=== PATIENT | female | born 1975 | race Caucasian/White ===

== ENCOUNTER 2019-06-06 11:28 | Inpatient (IN) | payer SELFPAY ==
[~2019-06-06] VITALS: Ht 165.1 cm; Wt 53.6 kg
[2019-06-06] MEDS ORDERED: SODIUM CHLORIDE 0.9% 1,000 ML IVB ONE (13:31)
[2019-06-06] MEDS ORDERED: HYDROmorphone HCL 2 MG/ML VL IV ONE (13:45)
[2019-06-06] MEDS ORDERED: PROMETHAZINE HCL 25 MG/ML 1ML IV PRN (13:45)
[2019-06-06 13:49] LABS: Hematocrit 46.1 % (36.0-46.0); Mean Corpuscular Hemoglobin 30.8 pg (28.0-32.0); Mean Corpuscular Hgb Conc. 32.6 g/dL (32.0-36.0); Mean Corpuscular Volume 94.7 fL (80.0-100.0); Platelet Count (auto) 444 10^3/uL (140-450); Red Blood Cells 4.86 10^6/uL (4.0-5.20); Red Cell Distribution Width 13.9 % (11.8-14.3); White Blood Cell 25.5 10^3/uL (4.4-10.8)
[2019-06-06 13:54] LABS: Basophils % (manual) 0 (0.0-2.0); Blast Cells 0; Eosinophils % (manual) 0 (0-7); Promyelocytes % 0; Reactive Lymphocytes 0
[2019-06-06 14:01] LABS: Albumin 3.3 g/dL (3.4-5.0); Calcium 8.7 mg/dL (8.5-10.1); Potassium 3.3 mmol/L (3.5-5.1)
[2019-06-06 14:02] LABS: Urine Bacteria NONE SEEN /hpf (None Seen); Urine Blood 1+ /uL (Negative); Urine Mucus FEW (None Seen); Urine Specific Gravity 1.021 (1.001-1.035); Urine WBC 92 /hpf (0 - 5)
[2019-06-06 14:04] LABS: Bilirubin, Total 0.3 mg/dL (0.2-1.0); Total Protein 7.3 g/dL (6.4-8.2)
[2019-06-06 14:19] LABS: Beta HCG, Quantitative < 1 mlU/mL (1-3); Thyroid Stimulating Hormone 2.89 uIU/mL (0.358-3.74)
[2019-06-06 14:34] LABS: Band Neutrophils % (manual) 9; Lymphocytes % (manual) 7 (10.0-50.0); Metamyelocytes % 3; Monocytes % (manual) 10 (0-12); Myelocytes % 1
[2019-06-06] MEDS ORDERED: SODIUM BICARBONATE 8.4 % INJ 50ML VIAL IV ONE (15:00)
[2019-06-06 15:09] LABS: BUN/Creatinine Ratio 16.8
[2019-06-06] MEDS ORDERED: SOD CHL 0.9%/ KCL 40MEQ 1,000 ML IV ONE (15:30)
[2019-06-06] MEDS ORDERED: cefTRIAXone 1GM/50ML D5W 50 ML IV ONE ×2 (15:30→16:00)
[2019-06-06] MEDS ORDERED: POTASSIUM EFFERVESENT TAB 25 MEQ PO ONE (15:30)
[2019-06-06] MEDS ORDERED: InsuLIN R (HUMAN) 100 UNITS in SODIUM CHL 0.9% 99 ML IV SCH (15:59)
[2019-06-06] MEDS ORDERED: POTASSIUM CHLORIDE 60 MEQ, LIDOCAINE 1% (LOCAL ANESTH.) 6 ML in SODIUM CHL 0.9% 500 ML IV ONE (16:00)
[2019-06-06] MEDS ORDERED: SODIUM CHLORIDE 0.9% 1,000 ML IV SCH (16:00)
[2019-06-06] MEDS ORDERED: DEXTROSE (50%) 50ML SYRG IV PRN (16:00)
[2019-06-06] MEDS ORDERED: ONDANSETRON HCL 4 MG/2 ML VIAL IV PRN (16:00)
[2019-06-06] MEDS ORDERED: MORPHINE SULF INJ 2 MG/ML SYRINGE 1ML IV PRN ×2 (16:00→16:15)
[2019-06-06] MEDS ORDERED: InsuLIN REG 1unit/0.01ml Soln (100units/ml) IV ONE (16:00)
[2019-06-06] MEDS ORDERED: NITROGLYCERIN 0.4 MG SL TAB SL PRN (16:15)
[2019-06-06] MEDS: ACCU-CHEK COMFORT CURVE STRIP VI SCH ×5 (16:30→22:32)
[2019-06-06] MEDS ORDERED: SODIUM BICARBONATE 50ML VIAL 50 ML in SOD CHL 0.45% 1,000 ML IV SCH (17:15)
[2019-06-06 18:26] LABS: Urine WBC None Seen /hpf (0 - 5)
[2019-06-06 18:38] LABS: Urine Bacteria FEW /hpf (None Seen); Urine Blood 1+ /uL (Negative); Urine Hyaline Cast FEW /lpf (0 - 2); Urine Mucus FEW (None Seen); Urine Specific Gravity 1.014 (1.001-1.035)
[2019-06-06 18:52] LABS: Alcohol, Urine < 3.0 mg/dL (0-5); Amphetamine Screen, Urine POSITIVE (NEGATIVE); Barbiturate Scree,Urine NEGATIVE (NEGATIVE); Benzodiazephine Screen, Urine NEGATIVE (NEGATIVE); Cannabinoid Screen, Urine NEGATIVE (NEGATIVE); Cocaine Screen, Urine NEGATIVE (NEGATIVE); Opiate Scree,Urine NEGATIVE (NEGATIVE); Phencyclidine Screen, Urine NEGATIVE (NEGATIVE)
[2019-06-06 20:54] VITALS: BP 114/73
[2019-06-06] MEDS ORDERED: LABETALOL HCL 5 MG/ML 4ML SYRINGE IV PRN (21:00)
[2019-06-06 21:17] LABS: BUN/Creatinine Ratio 17.4; Potassium 3.3 mmol/L (3.5-5.1)
[2019-06-07] MEDS: ACCU-CHEK COMFORT CURVE STRIP VI SCH ×9 (00:03→18:00)
[2019-06-07] MEDS ORDERED: ALBUMIN 25% 100 ML IV ONE (01:00)
[2019-06-07] MEDS ORDERED: SODIUM BICARBONATE 8.4 % INJ 50ML VIAL IV ONE (01:00)
[2019-06-07] MEDS ORDERED: SODIUM BICARBONATE 50ML VIAL 100 ML in SOD CHL 0.45% 1,000 ML IV SCH (01:15)
[2019-06-07 06:24] LABS: Basophils # (auto) 0.1 uL; Basophils % (auto) 0.6 % (0.0-2.0); Eosinophils # (auto) 0 uL; Eosinophils % (auto) 0.1 % (0.0-7.0); Hematocrit 39.2 % (36.0-46.0); Hemoglobin 13.4 g/dL (12.2-16.2); Lymphocytes # (auto) 1.6 uL; Lymphocytes % (auto) 11.1 % (10.0-50.0); Mean Corpuscular Hemoglobin 30.7 pg (28.0-32.0); Mean Corpuscular Hgb Conc. 34.1 g/dL (32.0-36.0); Mean Corpuscular Volume 89.8 fL (80.0-100.0); Monocytes # (auto) 1.4 uL; Monocytes % (auto) 9.8 % (0.0-12.0); Neutrophils # (auto) 11.1 uL; Neutrophils % (auto) 78.4 % (37.0-80.0); Platelet Count (auto) 285 10^3/uL (140-450); Red Blood Cells 4.37 10^6/uL (4.0-5.20); White Blood Cell 14.2 10^3/uL (4.4-10.8)
[2019-06-07 06:50] LABS: Magnesium 1.9 mg/dL (1.6-2.6)
[2019-06-07 06:53] LABS: BUN/Creatinine Ratio 16.4
[2019-06-07 07:28] LABS: Phosphorus 0.8 mg/dL (2.5-4.90); Potassium 2.4 mmol/L (3.5-5.1)
[2019-06-07] MEDS ORDERED: POTASSIUM CHL 20MEQ/100ML 100 ML IV SCH (08:00)
[2019-06-07] MEDS ORDERED: D5W/SOD CHLO 0.9% 1,000 ML IV SCH (08:00)
[2019-06-07] MEDS: cefTRIAXone 1GM/50ML D5W 50 ML IV SCH (08:33)
[2019-06-07] MEDS: PANTOPRAZOLE 40 MG/10 ML VIAL INJ IV SCH (10:18)
[2019-06-07] MEDS ORDERED: POTASSIUM PHOSPHATE 44 MEQ in D5W 5% 250 ML IV ONE ×2 (11:00→11:15)
[2019-06-07] MEDS ORDERED: MAGNESIUM SULFATE 1GM/100ML 100 ML IV ONE (11:15)
[2019-06-07] MEDS ORDERED: SODIUM CHLORIDE 0.9% 1,750 ML IV ONE (11:15)
[2019-06-07] MEDS ORDERED: ENOXAPARIN SOD 40 MG/0.4 ML SYRINGE SC ONE (11:30)
[2019-06-07 12:23] LABS: Albumin 2.6 g/dL (3.4-5.0); BUN/Creatinine Ratio 14.3; Calcium 7.7 mg/dL (8.5-10.1)
[2019-06-07 12:26] LABS: Bilirubin, Total 0.2 mg/dL (0.2-1.0); Total Protein 5.7 g/dL (6.4-8.2)
[2019-06-07 12:29] LABS: Potassium 2.4 mmol/L (3.5-5.1)
[2019-06-07] MEDS: D5W/SOD CHL 0.9%/KCL 40MEQ 1,000 ML IV SCH ×2 (12:45→19:35)
[2019-06-07] MEDS: NEUTRA-PHOS TABLET PO SCH ×2 (13:26→18:12)
[2019-06-07] MEDS: INSULIN LISPRO (HUMAN) 100 UNITS/ML ML SC SCH ×2 (14:04→18:12)
[2019-06-07 20:54] VITALS: BP 114/73
--- NOTE | 2019-06-07 20:55 | NUR ---
Telemetry admit from ER BERNARDO MAHONEY admitted to Telemetry unit after SBAR received. Patient oriented to Chris lopez RN, unit, room, bed, and unit policies regarding patient care and visiting hours. Patient now on continuous telemetry monitoring, tele box # [id number] and telemetry reading on arrival to unit is nsr. Patient placed on bedside oxygen, weighed by bed scale and encouraged to call if they need something. All questions and concerns addressed, patient verbalized understanding.
[2019-06-07] MEDS ORDERED: ACCU-CHEK COMFORT CURVE STRIP VI SCH (22:00)
[2019-06-07] MEDS ORDERED: INSULIN LANTUS (GLARGINE) 1 /0.01ml (100units/ml) SC SCH (22:00)
--- NOTE | 2019-06-07 22:10 | NUR ---
PAGED HOSPITALIST WITH THE BLOOD SUGAR OF [phone]
--- NOTE | 2019-06-07 22:20 | NUR ---
RECEIVED AND IMPLEMENTED HOSPITALIST ORDERS.
[2019-06-07] MEDS ORDERED: DEXTROSE (50%) 50ML SYRG IV PRN (22:30)
[2019-06-07] MEDS ORDERED: InsuLIN REG 1unit/0.01ml Soln (100units/ml) SC ONE (22:30)
[2019-06-08] MEDS: D5W/SOD CHL 0.9%/KCL 40MEQ 1,000 ML IV SCH ×2 (04:17→14:09)
[2019-06-08 05:00] VITALS: BP 105/63
[2019-06-08 06:32] LABS: Basophils # (auto) 0 uL; Basophils % (auto) 0.4 % (0.0-2.0); Eosinophils # (auto) 0.1 uL; Eosinophils % (auto) 1.1 % (0.0-7.0); Hematocrit 36.6 % (36.0-46.0); Hemoglobin 12.9 g/dL (12.2-16.2); Lymphocytes # (auto) 2.8 uL; Mean Corpuscular Hemoglobin 30.9 pg (28.0-32.0); Mean Corpuscular Hgb Conc. 35.1 g/dL (32.0-36.0); Monocytes % (auto) 9.2 % (0.0-12.0); Neutrophils # (auto) 6.8 uL; Neutrophils % (auto) 63.3 % (37.0-80.0); Platelet Count (auto) 256 10^3/uL (140-450); Red Blood Cells 4.16 10^6/uL (4.0-5.20); White Blood Cell 10.7 10^3/uL (4.4-10.8)
[2019-06-08] MEDS: ACCU-CHEK COMFORT CURVE STRIP VI SCH ×4 (06:37→21:55)
[2019-06-08] MEDS: InsuLIN REG 1unit/0.01ml Soln (100units/ml) SC SCH ×4 (06:37→21:56)
[2019-06-08 06:46] LABS: INR 1.03 (0.9-1.15); Partial Thromboplastin Time 26.8 sec (23.64-32.05)
[2019-06-08 06:56] LABS: Albumin 2.2 g/dL (3.4-5.0); Calcium 7.9 mg/dL (8.5-10.1); Magnesium 1.8 mg/dL (1.6-2.6)
[2019-06-08] MEDS ORDERED: InsuLIN REG 1unit/0.01ml Soln (100units/ml) SC SCH ×2 (07:00→22:00)
[2019-06-08 07:01] LABS: BUN/Creatinine Ratio 15.2; Bilirubin, Total 0.2 mg/dL (0.2-1.0); Phosphorus 1.5 mg/dL (2.5-4.90); Total Protein 5.1 g/dL (6.4-8.2)
[2019-06-08 07:07] LABS: Potassium 2.3 mmol/L (3.5-5.1)
--- NOTE | 2019-06-08 07:11 | NUR ---
Critical Potassium Received a critical potassium of 2.3 from RYAN Terry, at the station. Paged hospitalist at this time to notify of critical value.
--- NOTE | 2019-06-08 07:26 | NUR ---
Call back from . Call back from Dr. Reid at this time. New orders received regarding patient's critical potassium.
[2019-06-08] MEDS: NEUTRA-PHOS TABLET PO SCH ×2 (08:24→12:16)
[2019-06-08] MEDS: INSULIN LISPRO (HUMAN) 100 UNITS/ML ML SC SCH ×2 (08:25→12:18)
[2019-06-08] MEDS: POTASSIUM CHL 20MEQ/100ML 100 ML IV SCH ×2 (08:30→10:45)
[2019-06-08 09:00] VITALS: BP 119/68
[2019-06-08] MEDS: PANTOPRAZOLE 40 MG/10 ML VIAL INJ IV SCH (10:46)
[2019-06-08] MEDS: ENOXAPARIN SOD 40 MG/0.4 ML SYRINGE SC SCH (10:46)
[2019-06-08 13:00] VITALS: BP 102/73
[2019-06-08] MEDS: cefTRIAXone 1GM/50ML D5W 50 ML IV SCH (14:08)
[2019-06-08] MEDS ORDERED: MAGNESIUM SULFATE 1GM/100ML 100 ML IV ONE (15:30)
[2019-06-08] MEDS ORDERED: DEXTROSE (50%) 50ML SYRG IV PRN (15:30)
[2019-06-08] MEDS ORDERED: POTASSIUM PHOSPHATE 44 MEQ in D5W 5% 250 ML IV ONE (15:30)
--- NOTE | 2019-06-08 15:58 | NUR ---
Social Service consult regarding Substance Abuse Rehabilitation. Provided pt with information on Resources. Explained the various organizations and facilities that are available for treatment. Explained that most of them are free. They are located all over the [facility]. Pt verbalized understanding regarding the information. Left packet with pt.
[2019-06-08 17:00] VITALS: BP 106/65
[2019-06-08] MEDS: metFORMIN HYDROCHLORIDE 500 MG TAB PO SCH (17:43)
--- NOTE | 2019-06-08 19:15 | NUR ---
Closing Shift Note Patient resting in bed. No distress noted. Will endorse care to the third shift lieutenant RN. Report given.
--- NOTE | 2019-06-08 19:25 | NUR ---
Opening Shift Note Received report from Tiff DAVIS. Assumed care of patient, awake and alert. No S/S of distress/SOB or pain. Instructed on POC and to call for assist PRN, will continue to monitor for changes Q1hr and PRN.
[2019-06-08] MEDS: INSULIN LANTUS (GLARGINE) 1 /0.01ml (100units/ml) SC SCH (21:56)
[2019-06-08 22:00] VITALS: BP 119/64
[2019-06-09 05:54] VITALS: BP 107/68
[2019-06-09] MEDS: ACCU-CHEK COMFORT CURVE STRIP VI SCH ×4 (06:47→21:36)
[2019-06-09] MEDS: InsuLIN REG 1unit/0.01ml Soln (100units/ml) SC SCH ×4 (06:47→21:37)
--- NOTE | 2019-06-09 07:30 | NUR ---
Opening Shift Note Assuming care of patient at this time. Patient is awake and alert. Patient states, "I feel better." Patient shows no signs or symptoms of distress or shortness of breath. Patient denies pain. Bed is locked and lowered with side rails up x2. Instructed patient on the plan of care for today and to call for assistance as needed. Call light within reach. Will continue to round hourly and as needed.
[2019-06-09 07:47] LABS: Basophils # (auto) 0 uL; Basophils % (auto) 0.4 % (0.0-2.0); Eosinophils # (auto) 0.1 uL; Eosinophils % (auto) 1.1 % (0.0-7.0); Hematocrit 37.8 % (36.0-46.0); Lymphocytes # (auto) 2.2 uL; Lymphocytes % (auto) 29.3 % (10.0-50.0); Mean Corpuscular Hgb Conc. 34.4 g/dL (32.0-36.0); Mean Corpuscular Volume 90.1 fL (80.0-100.0); Monocytes # (auto) 0.6 uL; Neutrophils # (auto) 4.6 uL; Neutrophils % (auto) 61.2 % (37.0-80.0); Platelet Count (auto) 246 10^3/uL (140-450); Red Cell Distribution Width 13.2 % (11.8-14.3); White Blood Cell 7.6 10^3/uL (4.4-10.8)
[2019-06-09 08:05] LABS: BUN/Creatinine Ratio 22.4; Calcium 8.5 mg/dL (8.5-10.1); Magnesium 2.2 mg/dL (1.6-2.6); Phosphorus 2.9 mg/dL (2.5-4.90); Potassium 3.2 mmol/L (3.5-5.1)
[2019-06-09] MEDS: metFORMIN HYDROCHLORIDE 500 MG TAB PO SCH ×2 (08:46→17:25)
[2019-06-09 09:11] VITALS: BP 98/64
[2019-06-09] MEDS: PANTOPRAZOLE 40 MG TAB PO SCH (09:57)
[2019-06-09] MEDS: ENOXAPARIN SOD 40 MG/0.4 ML SYRINGE SC SCH (09:57)
[2019-06-09] MEDS ORDERED: POTASSIUM CHL 20 Meq TABLET PO ONE (10:00)
--- NOTE | 2019-06-09 13:00 | NUR ---
TUBE WRAPPER consult Dr. Brooks at bedside discussing plan of care with patient and this RN. All questions and concerned addressed. Patient verbalized understanding of the plan of care.
--- NOTE | 2019-06-09 13:01 | NUR ---
OB consult Jo Ann, community health counselor, called in OB consult to Dr. Brooks.
[2019-06-09] MEDS: metroNIDAZOLE 500 MG TAB PO SCH ×2 (13:44→21:36)
--- NOTE | 2019-06-09 13:48 | NUR ---
Vaginal Culture Vaginal culture sent to lab at this time.
[2019-06-09] MEDS ORDERED: METF-370 PO (13:53)
[2019-06-09 16:59] VITALS: BP 82/56
[2019-06-09] MEDS: SODIUM CHLORIDE 0.9% 1,000 ML IV SCH (17:16)
--- NOTE | 2019-06-09 19:13 | NUR ---
Closing Shift Note Patient resting in bed. No distress noted. Report given. Will endorse care to the marine fire fighter RN.
[2019-06-09] MEDS: INSULIN LANTUS (GLARGINE) 1 /0.01ml (100units/ml) SC SCH (21:36)
[2019-06-09 21:56] VITALS: BP 99/62
[2019-06-10 05:57] VITALS: BP 100/62
[2019-06-10] MEDS: metroNIDAZOLE 500 MG TAB PO SCH ×2 (06:35→14:00)
[2019-06-10] MEDS: InsuLIN REG 1unit/0.01ml Soln (100units/ml) SC SCH ×3 (06:36→17:00)
[2019-06-10] MEDS: ACCU-CHEK COMFORT CURVE STRIP VI SCH ×3 (06:36→17:00)
--- NOTE | 2019-06-10 08:00 | NUR ---
Received pt resting in bed, call light within reach, commode at bed side, pt denies any pain or discomfort, will continue to monitor pt.
[2019-06-10] MEDS: SODIUM CHLORIDE 0.9% 1,000 ML IV SCH (08:19)
[2019-06-10] MEDS: metFORMIN HYDROCHLORIDE 500 MG TAB PO SCH (08:20)
[2019-06-10 08:45] VITALS: BP 103/70
[2019-06-10] MEDS: PANTOPRAZOLE 40 MG TAB PO SCH (09:26)
[2019-06-10] MEDS: ENOXAPARIN SOD 40 MG/0.4 ML SYRINGE SC SCH (09:26)
[2019-06-10 13:00] VITALS: BP 87/50
--- NOTE | 2019-06-10 13:35 | NUR ---
Dr. Proctor at bed side to see pt, doctor discussed the plan of care and the discharge for today, pt informed doctor that Elin Hoyos/ continuum pet care technician had already seen her and giving her information to find a pcp, [facility] / medical department had already seen her and helped her to apply for medical, and that bilingual social worker had seen her already and giving her information regarding rehab centers.
[2019-06-10 14:00] VITALS: BP 102/66
[2019-06-10] MEDS ORDERED: METF-372 PO (14:09)
[2019-06-10] MEDS ORDERED: METR500T PO (14:09)
[2019-06-10] MEDS ORDERED: GLIP5TAB12 PO (14:09)
[2019-06-10 15:09] VITALS: BP 87/50
--- NOTE | 2019-06-10 16:18 | NUR ---
Discharge instructions given as ordered. Encourage to follow up with PMD as instructed. Patient given [facility] urgent care information, [facility] information, and [facility] information. All questions and concerns addressed. Patient verbalized understanding. Medication reconciliation form completed and copy given to patient. No home medications held in Pharmacy, and no needed vaccines given. IV removed with catheter intact, pressure dressing applied. Telemetry unit returned to ICU. Patient awaiting for her family to pick her up.
--- NOTE | 2019-06-10 16:21 | NUR ---
assessment Patient is a 43 year old female who is alert and oriented. Patients cognitive abilities are intact. Prior to admission patient lived home with family and functioned independently. Patient informed me she is able to care for her own ADLs. Per patient she will return home to her prior living arrangements post discharge and family will transport her home. Patient has been admitted for DKA. Patient informed me she has been diabetic for about a year or so. Patient informed me she ran out of medication and never went to a doctor for a refill. I informed patient of the importance of taking her medications. Patient is also positive for amphetamines. Patient did not want to discuss her drug use. Blanca ADAMS will try to offer resources. I informed patient she has a right to speak to a social worker aide regarding all care. I informed patient she has a right to participate in any and all discharge planning. Patient does not have a POA and advanced directive. I have offered patient information on POA and advanced directives. I informed the patient the advantages and benefits of having an Advanced Directive. Patient verbalized understanding and agreed to discharge plan. Addendum: 06/10/19 at 1625 by Elin NIETO Amended: Links added.
--- NOTE | 2019-06-10 17:00 | NUR ---
Patient taken to vehicle via wheelchair with all personal belongings, accompanied by staff and family member. No distress noted at time of departure.
== END 2019-06-10 17:00 | disposition home or self-care (01) | DRG 637 ==
LOC: EDBD 11:28 → EDUNIT# 11:28 → ER 11:35 → OVERFLOW 11:36 → TELE-WESTW 06-07 21:08
PROVIDERS: ADMIT Nurse Practitioner Acute Care; ATTEND Internal Medicine
DX: E11.10 Type 2 diabetes mellitus with ketoacidosis without coma (principal); G93.41 Metabolic encephalopathy; E83.42 Hypomagnesemia; E87.6 Hypokalemia; E86.0 Dehydration; E87.5 Hyperkalemia; F15.90 Other stimulant use, unspecified, uncomplicated; E83.39 Other disorders of phosphorus metabolism; N76.0 Acute vaginitis; I10 Essential (primary) hypertension; Z71.6 Tobacco abuse counseling; Z71.51 Drug abuse counseling and surveillance of drug abuser; Z91.19 Patient's noncompliance with other medical treatment and regimen; Z72.0 Tobacco use
CPT/HCPCS: 36415; 36600; 71045; 76856; 80048; 80053; 80061; 80307; 81001; 81025; 82010; 82550; 82805; 82962; 83036; 83605; 83690; 83735; 83930; 84100; 84132; 84443; 84702; 85007; 85025; 85027; 85610; 85730; 87040; 87070; 87086; 93005; 99291; C9113; G0378; J0696; J1815; J2001; J3480; J7060; P9047

== ENCOUNTER 2023-04-27 15:36 | Inpatient (IN) | payer MEDICAID ==
[~2023-04-27] VITALS: Ht 165.1 cm; Wt 50.0 kg
[2023-04-27 08:40] VITALS: PULSE 99; RESP 18; O2SAT 99
[~2023-04-27 15:36] MED LIST: GLIP5TAB12 PO; METF-370 PO; METF-372 PO; METR500T PO
[2023-04-27] MEDS ORDERED: SODIUM CHLORIDE 0.9% 2,000 ML IVB ONE (16:15)
[2023-04-27] MEDS ORDERED: PROCHLORPERAZINE EDISYLATE 5 MG/ML 2ML VIAL IV ONE (16:15)
[2023-04-27 17:14] LABS: Basophils # (auto) 0.1 10 ^3/uL (0-0.2); Basophils % (auto) 0.6 % (0.0-2.0); Eosinophils # (auto) 0 10 ^3/uL (0-0.8); Eosinophils % (auto) 0.1 % (0.0-7.0); Hematocrit 45.7 % (36.0-46.0); Lymphocytes # (auto) 1.6 10 ^3/uL (0.4-5.4); Lymphocytes % (auto) 12.5 % (10.0-50.0); Mean Corpuscular Hemoglobin 29.7 pg (28.0-32.0); Mean Corpuscular Hgb Conc. 32.8 g/dL (32.0-36.0); Mean Corpuscular Volume 90.4 fL (80.0-100.0); Monocytes # (auto) 0.4 10 ^3/uL (0-1.3); Monocytes % (auto) 3.2 % (0.0-12.0); Neutrophils # (auto) 10.9 10 ^3/uL (1.6-8.6); Neutrophils % (auto) 83.6 % (37.0-80.0); Red Blood Cells 5.06 10^6/uL (4.0-5.20); Red Cell Distribution Width 13.5 % (11.8-14.3)
[2023-04-27 17:30] LABS: Alanine Aminotransferase 25 U/L (7-40); Albumin 4.7 g/dL (3.2-4.8); Alkaline Phosphatase 148 U/L (46-116); Anion Gap 23 (5-15); Aspartate Aminotransferase 26 U/L (13-40); BUN/Creatinine Ratio 11.6 (10.0-20.0); Blood Urea Nitrogen 13 mg/dL (9-23); Calcium 9.5 mg/dL (8.7-10.4); Carbon Dioxide 14 mmol/L (20-30); Chloride 102 mmol/L (98-107); Glucose 207 mg/dL (74-106); Magnesium 2.3 mg/dL (1.6-2.6); Potassium 4.1 mmol/L (3.5-5.1); Sodium 139 mmol/L (136-145)
[2023-04-27 17:31] LABS: Bilirubin, Total 0.3 mg/dL (0.2-1.0); Total Protein 7.2 g/dL (5.7-8.2)
[2023-04-27] MEDS ORDERED: DEXTROSE (50%) 50ML SYRG IV PRN (18:00)
[2023-04-27] MEDS ORDERED: INSULIN DRIP 100 UNIT/100ML 100 ML IV SCH (18:00)
[2023-04-27 20:40] VITALS: PULSE 133; RESP 30; O2SAT 97
[2023-04-27] MEDS: ACCU-CHEK COMFORT CURVE STRIP VI SCH ×3 (20:46→22:38)
[2023-04-27] MEDS ORDERED: LACTATED RINGER'S 2,000 ML IV ONE (21:30)
[2023-04-27] MEDS ORDERED: SODIUM CHLORIDE 0.9% 250 ML IV ONE (22:00)
[2023-04-27] MEDS ORDERED: SODIUM CHLORIDE 0.9% 2,000 ML IV ONE (22:15)
[2023-04-27] MEDS ORDERED: MORPHINE SULFATE INJ 2 MG/ml SYRG IV PRN (22:30)
[2023-04-27] MEDS ORDERED: HYDROcodone-ACET 5/325MG TAB PO PRN (22:30)
[2023-04-27] MEDS ORDERED: ONDANSETRON HCL 4 MG/2 ML VIAL IV PRN (22:30)
[2023-04-27] MEDS ORDERED: ACETAMINOPHEN 325 MG TAB PO PRN (22:30)
[2023-04-27] MEDS ORDERED: DOCUSATE SOD 100 MG CAP PO PRN (22:30)
[2023-04-27 22:50] LABS: Chloride 103 mmol/L (98-107); Potassium 4.2 mmol/L (3.5-5.1)
[2023-04-27 22:51] LABS: Anion Gap 21.00001 (5-15)
[2023-04-27 22:52] LABS: Calcium 8.8 mg/dL (8.7-10.4)
[2023-04-27 22:57] LABS: BUN/Creatinine Ratio 7.3 (10.0-20.0); Blood Urea Nitrogen 9 mg/dL (9-23)
[2023-04-27 23:08] LABS: Sodium 134 mmol/L (136-145)
[2023-04-27 23:10] LABS: Carbon Dioxide < 10 mmol/L (20-30); Glucose 511 mg/dL (74-106)
[2023-04-27] MEDS: SODIUM CHLORIDE 0.9% 1,000 ML IV SCH (23:31)
[2023-04-27] MEDS: D5W/SOD CHL 0.45%/KCL 20MEQ 1,000 ML IV SCH ×2 (23:31→23:43)
[2023-04-28] MEDS: ACCU-CHEK COMFORT CURVE STRIP VI SCH ×8 (00:08→22:59)
[2023-04-28] MEDS: D5W/SOD CHL 0.45%/KCL 20MEQ 1,000 ML IV SCH (00:14)
[2023-04-28 04:20] LABS: Basophils # (auto) 0 10 ^3/uL (0-0.2); Basophils % (auto) 0.3 % (0.0-2.0); Eosinophils # (auto) 0 10 ^3/uL (0-0.8); Eosinophils % (auto) 0.2 % (0.0-7.0); Hemoglobin 12.6 g/dL (12.2-16.2); Lymphocytes # (auto) 2.6 10 ^3/uL (0.4-5.4); Lymphocytes % (auto) 24.4 % (10.0-50.0); Mean Corpuscular Hemoglobin 30.2 pg (28.0-32.0); Mean Corpuscular Hgb Conc. 34.1 g/dL (32.0-36.0); Mean Corpuscular Volume 88.5 fL (80.0-100.0); Monocytes # (auto) 0.8 10 ^3/uL (0-1.3); Neutrophils # (auto) 7.4 10 ^3/uL (1.6-8.6); Neutrophils % (auto) 68.1 % (37.0-80.0); Red Blood Cells 4.19 10^6/uL (4.0-5.20); Red Cell Distribution Width 13.6 % (11.8-14.3); White Blood Cell 10.8 10^3/uL (4.4-10.8)
[2023-04-28 04:41] LABS: Alanine Aminotransferase 16 U/L (7-40); Albumin 3.5 g/dL (3.2-4.8); Alkaline Phosphatase 108 U/L (46-116); Anion Gap 13 (5-15); Aspartate Aminotransferase 13 U/L (13-40); BUN/Creatinine Ratio 8.8 (10.0-20.0); Bilirubin, Total 0.2 mg/dL (0.2-1.0); Blood Urea Nitrogen 8 mg/dL (9-23); Calcium 7.9 mg/dL (8.7-10.4); Carbon Dioxide 15 mmol/L (20-30); Glucose 155 mg/dL (74-106); Potassium 3.4 mmol/L (3.5-5.1); Sodium 141 mmol/L (136-145); Total Protein 5.6 g/dL (5.7-8.2)
[2023-04-28 04:43] LABS: Chloride 113 mmol/L (98-107)
[2023-04-28] MEDS ORDERED: DEXTROSE (50%) 50ML SYRG IV PRN (05:15)
[2023-04-28] MEDS: InsuLIN REG 1unit/0.01ml Soln (100units/ml) SC SCH ×4 (06:24→22:57)
[2023-04-28] MEDS: SODIUM CHLORIDE 0.9% 1,000 ML IV SCH ×3 (07:04→22:59)
[2023-04-28] MEDS: INSULIN LANTUS (GLARGINE) 1 /0.01ml (100units/ml) SC SCH ×2 (07:04→22:55)
[2023-04-28 08:40] VITALS: PULSE 99; RESP 18; O2SAT 99
[2023-04-28] MEDS ORDERED: POTASSIUM CHL 20 Meq TABLET PO ONE (08:45)
[2023-04-28 09:00] VITALS: BP 153/84; PULSE 99; RESP 18; TEMP 98.6; O2SAT 99
[2023-04-28] MEDS: ENOXAPARIN SOD 40 MG/0.4 ML SYRINGE SC SCH (09:19)
[2023-04-28 13:00] VITALS: BP 147/78; PULSE 125; RESP 19; TEMP 99; O2SAT 92
[2023-04-28 17:00] VITALS: BP 107/55; PULSE 64; RESP 18; TEMP 98; O2SAT 100
[2023-04-28 20:00] VITALS: RESP 18
[2023-04-28 23:00] VITALS: BP 134/84; PULSE 105; RESP 19; TEMP 97.9; O2SAT 96
[2023-04-29 05:10] VITALS: BP 115/76; PULSE 99; RESP 18; TEMP 98.5; O2SAT 98
[2023-04-29] MEDS: ACCU-CHEK COMFORT CURVE STRIP VI SCH ×3 (05:46→18:22)
[2023-04-29] MEDS: InsuLIN REG 1unit/0.01ml Soln (100units/ml) SC SCH ×3 (05:46→18:23)
[2023-04-29] MEDS: INSULIN LANTUS (GLARGINE) 1 /0.01ml (100units/ml) SC SCH ×2 (06:01→14:04)
[2023-04-29 08:00] VITALS: BP 105/71; PULSE 101; RESP 16; TEMP 98.4; O2SAT 99
[2023-04-29 09:00] VITALS: BP 105/71; PULSE 101; RESP 18; TEMP 98.4; O2SAT 99
[2023-04-29] MEDS: SODIUM CHLORIDE 0.9% 1,000 ML IV SCH ×2 (09:17→16:10)
[2023-04-29] MEDS: ENOXAPARIN SOD 40 MG/0.4 ML SYRINGE SC SCH (09:22)
[2023-04-29 13:00] VITALS: BP 89/55; PULSE 56; RESP 16; TEMP 97.3; O2SAT 99
[2023-04-29] MEDS ORDERED: INSULIN LANTUS (GLARGINE) 1 /0.01ml (100units/ml) SC SCH (13:30)
[2023-04-29 16:55] VITALS: BP 110/72; PULSE 102; RESP 16; TEMP 97.6; O2SAT 100
[2023-04-29 22:40] VITALS: BP 100/61; PULSE 101; RESP 18; TEMP 99.3; O2SAT 97
[2023-04-30] MEDS: ACCU-CHEK COMFORT CURVE STRIP VI SCH ×3 (00:17→12:00)
[2023-04-30] MEDS: InsuLIN REG 1unit/0.01ml Soln (100units/ml) SC SCH ×3 (00:20→12:00)
[2023-04-30] MEDS: INSULIN LANTUS (GLARGINE) 1 /0.01ml (100units/ml) SC SCH ×2 (00:22→06:31)
[2023-04-30] MEDS: SODIUM CHLORIDE 0.9% 1,000 ML IV SCH ×2 (00:30→08:50)
[2023-04-30 05:22] VITALS: BP 104/66; PULSE 97; RESP 18; TEMP 99; O2SAT 98
[2023-04-30 06:51] LABS: Basophils # (auto) 0 10 ^3/uL (0-0.2); Basophils % (auto) 0.7 % (0.0-2.0); Eosinophils # (auto) 0.1 10 ^3/uL (0-0.8); Eosinophils % (auto) 1.6 % (0.0-7.0); Hematocrit 36.7 % (36.0-46.0); Hemoglobin 12.2 g/dL (12.2-16.2); Lymphocytes # (auto) 0.7 10 ^3/uL (0.4-5.4); Mean Corpuscular Hemoglobin 29.8 pg (28.0-32.0); Mean Corpuscular Hgb Conc. 33.2 g/dL (32.0-36.0); Mean Corpuscular Volume 89.8 fL (80.0-100.0); Monocytes # (auto) 0.3 10 ^3/uL (0-1.3); Monocytes % (auto) 9.1 % (0.0-12.0); Neutrophils # (auto) 2.3 10 ^3/uL (1.6-8.6); Neutrophils % (auto) 68.6 % (37.0-80.0); Red Blood Cells 4.09 10^6/uL (4.0-5.20); Red Cell Distribution Width 13.3 % (11.8-14.3); White Blood Cell 3.4 10^3/uL (4.4-10.8)
[2023-04-30 06:54] LABS: Chloride 99 mmol/L (98-107); Potassium 3.4 mmol/L (3.5-5.1)
[2023-04-30 06:55] LABS: Anion Gap 5 (5-15); Carbon Dioxide 29 mmol/L (20-30)
[2023-04-30 06:56] LABS: Calcium 8.5 mg/dL (8.5-10.1)
[2023-04-30 07:01] LABS: BUN/Creatinine Ratio 10.9 (10.0-20.0); Blood Urea Nitrogen 6 mg/dL (9-23); Glucose 178 mg/dL (74-106)
[2023-04-30 07:02] LABS: Sodium 133 mmol/L (136-145)
[2023-04-30 08:40] VITALS: BP 117/76; PULSE 103; RESP 20; TEMP 98; O2SAT 99
[2023-04-30] MEDS: ENOXAPARIN SOD 40 MG/0.4 ML SYRINGE SC SCH (09:18)
[2023-04-30 12:54] VITALS: BP 113/85; PULSE 103; RESP 21; TEMP 99.1; O2SAT 99
[2023-04-30] MEDS ORDERED: INSLANTI SC (14:08)
[2023-04-30 14:58] VITALS: BP 113/85; PULSE 103; RESP 21; TEMP 37.3; O2SAT 99
[2023-04-30 16:24] LABS: Magnesium 1.9 mg/dL (1.6-2.6)
[2023-04-30 16:26] LABS: Phosphorus 2.5 mg/dL (2.4-5.1)
== END 2023-04-30 15:40 | disposition home or self-care (01) | DRG 420 ==
LOC: EDBD 15:36 → ER 15:36 → TELE 22:36 → TELE-WESTW 04-28 08:34 → WEST WING 04-28 08:43
PROVIDERS: ADMIT Internal Medicine; ATTEND Internal Medicine
DX: E11.10 Type 2 diabetes mellitus with ketoacidosis without coma (principal); N17.0 Acute kidney failure with tubular necrosis; E87.6 Hypokalemia; D72.829 Elevated white blood cell count, unspecified; E11.65 Type 2 diabetes mellitus with hyperglycemia; Z80.1 Family history of malignant neoplasm of trachea, bronchus and lung
CPT/HCPCS: 36415; 80048; 80053; 82010; 82962; 83690; 83735; 83930; 84100; 84702; 85025; G0378; J1815; J2405

== ENCOUNTER 2024-01-23 13:54 | Inpatient (IN) | payer MEDICAID ==
[2024-01-23] VITALS (7 sets, daily range): BP systolic 97–106; BP diastolic 51–69; PULSE 96–109; RESP 18–34; O2SAT 99–100
[~2024-01-23] VITALS: Ht 165.1 cm; Wt 52.0 kg
[~2024-01-23 13:54] MED LIST changes: -GLIP5TAB12 PO; +GLIP5TAB21 PO; +INSLANTI SC
[2024-01-23] MEDS ORDERED: SODIUM CHLORIDE 0.9% 1,000 ML IV SCH ×3 (14:15→20:15)
[2024-01-23] MEDS ORDERED: SODIUM CHLORIDE 0.9% 1,000 ML IV ONE (14:15)
[2024-01-23] MEDS: SODIUM CHLORIDE 0.9% 1,000 ML IV ONE ×4 (14:21→22:15)
[2024-01-23 15:00] LABS: Hematocrit 50.7 % (36.0-46.0); Hemoglobin 14.8 g/dL (12.2-16.2); Mean Corpuscular Hemoglobin 30.5 pg (28.0-32.0); Mean Corpuscular Hgb Conc. 29.2 g/dL (32.0-36.0); Mean Corpuscular Volume 104.5 fL (80.0-100.0); Platelet Count (auto) 456 10^3/uL (140-450); Red Blood Cells 4.86 10^6/uL (4.0-5.20); Red Cell Distribution Width 15.3 % (11.8-14.3); White Blood Cell 26.9 10^3/uL (4.4-10.8)
[2024-01-23 15:01] LABS: Basophils % (manual) 0 (0.0-2.0); Blast Cells 0; Eosinophils % (manual) 0 (0-7); Metamyelocytes % 0; Myelocytes % 0; Promyelocytes % 0; Reactive Lymphocytes 0
[2024-01-23] MEDS: ACCU-CHEK COMFORT CURVE STRIP VI SCH (15:26)
[2024-01-23 15:29] LABS: Chloride 85 mmol/L (98-107); Potassium 5.5 mmol/L (3.5-5.1); Sodium 126 mmol/L (136-145)
[2024-01-23 15:30] LABS: Anion Gap 31.00001 (5-15)
[2024-01-23 15:35] LABS: BUN/Creatinine Ratio 17.6 (10.0-20.0); Blood Urea Nitrogen 44 mg/dL (9-23)
[2024-01-23] MEDS: INSULIN LANTUS (GLARGINE) 1 /0.01ml (100units/ml) SC ONE (15:36)
[2024-01-23 15:43] LABS: Anisocytosis Slight; Band Neutrophils % (manual) 2; Lymphocytes % (manual) 10 (10.0-50.0); Macrocytosis Slight; Magnesium 3.1 mg/dL (1.6-2.6); Monocytes % (manual) 4 (0-12); Platelet Estimate Increased
[2024-01-23 15:45] LABS: Phosphorus 12.1 mg/dL (2.4-5.1)
[2024-01-23 15:55] LABS: Carbon Dioxide < 10 mmol/L (20-30); Glucose 914 mg/dL (74-106)
[2024-01-23] MEDS: PIPERACILLIN-TAZOB 3.375GM 100 ML IV ONE (15:59)
[2024-01-23] MEDS: metroNIDAZOLE 500MG/100ML 100 ML IV ONE (16:00)
[2024-01-23] MEDS: INSULIN DRIP 100 UNIT/100ML 100 ML IV SCH ×2 (17:03→20:00)
[2024-01-23] MEDS: SODIUM BICARB 8.4% 50Meq/50ml SYR Vial IV ONE ×2 (18:04→20:38)
[2024-01-23] MEDS: LORazepam 2MG/ML-1ML VIAL IV ONE (18:09)
[2024-01-23 18:37] LABS: Lactic Acid w/Reflex 2.8 mmol/L (0.4-2.0)
[2024-01-23] MEDS: ETOMIDATE (2MG/ML) 20ML VIAL IV ONE ×2 (18:49→19:01)
[2024-01-23] MEDS: ROCURONIUM 10MG/ML 10ML VIAL IV ONE ×2 (18:49→19:01)
[2024-01-23] MEDS: PROPOFOL 100 ML IV SCH (18:55)
[2024-01-23] MEDS: PROPOFOL 100 ML IV ONE (19:01)
[2024-01-23 20:11] LABS: Urine Bacteria None Seen /hpf (None Seen)
[2024-01-23 20:22] LABS: Urine Blood 1+ /uL (Negative); Urine Clarity Clear (Clear); Urine Color Light-Yellow (Yellow); Urine Protein, UAD TRACE (Negative); Urine Specific Gravity 1.019 (1.001-1.035); Urine Urobilinogen Normal (Negative); Urine WBC 1 /hpf (0 - 5)
[2024-01-23 20:28] LABS: Base Excess -21.7 mmol/L (-2.0-3.0)
[2024-01-23] MEDS: MIDAZOLAM DRIP 50 mg/50mL 50 ML IV SCH (20:41)
[2024-01-23] MEDS ORDERED: INSULIN DRIP 100 UNIT/100ML 100 ML IV SCH (20:45)
[2024-01-23 21:39] LABS: Base Excess -16.1 mmol/L (-2.0-3.0)
[2024-01-23] MEDS: metroNIDAZOLE 500MG/100ML 100 ML IV SCH (22:42)
[2024-01-23] MEDS ORDERED: NITROGLYCERIN 0.4 MG SL TAB SL PRN (22:45)
[2024-01-23] MEDS ORDERED: MORPHINE SULFATE INJ 2 MG/ml SYRG IV PRN (22:45)
[2024-01-23] MEDS: FAMOTIDINE (10MG/ML) 2ML VL IV SCH (22:47)
[2024-01-23] MEDS: D5W/SOD CHL 0.45% 1,000 ML IV SCH (23:46)
[2024-01-24] VITALS (75 sets, daily range): BP systolic 74–152; BP diastolic 38–85; PULSE 92–110; RESP 17–22; TEMP 97.8–99.7; O2SAT 98–100
[2024-01-24 00:08] LABS: Basophils # (auto) 0 10 ^3/uL (0-0.2); Basophils % (auto) 0.2 % (0.0-2.0); Eosinophils # (auto) 0 10 ^3/uL (0-0.8); Eosinophils % (auto) 0.1 % (0.0-7.0); Hematocrit 33.2 % (36.0-46.0); Hemoglobin 11.1 g/dL (12.2-16.2); Lymphocytes # (auto) 2.2 10 ^3/uL (0.4-5.4); Lymphocytes % (auto) 11.1 % (10.0-50.0); Mean Corpuscular Hemoglobin 30.6 pg (28.0-32.0); Mean Corpuscular Hgb Conc. 33.4 g/dL (32.0-36.0); Mean Corpuscular Volume 91.7 fL (80.0-100.0); Neutrophils # (auto) 16.5 10 ^3/uL (1.6-8.6); Neutrophils % (auto) 83.6 % (37.0-80.0); Platelet Count (auto) 279 10^3/uL (140-450); Red Blood Cells 3.62 10^6/uL (4.0-5.20); White Blood Cell 19.7 10^3/uL (4.4-10.8)
[2024-01-24 00:10] LABS: Chloride 105 mmol/L (98-107); Sodium 138 mmol/L (136-145)
[2024-01-24 00:11] LABS: Anion Gap 20 (5-15); Carbon Dioxide 13 mmol/L (20-30)
[2024-01-24 00:12] LABS: Calcium 6.9 mg/dL (8.7-10.4)
[2024-01-24 00:16] LABS: BUN/Creatinine Ratio 32.5 (10.0-20.0); Blood Urea Nitrogen 51 mg/dL (9-23)
[2024-01-24 00:25] LABS: Glucose 472 mg/dL (74-106)
[2024-01-24] MEDS: PHENYLEPHRINE IV 250 ML IV SCH (00:39)
[2024-01-24] MEDS: fentaNYL Drip 2500mCg/250mlNS 250 ML IV SCH (01:00)
[2024-01-24 02:36] LABS: Chloride 108 mmol/L (98-107); Potassium 2.9 mmol/L (3.5-5.1); Sodium 137 mmol/L (136-145)
[2024-01-24 02:37] LABS: Anion Gap 13 (5-15); Calcium 6.8 mg/dL (8.7-10.4); Carbon Dioxide 16 mmol/L (20-30)
[2024-01-24 02:42] LABS: BUN/Creatinine Ratio 29.3 (10.0-20.0); Blood Urea Nitrogen 43 mg/dL (9-23)
[2024-01-24 02:52] LABS: Glucose 441 mg/dL (74-106)
[2024-01-24] MEDS: D5W/SOD CHL 0.45%/KCL 20MEQ 1,000 ML IV SCH (03:15)
[2024-01-24 04:32] LABS: Basophils # (auto) 0.1 10 ^3/uL (0-0.2); Basophils % (auto) 0.4 % (0.0-2.0); Eosinophils # (auto) 0 10 ^3/uL (0-0.8); Eosinophils % (auto) 0.1 % (0.0-7.0); Hematocrit 33.4 % (36.0-46.0); Hemoglobin 11.4 g/dL (12.2-16.2); Lymphocytes # (auto) 2.6 10 ^3/uL (0.4-5.4); Lymphocytes % (auto) 12.3 % (10.0-50.0); Mean Corpuscular Hemoglobin 30.5 pg (28.0-32.0); Mean Corpuscular Hgb Conc. 34.2 g/dL (32.0-36.0); Mean Corpuscular Volume 89.3 fL (80.0-100.0); Monocytes # (auto) 1.4 10 ^3/uL (0-1.3); Monocytes % (auto) 6.4 % (0.0-12.0); Neutrophils # (auto) 17.4 10 ^3/uL (1.6-8.6); Neutrophils % (auto) 80.8 % (37.0-80.0); Platelet Count (auto) 352 10^3/uL (140-450); Red Blood Cells 3.74 10^6/uL (4.0-5.20); Red Cell Distribution Width 13.1 % (11.8-14.3); White Blood Cell 21.5 10^3/uL (4.4-10.8)
[2024-01-24 04:52] LABS: Alanine Aminotransferase 21 U/L (7-40); Albumin 3.3 g/dL (3.2-4.8); Alkaline Phosphatase 117 U/L (46-116); Anion Gap 12 (5-15); Aspartate Aminotransferase 23 U/L (13-40); BUN/Creatinine Ratio 31.1 (10.0-20.0); Blood Urea Nitrogen 47 mg/dL (9-23); Calcium 7.1 mg/dL (8.7-10.4); Carbon Dioxide 19 mmol/L (20-30); Chloride 107 mmol/L (98-107); Sodium 138 mmol/L (136-145)
[2024-01-24 04:53] LABS: Bilirubin, Total 0.3 mg/dL (0.2-1.0); Total Protein 5.3 g/dL (5.7-8.2)
[2024-01-24 05:05] LABS: Glucose 401 mg/dL (74-106)
[2024-01-24 06:09] LABS: Base Excess -2.9 mmol/L (-2.0-3.0)
[2024-01-24] MEDS: ACCU-CHEK COMFORT CURVE STRIP VI SCH ×3 (08:04→17:08)
[2024-01-24] MEDS: cefTRIAXone 1GM/50ML D5W 50 ML IV SCH (08:39)
[2024-01-24] MEDS: InsuLIN REG 1unit/0.01ml Soln (100units/ml) SC SCH ×3 (08:47→17:00)
[2024-01-24] MEDS: INSULIN LANTUS (GLARGINE) 1 /0.01ml (100units/ml) SC SCH (08:48)
[2024-01-24 10:00] LABS: Anion Gap 8 (5-15); Carbon Dioxide 21 mmol/L (20-30); Chloride 108 mmol/L (98-107); Potassium 3.8 mmol/L (3.5-5.1); Sodium 137 mmol/L (136-145)
[2024-01-24 10:01] LABS: Calcium 7.3 mg/dL (8.7-10.4)
[2024-01-24 10:06] LABS: BUN/Creatinine Ratio 25.5 (10.0-20.0); Glucose 381 mg/dL (74-106)
[2024-01-24 10:11] LABS: Urine Bacteria None Seen /hpf (None Seen)
[2024-01-24 10:11] LABS: Blood Urea Nitrogen 37 mg/dL (9-23)
[2024-01-24] MEDS: SOD CHL 0.45% 1,000 ML IV SCH (10:34)
[2024-01-24 10:42] LABS: Creatinine, Urine 54.64 mg/dL (30.0-125.0)
[2024-01-24 11:03] LABS: Amphetamine Screen, Urine Pos (NEGATIVE); Barbiturate Scree,Urine Neg (NEGATIVE); Benzodiazephine Screen, Urine Pos (NEGATIVE); Cannabinoid Screen, Urine Neg (NEGATIVE); Cocaine Screen, Urine Neg (NEGATIVE); Opiate Scree,Urine Neg (NEGATIVE); Phencyclidine Screen, Urine Neg (NEGATIVE)
[2024-01-24 11:08] LABS: Urine Blood 3+ /uL (Negative); Urine Clarity Clear (Clear); Urine Color Light-Yellow (Yellow); Urine Protein, UAD TRACE (Negative); Urine Specific Gravity 1.019 (1.001-1.035); Urine Urobilinogen Normal (Negative); Urine WBC 1 /hpf (0 - 5); Urine pH 5.5 (5.0-9.0)
[2024-01-24] MEDS ORDERED: DEXTROSE (50%) 50ML SYRG IV PRN ×2 (11:45→17:00)
[2024-01-24 14:49] LABS: COVID19 ANTIGEN SOFIA FIA NEGATIVE (NEGATIVE)
[2024-01-24] MEDS: VASOPRESSIN 20 UNITS in SODIUM CHL 0.9% 99 ML IV SCH (15:00)
[2024-01-24 15:32] LABS: Alanine Aminotransferase 21 U/L (7-40); Albumin 3.4 g/dL (3.2-4.8); Alkaline Phosphatase 123 U/L (46-116); Anion Gap 7 (5-15); Aspartate Aminotransferase 28 U/L (13-40); BUN/Creatinine Ratio 33.3 (10.0-20.0); Blood Urea Nitrogen 37 mg/dL (9-23); Calcium 7.1 mg/dL (8.7-10.4); Carbon Dioxide 23 mmol/L (20-30); Chloride 113 mmol/L (98-107); Glucose 100 mg/dL (74-106); Potassium 3.2 mmol/L (3.5-5.1); Sodium 143 mmol/L (136-145)
[2024-01-24 15:33] LABS: Bilirubin, Total 0.2 mg/dL (0.2-1.0); Total Protein 5.3 g/dL (5.7-8.2)
[2024-01-24] MEDS: PHENYLEPHRINE INJ 80 MG in SODIUM CHL 0.9% 242 ML IV SCH (16:00)
[2024-01-24] MEDS: POTASSIUM CHL 20MEQ/100ML 100 ML IV SCH (16:21)
[2024-01-24] MEDS: DEXTROSE (50%) 50ML SYRG IV PRN (16:38)
[2024-01-24] MEDS: D5W/SOD CHL 0.45% 1,000 ML IV SCH (17:07)
[2024-01-25] VITALS (114 sets, daily range): BP systolic 76–151; BP diastolic 43–99; PULSE 73–116; RESP 14–20; TEMP 99.1–100.2; O2SAT 98–100
[2024-01-25 05:40] LABS: Basophils # (auto) 0.1 10 ^3/uL (0-0.2); Basophils % (auto) 0.5 % (0.0-2.0); Eosinophils # (auto) 0.1 10 ^3/uL (0-0.8); Eosinophils % (auto) 0.7 % (0.0-7.0); Hematocrit 35.2 % (36.0-46.0); Lymphocytes # (auto) 1.8 10 ^3/uL (0.4-5.4); Lymphocytes % (auto) 15.3 % (10.0-50.0); Mean Corpuscular Hgb Conc. 34.1 g/dL (32.0-36.0); Monocytes # (auto) 0.6 10 ^3/uL (0-1.3); Monocytes % (auto) 5.3 % (0.0-12.0); Neutrophils % (auto) 78.2 % (37.0-80.0); Nucleated Red Blood Cells % 0.1 %; Platelet Count (auto) 207 10^3/uL (140-450); Red Blood Cells 3.87 10^6/uL (4.0-5.20); Red Cell Distribution Width 13.7 % (11.8-14.3); White Blood Cell 11.6 10^3/uL (4.4-10.8)
[2024-01-25 05:56] LABS: Alanine Aminotransferase 22 U/L (7-40); Alkaline Phosphatase 116 U/L (46-116); Anion Gap 5 (5-15); Aspartate Aminotransferase 39 U/L (13-40); BUN/Creatinine Ratio 21.1 (10.0-20.0); Blood Urea Nitrogen 16 mg/dL (9-23); Calcium 7.3 mg/dL (8.7-10.4); Carbon Dioxide 22 mmol/L (20-30); Chloride 111 mmol/L (98-107); Glucose 254 mg/dL (74-106); Magnesium 1.9 mg/dL (1.6-2.6); Potassium 3.8 mmol/L (3.5-5.1); Sodium 138 mmol/L (136-145)
[2024-01-25 05:57] LABS: Bilirubin, Total 0.3 mg/dL (0.2-1.0); Total Protein 4.8 g/dL (5.7-8.2)
[2024-01-25] MEDS: MAGNESIUM SULFATE 1GM/100ML 100 ML IV SCH (06:52)
[2024-01-25 08:42] LABS: Base Excess -3.9 mmol/L (-2.0-3.0)
[2024-01-25] MEDS ORDERED: LACTULOSE 20Gm/30ML SOLN PO PRN (10:45)
[2024-01-26] VITALS (68 sets, daily range): BP systolic 71–152; BP diastolic 49–100; PULSE 66–117; RESP 8–19; TEMP 98.1–99.5; O2SAT 97–100
[2024-01-26 05:34] LABS: Basophils # (auto) 0 10 ^3/uL (0-0.2); Basophils % (auto) 0.5 % (0.0-2.0); Eosinophils # (auto) 0.1 10 ^3/uL (0-0.8); Eosinophils % (auto) 1.1 % (0.0-7.0); Hematocrit 37.4 % (36.0-46.0); Hemoglobin 12.9 g/dL (12.2-16.2); Lymphocytes # (auto) 2.3 10 ^3/uL (0.4-5.4); Lymphocytes % (auto) 24.4 % (10.0-50.0); Mean Corpuscular Hgb Conc. 34.4 g/dL (32.0-36.0); Mean Corpuscular Volume 89.9 fL (80.0-100.0); Monocytes # (auto) 0.5 10 ^3/uL (0-1.3); Monocytes % (auto) 5.6 % (0.0-12.0); Neutrophils # (auto) 6.6 10 ^3/uL (1.6-8.6); Neutrophils % (auto) 68.4 % (37.0-80.0); Nucleated Red Blood Cells % 0.1 %; Platelet Count (auto) 221 10^3/uL (140-450); Red Blood Cells 4.16 10^6/uL (4.0-5.20); Red Cell Distribution Width 13.8 % (11.8-14.3); White Blood Cell 9.6 10^3/uL (4.4-10.8)
[2024-01-26 05:51] LABS: Alanine Aminotransferase 25 U/L (7-40); Albumin 3.1 g/dL (3.2-4.8); Alkaline Phosphatase 129 U/L (46-116); Anion Gap 6 (5-15); Aspartate Aminotransferase 33 U/L (13-40); BUN/Creatinine Ratio 10.5 (10.0-20.0); Bilirubin, Total 0.6 mg/dL (0.2-1.0); Calcium 8.4 mg/dL (8.7-10.4); Carbon Dioxide 27 mmol/L (20-30); Chloride 108 mmol/L (98-107); Glucose 231 mg/dL (74-106); Potassium 3.4 mmol/L (3.5-5.1); Sodium 141 mmol/L (136-145)
[2024-01-26 05:52] LABS: Total Protein 5.2 g/dL (5.7-8.2)
[2024-01-26 06:04] LABS: Blood Urea Nitrogen 6 mg/dL (9-23)
[2024-01-26] MEDS: POTASSIUM CHL 20MEQ/100ML 100 ML IV SCH (07:58)
[2024-01-26] MEDS: PANTOPRAZOLE 40 MG/10 ML VIAL INJ IV SCH (09:49)
[2024-01-26] MEDS: ONDANSETRON HCL 4 MG/2 ML VIAL IV PRN (17:36)
[2024-01-26] MEDS: ACETAMINOPHEN 325 MG TAB PO PRN (22:53)
[2024-01-27] VITALS (7 sets, daily range): BP systolic 107–139; BP diastolic 56–82; PULSE 110–120; RESP 17–18; TEMP 98.7–99.3; O2SAT 96–100
[2024-01-27] MEDS ORDERED: DEXTROSE (50%) 50ML SYRG IV PRN (12:15)
[2024-01-27] MEDS: InsuLIN REG 1unit/0.01ml Soln (100units/ml) IV ONE (12:46)
[2024-01-27] MEDS: InsuLIN REG 1unit/0.01ml Soln (100units/ml) SC SCH (16:00)
[2024-01-27] MEDS: ACCU-CHEK COMFORT CURVE STRIP VI SCH (16:17)
== END 2024-01-27 17:20 | disposition left against medical advice (07) | DRG 720 ==
LOC: EDBD 13:54 → EDSEX 13:54 → ER 13:54 → TELE 22:36 → ICU CENTRL 22:36 → TELE-CENTR 01-26 18:30 → CENTRAL 01-26 21:40
PROVIDERS: ADMIT Nurse Practitioner Family; ATTEND Family Medicine
PROC: 5A1945Z Respiratory Ventilation, 24-96 Consecutive Hours (ICD-10-PCS; principal; 2024-01-23)
PROC: 0BH17EZ Insertion of Endotracheal Airway into Trachea, Via Natural or Artificial Opening (ICD-10-PCS; 2024-01-23)
PROC: 06HY33Z Insertion of Infusion Device into Lower Vein, Percutaneous Approach (ICD-10-PCS; 2024-01-23)
PROC: 05H933Z Insertion of Infusion Device into Right Brachial Vein, Percutaneous Approach (ICD-10-PCS; 2024-01-23)
PROC: B54MZZA Ultrasonography of Right Upper Extremity Veins, Guidance (ICD-10-PCS; 2024-01-23)
DX: A40.1 Sepsis due to streptococcus, group B (principal); J96.01 Acute respiratory failure with hypoxia; R65.21 Severe sepsis with septic shock; E11.10 Type 2 diabetes mellitus with ketoacidosis without coma; E44.0 Moderate protein-calorie malnutrition; N17.9 Acute kidney failure, unspecified; F15.10 Other stimulant abuse, uncomplicated; E87.6 Hypokalemia; E87.1 Hypo-osmolality and hyponatremia; Z20.822 Contact with and (suspected) exposure to COVID-19; E87.5 Hyperkalemia; I12.9 Hypertensive chronic kidney disease with stage 1 through stage 4 chronic kidney disease, or unspecified chronic kidney disease; E11.22 Type 2 diabetes mellitus with diabetic chronic kidney disease; B95.1 Streptococcus, group B, as the cause of diseases classified elsewhere; N18.30 Chronic kidney disease, stage 3 unspecified; Z79.4 Long term (current) use of insulin; Z79.899 Other long term (current) drug therapy; Z80.1 Family history of malignant neoplasm of trachea, bronchus and lung; Z91.199 Patient's noncompliance with other medical treatment and regimen due to unspecified reason; Z68.1 Body mass index [BMI] 19.9 or less, adult
CPT/HCPCS: 31500; 36415; 36556; 36600; 71045; 74176; 76775; 80048; 80053; 80307; 81001; 82010; 82306; 82570; 82805; 82962; 83036; 83605; 83735; 83930; 83935; 83970; 84100; 84156; 84300; 84702; 85007; 85025; 85027; 87040; 87070; 87077; 87205; 87426; 94002; 94003; 96361; 96365; 96368; 96372; 96375; 99291; G0378; J1815; J2405; J2470; J2543; J2704; J3480; J3490; J7060

== ENCOUNTER 2024-10-29 18:19 | Inpatient (IN) | payer MEDICAID, OTHER ==
[~2024-10-29] VITALS: Ht 170.2 cm; Wt 47.6 kg
[2024-10-29] MEDS ORDERED: VANCOMYCIN PER PHARMACY 0 MG IV SCH (18:45)
[2024-10-29] MEDS: SODIUM CHLORIDE 0.9% 3,000 ML IV ONE (18:53)
--- NOTE | 2024-10-29 19:00 | ED.PDOC ---
Altered Mental Status HPI Comments 48-year-old female who came to EMS fo hyperglycemia/altered level of consciousness. Per EMS, patient picked up at home, noted by family members that patient has been acting altered and confused for the past few days, progressively worsening. Noted blood sugar remained high. Patient has history of diabetic ketoacidosis. Per family patient has poor compliance with her medications. Per EMS, blood sugar read "hi" on scene. Tachypneic and ta chycardic on scene. Saturating at 96% on room air. Chief Complaint: Hyperglycemia Time Seen by MD: 18:59 Primary Care Provider: unknown Reviewed Notes: Security Investigator Notes Allergies: Coded Allergies: NO KNOWN ALLERGIES (Unverified , 06/06/19) Home Meds Active Scripts Insulin Glargine (Lantus) 100 Unit/Ml Inj, 15 UNITS SC BID@0700,2200 for 30 Days, #100 INJ 3 Refills Prov:KARISHMA HURTADO DO 04/30/23 Glipizide (Glipizide) 5 Mg Tab, 1 TAB PO DAILY, #30 TAB Prov:MADELINE CORRIGAN MD 06/10/19 Metronidazole (Flagyl) 500 Mg Tab, 500 MG PO TID, #21 TAB Prov:MADELINE CORRIGAN MD 06/10/19 Metformin Hydrochloride (Metformin Hcl) 1,000 Mg Tab, 1 TAB PO BID, #60 TAB Prov:MADELINE CORRIGAN MD 06/10/19 Reported Medications Metformin Hydrochloride (Metformin Hcl) 500 Mg Tab, 500 MG PO DAILY for 30 Days, MG 06/09/19 Information Source: Emergency Med Personnel Mode of Arrival: EMS Severity: Unable to Care for Self, Unresponsive Timing: Hours Duration: Since onset Prehospital treatment: IVF Quality: Decreased Alertness, Change in Behavior, Confusion Recent: Vomiting History of: Diabetes Past Medical History PAST MEDICAL HISTORY: DM, HTN Surgical History: Pt Confused [employer] History: Pt Confused Family History Family History: Pt Confused Social History Smoker: Pt Confused Alcohol: Pt Confused Drugs: Pt Confused Lives In: Home Unable to Obtain due to: Altered Mental Status Physical Exam General Appearance: Mild Distress HEENT: PERRL/EOMI, Other (Dry mucous membranes) Neck: Full Range of Motion, Non-Tender, Normal Inspection, Supple Respiratory: No Accessory Muscle Use, Other (Tachypneic with productive sounding cough) Cardiovascular: No Edema, No JVD, Tachycardia Breast Exam: Deferred Gastrointestinal: Non Tender, Soft Genitalia: Deferred Pelvic: Deferred Rectal: Deferred Extremities: Normal inspection, Normal range of motion, Non-tender, No pedal edema Neurologic: Alert (Oriented times 1), Other (Moves all extremities. Occasionally can answer yes or no questions. Occasionally follows commands.) Cerebellar Function: NOT DONE Reflexes: NOT DONE Skin: Dry, Normal Color, Warm Lymphatic: NOT DONE Was a procedure done? Was a procedure done?: No Differential Diagnosis (ALOC) Differential Diagnosis: Dehydration, DKA, Encephalopathy, Sepsis, Other (Hyperglycemia, hyperosmolar state, electrolyte imbalance, infection such as pneumonia or UTI, sepsis, OH, among others) X-Ray, Labs, Meds, VS Vital Signs Date Time Temp Pulse Resp B/P (MAP) Pulse Ox O2 Delivery O2 Flow Rate FiO2 10/29/24 18:45 124 22 151/69 (96) 100 10/29/24 18:36 97.6 130 26 132/74 (93) 98 97.6 Lab Test 10/29/24 19:37 10/29/24 19:30 10/29/24 19:00 10/29/24 18:52 Range/Units POC Glucose > 600 *H 70-106 mg/dl Serum Osmolality Pending Phosphorus Level Pending Magnesium Level Pending Troponin I High Sensitivity Pending 5 </=34 ng/L Blood Gas Specimen Type Arterial Blood Gas Sample Site Right brachial Blood Gas Patient Temperature 37.0 Arterial Blood Date Drawn [id number] Arterial Blood pH 7.052 *L 7.350-7.450 Arterial Blood Partial Pressure CO2 16.1 *L 32.0-45.0 mmHg Arterial Blood Partial Pressure O2 56.5 L 83.0-108.0 mmHg Arterial Blood HCO3 4.4 L 21.0-28.0 mmol/L Arterial Blood Oxygen Saturation 84.6 *L 94.0-98.0 % Arterial Blood Base Excess -24.2 L -2.0-3.0 mmol/L Arterial Blood Oxyhemoglobin 83.1 L 94.0-98.0 % Arterial Blood Carboxyhemoglobin 1.3 0.5-1.5 % Arterial Blood Methemoglobin 0.5 0.0-1.5 % Aiden Test N/a Blood Gas Total Hemoglobin 14.40 12.0-16.0 g/dL Blood Gas Modality Room air FiO2 % 21.0 Blood Gas Critical Value Read Back Yes Blood Gas Notified Whom Blood Gas Notified Time [id number] Blood Gas Notified By White Blood Count 23.4 H 4.4-10.8 10^3/uL Red Blood Count 4.78 4.0-5.20 10^6/uL Hemoglobin 14.1 12.2-16.2 g/dL Hematocrit 45.7 36.0-46.0 % Mean Corpuscular Volume 95.6 80.0-100.0 fL Mean Corpuscular Hemoglobin 29.4 28.0-32.0 pg Mean Corpuscular Hemoglobin Concent 30.8 L 32.0-36.0 g/dL Red Cell Distribution Width 15.3 H 11.8-14.3 % Platelet Count 423 140-450 10^3/uL Mean Platelet Volume 9.0 6.9-10.8 fL Neutrophils (%) (Auto) 90.6 H 37.0-80.0 % Lymphocytes (%) (Auto) 6.4 L 10.0-50.0 % Monocytes (%) (Auto) 2.5 0.0-12.0 % Eosinophils (%) (Auto) 0.0 0.0-7.0 % Basophils (%) (Auto) 0.5 0.0-2.0 % Neutrophils # (Auto) 21.2 H 1.6-8.6 10 ^3/uL Lymphocytes # (Auto) 1.5 0.4-5.4 10 ^3/uL Monocytes # (Auto) 0.6 0-1.3 10 ^3/uL Eosinophils # (Auto) 0 0-0.8 10 ^3/uL Basophils # (Auto) 0.1 0-0.2 10 ^3/uL Nucleated Red Blood Cells 0.0 % Sodium Level Pending Potassium Level Pending Chloride Level Pending Carbon Dioxide Level Pending Anion Gap Pending Blood Urea Nitrogen Pending Creatinine Pending Glomerular Filtration Rate Calc Pending BUN/Creatinine Ratio Pending Serum Glucose Pending Lactic Acid Level Pending Calcium Level Pending Total Bilirubin Pending Aspartate Amino Transferase (AST) Pending Alanine Aminotransferase (ALT) Pending Alkaline Phosphatase Pending Total Protein Pending Albumin Pending Beta-Hydroxybutyric Acid Pending Current Medications Medications (Trade) Dose Ordered Sig/Dave Route Start Time Stop Time Status Last Admin Sodium Chloride 3,000 ml @ 1,000 mls/hr Q3H ONCE IV 10/29/24 18:45 10/29/24 21:44 10/29/24 18:53 Insulin Human Regular (InsuLIN R) 10 units ONCE ONCE IV 10/29/24 18:45 10/29/24 18:46 DC 10/29/24 19:16 Piperacillin Sod/ Tazobactam Sod 100 ml @ 100 mls/hr ONCE ONCE IV 10/29/24 18:45 10/29/24 19:44 DC 10/29/24 19:28 X-Ray, Labs, Meds, VS Comment 48-year-old female with a history of hypertension and diabetes brought in by EMS from home with altered mental status and hyperglycemia Vitals remarkable for heart rate 130, respiratory rate 26 Exam remarkable for dry mucous membranes, tachycardia and altered mental status Rhythm strip independently interpreted by me: Sinus tach, rate 130, no ectopy. Chest x-ray one view CBC remarkable for WBC 23 0.4, metabolic panel remarkable for glucose greater than 600, ABG shows a pH of 7.052, pCO2 16, bicarb 4.4 Patient treated with the following in the ED: 3 L 0.9 normal saline IV bolus, regular insulin 10 units IV followed by an insulin infusion per DKA protocol. Plan is to admit the patient for blood glucose correction and IV antibiotics for possible sepsis Time of 1ST Reevaluation: 18:56 Reevaluation 1ST: Unchanged Patient Education/Counseling: Other (Altered level of consciousness) Family Education/Counseling: No Family Present SEPSIS Sepsis Screen Date sepsis recognized/suspect: Oct 29, 2024 Time Sepsis recognized/suspect: 1814 Recent Procedure: No On Antibiotic Therapy: No Respiratory Rate >20: No Heart Rate >90: Yes Temp<36 C (96.8 F) or >38.3 C: No SBP <90 or MAP <65 mmHG: No New Acute Mental Status Change: No Is the patient on CPAP, BIPAP,: No Physician Orders Comprehensive Metabolic Panel (10/29/24 18:36) Urinalysis (10/29/24 18:36) Beta-Hydroxybutyrate (10/29/24 18:36) Abg W/ Co-Ox (10/29/24 18:36) Lactic Acid W/ Reflex Order (10/29/24 18:36) Blood Culture (10/29/24 18:36) Urine Bacterial Culture (10/29/24 18:36) Chest Portable (10/29/24 18:36) Sodium Chloride 0.9% (10/29/24 18:45) Vancomycin Per Pharmacy (10/29/24 18:45) Troponin-I Hs (10/29/24 19:36) Electrocardigram (10/29/24 18:36) Test, Urine (10/29/24 18:36) Insulin Drip Protocol (10/29/24 ) Sodium Chloride 0.9% (10/29/24 19:45) Sodium Chloride 0.9% (10/29/24 23:45) Sodium Chloride 0.9% (10/30/24 01:45) Insulin Drip 100 Unit/100ml (Myxredlin 1 (10/29/24 19:45) Dextrose 50% Syringe (10/29/24 19:45) Glucose Blood (Accu-Chek Comfort Curve T (10/29/24 21:00) Phosphorus (10/29/24 19:31) Magnesium (10/29/24 19:31) Osmolality, Serum (10/29/24 19:31) Neurological Assessment (10/29/24 19:31) Vs/Hemodynamics .PER UNIT PROTOCOL (10/29/24 19:31) Insulin Lantus (Glargine) (Lantus) (10/29/24 19:45) Insulin Lantus (Glargine) (Lantus) (10/30/24 10:00) Vital Signs Date Time Temp Pulse Resp B/P (MAP) Pulse Ox O2 Delivery O2 Flow Rate FiO2 10/29/24 18:45 124 22 151/69 (96) 100 10/29/24 18:36 97.6 130 26 132/74 (93) 98 97.6 Laboratory Tests Test 10/29/24 18:52 Lactic Acid Level Pending White Blood Count 23.4 10^3/uL (4.4-10.8) H Medications Medications Dose Ordered Sig/Dave Route Start Time Stop Time Status Last Admin Dose Admin Insulin Human Regular 10 units ONCE ONCE IV 10/29/24 18:45 10/29/24 18:46 DC 10/29/24 19:16 Piperacillin Sod/ Tazobactam Sod 100 ml @ 100 mls/hr ONCE ONCE IV 10/29/24 18:45 10/29/24 19:44 DC 10/29/24 19:28 Sodium Chloride 3,000 ml @ 1,000 mls/hr Q3H ONCE IV 10/29/24 18:45 10/29/24 21:44 10/29/24 18:53 Reassessment Post Fluid Date of Reassessment: Oct 29, 2024 Time of Reassessment: 20:20 Oxygen Saturation: 96 Pulse rate: 124 Pulse Location: Radial Pulse Strength: Normal Capillary Refill Exam: < 3 seconds Skin Temperature: Warm Skin Moisture: Dry Skin Tugor: WNL Skin Color: WNL Fingernail Color: WNL Departure 1 Departure Time of Disposition: 20:21 Impression: Primary Impression: DKA (diabetic ketoacidosis) Additional Impressions: Electrolyte imbalance Sepsis Disposition: ADMITTED INPATIENT Admit to: [facility] Condition: Serious Critical Care Note Critical Care Time?: Yes (45 min-critical care time only) Critical care comment: Altered level of consciousness, hyperglycemia. Critical care time including multiple bedside re-evaluations, review of lab and imaging studies, and di scussion of the case with the admitting provider. Patient is high risk for metabolic and/or neurologic decompensation. Stability Stability form required: No Heart Score Heart Score: Heart Score Response (Comments) Value History N/A 0 EKG N/A 0 Age N/A 0 Risk Factors N/A 0 Troponin N/A 0 Total 0 I personally scribed for CORRY MONZON MD ([email or web address]) on 10/29/24 at 19:00. Electronically submitted by Yvan Mondragon ([facility]). I personally scribed for CORRY MONZON MD ([email or web address]) on 10/29/24 at 19:01. Electronically submitted by Yvan Mondragon ([email or web address]). CORRY MONZON MD Oct 29, 2024 19:00
[2024-10-29] MEDS: InsuLIN REG 1unit/0.01ml Soln (100units/ml) ONE (19:04)
[2024-10-29] MEDS: InsuLIN REG 1unit/0.01ml Soln (100units/ml) IV ONE (19:16)
[2024-10-29 19:22] LABS: Base Excess -24.2 mmol/L (-2.0-3.0)
[2024-10-29 19:25] LABS: Basophils # (auto) 0.1 10 ^3/uL (0-0.2); Basophils % (auto) 0.5 % (0.0-2.0); Eosinophils # (auto) 0 10 ^3/uL (0-0.8); Hematocrit 45.7 % (36.0-46.0); Hemoglobin 14.1 g/dL (12.2-16.2); Lymphocytes # (auto) 1.5 10 ^3/uL (0.4-5.4); Lymphocytes % (auto) 6.4 % (10.0-50.0); Mean Corpuscular Hemoglobin 29.4 pg (28.0-32.0); Mean Corpuscular Hgb Conc. 30.8 g/dL (32.0-36.0); Mean Corpuscular Volume 95.6 fL (80.0-100.0); Monocytes # (auto) 0.6 10 ^3/uL (0-1.3); Monocytes % (auto) 2.5 % (0.0-12.0); Neutrophils # (auto) 21.2 10 ^3/uL (1.6-8.6); Neutrophils % (auto) 90.6 % (37.0-80.0); Platelet Count (auto) 423 10^3/uL (140-450); Red Blood Cells 4.78 10^6/uL (4.0-5.20); Red Cell Distribution Width 15.3 % (11.8-14.3); White Blood Cell 23.4 10^3/uL (4.4-10.8)
[2024-10-29] MEDS: cefTRIAXone 1GM/50ML D5W 0 ML IV ONE (19:27)
[2024-10-29] MEDS: PIPERACILLIN-TAZO 4.5GM 100 ML IV ONE ×2 (19:28→19:29)
[2024-10-29 19:30] VITALS: O2SAT 100
[2024-10-29 19:41] LABS: Alanine Aminotransferase 15 U/L (7-40); Albumin 4.3 g/dL (3.2-4.8); Aspartate Aminotransferase 18 U/L (<34); BUN/Creatinine Ratio 15.7 (10.0-20.0); Calcium 9.8 mg/dL (8.7-10.4); Sodium 137 mmol/L (136-145); Total Protein 6.8 g/dL (5.7-8.2)
[2024-10-29 19:42] LABS: Anion Gap 30.00001 (5-15)
[2024-10-29] MEDS ORDERED: DEXTROSE (50%) 50ML SYRG IV PRN (19:45)
[2024-10-29 19:55] LABS: Alkaline Phosphatase 148 U/L (46-116); Bilirubin, Total 0.3 mg/dL (0.2-1.0); Blood Urea Nitrogen 31 mg/dL (9-23); Chloride 97 mmol/L (98-107); Potassium 5.2 mmol/L (3.5-5.1)
[2024-10-29 20:04] LABS: Carbon Dioxide < 10 mmol/L (20-31); Glucose 679 mg/dL (74-106); Lactic Acid w/Reflex 3.3 mmol/L (0.4-2.0)
[2024-10-29 20:08] LABS: Magnesium 2.1 mg/dL (1.6-2.6)
[2024-10-29] MEDS: SODIUM CHLORIDE 0.9% 1,000 ML IV SCH (20:14)
[2024-10-29 20:18] LABS: Phosphorus 7.8 mg/dL (2.4-5.1)
[2024-10-29] MEDS: INSULIN LANTUS (GLARGINE) 1 /0.01ml (100units/ml) SC ONE ×2 (20:32→20:33)
[2024-10-29] MEDS: INSULIN DRIP 100 UNIT/100ML 100 ML IV ONE (20:33)
[2024-10-29] MEDS: INSULIN DRIP 100 UNIT/100ML 100 ML IV SCH (20:39)
[2024-10-29] MEDS: VANCOMYCIN 1.5GM/300ML 300 ML IV ONE ×2 (20:46)
[2024-10-29] MEDS ORDERED: MORPHINE SULFATE INJ 2 MG/ml SYRG IV PRN (21:15)
[2024-10-29] MEDS ORDERED: DOCUSATE SOD 100 MG CAP PO PRN (21:15)
[2024-10-29] MEDS ORDERED: NITROGLYCERIN 0.4 MG SL TAB SL PRN (21:15)
--- NOTE | 2024-10-29 21:36 | DVH ---
CHEST RADIOGRAPH Indication: cough Technique: Single frontal view of the chest was obtained Comparison: No prior chest x-rays for comparison. FINDINGS: Lines and Tubes: None Lungs: No focal consolidation. Pleura: No effusion. No pneumothorax. Cardiomediastinal contours: Unremarkable Bones: No acute osseous abnormality. IMPRESSION: 1. No acute cardiopulmonary disease.
[2024-10-29] MEDS ORDERED: SODIUM CHLORIDE 0.9% 1,000 ML IV SCH (21:45)
--- NOTE | 2024-10-29 21:54 | DVHHPRES ---
History of Present Illness Resident Creating Document: GARY PRETTY RESIDENT History of Present Illness Ms. Mccabe, a 48-year-old female with a history of diabetes, methamphetamine abuse recurrent DKA related hospitalization and poor medication compliance presented via EMS for hyperglycemia and altered mental status, noted by family to have several days of progressive confusion. On EMS arrival, she was tachypneic and tachycardic with blood glucose reading "HIGH" and oxygen saturation of 96% on room air. She was unresponsive and unable to care for herself, prompting EMS transport with IV fluids initiated. In the ED, she was A&Ox1, non-ambulatory, slurring speech, and exhibiting inappropriate responses. She was admitted to telemetry in serious condition with presumptive diagnosis of diabetic ketoacidosis (DKA), electrolyte imbalance, and possible sepsis. Past Medical History history of diabetes, methamphetamine abuse recurrent DKA related hospitalization and poor medication compliance Past Surgical History: None Family History: None, DM, Hypertension, Other (Non contributory to the present admission) Smoke: No ALCOHOL: occassional Drugs: None, Other (Also previously methamphetamine abuser, UDS pending. ) Lives: with Family Domestic Violence: Neg Review of Systems Constitutional: Yes: Chills, Malaise; No: Fever, Sweats, Weakness, Other Eyes: No: Pain, Vision change, Conjunctivae inflammation, Eyelid inflammation, Other, Redness ENT: No: Ear pain, Ear discharge, Nose pain, Nose discharge, Nose congestion, Mouth pain, Mouth swelling, Throat pain, Throat swelling, Other Respiratory: No: Cough, Dry, Shortness of breath, SOB with excertion, Wheezing, Hemoptysis, Pleuritic Pain, Sputum, Wheezing, Other Cardiovascular: No: Chest Pain, Palpitations, Orthopnea, Paroxysmal Noc. Dyspnea, Edema, Lt Headedness, Other Gastrointestinal: Nausea, Abdominal Pain; No: Vomiting, Diarrhea, Constipation, Melena, Hematochezia, Other Genitourinary: No Dysuria, No Frequency, No Incontinence, No Hematuria, No Retention, No Other Musculoskeletal: No: other, neck pain, shoulder pain, arm pain, back pain, hand pain, leg pain, foot pain Skin: No: Rash, Lesions, Jaundice, Bruising, Other Neurological: Confusion; No: Weakness, Numbness, Incoordination, Change in speech, Seizures, Other Allergies: Coded Allergies: NO KNOWN ALLERGIES (Unverified , 06/06/19) Medications Current Medications Medications Dose Ordered Sig/Dave Route Start Time Stop Time Status Last Admin Dose Admin Vancomycin HCl 0 ml @ 0 mls/hr UD IV 10/29/24 18:45 Sodium Chloride 1,000 ml @ 500 mls/hr Q2H IV 10/29/24 19:45 10/29/24 23:44 Sodium Chloride 1,000 ml @ 250 mls/hr Q4H IV 10/29/24 23:45 10/30/24 01:44 Sodium Chloride 1,000 ml @ 150 mls/hr Q6H40M IV 10/30/24 01:45 Insulin Human (Reg)/Sodium Chloride 100 ml @ 0.5 mls/hr Q24H IV 10/29/24 19:45 10/29/24 20:39 6 MLS/HR Dextrose 50 ml UD PRN IV 10/29/24 19:45 Diagnostic Test (Pha) 1 strip Q90MIN 10/29/24 21:00 Insulin Glargine 15 units DAILY SC 10/30/24 10:00 Ondansetron HCl 4 mg Q4HP PRN IV 10/29/24 21:15 Docusate Sodium 100 mg BIDPRN PRN PO 10/29/24 21:15 Morphine Sulfate 2 mg Q4HPRN PRN IV 10/29/24 21:15 Nitroglycerin 0.4 mg Q5MINP PRN SL 10/29/24 21:15 Morphine Sulfate 2 mg Q30M PRN IV 10/29/24 21:15 Cefepime HCl 50 ml @ 12.5 mls/hr DAILY IV 10/30/24 10:00 UNV Pantoprazole Sodium 40 mg DAILY IV 10/29/24 21:15 Exam Vital Signs Vital Signs Date Time Temp Pulse Resp B/P (MAP) Pulse Ox O2 Delivery O2 Flow Rate FiO2 10/29/24 18:45 124 22 151/69 (96) 100 10/29/24 18:36 97.6 97.6 General Appearance: Alert, Oriented X3, Cooperative, mild distress HEENT: Atraumatic, PERRLA, Other (dry) Respiratory: Clear to auscultation, Normal air movement, Other (RA) Cardiovascular: Regular rate, Normal S1, Normal S2, Other (sinus tachy ) Abdominal: Normal bowel sounds, Soft, No hepatospenomegaly, No masses, Other (generalized deep tendernes ? ketoacedosis ) Extremities: No clubbing, No cyanosis, No edema Skin: No rashes, No breakdown, No significant lesion Neuro: Normal gait, Normal speech, Strength at 5/5 X4 ext, Normal tone, Sensation intact, Cranial nerves 3-12 NL, Reflexes 2+ Psych/Mental Status: Mental status NL, Mood NL Labs/Xrays Labs Test 10/29/24 20:55 10/29/24 20:27 10/29/24 19:30 10/29/24 19:00 Range/Units POC Glucose > 600 *H 70-106 mg/dl Serum Osmolality 352 H 278-298 mOsm/kg Phosphorus Level 7.8 H 2.4-5.1 mg/dL Magnesium Level 2.1 1.6-2.6 mg/dL Troponin I High Sensitivity 5 </=34 ng/L Blood Gas Specimen Type Arterial Blood Gas Sample Site Right brachial Blood Gas Patient Temperature 37.0 Arterial Blood Date Drawn [id number] Arterial Blood pH 7.052 *L 7.350-7.450 Arterial Blood Partial Pressure CO2 16.1 *L 32.0-45.0 mmHg Arterial Blood Partial Pressure O2 56.5 L 83.0-108.0 mmHg Arterial Blood HCO3 4.4 L 21.0-28.0 mmol/L Arterial Blood Oxygen Saturation 84.6 *L 94.0-98.0 % Arterial Blood Base Excess -24.2 L -2.0-3.0 mmol/L Arterial Blood Oxyhemoglobin 83.1 L 94.0-98.0 % Arterial Blood Carboxyhemoglobin 1.3 0.5-1.5 % Arterial Blood Methemoglobin 0.5 0.0-1.5 % Aiden Test N/a Blood Gas Total Hemoglobin 14.40 12.0-16.0 g/dL Blood Gas Modality Room air FiO2 % 21.0 Blood Gas Critical Value Read Back Yes Blood Gas Notified Whom Blood Gas Notified Time [id number] Blood Gas Notified By Test 10/29/24 18:52 Range/Units White Blood Count 23.4 H 4.4-10.8 10^3/uL Red Blood Count 4.78 4.0-5.20 10^6/uL Hemoglobin 14.1 12.2-16.2 g/dL Hematocrit 45.7 36.0-46.0 % Mean Corpuscular Volume 95.6 80.0-100.0 fL Mean Corpuscular Hemoglobin 29.4 28.0-32.0 pg Mean Corpuscular Hemoglobin Concent 30.8 L 32.0-36.0 g/dL Red Cell Distribution Width 15.3 H 11.8-14.3 % Platelet Count 423 140-450 10^3/uL Mean Platelet Volume 9.0 6.9-10.8 fL Neutrophils (%) (Auto) 90.6 H 37.0-80.0 % Lymphocytes (%) (Auto) 6.4 L 10.0-50.0 % Monocytes (%) (Auto) 2.5 0.0-12.0 % Eosinophils (%) (Auto) 0.0 0.0-7.0 % Basophils (%) (Auto) 0.5 0.0-2.0 % Neutrophils # (Auto) 21.2 H 1.6-8.6 10 ^3/uL Lymphocytes # (Auto) 1.5 0.4-5.4 10 ^3/uL Monocytes # (Auto) 0.6 0-1.3 10 ^3/uL Eosinophils # (Auto) 0 0-0.8 10 ^3/uL Basophils # (Auto) 0.1 0-0.2 10 ^3/uL Nucleated Red Blood Cells 0.0 % Sodium Level 137 136-145 mmol/L Potassium Level 5.2 H 3.5-5.1 mmol/L Chloride Level 97 L 98-107 mmol/L Carbon Dioxide Level < 10 *L 20-31 mmol/L Anion Gap 30.55123 H 5-15 Blood Urea Nitrogen 31 H 9-23 mg/dL Creatinine 1.98 H 0.550-1.02 mg/dL Glomerular Filtration Rate Calc 31 >90 mL/min BUN/Creatinine Ratio 15.7 10.0-20.0 Serum Glucose 679 *H 74-106 mg/dL Calcium Level 9.8 8.7-10.4 mg/dL Total Bilirubin 0.3 0.2-1.0 mg/dL Aspartate Amino Transferase (AST) 18 <34 U/L Alanine Aminotransferase (ALT) 15 7-40 U/L Alkaline Phosphatase 148 H 46-116 U/L Total Protein 6.8 5.7-8.2 g/dL Albumin 4.3 3.2-4.8 g/dL Beta-Hydroxybutyric Acid > 4.500 H < 0.4 mmol/L Assessment/Plan Assessment/Plan #metabolic versus toxic encephalopathy: altered level of consciousness at presentation, Could be attributed to underlying infection /diabetic ketoacidosis, metabolic dysfunction. /Hyper viscosity syndrome, improved with treatment. rule out acute focal neurogenic deficit +/- Head CT if red flags. Trops -ve EKG ordered. sinus tachycardia previously. #diabetic ketoacidosis: With beta hydroxybutyric acid more than 4.5 high, max BG of >600, increased limb osmolality of 352, on insulin drip, appropriate hydration, electrolyte correction, ICU/ [facility] use status, close monitoring of electrolytes, continue IV insulin till the anion gap closes, wait for oral intake to consider subcutaneous - IV bridge and then switching to basal bolus dose. #Likely Sepsis, neutrophilic leukocytosis with WBC of 23.4, SIRS criteria with infection source under investigation: otherwise hemodynamically stable, breathing in the room air. Continue telemetry. Close monitoring of vitals. #Anion gap metabolic acidosis: Multifactorial with lactic acidosis and diabetic ketoacidosis anion gap of 30 . Also check for alcohol and UDS. #Diabetes mellitus on insulin, active nonadherence: home medications include Lantus 15 sc b.i.d., glipizide 5 mg daily, metformin 1000 b.i.d. See last HbA1c 14 01/27 Check for HbA1c, diabetic counseling, diabetic education, diet counseling, bedside counseling for life-threatening complication and an importance of adherence. Complete the workup with TSH level. #hyperkalemia: Moderate highest potassium 5.2, likely due to extracellular movement in the relative insulin deficiency state , careful monitoring replenishment if needed #possible underneath infection: Extensive physical exam head to evaluate for skin and soft tissue infection, CXR, viral URI panel, lipase, UA, extensive workup to find the source of infection, until then broad-spectrum antibiotics with IV vancomycin and cefepime. low probability but ruled out with beta HCG. #HUNTER likely due to VMN: presented with creatinine of 1.98, BUN 31, intravascularly dry. baseline 1.2 cr. follow up renal function, guzman's catheter. #Possible underlying CKD: Likely a complication of uncontrolled diabetes mellitus as per chart review, we will monitor the renal function to evaluate the baseline. #Chronic medication noncompliance / nonadherence: Recurrent episodes of DKA related hospitalization found in the chart in 2019, 2022, 2023, last hospitalization regarding DKA January 23, 2024. #Known amphetamine abuse history: Recheck the UDS, noted in previous U tox #Diet: NPO for now , advance diet as tolerated with carb controlled cardiac diet. Target BG in-hospital 140-180 as per NICE- sugar trial #GI prophylaxis: with IV PPI #DVT prophylaxis: H&H stable, close monitoring of platelets and CBC, subcutaneous Lovenox. Close monitoring of renal function. #Hyperphosphatemia: Presented with phosphorus of 7.8, recheck for falls elevated stage if remains elevated we will consider further workup and phosphate binder #possible diabetic gastroparesis: Abdominal pain, nausea, along with CT findings of fluid and gas distention indicated, continue NPO, slow pace toxic, if did not improve, we will consider NG tube. SBO ruled out, underlying primary DKA to be treated aggressively first. #mild bilateral hydronephrosis, distended urinary bladder: Could be due to neurogenic bladder due to uncontrolled diabetes mellitus, Guzman's catheter placed, urine output satisfactory, close monitoring to continue, obstruction ruled out #nonobstructing right renal calculus: Clinically silent PCP: Specialist Relevant To Admission: Outpatient close follow up with endocrinology perhaps we will be helpful. In-hospital needs critical care level close follow up. Case discussed with Dr. Rucker. Code Status: Full Code. Goals of care and care plan discussion needed total critical care time spent 47 minutes excluding procedures. The patient is agreeable to the hospital admission and care plan at the level of LLOY[facility]/ICU given IV insulin protocol. Downgrade to telemetry floor earliest status possible when appropriate. Plan discussed with: Patient My Orders Orders - GARY PRETTY RESIDENT Procedure Category Date Status Time Admit ADMIT 10/29/24 Transmitted 21:08 Allergies NICHOLAS 10/29/24 In Process 21:08 Code Status CODE 10/29/24 Transmitted 21:08 Ondansetron Hcl PHA 10/29/24 In Process (Zofran) 21:15 Docusate Sodium PHA 10/29/24 In Process Capsule (Colace 21:15 Fall Risk Precautions NICHOLAS 10/29/[address] 21:08 Npo (Nothing By DIET 10/30/24 Transmitted Mouth) Diet Breakfast Condition: Critical NICHOLAS 10/29/24 In Process 21:08 Bedside Commode NICHOLAS 10/29/24 In Process 21:08 Morphine Sulfate PHA 10/29/24 In Process Injection 21:15 Sequential NICHOLAS 10/29/24 In Process Compression Device Nitroglycerin [facility] 10/29/24 In Process Sublingual (Ntrostat 21:15 Morphine Sulfate PHA 10/29/24 In Process Injection 21:15 Oxygen By Nasal RT 10/29/24 Transmitted Cannula 21:08 Stat Ekg For Chest [facility] 10/29/24 In Process Pain 21:08 Notify Md Of Changes [facility] 10/29/24 In Process From Base 21:08 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 [facility] 10/29/24 In Process 24 Hours 21:08 Emergency Dysrhythmia [facility] 10/29/24 In Process Protocol 21:08 Rhythm Strips Once [facility] 10/29/24 In Process Every Shift 21:08 Cefepime 1gm/ 50ml PHA 10/30/24 Logged (Maxipime 1gm/50ml) 10:00 Pantoprazole PHA 10/29/24 In Process (Protonix) 21:15 Drug Screen LAB 10/29/24 Logged 21:12 Thyroid Stimulating LAB 10/29/24 Logged Hormone 21:12 Blood Alcohol LAB 10/29/24 Logged 21:12 Covid19 Antigen Jacqueline LAB 10/29/24 Logged Rapid Influenza A&B LAB 10/29/24 Logged 21:12 Lipase LAB 10/29/24 Logged 21:12 Chest Xray 1 View XY 10/29/24 Logged 21:12 NS PHA 10/29/24 Transmitted 21:45 Echo 2d Mode Cardiac US 10/29/24 Logged DOP 21:31 Ekg On Admit [facility] 10/29/24 Transmitted 21:34 Date of Service: Oct 29, 2024 Billing Provider: CLOTILDE RUCKER MD Common Visit Codes: 84673-[id number] CARE 30-74 MIN Secondary Visit Codes: 49070-[id number] CARE PLAN 30 MINUTES GARY PRETTY RESIDENT Oct 29, 2024 21:54
[2024-10-29 22:12] LABS: Blood Alcohol < 3.0 mg/dL (<10)
[2024-10-29] MEDS: ACCU-CHEK COMFORT CURVE STRIP VI SCH (22:30)
[2024-10-29 22:39] LABS: Lipase 77 U/L (12-53)
[2024-10-29] MEDS: ONDANSETRON HCL 4 MG/2 ML VIAL IV PRN (23:51)
[2024-10-29] MEDS: PANTOPRAZOLE 40 MG/10 ML VIAL INJ IV SCH (23:51)
[2024-10-29] MEDS: PANTOPRAZOLE 40 MG/10 ML VIAL INJ IV ONE (23:51)
[2024-10-29] MEDS: ONDANSETRON HCL 4 MG/2 ML VIAL ONE (23:51)
[2024-10-29] MEDS: MORPHINE SULFATE INJ 2 MG/ml SYRG IV PRN (23:58)
[2024-10-30] VITALS (21 sets, daily range): BP systolic 100–158; BP diastolic 57–91; PULSE 79–111; RESP 10–20; TEMP 98.9–99.9; O2SAT 97–100
[2024-10-30] MEDS: MORPHINE SULFATE INJ 2 MG/ml SYRG ONE
[2024-10-30 00:41] LABS: Urine Bacteria None Seen /hpf (None Seen)
--- NOTE | 2024-10-30 00:58 | DVH ---
CLINICAL HISTORY: rule out intrabdominal infection. abdominal pain. TECHNIQUE: CT of the abdomen and pelvis was performed without intravenous contrast. This exam was per formed according to our departmental dose optimization program. Up-to-date CT equipment and radiation dose reduction techniques are utilized as appropriate. CTDI: 5.08+ 0.14 DLP: 296.05 WID: COMPARISON: CT CT AB PEL WO CON-NO ORAL OR IV on DOS: 01/24/24 FINDINGS: Lower Thorax: Fluid distention of the visualized esophagus. Normal-sized heart. Lung bases are helio r. Liver and Biliary system: Upper limits of normal-sized liver. No definite hepatic lesion. Gallbladder is normal caliber. No biliary ductal dilatation. Spleen: Unremarkable. Adrenal Glands and Kidneys: Normal adrenal glands. Tiny nonobstructing right upper pole renal calculu s. Mild bilateral hydronephrosis. No definite obstructing calculus. Pancreas and Retroperitoneum: Grossly normal pancreas. No retroperitoneal the. Aorta and Major Vessels: Aortoiliac vessels are normal in caliber containing mild calcified atheroscl erotic plaque. Bowel, Mesentery and Peritoneal space: Normal caliber small and large bowel. Moderate retained stool in the colon. Moderate fluid and gas distention of the stomach. No free air or fluid collection. Pelvis: Moderate distention of the urinary bladder. Tiny nondependent gas in the urinary bladder. Ut erus is grossly unremarkable. No pelvic lymphadenopathy. Abdominal wall and Osseous Structures: Grade 1 anterolisthesis at L4-L5. Minor lower thoracic and lum bar spondylosis. No destructive osseous lesion. Tiny sclerotic foci in the proximal femurs and pelvis , likely bone islands. IMPRESSION: 1. Moderate fluid and gas distention of the stomach and fluid distention of the lower esophagus. A co nsideration would be gastric outlet obstruction although is not optimally evaluated on this noncontra st examination. 2. No small bowel obstruction. 3. Moderate retained stool in the colon. 4. Mild bilateral hydronephrosis which could be related to reflux in the setting of a moderately dist ended urinary bladder. No definite obstructing calculus. 5. Tiny nonobstructing right renal calculus.
[2024-10-30 01:02] LABS: Potassium 3.8 mmol/L (3.5-5.1); Sodium 139 mmol/L (136-145)
[2024-10-30 01:03] LABS: Anion Gap 21.00001 (5-15)
[2024-10-30 01:09] LABS: BUN/Creatinine Ratio 16.9 (10.0-20.0)
[2024-10-30 01:12] LABS: Base Excess -17.4 mmol/L (-2.0-3.0)
[2024-10-30] MEDS: SODIUM CHLORIDE 0.9% 1,000 ML IV SCH ×2 (01:16→03:28)
[2024-10-30 01:21] LABS: Blood Urea Nitrogen 24 mg/dL (9-23); Calcium 7.2 mg/dL (8.7-10.4); Chloride 108 mmol/L (98-107); Glucose 339 mg/dL (74-106); Phosphorus 1.9 mg/dL (2.4-5.1)
[2024-10-30 01:23] LABS: Carbon Dioxide < 10 mmol/L (20-31)
[2024-10-30 01:58] LABS: Urine Blood TRACE /uL (Negative); Urine Budding Yeast OCCASIONAL /hpf (None Seen); Urine Clarity Clear (Clear); Urine Color Colorless (Yellow); Urine Protein, UAD Negative (Negative); Urine Specific Gravity 1.014 (1.001-1.035); Urine Squamous Epithelial Cell FEW /hpf (<5); Urine Urobilinogen Normal (Negative); Urine WBC 1 /HPF (0-5)
[2024-10-30 02:00] LABS: Amphetamine Screen, Urine Pos (NEGATIVE); Barbiturate Scree,Urine Neg (NEGATIVE); Benzodiazephine Screen, Urine Neg (NEGATIVE); Cannabinoid Screen, Urine Neg (NEGATIVE); Cocaine Screen, Urine Neg (NEGATIVE); Opiate Scree,Urine Neg (NEGATIVE); Phencyclidine Screen, Urine Neg (NEGATIVE)
[2024-10-30 02:08] LABS: COVID19 ANTIGEN SOFIA FIA NEGATIVE (NEGATIVE); Rapid Influenza A Negative (Negative); Rapid Influenza B Negative (Negative)
[2024-10-30] MEDS: CALCIUM GLUC 1,000mg/50ml-NS 50 ML IV ONE (02:30)
[2024-10-30] MEDS: D5W/LACTATED RINGERS 1,000 ML IV SCH ×2 (03:41→13:15)
[2024-10-30] MEDS: SODIUM PHOSPHATES 20 MEQ in SODIUM CHL 0.9% 100 ML IV ONE (03:45)
[2024-10-30] MEDS ORDERED: POTASSIUM CHLORIDE 40 MEQ, LIDOCAINE 1% (LOCAL ANESTH.) 4 ML in SODIUM CHL 0.9% 250 ML IV ONE (03:45)
[2024-10-30] MEDS ORDERED: POTASSIUM CHL 20MEQ/50ML 50 ML IV SCH (04:30)
[2024-10-30 04:51] LABS: Basophils # (auto) 0.1 10 ^3/uL (0-0.2); Basophils % (auto) 0.8 % (0.0-2.0); Eosinophils # (auto) 0 10 ^3/uL (0-0.8); Hematocrit 33.7 % (36.0-46.0); Hemoglobin 11.3 g/dL (12.2-16.2); Lymphocytes # (auto) 1.8 10 ^3/uL (0.4-5.4); Lymphocytes % (auto) 11.5 % (10.0-50.0); Mean Corpuscular Hemoglobin 29.6 pg (28.0-32.0); Mean Corpuscular Hgb Conc. 33.4 g/dL (32.0-36.0); Mean Corpuscular Volume 88.8 fL (80.0-100.0); Monocytes % (auto) 6.4 % (0.0-12.0); Neutrophils % (auto) 81.3 % (37.0-80.0); Nucleated Red Blood Cells % 0.1 %; Platelet Count (auto) 316 10^3/uL (140-450); Red Cell Distribution Width 13.8 % (11.8-14.3)
[2024-10-30 05:14] LABS: Chloride 111 mmol/L (98-107); Potassium 3.2 mmol/L (3.5-5.1); Sodium 139 mmol/L (136-145)
[2024-10-30 05:15] LABS: Anion Gap 16 (5-15)
[2024-10-30 05:20] LABS: BUN/Creatinine Ratio 18.8 (10.0-20.0); Blood Urea Nitrogen 22 mg/dL (9-23)
[2024-10-30 05:28] LABS: Calcium 7.2 mg/dL (8.7-10.4); Carbon Dioxide 12 mmol/L (20-31); Glucose 183 mg/dL (74-106)
[2024-10-30] MEDS: POTASSIUM CHL 20MEQ/100ML 100 ML IV SCH (06:00)
[2024-10-30] MEDS: POTASSIUM CHLORIDE 40 MEQ, LIDOCAINE 1% (LOCAL ANESTH.) 4 ML in SODIUM CHL 0.9% 250 ML IV ONE ×2 (08:00→16:15)
[2024-10-30 09:05] LABS: Sodium 142 mmol/L (136-145)
[2024-10-30 09:06] LABS: Anion Gap 15 (5-15)
[2024-10-30 09:12] LABS: BUN/Creatinine Ratio 19.3 (10.0-20.0); Blood Urea Nitrogen 22 mg/dL (9-23)
[2024-10-30 09:17] LABS: Calcium 8.2 mg/dL (8.7-10.4); Carbon Dioxide 17 mmol/L (20-31); Chloride 110 mmol/L (98-107); Glucose 162 mg/dL (74-106); Potassium 3.4 mmol/L (3.5-5.1)
[2024-10-30] MEDS: INSULIN LANTUS (GLARGINE) 1 /0.01ml (100units/ml) SC SCH (10:00)
[2024-10-30] MEDS: D5W/SOD CHL 0.45% 1,000 ML IV SCH (10:30)
[2024-10-30] MEDS: CEFEPIME 1GM/ 50ML 50 ML IV SCH (11:26)
[2024-10-30 12:48] LABS: Sodium 139 mmol/L (136-145)
[2024-10-30 12:49] LABS: Anion Gap 13 (5-15); Carbon Dioxide 18 mmol/L (20-31); Chloride 108 mmol/L (98-107)
[2024-10-30 12:50] LABS: Calcium 7.4 mg/dL (8.7-10.4)
[2024-10-30 12:54] LABS: BUN/Creatinine Ratio 14.7 (10.0-20.0); Blood Urea Nitrogen 14 mg/dL (9-23)
[2024-10-30 12:55] LABS: Glucose 137 mg/dL (74-106); Magnesium 1.4 mg/dL (1.6-2.6)
[2024-10-30 12:58] LABS: Phosphorus 1.6 mg/dL (2.4-5.1)
--- NOTE | 2024-10-30 13:25 | DVHINCON2 ---
GI Consult Consult Note GI consult note Date of Consultation: 10/30/2024 Chief Complaint: Concern for gastric outlet obstruction versus gastroparesis Referring Physician: Dr. Hoyos H&P: 48-year-old female with history of diabetes, methamphetamine abuse, recurrent DKA, poor medication compliance presented to ER with hypoglycemia and altered mental status. Patient opening eyes, but poor historian. History from chart and RN at bedside. Patient having nausea and vomiting. No hematemesis. No complains of abdominal pain. Unsure but last bowel movement. Past Medical History: diabetes, methamphetamine abuse recurrent DKA related hospitalization and poor medication compliance Past Surgical History: None per chart Social History: Smoke: No ALCOHOL: occassional Drugs: None, Other (Also previously methamphetamine abuser, UDS pending. ) Lives: with Family Domestic Violence: Neg Family History: Unknown Review of Systems: As above Physical exam: General: Patient is opening eyes. No apparent distress Chest: lung serrano clear to auscultation Heart: RRR, no murmur Abdomen: non-distended, soft, decreased BS Labs: Labs Test 10/30/24 12:38 10/30/24 12:26 10/30/24 05:10 10/30/24 04:37 Range/Units POC Glucose 119 H 70-106 mg/dl Sodium Level 139 136-145 mmol/L Potassium Level 3.0 L 3.5-5.1 mmol/L Chloride Level 108 H 98-107 mmol/L Carbon Dioxide Level 18 L 20-31 mmol/L Anion Gap 13 5-15 Blood Urea Nitrogen 14 9-23 mg/dL Creatinine 0.95 0.550-1.02 mg/dL Glomerular Filtration Rate Calc 74 >90 mL/min BUN/Creatinine Ratio 14.7 10.0-20.0 Serum Glucose 137 H 74-106 mg/dL Calcium Level 7.4 L 8.7-10.4 mg/dL Phosphorus Level 1.6 L 2.4-5.1 mg/dL Magnesium Level 1.4 L 1.6-2.6 mg/dL Random Vancomycin Level 18.6 H 5-10 ug/mL White Blood Count 16.0 #H 4.4-10.8 10^3/uL Red Blood Count 3.80 L 4.0-5.20 10^6/uL Hemoglobin 11.3 #L 12.2-16.2 g/dL Hematocrit 33.7 #L 36.0-46.0 % Mean Corpuscular Volume 88.8 # 80.0-100.0 fL Mean Corpuscular Hemoglobin 29.6 28.0-32.0 pg Mean Corpuscular Hemoglobin Concent 33.4 32.0-36.0 g/dL Red Cell Distribution Width 13.8 11.8-14.3 % Platelet Count 316 140-450 10^3/uL Mean Platelet Volume 7.7 6.9-10.8 fL Neutrophils (%) (Auto) 81.3 H 37.0-80.0 % Lymphocytes (%) (Auto) 11.5 10.0-50.0 % Monocytes (%) (Auto) 6.4 0.0-12.0 % Eosinophils (%) (Auto) 0.0 0.0-7.0 % Basophils (%) (Auto) 0.8 0.0-2.0 % Neutrophils # (Auto) 13.0 H 1.6-8.6 10 ^3/uL Lymphocytes # (Auto) 1.8 0.4-5.4 10 ^3/uL Monocytes # (Auto) 1.0 0-1.3 10 ^3/uL Eosinophils # (Auto) 0 0-0.8 10 ^3/uL Basophils # (Auto) 0.1 0-0.2 10 ^3/uL Nucleated Red Blood Cells 0.1 % Test 10/30/24 01:22 10/30/24 00:51 10/30/24 00:05 10/30/24 00:00 Range/Units Lactic Acid Level 1.5 0.4-2.0 mmol/L Blood Gas Specimen Type Arterial Blood Gas Sample Site Right brachial Blood Gas Patient Temperature 37.0 Arterial Blood Date Drawn [id number] Arterial Blood pH 7.257 L 7.350-7.450 Arterial Blood Partial Pressure CO2 17.1 *L 32.0-45.0 mmHg Arterial Blood Partial Pressure O2 91.3 83.0-108.0 mmHg Arterial Blood HCO3 7.4 L 21.0-28.0 mmol/L Arterial Blood Oxygen Saturation 96.7 94.0-98.0 % Arterial Blood Base Excess -17.4 L -2.0-3.0 mmol/L Arterial Blood Oxyhemoglobin 95.6 94.0-98.0 % Arterial Blood Carboxyhemoglobin 0.8 0.5-1.5 % Arterial Blood Methemoglobin 0.3 0.0-1.5 % Aiden Test N/a Blood Gas Total Hemoglobin 12.10 12.0-16.0 g/dL Blood Gas Modality Room air Blood Gas Spontaneous Rate 30 FiO2 % 21.0 Blood Gas Critical Value Read Back Yes Blood Gas Notified Whom Dr. diogo bansal Blood Gas Notified Time [id number] Blood Gas Notified By Influenza Type A Antigen Negative Negative Influenza Type B Antigen Negative Negative SARS-CoV-2 Antigen (Rapid) Negative NEGATIVE Urine Color Colorless Yellow Urine Clarity Clear Clear Urine pH 5.0 5.0-9.0 Urine Specific [place] 1.014 1.001-1.035 Urine Protein Negative Negative Urine Ketones 4+ H Negative Urine Blood Trace H Negative /uL Urine Nitrite Negative Negative Urine Bilirubin Negative Negative Urine Urobilinogen Normal Negative mg/dL Urine Leukocyte Esterase Negative Negative /uL Urine RBC 1 0 - 4 /hpf Urine Microscopic WBC 1 0-5 /HPF Urine Squamous Epithelial Cells Few <5 /hpf Urine Bacteria None seen None Seen /hpf Urine Yeast (Budding) Occasional None Seen /hpf Urine Glucose 4+ H Normal mg/dL Urine Test Negative Negative Urine Opiates Screen Neg NEGATIVE Urine Fentanyl Screen Neg NEGATIVE Urine Barbiturates Screen Neg NEGATIVE Urine Phencyclidine Screen Neg NEGATIVE Urine Amphetamines Screen Pos NEGATIVE Urine Benzodiazepines Screen Neg NEGATIVE Urine Cocaine Screen Neg NEGATIVE Urine Cannabinoids Screen Neg NEGATIVE Test 10/29/24 19:30 10/29/24 18:52 Range/Units Serum Osmolality 352 H 278-298 mOsm/kg Troponin I High Sensitivity 5 </=34 ng/L Thyroid Stimulating Hormone (TSH) 0.90 0.55-4.78 uIU/mL Hemoglobin A1c > 14.0 H <5.7 % A1C Total Bilirubin 0.3 0.2-1.0 mg/dL Aspartate Amino Transferase (AST) 18 <34 U/L Alanine Aminotransferase (ALT) 15 7-40 U/L Alkaline Phosphatase 148 H 46-116 U/L Total Protein 6.8 5.7-8.2 g/dL Albumin 4.3 3.2-4.8 g/dL Lipase 77 H 12-53 U/L Beta-Hydroxybutyric Acid > 4.500 H < 0.4 mmol/L Beta HCG, Quantitative 0.5 L 1.5-4.2 mIU/mL Plasma/Serum Blood Alcohol < 3.0 <10 mg/dL Imaging: CT abdomen pelvis IMPRESSION: 1. Moderate fluid and gas distention of the stomach and fluid distention of the lower esophagus. A consideration would be gastric outlet obstruction although is not optimally evaluated on this noncontrast examination. 2. No small bowel obstruction. 3. Moderate retained stool in the colon. 4. Mild bilateral hydronephrosis which could be related to reflux in the setting of a moderately distended urinary bladder. No definite obstructing calculus. 5. Tiny nonobstructing right renal calculus. Assessment: DKA Abnormal CT reading possible gastric outlet obstruction Metabolic encephalopathy Plan: Discussed with Dr. Carrillo NG-tube low to intermittent suction Protonix b.i.d. Monitor labs Possible EGD to be considered if needed when patient is stable We will continue to follow patient Thank you for this consult Date of Service: Oct 30, 2024 Billing Provider: HA TAYLOR Common Visit Codes: CONSULT ONLY Consultation Codes: [id number] CONSULT <60MIN HA TAYLOR Oct 30, 2024 13:25
[2024-10-30] MEDS ORDERED: CLINIMIX PER PHARMACY 0 ML IV SCH (14:30)
[2024-10-30] MEDS: INSULIN LANTUS (GLARGINE) 1 /0.01ml (100units/ml) SC ONE (14:30)
[2024-10-30] MEDS ORDERED: POTASSIUM CHL 20MEQ/100ML 100 ML IV SCH (14:30)
--- NOTE | 2024-10-30 15:56 | DVHPNRES ---
Progress Note Date Seen: Oct 30, 2024 Resident Creating Document: SOCORRO JOYNER RESIDENT Medical Necessity Reason Pt with a Central, PICC or Fol: Yes The following are medically ne: Martinez Catheter Subjective Review of Systems Ms. Mccabe is a 48-year-old female with diabetes mellitus, meth abuse, recurrent hospitalization secondary to DKA, noncompliance, who presented to the ER with a chief complaint of hyperglycemia and altered mental status. Patient was disoriented and confused for the past couple of days, on arrival of the EMS, patient was tachycardic, tachypneic, on room air. On my evaluation, patient is experiencing slurred speech, is A&O x2 only, very sedated and experiencing intractable nausea and vomiting. Patient has been admitted to the [facility] for possible sepsis, bowel obstruction. Past medical and surgical history: diabetes mellitus, meth abuse, recurrent hospitalization secondary to DKA, noncompliance, Social history: Lives with family denies smoking, drinks occasionally alcohol, previous meth user. Home medications: Glipizide, insulin glargine 15 units SC b.i.d., metformin 100 mg b.i.d. , metronidazole Patient seen and examined at the bedside. Experiencing nausea and vomiting, NPO. NG tube ordered. Martinez in place. GI consulted for possible Gastric outlet obstruction versus Objective vital signs Vital Sign Date Time Temp Pulse Resp B/P (MAP) Pulse Ox O2 Delivery O2 Flow Rate FiO2 10/30/24 12:00 104 10/30/24 08:00 16 99 Room Air* 0 21 10/30/24 06:00 155/81 (105) 10/30/24 03:30 99.8 99.8 Total Intake and Output 10/29/24 10/29/24 10/30/24 15:00 23:00 07:00 Intake Total 2300 ml 2304.25 ml Output Total 1560 ml Balance 2300 ml 744.25 ml medications Current Medications Medications Dose Ordered Sig/Dave Route Start Time Stop Time Status Last Admin Dose Admin Vancomycin HCl 0 ml @ 0 mls/hr UD IV 10/29/24 18:45 Insulin Human (Reg)/Sodium Chloride 100 ml @ 0.5 mls/hr Q24H IV 10/29/24 19:45 10/29/24 20:39 6 MLS/HR Dextrose 50 ml UD PRN IV 10/29/24 19:45 Insulin Glargine 15 units DAILY SC 10/30/24 10:00 Ondansetron HCl 4 mg Q4HP PRN IV 10/29/24 21:15 10/30/24 04:47 4 MG Docusate Sodium 100 mg BIDPRN PRN PO 10/29/24 21:15 Morphine Sulfate 2 mg Q4HPRN PRN IV 10/29/24 21:15 10/30/24 04:51 2 MG Nitroglycerin 0.4 mg Q5MINP PRN SL 10/29/24 21:15 Morphine Sulfate 2 mg Q30M PRN IV 10/29/24 21:15 Cefepime HCl 50 ml @ 12.5 mls/hr DAILY IV 10/30/24 10:00 10/30/24 11:26 12.5 MLS/HR Pantoprazole Sodium 40 mg BID IV 10/30/24 22:00 Dextrose/Lactated Ringer's 1,000 ml @ 150 mls/hr Q6H40M IV 10/30/24 13:15 Amino Acids 0 ml @ 0 mls/hr PER PHARMACY IV 10/30/24 14:30 UNV Diagnostic Test (Pha) 1 strip IQ4HR 10/30/24 16:00 Insulin Human Regular IQ4HR SC 10/30/24 16:00 Dextrose 50 ml UD PRN IV 10/30/24 14:30 Insulin Glargine 10 units BID@0700,2200 SC 10/30/24 22:00 Potassium Chloride 100 ml @ 50 mls/hr Q2H IV 10/30/24 14:30 10/30/24 18:29 Magnesium Sulfate/ Dextrose 100 ml @ 100 mls/hr Q1HR IV 10/30/24 15:00 10/30/24 16:59 Examination Female patient lying in the bed, reporting nausea and vomiting General: Well-built, palor, mucosae are moist Cardiovascular: Sinus tachycardia but Regular S1 and S2. No murmurs, gallops or rubs. No JVD elevation. No pedal edema Respiratory: Normal B/L air entry on room air. Clear lung sounds on auscultation Abdomen: Soft, nontender, nondistended, hypoactive bowel sounds, no rebound tenderness, no organomegaly, no masses Genitourinary: Deferred MSK/skin: Mobilizes 4 limbs. Skin is dry and warm Neurological: No motor, no sensitive deficits, normal speech. Pupils are isocoric and reactive. Psych/Mental Status: A/Ox2 laboratory and microbiology Laboratory Tests 10/30/24 12:26 10/30/24 04:37 Test 10/30/24 12:26 Range/Units Serum Glucose 137 H 74-106 mg/dL Labs and/or images reviewed: Labs reviewed by me, Image(s) reviewed by me Problem List/Assessment/Plan Problem List/Assessment/Plan Acute metabolic versus toxic encephalopathy secondary to likely DKA Diabetic ketoacidosis Uncontrolled diabetes mellitus-A1c more than 14 Anion gap metabolic acidosis Lactic acidosis Noncompliance Elevated ketones, elevated anion gap Anion gap closed, twice, insulin Lantus ordered. Clinimix per pharmacy given patient is NPO Moderate sliding scale Discontinued IV insulin Urine protein/creatinine ratio pending Continue D5 LR given half NS D5 not available Sepsis-likely gastroenteritis, infectious etiology ? Gastric outlet obstruction versus gastroparesis CT abdomen shows moderate fluid and gas distention of the stomach and fluid distention of the lower esophagus, likely gastric outlet obstruction. No SBO. Moderate retained stool in the colon. Pantoprazole b.i.d., NPO , GI consultation NG tube Electrolyte abnormalities: Hypokalemia/hypophosphatemia/hypomagnesemia/hypocalcemia Supplementing Acute kidney injury likely vasomotor Bilateral hydronephrosis Nonobstructing right renal calculus CT abdomen shows mild bilateral hydronephrosis, tiny nonobstructing right renal calculus. Tamsulosin once diet starts On IV fluids Martinez in place Former amphetamine use dependence Counseled regarding cessation for more than 20 minutes NPO Echo pending Martinez in place NG ordered Plan discussed with patient in which all questions been answered Case discussed with Dr. Casiano Plan discussed with: Patient My Orders My Orders Orders - SOCORRO JOYNER RESIDENT Procedure Category Date Status Time * [facility] [employer] CONS 10/30/24 Transmitted 11:57 Npo (Nothing By DIET 10/30/24 Transmitted Mouth) Diet Lunch Ngt/Ogt ED NURSING 10/30/24 Transmitted Pantoprazole PHA 10/30/24 In Process (Protonix) 22:00 D5w/Lactated Ringers PHA 10/30/24 In Process (D5wlr) 13:15 Clinimix Per Pharmacy PHA 10/30/24 Pending 14:30 Glucose Blood PHA 10/30/24 In Process (Accu-Chek Comfort 16:00 Insulin R (Human) PHA 10/30/24 In Process (Insulin R) 16:00 Dextrose 50% Syringe PHA 10/30/24 In Process 14:30 Insulin Lantus PHA 10/30/24 In Process (Glargine) (Lantus) 22:00 Potassium Chl PHA 10/30/24 In Process 20meq/100ml 14:30 Magnesium Sulfate PHA 10/30/24 In Process 1gm/100ml 15:00 Date of Service: Oct 30, 2024 Billing Provider: FOX BAIRD MD Common Visit Codes: [id number] INP/OBS CARE(HIGH) SOCORRO JOYNER RESIDENT Oct 30, 2024 15:56 FOX BAIRD MD Nov 02, 2024 22:21
[2024-10-30] MEDS: ACCU-CHEK COMFORT CURVE STRIP VI SCH (16:00)
[2024-10-30] MEDS: InsuLIN REG 1unit/0.01ml Soln (100units/ml) SC SCH (16:00)
[2024-10-30] MEDS: MAGNESIUM SULFATE 1GM/100ML 100 ML IV SCH (16:00)
[2024-10-30 18:42] LABS: Alanine Aminotransferase 16 U/L (7-40); Albumin 3.5 g/dL (3.2-4.8); Alkaline Phosphatase 108 U/L (46-116); Anion Gap 14 (5-15); Aspartate Aminotransferase 23 U/L (<34); BUN/Creatinine Ratio 13.5 (10.0-20.0); Blood Urea Nitrogen 12 mg/dL (9-23); Chloride 105 mmol/L (98-107); Glucose 106 mg/dL (74-106); Potassium 3.4 mmol/L (3.5-5.1); Sodium 139 mmol/L (136-145); Total Protein 5.7 g/dL (5.7-8.2)
[2024-10-30 18:43] LABS: Bilirubin, Total 0.4 mg/dL (0.2-1.0); Calcium 7.9 mg/dL (8.7-10.4); Carbon Dioxide 20 mmol/L (20-31); Magnesium 1.3 mg/dL (1.6-2.6)
--- NOTE | 2024-10-30 19:23 | DVHSR ---
APPROVED REPORT EXAM: Two-dimensional and M-mode echocardiogram with Doppler and color Doppler. Blood Pressure: 155/81 mmHg INDICATION known meth abuser, rule out structural heart disease DIMENSIONS LVDd3.8 (3.8-5.7cm)LA (2D)3.6 (1.9-4.0cm)Aortic Root (2.0-3.7cm) LVDs3.0 (2.5-4.0cm)LA (MM) (1.9-4.0cm)Aortic Cusp Exc (1.5-2.0cm) EF (%) 45.0 (55-70%)Rt. Atrium2.9 (1.9-4.0cm)Asc. Aorta cm Mitral Valve MitralMitral Stenosis E wave0.48m/sMV Mean GR.mmHg A wave0.94m/sMV Peak GR.112mmHg E/A ratio0.52D MVAcm2 DECEL [id number] 1/2 Timems Aortic Valve Aortic ValveAortic Stenosis V11.06m/Arnulfo Mean GR.4mmHg V21.30m/Arnulfo Peak GR.7mmHg Pulmonic Valve V21.47m/s Tricuspid Valve TR Velocity2.45m/s [id number] Other Information Technically limited study due to body habitus and patient position. Conclusion LV EF IS 55% NORMAL VALVES NORMAL RV FUNCTION NO EFFUSION
[2024-10-30] MEDS: AMINO ACID INFUSION IN D10W 1,000 ML IV SCH (21:58)
[2024-10-30] MEDS ORDERED: INSULIN LANTUS (GLARGINE) 1 /0.01ml (100units/ml) SC SCH (22:00)
[2024-10-30] MEDS: PANTOPRAZOLE 40 MG/10 ML VIAL INJ IV SCH (22:01)
[2024-10-31 05:30] LABS: Protein, Urine 9.5 mg/dL (1-14)
[2024-10-31 05:32] LABS: Creatinine, Urine 23.36 mg/dL (30.0-125.0); Urine Protein/Creatinine Ratio 0.41
[2024-10-31 05:45] LABS: Basophils # (auto) 0.1 10 ^3/uL (0-0.2); Eosinophils # (auto) 0 10 ^3/uL (0-0.8); Eosinophils % (auto) 0.4 % (0.0-7.0); Hematocrit 36.5 % (36.0-46.0); Hemoglobin 12.6 g/dL (12.2-16.2); Lymphocytes # (auto) 1.9 10 ^3/uL (0.4-5.4); Lymphocytes % (auto) 23.8 % (10.0-50.0); Mean Corpuscular Hemoglobin 29.9 pg (28.0-32.0); Mean Corpuscular Hgb Conc. 34.4 g/dL (32.0-36.0); Mean Corpuscular Volume 86.8 fL (80.0-100.0); Monocytes # (auto) 0.5 10 ^3/uL (0-1.3); Monocytes % (auto) 6.3 % (0.0-12.0); Neutrophils # (auto) 5.4 10 ^3/uL (1.6-8.6); Neutrophils % (auto) 68.5 % (37.0-80.0); Platelet Count (auto) 282 10^3/uL (140-450); Red Cell Distribution Width 13.9 % (11.8-14.3); White Blood Cell 7.8 10^3/uL (4.4-10.8)
[2024-10-31 06:09] LABS: Alanine Aminotransferase 10 U/L (7-40); Alkaline Phosphatase 99 U/L (46-116); Anion Gap 10 (5-15); BUN/Creatinine Ratio 7.3 (10.0-20.0); Carbon Dioxide 26 mmol/L (20-31); Chloride 101 mmol/L (98-107); Magnesium 1.9 mg/dL (1.6-2.6); Sodium 137 mmol/L (136-145)
[2024-10-31 06:10] LABS: Albumin 3.3 g/dL (3.2-4.8); Aspartate Aminotransferase 20 U/L (<34); Bilirubin, Total 0.6 mg/dL (0.2-1.0)
[2024-10-31 06:21] LABS: Blood Urea Nitrogen 6 mg/dL (9-23); Calcium 8.6 mg/dL (8.7-10.4); Glucose 243 mg/dL (74-106); Potassium 2.9 mmol/L (3.5-5.1); Total Protein 5.4 g/dL (5.7-8.2)
[2024-10-31 07:30] VITALS: PULSE 102; RESP 14; O2SAT 98
[2024-10-31] MEDS: POTASSIUM PHOSPHATE 44 MEQ in D5W 5% 250 ML IV ONE (10:57)
[2024-10-31] MEDS: ENOXAPARIN SOD 40 MG/0.4 ML SYRINGE SC SCH (10:57)
--- NOTE | 2024-10-31 12:19 | DVH ---
Date: 10/31/2024 10:23 AM Examination: XY KUB ABDOMEN SINGLE VIEW History: f/u goo Comparison: CT 10/29/2024 TECHNIQUE: Frontal views of the abdomen was obtained. FINDINGS: Bowel gas pattern is unremarkable. Moderate stool burden. The lung bases are unremarkable. No acute osseous abnormality identified. IMPRESSION: Nonobstructive bowel gas pattern.
[2024-10-31] MEDS: INSULIN LANTUS (GLARGINE) 1 /0.01ml (100units/ml) SC ONE (12:56)
[2024-10-31] MEDS: VANCOMYCIN 1GM/250ML KIT 250 ML IV SCH (14:00)
--- NOTE | 2024-10-31 14:34 | DVHPNRES ---
Progress Note Date Seen: Oct 31, 2024 Resident Creating Document: SOCORRO JOYNER RESIDENT Medical Necessity Reason Pt with a Central, PICC or Fol: Yes The following are medically ne: Martinez Catheter Subjective Review of Systems Ms. Mccabe is a 48-year-old female with diabetes mellitus, meth abuse, recurrent hospitalization secondary to DKA, noncompliance, who presented to the ER with a chief complaint of hyperglycemia and altered mental status. Patient was disoriented and confused for the past couple of days, on arrival of the EMS, patient was tachycardic, tachypneic, on room air. On my evaluation, patient is experiencing slurred speech, is A&O x2 only, very sedated and experiencing intractable nausea and vomiting. Patient has been admitted to the [facility] for possible sepsis, bowel obstruction. Past medical and surgical history: diabetes mellitus, meth abuse, recurrent hospitalization secondary to DKA, noncompliance, Social history: Lives with family denies smoking, drinks occasionally alcohol, previous meth user. Home medications: Glipizide, insulin glargine 15 units SC b.i.d., metformin 100 mg b.i.d. , metronidazole 10/30-Patient seen and examined at the bedside. Experiencing nausea and vomiting, NPO. NG tube ordered. Martinez in place. GI consulted for possible Gastric outlet obstruction versus 10/31-patient seen and examined. Refused NG tube. Objective vital signs Vital Sign Date Time Temp Pulse Resp B/P (MAP) Pulse Ox O2 Delivery O2 Flow Rate FiO2 10/31/24 11:00 93 17 120/75 (90) 96 10/31/24 07:30 Room Air* 0 21 10/31/24 07:30 98.7 98.7 Total Intake and Output 10/30/24 10/30/24 10/31/24 15:00 23:00 07:00 Intake Total 1032.5 ml 1344.0 ml 1262 ml Output Total 1670 ml 850 ml Balance 1032.5 ml -326.0 ml 412 ml medications Current Medications Medications Dose Ordered Sig/Dave Route Start Time Stop Time Status Last Admin Dose Admin Vancomycin HCl 0 ml @ 0 mls/hr UD IV 10/29/24 18:45 Ondansetron HCl 4 mg Q4HP PRN IV 10/29/24 21:15 10/30/24 04:47 4 MG Morphine Sulfate 2 mg Q4HPRN PRN IV 10/29/24 21:15 10/30/24 04:51 2 MG Nitroglycerin 0.4 mg Q5MINP PRN SL 10/29/24 21:15 Morphine Sulfate 2 mg Q30M PRN IV 10/29/24 21:15 Cefepime HCl 50 ml @ 12.5 mls/hr DAILY IV 10/30/24 10:00 10/31/24 10:57 12.5 MLS/HR Pantoprazole Sodium 40 mg BID IV 10/30/24 22:00 10/31/24 11:12 40 MG Dextrose/Lactated Ringer's 1,000 ml @ 150 mls/hr Q6H40M IV 10/30/24 13:15 10/31/24 13:20 150 MLS/HR Amino Acids 0 ml @ 0 mls/hr PER PHARMACY IV 10/30/24 14:30 Diagnostic Test (Pha) 1 strip IQ4HR 10/30/24 16:00 10/31/24 12:00 1 STRIP Insulin Human Regular IQ4HR SC 10/30/24 16:00 10/31/24 12:45 9 UNITS Dextrose 50 ml UD PRN IV 10/30/24 14:30 Enoxaparin Sodium 40 mg DAILY SC 10/31/24 10:00 10/31/24 10:57 40 MG Amino Acids/ Electrolytes/ Dextrose 1,000 ml @ 41 mls/hr DAILY@2200 IV 10/30/24 22:00 10/30/24 21:58 41 MLS/HR Vancomycin HCl 250 ml @ 250 mls/hr Q12H IV 10/31/24 12:00 10/31/24 14:00 250 MLS/HR Insulin Glargine 10 units BID@0700,2200 SC 10/31/24 22:00 Examination Female patient lying in the bed, reporting nausea and vomiting General: Well-built, palor, mucosae are moist Cardiovascular: Sinus tachycardia but Regular S1 and S2. No murmurs, gallops or rubs. No JVD elevation. No pedal edema Respiratory: Normal B/L air entry on room air. Clear lung sounds on auscultation Abdomen: Soft, nontender, nondistended, absent bowel sounds, no rebound tenderness, no organomegaly, no masses Genitourinary: Deferred MSK/skin: Mobilizes 4 limbs. Skin is dry and warm Neurological: No motor, no sensitive deficits, normal speech. Pupils are isocoric and reactive. Psych/Mental Status: A/Ox2 laboratory and microbiology Laboratory Tests 10/31/24 04:47 Test 10/31/24 04:47 Range/Units Serum Glucose 243 H 74-106 mg/dL Microbiology Date/Time Source Procedure Growth Status 10/30/24 00:00 Urine - Martinez [place] Urine Culture - Preliminary Resulted 10/29/24 18:52 Blood Blood Culture - Preliminary NO GROWTH AFTER 24 HOURS OF INCUBATION. Resulted Labs and/or images reviewed: Labs reviewed by me, Image(s) reviewed by me Problem List/Assessment/Plan Problem List/Assessment/Plan Acute metabolic versus toxic encephalopathy secondary to likely DKA Diabetic ketoacidosis Uncontrolled diabetes mellitus-A1c more than 14 Anion gap metabolic acidosis Lactic acidosis Noncompliance Elevated ketones, elevated anion gap Anion gap closed, twice, insulin Lantus ordered. Clinimix per pharmacy given patient is NPO Moderate sliding scale Discontinued IV insulin Urine protein/creatinine ratio pending Continue D5 LR given half NS D5 not available Sepsis-likely gastroenteritis, infectious etiology ? Gastric outlet obstruction versus gastroparesis CT abdomen shows moderate fluid and gas distention of the stomach and fluid distention of the lower esophagus, likely gastric outlet obstruction. No SBO. Moderate retained stool in the colon. Pantoprazole b.i.d., NPO, GI consultation NG tube ordered but the patient refused Electrolyte abnormalities: Hypokalemia/hypophosphatemia/hypomagnesemia/hypocalcemia Potassium phosphate 30mmol supplemented, repeat BMP and phosphate levels Acute kidney injury likely vasomotor-resolving Bilateral hydronephrosis Nonobstructing right renal calculus CT abdomen shows mild bilateral hydronephrosis, tiny nonobstructing right renal calculus. Tamsulosin once diet starts On IV fluids Martinez in place Meth use dependence; drug screen positive for methamphetamine Counseled regarding cessation for 16 minutes NPO Echo unremarkable Martinez in place NG ordered, patient refused Plan discussed with patient in which all questions been answered Goals of care discussed with the patient for 20 minutes; full code Case discussed with Dr. Jane Plan discussed with: Patient, Other (Nurse) My Orders My Orders Orders - SOCORRO JONYER Procedure Category Date Status Time Enoxaparin Sodium PHA 6/28/25 In Process (Lovenox) 10:00 Ng/Orogastric Tube To NICHOLAS 10/30/24 In Process LIS 15:30 Amino Acid Infusion PHA 10/30/24 In Process In D10w (Clinimix 4. 22:00 Potassium Phosphate PHA 10/31/24 In Process 09:00 Kub Abdomen Single XY 10/31/24 Resulted View 10:14 Insulin Lantus PHA 10/31/24 In Process (Glargine) (Lantus) 22:00 Phosphorus LAB 10/31/24 Logged 15:00 Magnesium LAB 10/31/24 Logged 15:00 Basic Metabolic Panel LAB 10/31/24 Logged 15:00 Dietary Evaluation Review Comments: Nutrition Recommendation: 1) Advance TPN to meet at least 75% estimated needs 2) Advance to CCHO 60gm diet as medically feasible 3) Refer to CDE on DC 4) Monitor NPO status, lab values, skin trend, wt trend Expected Outcomes/Goals: Lab values to improve To meet at least 75% estimated needs within 7 days FU 2-3 days Addendum Addendum Addendum I was physically present for the mendenhall portions of the service provided to patient by THE RESIDENT. I have reviewed the documentation, discussed the case with resident and agree with the resident's documentation except as noted. Also the patient's clinical case was discussed with the patient's nurse. This medical document was created using an electronic medical record system with computerized dictation system. Although this document has been carefully reviewed, there might still be some phonetic and typographical errors. These areas are purely typographical due to imperfections of the software programs, and do not reflect any compromise in the patient's medical care. Late signature. Date of Service: Oct 31, 2024 Billing Provider: LESA JANE MD Common Visit Codes: [id number] INP/OBS CARE(HIGH) Secondary Visit Codes: [id number] CHNG SMOKING >10MIN (Counseled on methamphetamine use cessation for 16 minutes), [id number] CARE PLAN 30 MINUTES (20 minutes) SOCORRO JOYNER RESIDENT Oct 31, 2024 14:34 LESA JANE MD Nov 02, 2024 15:33
[2024-10-31 15:18] LABS: Chloride 103 mmol/L (98-107); Sodium 140 mmol/L (136-145)
[2024-10-31 15:19] LABS: Anion Gap 9 (5-15); Calcium 7.4 mg/dL (8.7-10.4); Carbon Dioxide 28 mmol/L (20-31); Potassium 2.9 mmol/L (3.5-5.1)
[2024-10-31 15:27] LABS: BUN/Creatinine Ratio 7.8 (10.0-20.0); Blood Urea Nitrogen < 5 mg/dL (9-23); Glucose 218 mg/dL (74-106); Magnesium 1.6 mg/dL (1.6-2.6); Phosphorus 2.1 mg/dL (2.4-5.1)
[2024-10-31 17:00] VITALS: PULSE 91; RESP 16; O2SAT 98
[2024-10-31 17:15] VITALS: BP 112/69; PULSE 90; RESP 20; TEMP 98.3; O2SAT 98
[2024-10-31] MEDS: POTASSIUM CHL 20MEQ/100ML 100 ML IV SCH ×2 (17:45→23:45)
[2024-10-31 20:00] VITALS: PULSE 85; RESP 16; O2SAT 98
[2024-10-31] MEDS: MAGNESIUM SULFATE 1GM/100ML 100 ML IV ONE (20:02)
[2024-10-31 21:00] VITALS: BP_SYST 117; BP_SYST 129; BP_DIAS 57; BP_DIAS 70; PULSE 83; PULSE 98; RESP 14; RESP 16; TEMP 97.4; TEMP 97.9; O2SAT 96; O2SAT 97
[2024-10-31] MEDS: INSULIN LANTUS (GLARGINE) 1 /0.01ml (100units/ml) SC SCH (22:06)
[2024-11-01] MEDS ORDERED: VANCOMYCIN 1GM/250ML KIT 250 ML IV SCH
[2024-11-01 01:00] VITALS: BP 102/71; PULSE 103; RESP 14; TEMP 98.4; O2SAT 100
[2024-11-01] MEDS: VANCOMYCIN 1GM/200ML PM 200 ML IV SCH (01:00)
[2024-11-01 05:00] VITALS: BP 97/59; PULSE 87; RESP 14; TEMP 97.2; O2SAT 97
[2024-11-01 06:30] LABS: Hemoglobin 12.4 g/dL (12.2-16.2)
[2024-11-01 06:33] LABS: Hematocrit 36.1 % (36.0-46.0); Mean Corpuscular Hemoglobin 30.2 pg (28.0-32.0); Mean Corpuscular Hgb Conc. 34.3 g/dL (32.0-36.0); Platelet Count (auto) 38 10^3/uL (140-450); Red Cell Distribution Width 13.7 % (11.8-14.3); White Blood Cell 4.7 10^3/uL (4.4-10.8)
[2024-11-01 06:48] LABS: Alanine Aminotransferase 17 U/L (7-40); Alkaline Phosphatase 87 U/L (46-116); Anion Gap 9 (5-15); Carbon Dioxide 28 mmol/L (20-31); Chloride 105 mmol/L (98-107); Magnesium 1.9 mg/dL (1.6-2.6); Sodium 142 mmol/L (136-145)
[2024-11-01 06:49] LABS: Aspartate Aminotransferase 25 U/L (<34); Bilirubin, Total 0.5 mg/dL (0.2-1.0)
[2024-11-01 06:51] LABS: Albumin 2.9 g/dL (3.2-4.8); BUN/Creatinine Ratio 10.2 (10.0-20.0); Blood Urea Nitrogen < 5 mg/dL (9-23); Calcium 8.6 mg/dL (8.7-10.4); Glucose 47 mg/dL (74-106); Total Protein 4.9 g/dL (5.7-8.2)
[2024-11-01 06:53] LABS: Phosphorus 2.2 mg/dL (2.4-5.1)
[2024-11-01] MEDS: DEXTROSE (50%) 50ML SYRG IV PRN (06:55)
[2024-11-01 07:12] LABS: Basophils % (manual) 0 (0.0-2.0); Blast Cells 0; Metamyelocytes % 0; Myelocytes % 0; Promyelocytes % 0
[2024-11-01 07:48] LABS: Band Neutrophils % (manual) 1; Eosinophils % (manual) 3 (0-7); Lymphocytes % (manual) 53 (10.0-50.0); Monocytes % (manual) 6 (0-12); Platelet Estimate Decreased; RBC Morphology Normal; Reactive Lymphocytes 1
[2024-11-01 08:00] VITALS: PULSE 86
[2024-11-01 09:12] VITALS: BP 106/69; PULSE 85; RESP 20; TEMP 98.1; O2SAT 99
--- NOTE | 2024-11-01 14:38 | DVHDSRES ---
Discharge Summary Date of Admission Resident Creating Document: EVARISTO IQBAL RESIDENT Oct 29, 2024 at 21:08 Date of Discharge: Nov 01, 2024 Admitting Diagnosis Generalized weakness and altered mental status Labs/Diagnostic Data: Laboratory Results Test 11/01/24 08:16 11/01/24 05:40 10/31/24 04:47 10/31/24 04:40 POC Glucose 232 mg/dl (70-106) White Blood Count 4.7 10^3/uL (4.4-10.8) Red Blood Count 4.10 10^6/uL (4.0-5.20) Hemoglobin 12.4 g/dL (12.2-16.2) Hematocrit 36.1 % (36.0-46.0) Mean Corpuscular Volume 88.0 fL (80.0-100.0) Mean Corpuscular Hemoglobin 30.2 pg (28.0-32.0) Mean Corpuscular Hemoglobin Concent 34.3 g/dL (32.0-36.0) Red Cell Distribution Width 13.7 % (11.8-14.3) Platelet Count 38 10^3/uL (140-450) Mean Platelet Volume 7.8 fL (6.9-10.8) Neutrophils (%) (Auto) % (37.0-80.0) Lymphocytes (%) (Auto) % (10.0-50.0) Monocytes (%) (Auto) % (0.0-12.0) Basophils (%) (Auto) % (0.0-2.0) Neutrophils # (Auto) 10 ^3/uL (1.6-8.6) Lymphocytes # (Auto) 10 ^3/uL (0.4-5.4) Monocytes # (Auto) 10 ^3/uL (0-1.3) Differential Total Cells Counted 100.0 (100) Neutrophils % (Manual) 36 (37.0-80.0) Band Neutrophils % (Manual) 1 Lymphocytes % (Manual) 53 (10.0-50.0) Monocytes % (Manual) 6 (0-12) Eosinophils % (Manual) 3 (0-7) Basophils % (Manual) 0 (0.0-2.0) Metamyelocytes % (manual) 0 Myelocytes % (Manual) 0 Promyelocytes % (Manual) 0 Blast Cells % (Manual) 0 Reactive Lymphocytes 1 Platelet Estimate Decreased Clumped Platelets Modera Red Blood Cell Morphology Normal Sodium Level 142 mmol/L (136-145) Potassium Level 3.0 mmol/L (3.5-5.1) Chloride Level 105 mmol/L (98-107) Carbon Dioxide Level 28 mmol/L (20-31) Anion Gap 9 (5-15) Blood Urea Nitrogen < 5 mg/dL (9-23) Creatinine 0.49 mg/dL (0.550-1.02) Glomerular Filtration Rate Calc 116 mL/min (>90) BUN/Creatinine Ratio 10.2 (10.0-20.0) Serum Glucose 47 mg/dL (74-106) Calcium Level 8.6 mg/dL (8.7-10.4) Phosphorus Level 2.2 mg/dL (2.4-5.1) Magnesium Level 1.9 mg/dL (1.6-2.6) Total Bilirubin 0.5 mg/dL (0.2-1.0) Aspartate Amino Transferase (AST) 25 U/L (<34) Alanine Aminotransferase (ALT) 17 U/L (7-40) Alkaline Phosphatase 87 U/L (46-116) Total Protein 4.9 g/dL (5.7-8.2) Albumin 2.9 g/dL (3.2-4.8) Eosinophils (%) (Auto) 0.4 % (0.0-7.0) Eosinophils # (Auto) 0 10 ^3/uL (0-0.8) Basophils # (Auto) 0.1 10 ^3/uL (0-0.2) Nucleated Red Blood Cells 0.0 % Random Vancomycin Level 3.0 ug/mL (5-10) Urine Creatinine 23.36 mg/dL (30.0-125.0) Urine Protein/Creatinine Ratio 0.41 Urine Sodium 132 mmol/L (40-220) Urine Total Protein 9.5 mg/dL (1-14) Test 10/30/24 01:22 10/30/24 00:51 10/30/24 00:05 10/30/24 00:00 Lactic Acid Level 1.5 mmol/L (0.4-2.0) Blood Gas Specimen Type Arterial Blood Gas Sample Site Right brachial Blood Gas Patient Temperature 37.0 Arterial Blood Date Drawn [id number] Arterial Blood pH 7.257 (7.350-7.450) Arterial Blood Partial Pressure CO2 17.1 mmHg (32.0-45.0) Arterial Blood Partial Pressure O2 91.3 mmHg (83.0-108.0) Arterial Blood HCO3 7.4 mmol/L (21.0-28.0) Arterial Blood Oxygen Saturation 96.7 % (94.0-98.0) Arterial Blood Base Excess -17.4 mmol/L (-2.0-3.0) Arterial Blood Oxyhemoglobin 95.6 % (94.0-98.0) Arterial Blood Carboxyhemoglobin 0.8 % (0.5-1.5) Arterial Blood Methemoglobin 0.3 % (0.0-1.5) Aiden Test N/a Blood Gas Total Hemoglobin 12.10 g/dL (12.0-16.0) Blood Gas Modality Room air Blood Gas Spontaneous Rate 30 FiO2 % 21.0 Blood Gas Critical Value Read Back Yes Blood Gas Notified Whom Dr. diogo bansal Blood Gas Notified Time [id number] Blood Gas Notified By Influenza Type A Antigen Negative (Negative) Influenza Type B Antigen Negative (Negative) SARS-CoV-2 Antigen (Rapid) Negative (NEGATIVE) Urine Color Colorless (Yellow) Urine Clarity Clear (Clear) Urine pH 5.0 (5.0-9.0) Urine Specific [place] 1.014 (1.001-1.035) Urine Protein Negative (Negative) Urine Ketones 4+ (Negative) Urine Blood Trace /uL (Negative) Urine Nitrite Negative (Negative) Urine Bilirubin Negative (Negative) Urine Urobilinogen Normal mg/dL (Negative) Urine Leukocyte Esterase Negative /uL (Negative) Urine RBC 1 /hpf (0 - 4) Urine Microscopic WBC 1 /HPF (0-5) Urine Squamous Epithelial Cells Few /hpf (<5) Urine Bacteria None seen /hpf (None Seen) Urine Yeast (Budding) Occasional /hpf (None Urine Glucose 4+ mg/dL (Normal) Urine Test Negative (Negative) Urine Opiates Screen Neg (NEGATIVE) Urine Fentanyl Screen Neg (NEGATIVE) Urine Barbiturates Screen Neg (NEGATIVE) Urine Phencyclidine Screen Neg (NEGATIVE) Urine Amphetamines Screen Pos (NEGATIVE) Urine Benzodiazepines Screen Neg (NEGATIVE) Urine Cocaine Screen Neg (NEGATIVE) Urine Cannabinoids Screen Neg (NEGATIVE) Test 10/29/24 19:30 10/29/24 18:52 Serum Osmolality 352 mOsm/kg (278-298) Troponin I High Sensitivity 5 ng/L (</=34) Thyroid Stimulating Hormone (TSH) 0.90 uIU/mL (0.55-4.78) Hemoglobin A1c > 14.0 % A1C (<5.7) Lipase 77 U/L (12-53) Beta-Hydroxybutyric Acid > 4.500 mmol/L (< 0.4) Beta HCG, Quantitative 0.5 mIU/mL (1.5-4.2) Plasma/Serum Blood Alcohol < 3.0 mg/dL (<10) Other Laboratory Tests 11/01/24 05:40 Brief Hx & Hospital Course: A 48-year-old female with a history of diabetes type 2, and amphetamine smoking; came in for generalized weakness altered mental status and diabetic ketoacidosis. Blood sugars found to be very high treated with per DKA protocol with the insulin drip and later converted to aggressive sliding scale. Meanwhile patient decided to leave AMA and left against medical advice. She is aware of the consequences and complications including possible . Condition at Discharge: Undetermined (AMA) Final Diagnosis/Problems List Acute metabolic versus toxic encephalopathy secondary to likely DKA Diabetic ketoacidosis Uncontrolled diabetes mellitus-A1c more than 14 Anion gap metabolic acidosis Lactic acidosis Noncompliance Sepsis-likely gastroenteritis, infectious etiology ? Gastric outlet obstruction versus gastroparesis Electrolyte abnormalities: Hypokalemia/hypophosphatemia/hypomagnesemia/hypocalcemia Acute kidney injury likely vasomotor Bilateral hydronephrosis Nonobstructing right renal calculus Amphetamine use disorder Discharge Disposition: AMA SNF Discharge Will this Physician continue t: No Discharge Instruct/Medications Follow Up/Referral: Left AMA Medications: Left AMA Discharge Statement: "Patient was advised to return to the ER or call 911 if any headaches, dizziness, shortness of breath, chest pain, abdominal pain, bleeding, fevers, or worsening of medical condition. Patient was counseled about treatment plan, medications, possible side effects, patientverbalized understanding. All questions were answered to the best of my ability. This discharge took greater then 30 minutes in planning, reviewing documentation, counseling the patient, and discussing with other team members." ASSESSMENT ASSESSMENT Assessment Addendum Addendum Addendum I was physically present for the mend[place]all portions of the service provided to patient by THE RESIDENT. I have reviewed the documentation, discussed the case with resident and agree with the resident's documentation except as noted. Also the patient's clinical case was discussed with the patient's nurse. This medical document was created using an electronic medical record system with computerized dictation system. Although this document has been carefully reviewed, there might still be some phonetic and typographical errors. These areas are purely typographical due to imperfections of the software programs, and do not reflect any compromise in the patient's medical care. Late signature. Date of Service: Nov 01, 2024 Billing Provider: LESA JANE MD Common Visit Codes: 77633-MRB/OBS DISCH DAY >30min EVARISTO IQBAL RESIDENT Nov 01, 2024 14:38 LESA JANE MD Nov 02, 2024 15:39
== END 2024-11-01 09:49 | disposition left against medical advice (07) | DRG 720 ==
LOC: EDUNIT# 18:19 → EDBD 18:19 → ER 18:23 → OVERFLOW 21:08 → WEST WING 10-31 16:24
PROVIDERS: ADMIT Student in an Organized Health Care Education/Training Program; ATTEND Student in an Organized Health Care Education/Training Program
PROC: 05H933Z Insertion of Infusion Device into Right Brachial Vein, Percutaneous Approach (ICD-10-PCS; principal; 2024-10-30)
PROC: B54MZZA Ultrasonography of Right Upper Extremity Veins, Guidance (ICD-10-PCS; 2024-10-30)
DX: A41.9 Sepsis, unspecified organism (principal); N17.0 Acute kidney failure with tubular necrosis; E11.10 Type 2 diabetes mellitus with ketoacidosis without coma; G92.8 Other toxic encephalopathy; K31.1 Adult hypertrophic pyloric stenosis; K31.84 Gastroparesis; E83.39 Other disorders of phosphorus metabolism; I10 Essential (primary) hypertension; E87.5 Hyperkalemia; Z20.822 Contact with and (suspected) exposure to COVID-19; E83.42 Hypomagnesemia; N13.2 Hydronephrosis with renal and ureteral calculous obstruction; A09 Infectious gastroenteritis and colitis, unspecified; E11.43 Type 2 diabetes mellitus with diabetic autonomic (poly)neuropathy; F15.20 Other stimulant dependence, uncomplicated; Z53.29 Procedure and treatment not carried out because of patient's decision for other reasons; Z91.148 Patient's other noncompliance with medication regimen for other reason; Z79.4 Long term (current) use of insulin; Z79.84 Long term (current) use of oral hypoglycemic drugs; Z79.899 Other long term (current) drug therapy
CPT/HCPCS: 36415; 36600; 71045; 74018; 74176; 80048; 80053; 80202; 80307; 80320; 81001; 81025; 82010; 82565; 82570; 82805; 82962; 83036; 83605; 83690; 83735; 83930; 84100; 84156; 84300; 84443; 84484; 84702; 85007; 85025; 85027; 87040; 87086; 87426; 87804; 93306; 96361; 96374; 99291; G0378; J1815; J2003; J2405; J2470; J2543; J3480; J7060

== ENCOUNTER 2024-11-09 20:31 | Inpatient (IN) | payer OTHER ==
[~2024-11-09] VITALS: Ht 165.1 cm; Wt 43.6 kg
[2024-11-09] MEDS: SODIUM CHLORIDE 0.9% 1,000 ML IV SCH (00:35)
--- NOTE | 2024-11-09 20:42 | ED.PDOC ---
History of present illness HPI Comments HPI: Eliot 48 y.o female presents to the ED via EMS for an evaluation of hyperglycemia. EMS reports patient complained of nausea and vomiting that started earlier today. On scene, patient's BG read HI multiple times. Patient reports taking 10 units of insulin at home around 1700 and states she is compliant with medication intake Initial Vitals per EMS prior to ED arrival BP: 134/85 HR: 120 RR: 24 O2 Sat:98% RA Temp: n/a Past Medical history: HTN and DM Past Surgical history: Social History: Denies smoking, ETOH, and drug use. Allergies: NKDA HPI: Poor Historian. Past Medical History: Past Surgical History: REVIEW OF SYSTEMS: CONSTITUTIONAL: Denies acute: fever, diaphoresis, chills, generalized weakness. HEAD: Denies acute: headache, photophobia Eyes: Denies acute: Double vision, vision loss, eye pain, eye discharge. EARS: Denies acute: tinnitus, hearing loss, ear discharge, ear pain, THROAT: Denies acute: sore throat, swelling, difficulty swallowing , pain with swallowing, change in voice. NECK: Denies acute: neck pain, neck swelling, stiff neck. HEART: Denies acute : chest pain, palpitations, LUNGS: Denies acute: SOB, wheezing, cough, hemoptysis ABDOMEN: Denies acute: abdominal pain, Nausea, Vomiting, diarrhea, melena , hematemesis, hematochezia SKIN: Denies acute: rash, redness, lesions, itchiness. EXTREMITIES: Denies acute: calf pain, numbness, tingling, weakness, denies pain in extremity. Denies acute: Low back pain. Neuro: Denies acute: focal neurological deficit, motor or sensory focal neurological deficit, tremors, seizure like activity, confusion, dizziness, change in mental status, loss of bowel or bladder function, cauda equina like symptoms. : Denies acute: dysuria, hematuria, flank pain, increase in urinary frequency. PSYCH: Denies acute: hallucination, suicidal ideation, homicidal ideation. FEMALE: Denies acute: abnormal vaginal bleeding, foul odor, unusual discharge. PHYSICAL EXAM: General: --------acute distress, awake and alert. Head: normocephalic, atraumatic. Neck: supple, trachea is midline, no swelling. Throat: Normal phonation. Eyes:, no erythema, no purulent discharge, no proptosis, no icterus. Heart: regular rate, regular rhythm, no significant murmur appreciated. Lungs: no apparent respiratory distress, Able to speak in full sentences. No wheezing, no rhonchi, no crackles. No stridors Clear to auscultation bilaterally. Abdomen: non tender to palpation, non distended, soft, no guarding, no rebound, + bowel sounds. Neuro: Awake, Alert, oriented to name, self, situation, follows commands GCS=15. Speech is normal. Skin: no petechia, no purpura, no cyanosis, non-pale, not jaundice. Lower extremities: --no - Pitting edema no deformity, no focal swelling, no calf TTP. Makes eye contact. moves all four extremities. Face: no apparent facial droop. No CVA tenderness to percussion bilaterally. Ambulating in the ED independently. Ears: Normal appearing TM b/l, Stroke: finger to nose cerebellar testing is intact. No pronator drift. 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 No nystagmus. No nuchal rigidity, Kernig's sign, Brudzinski's sign, no meningeal signs. ED COURSE: DISCLAIMER: This medical document was created using an electronic medical record system with voice recognition software and computerized dictation system. Although this document has been carefully reviewed, there might still be some phonetic and typographical errors. Occasional wrong-word or "sound-alike" substitutions may have occurred due to the inherent limitations of voice recognition software. These areas are purely typographical due to imperfections of the software programs and do not reflect any compromise in the patient's medical care. Please read the chart carefully and recognize, using context, where these substitutions have occurred. 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 Allergies: Coded Allergies: NO KNOWN ALLERGIES (Unverified , 06/06/19) Home Meds Active Scripts Insulin Glargine (Lantus) 100 Unit/Ml Inj, 15 UNITS SC BID@0700,2200 for 30 Days, #100 INJ 3 Refills Prov:KARISHMA HURTADO 04/30/23 Glipizide (Glipizide) 5 Mg Tab, 1 TAB PO DAILY, #30 TAB Prov:MADELINE CORRIGAN MD 06/10/19 Metronidazole (Flagyl) 500 Mg Tab, 500 MG PO TID, #21 TAB Prov:MADELINE CORRIGAN MD 06/10/19 Metformin Hydrochloride (Metformin Hcl) 1,000 Mg Tab, 1 TAB PO BID, #60 TAB Prov:MADELINE CORRIGAN MD 06/10/19 Reported Medications Metformin Hydrochloride (Metformin Hcl) 500 Mg Tab, 500 MG PO DAILY for 30 Days, MG 06/09/19 Information Source: Patient, Emergency Med Personnel Mode of Arrival: EMS Past Medical History PAST MEDICAL HISTORY: DM, HTN Surgical History: Pt 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 Was a procedure done?: No Differential Diagnosis (DM) Differential Diagnosis: Dehydration, Diabetic Coma, DKA, Electrolyte Abnormality, Hyperglycemia, Hyperosmolar State Time of 1ST Reevaluation: 21:00 Reevaluation 1ST: Unchanged Patient Education/Counseling: Diagnosis, Treatment Family Education/Counseling: No Family Present Critical Care Note Critical Care Time?: No I personally scribed for NICHOLAS RESENDIZ MD ([email or web address]) on 11/09/24 at 20:42. Electronically submitted by Lacey Prajapati ([facility]). NICHOLAS RESENDIZ MD Nov 09, 2024 20:42 SYEDA BARLOW DO Nov 09, 2024 20:51
--- NOTE | 2024-11-09 20:52 | ED.PDOC ---
History of present illness HPI Comments HPI: Eliot 48 y.o female presents to the ED via EMS for an evaluation of hyperglycemia. EMS reports patient complained of nausea and vomiting that started earlier today. On scene, patient's BG read HI multiple times. Patient reports taking 10 units of insulin at home around 1700. Patient reports previous history of DKA, last episode was on 10/29/24 in which she was seen at [facility] ED, admitted and discharged 3 days after with the following diagnoses. Acute metabolic versus toxic encephalopathy secondary to likely DKA Diabetic ketoacidosis Uncontrolled diabetes mellitus-A1c more than 14 Anion gap metabolic acidosis Lactic acidosis Noncompliance Sepsis-likely gastroenteritis, infectious etiology ? Gastric outlet obstruction versus gastroparesis Electrolyte abnormalities: Hypokalemia/hypophosphatemia/hypomagnesemia/hypocalcemia Acute kidney injury likely vasomotor Bilateral hydronephrosis Nonobstructing right renal calculus Amphetamine use disorder Per previous [facility] medical records, patient has poor compliance to medication and is a poor historian. Initial Vitals per EMS prior to ED arrival BP: 134/85 HR: 120 RR: 30 O2 Sat:98% RA Temp: n/a Vital signs upon ED arrival BP: 146/88 HR: 130 RR: 30 O2 Sat: 100% RA Temp: 97.4 F Past Medical history: HTN and DM Past Surgical history: Social History: Denies smoking, ETOH, and drug use. Allergies: NKDA HPI: Poor Historian. REVIEW OF SYSTEMS: CONSTITUTIONAL: Denies acute: fever, diaphoresis, chills, HEAD: Denies acute: headache, photophobia Eyes: Denies acute: Double vision, vision loss, eye pain, eye discharge. EARS: Denies acute: tinnitus, hearing loss, ear discharge, ear pain, THROAT: Denies acute: sore throat, swelling, difficulty swallowing , pain with swallowing, change in voice. NECK: Denies acute: neck pain, neck swelling, stiff neck. HEART: Denies acute : chest pain, palpitations, LUNGS: Denies acute: SOB, wheezing, cough, hemoptysis ABDOMEN: Denies acute: abdominal pain, diarrhea, melena , hematemesis, hematochezia SKIN: Denies acute: rash, redness, lesions, itchiness. EXTREMITIES: Denies acute: calf pain, numbness, tingling, weakness, denies pain in extremity. Denies acute: Low back pain. Neuro: Denies acute: focal neurological deficit, motor or sensory focal neurological deficit, tremors, seizure like activity, confusion, dizziness, change in mental status, loss of bowel or bladder function, cauda equina like symptoms. : Denies acute: dysuria, hematuria, flank pain, increase in urinary frequency. PSYCH: Denies acute: hallucination, suicidal ideation, homicidal ideation. FEMALE: Denies acute: abnormal vaginal bleeding, foul odor, unusual discharge. PHYSICAL EXAM: General: -----[id number]---acute distress, awake and alert. Head: normocephalic, atraumatic. Neck: supple, trachea is midline, no swelling. Throat: Normal phonation. Eyes:, no erythema, no purulent discharge, no proptosis, no icterus. Heart: regular tachycardia, no significant murmur appreciated. Lungs: no apparent respiratory distress, No wheezing, no rhonchi, no crackles. No stridors Clear to auscultation bilaterally. Abdomen: non tender to palpation, non distended, soft, no guarding, no rebound, + bowel sounds. Neuro: Awake, Alert, oriented to name, self, situation, follows commands GCS=15. Speech is normal. Skin: no petechia, no purpura, no cyanosis, non-pale, not jaundice. Lower extremities: --no - Pitting edema no deformity, no focal swelling, no calf TTP. Makes eye contact. moves all four extremities. Face: no apparent facial droop. Ambulating in the ED independently. ED COURSE: DISCLAIMER: This medical document was created using an electronic medical record system with voice recognition software and computerized dictation system. Although this document has been carefully reviewed, there might still be some phonetic and typographical errors. Occasional wrong-word or "sound-alike" substitutions may have occurred due to the inherent limitations of voice recognition software. These areas are purely typographical due to imperfections of the software programs and do not reflect any compromise in the patient's medical care. Please read the chart carefully and recognize, using context, where these substitutions have occurred. 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 Allergies: Coded Allergies: NO KNOWN ALLERGIES (Unverified , 06/06/19) Home Meds Active Scripts Insulin Glargine (Lantus) 100 Unit/Ml Inj, 15 UNITS SC BID@0700,2200 for 30 Day s, #100 INJ 3 Refills Prov:HURTADOKARISHMA Connor DO 04/30/23 Glipizide (Glipizide) 5 Mg Tab, 1 TAB PO DAILY, #30 TAB Prov:MADELINE CORRIGAN MD 06/10/19 Metronidazole (Flagyl) 500 Mg Tab, 500 MG PO TID, #21 TAB Prov:MADELINE CORRIGAN MD 06/10/19 Metformin Hydrochloride (Metformin Hcl) 1,000 Mg Tab, 1 TAB PO BID, #60 TAB Prov:MADELINE CORRIGAN MD 06/10/19 Reported Medications Metformin Hydrochloride (Metformin Hcl) 500 Mg Tab, 500 MG PO DAILY for 30 Days, MG 06/09/19 Information Source: Patient, Emergency Med Personnel Mode of Arrival: EMS Past Medical History PAST MEDICAL HISTORY: DM, HTN Surgical History: Pt Confused POT SANDER History: No Pertinent POT SANDER History Family History Family History: Unknown Social History Smoker: Pt Confused Alcohol: Pt Confused Drugs: Pt Confused Lives In: Home Was a procedure done? Was a procedure done?: No Differential Diagnosis (DM) Differential Diagnosis: Dehydration, Diabetic Coma, DKA, Electrolyte Abnormality, Hyperglycemia, Hyperosmolar State X-Ray, Labs, Meds, VS Vital Signs Date Time Temp Pulse Resp B/P (MAP) Pulse Ox O2 Delivery O2 Flow Rate FiO2 11/09/24 22:01 129 19 132/76 (94) 100 11/09/24 21:47 129 31 100 Room Air* 0 21 11/09/24 21:45 130 11/09/24 21:39 129 19 182/80 (114) 100 11/09/24 21:20 97.8 120 31 182/80 (114) 100 97.8 11/09/24 20:53 97.4 130 30 146/88 (107) 100 97.4 Lab Test 11/09/24 22:30 11/09/24 21:54 11/09/24 21:44 11/09/24 21:25 Range/Units Sodium Level 138 # 136-145 mmol/L Potassium Level 4.4 3.5-5.1 mmol/L Chloride Level 98 98-107 mmol/L Carbon Dioxide Level < 10 *L 20-31 mmol/L Anion Gap 30.29125 H 5-15 Blood Urea Nitrogen 26 H 9-23 mg/dL Creatinine 1.55 H 0.550-1.02 mg/dL Glomerular Filtration Rate Calc 41 >90 mL/min BUN/Creatinine Ratio 16.8 10.0-20.0 Serum Glucose 666 *H 74-106 mg/dL Lactic Acid Level 4.9 *H 0.4-2.0 mmol/L Calcium Level 9.5 8.7-10.4 mg/dL Troponin I High Sensitivity 6 </=34 ng/L Blood Gas Specimen Type Arterial Blood Gas Sample Site Right radial Blood Gas Patient Temperature 37.0 Arterial Blood Date Drawn [id number] Arterial Blood pH 7.186 *L 7.350-7.450 Arterial Blood Partial Pressure CO2 < 14.1 *L 32.0-45.0 mmHg Arterial Blood Partial Pressure O2 128.3 H 83.0-108.0 mmHg Arterial Blood Oxygen Saturation 97.9 94.0-98.0 % Arterial Blood Oxyhemoglobin 96.6 94.0-98.0 % Arterial Blood Carboxyhemoglobin 0.8 0.5-1.5 % Arterial Blood Methemoglobin 0.5 0.0-1.5 % Aiden Test Modified Blood Gas Total Hemoglobin 13.50 12.0-16.0 g/dL Blood Gas Modality Room air FiO2 % 21.0 Blood Gas Critical Value Read Back Yes Blood Gas Notified Whom Md dez barlow Blood Gas Notified Time [id number] Blood Gas Notified By Rt aubrey hurley POC Glucose > 600 *H > 600 *H 70-106 mg/dl Test 11/09/24 21:00 Range/Units White Blood Count 10.0 4.4-10.8 10^3/uL Red Blood Count 4.47 4.0-5.20 10^6/uL Hemoglobin 13.6 12.2-16.2 g/dL Hematocrit 43.0 36.0-46.0 % Mean Corpuscular Volume 96.1 80.0-100.0 fL Mean Corpuscular Hemoglobin 30.4 28.0-32.0 pg Mean Corpuscular Hemoglobin Concent 31.6 L 32.0-36.0 g/dL Red Cell Distribution Width 15.4 H 11.8-14.3 % Platelet Count 532 H 140-450 10^3/uL Mean Platelet Volume 7.5 6.9-10.8 fL Neutrophils (%) (Auto) 79.8 37.0-80.0 % Lymphocytes (%) (Auto) 16.8 10.0-50.0 % Monocytes (%) (Auto) 2.5 0.0-12.0 % Eosinophils (%) (Auto) 0.1 0.0-7.0 % Basophils (%) (Auto) 0.8 0.0-2.0 % Neutrophils # (Auto) 8.0 1.6-8.6 10 ^3/uL Lymphocytes # (Auto) 1.7 0.4-5.4 10 ^3/uL Monocytes # (Auto) 0.3 0-1.3 10 ^3/uL Eosinophils # (Auto) 0 0-0.8 10 ^3/uL Basophils # (Auto) 0.1 0-0.2 10 ^3/uL Nucleated Red Blood Cells 0.0 % Sodium Level 133 L 136-145 mmol/L Potassium Level 4.5 3.5-5.1 mmol/L Chloride Level 96 L 98-107 mmol/L Carbon Dioxide Level < 10 *L 20-31 mmol/L Anion Gap 27.54770 H 5-15 Blood Urea Nitrogen 28 H 9-23 mg/dL Creatinine 1.67 H 0.550-1.02 mg/dL Glomerular Filtration Rate Calc 38 >90 mL/min BUN/Creatinine Ratio 16.8 10.0-20.0 Serum Glucose 695 *H 74-106 mg/dL Serum Osmolality 343 H 278-298 mOsm/kg Lactic Acid Level 2.7 *H 0.4-2.0 mmol/L Calcium Level 11.1 H 8.7-10.4 mg/dL Phosphorus Level 6.0 H 2.4-5.1 mg/dL Magnesium Level 2.2 1.6-2.6 mg/dL Total Bilirubin 0.5 0.2-1.0 mg/dL Aspartate Amino Transferase (AST) 18 13-40 U/L Alanine Aminotransferase (ALT) 20 7-40 U/L Alkaline Phosphatase 143 H 46-116 U/L Troponin I High Sensitivity 5 </=34 ng/L Total Protein 6.4 5.7-8.2 g/dL Albumin 4.0 3.2-4.8 g/dL Lipase 22 12-53 U/L Beta-Hydroxybutyric Acid > 4.500 H < 0.4 mmol/L Microbiology Date/Time Source Procedure Growth Status 11/09/24 22:30 Blood Blood Culture - Preliminary NO GROWTH AFTER 48 HOURS OF INCUBATION. Resulted Time of 1ST Reevaluation: 21:00 Reevaluation 1ST: Unchanged Patient Education/Counseling: Diagnosis, Treatment Family Education/Counseling: No Family Present Comments Patient presented with the above HPI.---uncontrolled diabetes hyperglycemia---workup was initiated. patient was found with the above mentioned diagnosis. the following medications were ordered: please refer to order lists of meds and tests obtained by myself Dr. Barlow. Patient ED course and VS have been stabilized. Patient has been reassessed in the ED and remained in a stable condition. Pertinent incidental findings were discussed with the patient and/or family. Patient/family voices understanding and is agreeable with plan. Patient has been observed in the ED adequate length of time to insure improvement/stability. Escalation of care considered: Consideration of escalation to observation or admission DKA protocol was initiated. Patient was ADMITTED to the medicine team for further evaluation and treatment of their presentation. All the reports of any imaging studies that were ordered by myself were reviewed by myself. Departure 1 Departure Time of Disposition: 21:00 Impression: Primary Impression: DKA (diabetic ketoacidosis) Disposition: ADMITTED INPATIENT Admit to: ICU Condition: Critical Discharged With: Self Critical Care Note Critical Care Time?: Yes (1 hr-critical care time only) I personally scribed for SYEDA BARLOW DO ([email or web address]) on 11/09/24 at 21:05. Electronically submitted by Lacey Prajapati ([email or web address]). I personally scribed for SYEDA BARLOW DO ([email or web address]) on 11/10/24 at 02:50. Electronically submitted by Phill Bellamy ([email or web address]). SYEDA BARLOW DO Nov 09, 2024 20:52
[2024-11-09 21:10] LABS: Hematocrit 43.0 % (36.0-46.0); Hemoglobin 13.6 g/dL (12.2-16.2); Mean Corpuscular Hemoglobin 30.4 pg (28.0-32.0); Mean Corpuscular Volume 96.1 fL (80.0-100.0); Nucleated Red Blood Cells % 0.0 %
[2024-11-09 21:26] LABS: Alanine Aminotransferase 20 U/L (7-40); Albumin 4.0 g/dL (3.2-4.8); Anion Gap 27.00001 (5-15); BUN/Creatinine Ratio 16.8 (10.0-20.0); Magnesium 2.2 mg/dL (1.6-2.6); Potassium 4.5 mmol/L (3.5-5.1); Total Protein 6.4 g/dL (5.7-8.2)
[2024-11-09 21:27] LABS: Bilirubin, Total 0.5 mg/dL (0.2-1.0)
[2024-11-09] MEDS: SODIUM CHLORIDE 0.9% 1,000 ML IV ONE ×2 (21:38→23:23)
[2024-11-09 21:47] VITALS: PULSE 129; RESP 31; O2SAT 100
[2024-11-09] MEDS ORDERED: DEXTROSE (50%) 50ML SYRG IV PRN (22:15)
[2024-11-09 22:16] LABS: Alkaline Phosphatase 143 U/L (46-116); Blood Urea Nitrogen 28 mg/dL (9-23); Calcium 11.1 mg/dL (8.7-10.4); Chloride 96 mmol/L (98-107); Sodium 133 mmol/L (136-145)
[2024-11-09 22:18] LABS: Carbon Dioxide < 10 mmol/L (20-31); Glucose 695 mg/dL (74-106); Lactic Acid w/Reflex 2.7 mmol/L (0.4-2.0)
[2024-11-09 22:29] LABS: Lipase 22 U/L (12-53)
--- NOTE | 2024-11-09 22:37 | DVHHP2 ---
Admitting Diagnosis: Hyperglycemia History of Present Illness 48 yo female patient with hx of DM and DKA c/o nausea and vomiting with associated hyperglycemia. Patient's BS read HI multiple times with EMS. Patient reports being in DKA on 10/29 and getting admitted here. While in the emergency department the patient was evaluated by the provider, As per provider: Labs, vital signs, and imagining monitored. Patient will be admitted for further evaluation and treatment. I discussed admission with the patient/family and is in agreement to treatment plan. Patient Family History: FH: lung cancer G8 MOTHER, Onset:Unknown Allergies: Coded Allergies: NO KNOWN ALLERGIES (Unverified , 06/06/19) Home Meds Active Scripts Insulin Glargine (Lantus) 100 Unit/Ml Inj, 15 UNITS SC BID@0700,2200 for 30 Days, #100 INJ 3 Refills Prov:KARISHMA HURTADO DO 04/30/23 Glipizide (Glipizide) 5 Mg Tab, 1 TAB PO DAILY, #30 TAB Prov:MADELINE CORRIGAN MD 06/10/19 Metronidazole (Flagyl) 500 Mg Tab, 500 MG PO TID, #21 TAB Prov:MADELINE CORRIGAN MD 06/10/19 Metformin Hydrochloride (Metformin Hcl) 1,000 Mg Tab, 1 TAB PO BID, #60 TAB Prov:MADELINE CORRIGAN MD 06/10/19 Reported Medications Metformin Hydrochloride (Metformin Hcl) 500 Mg Tab, 500 MG PO DAILY for 30 Days, MG 06/09/19 Current Medications Current Medications Medications (Trade) Dose Ordered Sig/Dave Route PRN Reason Start Time Stop Time Status Last Admin Sodium Chloride 1,000 ml @ 500 mls/hr Q2H IV 11/09/24 22:15 11/10/24 02:14 DC 11/10/24 01:43 Sodium Chloride 1,000 ml @ 250 mls/hr Q4H IV 11/10/24 02:15 11/10/24 04:14 DC 11/10/24 03:31 Sodium Chloride 1,000 ml @ 150 mls/hr Q6H40M IV 11/10/24 04:15 11/10/24 11:06 Insulin Human (Reg)/Sodium Chloride 100 ml @ 0.5 mls/hr Q24H IV 11/09/24 22:15 11/10/24 06:27 DC 11/10/24 00:55 Dextrose 50 ml UD PRN IV SEE CURRENT ALGORITHM or SCALE 11/09/24 22:15 Diagnostic Test (Pha) (Accu-Chek Comfort Curve T) 1 strip Q90MIN 11/09/24 22:30 11/10/24 06:27 DC 11/10/24 03:31 Insulin Glargine (Lantus) 15 units DAILY SC 11/10/24 10:00 11/10/24 11:03 Enoxaparin Sodium (Lovenox) 40 mg DAILY SC 11/10/24 10:00 11/10/24 11:01 Pantoprazole Sodium (Protonix) 40 mg DAILY IV 11/10/24 10:00 11/10/24 11:00 Nitroglycerin (Ntrostat Sublingual) 0.4 mg Q5MINP PRN SL FOR CHEST PAIN 11/09/24 22:45 Morphine Sulfate 2 mg Q30M PRN IV FOR CHEST PAIN 11/09/24 22:45 Morphine Sulfate 2 mg Q4HPRN PRN IV SEVERE PAIN (7-10 PAIN SCALE) 11/09/24 22:45 Ondansetron HCl (Zofran) 4 mg Q4HP PRN IV NAUSEA OR VOMITING 11/09/24 22:45 11/09/24 23:07 Hydralazine HCl (Apresoline Injection) 10 mg Q6HP PRN IV SBP>150 11/09/24 22:45 Potassium Chloride 100 ml @ 50 mls/hr Q2H IV 11/10/24 06:15 11/10/24 10:14 DC 11/10/24 11:18 Diagnostic Test (Pha) (Accu-Chek Comfort Curve T) 1 strip Q4HR 11/10/24 10:00 11/10/24 13:11 DC 11/10/24 10:00 Insulin Human Regular (InsuLIN R) AC SC 11/10/24 07:00 11/10/24 17:38 Potassium Chloride 100 ml @ 50 mls/hr Q2H IV 11/10/24 12:45 11/10/24 16:44 DC 11/10/24 17:40 Diagnostic Test (Pha) (Accu-Chek Comfort Curve T) 1 strip ACHS 11/10/24 13:15 11/10/24 17:36 Review of Systems Constitutional: denies chills, denies fever, denies malaise Eyes: denies eye pain, denies vision change ENT: denies ear pain, denies headache, denies nasal congestion, denies painful swallowing, denies voice change Cardiovascular: denies chest pain, denies edema, denies orthopnea, denies palpitations, denies paroxysmal nocturnal dyspnea Respiratory: denies cough, denies shortness of breath Gastrointestinal: denies constipation, denies diarrhea, denies nausea, denies vomiting Genitourinary: denies dysuria, denies frequent urination, denies urethral discharge Musculoskeletal: denies back pain, denies joint pain, denies muscle pain Skin: denies bruising, denies itching, denies rash Neurological: denies focal weakness, denies headache, denies sensory changes Psychiatric: denies anxiety, denies depression Endocrine: denies polydipsia, denies polyuria Hematologic/Lymphatic: denies easy bleeding, denies easy bruising, denies enlarged lymph nodes Allergic/Immunologic: denies allergy, denies hives Vital Signs Vital Signs Date Time Temp Pulse Resp B/P (MAP) Pulse Ox O2 Delivery O2 Flow Rate FiO2 11/10/24 15:30 100 16 115/49 (71) 95 11/10/24 12:00 99.1 99.1 11/10/24 08:15 Room Air* 0 21 Physical Exam General Appearance: alert, no distress HEENT: EOMI, PERRLA, normal external inspect of ears, no icterus, no nasal drainage Neck: no carotid bruit, no jugular venous distention (JVD), no lymphadenopathy Chest: normal thorax Respiratory: clear to auscultation, normal air movement Cardiovascular: regular rate and rhythm, no diastolic murmur, no jugular venous distention (JVD), no rub, no systolic murmur Abdominal: soft, no hepatomegaly, no mass, no splenomegaly, no tenderness Genitourinary: grossly normal external Musculoskeletal: no joint tenderness, no swelling Extremities: normal pulses, no calf tenderness, no clubbing, no cyanosis, no edema Skin: no bruising, no jaundice, no rash Neurological: alert, No focal deficit Results Labs Test 11/10/24 17:02 11/10/24 13:08 11/10/24 10:28 11/10/24 00:35 Range/Units POC Glucose 160 H 70-106 mg/dl Lactic Acid Level 0.9 0.4-2.0 mmol/L Sodium Level 141 136-145 mmol/L Potassium Level 3.3 L 3.5-5.1 mmol/L Chloride Level 105 98-107 mmol/L Carbon Dioxide Level 24 20-31 mmol/L Anion Gap 12 5-15 Blood Urea Nitrogen 16 9-23 mg/dL Creatinine 1.00 0.550-1.02 mg/dL Glomerular Filtration Rate Calc 69 >90 mL/min BUN/Creatinine Ratio 16.0 10.0-20.0 Serum Glucose 130 H 74-106 mg/dL Calcium Level 7.8 L 8.7-10.4 mg/dL Urine Color Colorless Yellow Urine Clarity Clear Clear Urine pH 5.0 5.0-9.0 Urine Specific [place] 1.022 1.001-1.035 Urine Protein Negative Negative Urine Ketones 4+ H Negative Urine Blood 2+ H Negative /uL Urine Nitrite Negative Negative Urine Bilirubin Negative Negative Urine Urobilinogen Normal Negative mg/dL Urine Leukocyte Esterase Negative Negative /uL Urine RBC 1 0 - 4 /hpf Urine Microscopic WBC 11 H 0-5 /HPF Urine Squamous Epithelial Cells Few <5 /hpf Urine Bacteria None seen None Seen /hpf Urine Mucus Few None Seen Urine Glucose 4+ H Normal mg/dL Test 11/10/24 00:34 11/09/24 21:54 11/09/24 21:00 Range/Units Troponin I High Sensitivity 8 </=34 ng/L Blood Gas Specimen Type Arterial Blood Gas Sample Site Right radial Blood Gas Patient Temperature 37.0 Arterial Blood Date Drawn [id number] Arterial Blood pH 7.186 *L 7.350-7.450 Arterial Blood Partial Pressure CO2 < 14.1 *L 32.0-45.0 mmHg Arterial Blood Partial Pressure O2 128.3 H 83.0-108.0 mmHg Arterial Blood Oxygen Saturation 97.9 94.0-98.0 % Arterial Blood Oxyhemoglobin 96.6 94.0-98.0 % Arterial Blood Carboxyhemoglobin 0.8 0.5-1.5 % Arterial Blood Methemoglobin 0.5 0.0-1.5 % Aiden Test Modified Blood Gas Total Hemoglobin 13.50 12.0-16.0 g/dL Blood Gas Modality Room air FiO2 % 21.0 Blood Gas Critical Value Read Back Yes Blood Gas Notified Whom Md dez vu Blood Gas Notified Time [id number] Blood Gas Notified By Rt aubrey hurley White Blood Count 10.0 4.4-10.8 10^3/uL Red Blood Count 4.47 4.0-5.20 10^6/uL Hemoglobin 13.6 12.2-16.2 g/dL Hematocrit 43.0 36.0-46.0 % Mean Corpuscular Volume 96.1 80.0-100.0 fL Mean Corpuscular Hemoglobin 30.4 28.0-32.0 pg Mean Corpuscular Hemoglobin Concent 31.6 L 32.0-36.0 g/dL Red Cell Distribution Width 15.4 H 11.8-14.3 % Platelet Count 532 H 140-450 10^3/uL Mean Platelet Volume 7.5 6.9-10.8 fL Neutrophils (%) (Auto) 79.8 37.0-80.0 % Lymphocytes (%) (Auto) 16.8 10.0-50.0 % Monocytes (%) (Auto) 2.5 0.0-12.0 % Eosinophils (%) (Auto) 0.1 0.0-7.0 % Basophils (%) (Auto) 0.8 0.0-2.0 % Neutrophils # (Auto) 8.0 1.6-8.6 10 ^3/uL Lymphocytes # (Auto) 1.7 0.4-5.4 10 ^3/uL Monocytes # (Auto) 0.3 0-1.3 10 ^3/uL Eosinophils # (Auto) 0 0-0.8 10 ^3/uL Basophils # (Auto) 0.1 0-0.2 10 ^3/uL Nucleated Red Blood Cells 0.0 % Serum Osmolality 343 H 278-298 mOsm/kg Phosphorus Level 6.0 H 2.4-5.1 mg/dL Magnesium Level 2.2 1.6-2.6 mg/dL Total Bilirubin 0.5 0.2-1.0 mg/dL Aspartate Amino Transferase (AST) 18 13-40 U/L Alanine Aminotransferase (ALT) 20 7-40 U/L Alkaline Phosphatase 143 H 46-116 U/L Total Protein 6.4 5.7-8.2 g/dL Albumin 4.0 3.2-4.8 g/dL Lipase 22 12-53 U/L Beta-Hydroxybutyric Acid > 4.500 H < 0.4 mmol/L Microbiology Date/Time Source Procedure Growth Status 11/10/24 02:50 Nose MRSA Screen - Final Complete Plan 1. DKA Monitor, insulin gtt 2. Metabolic encephalopathy Monitor neuro status 3. HUNTER with vmn Monitor, IV hydration 4. Hypokalemia Monitor, BMP Q 6 hrs, replace electrolytes 5. Hx of methamphetamine abuse Monitor, PPI, DVT prophylaxis Plan discussed with: Patient, Other ANUPAMA NAVA [employer] REPRESENTATIVE Nov 09, 2024 22:37
[2024-11-09] MEDS: SODIUM BICARB 8.4% 50Meq/50ml SYR Vial IV ONE (22:39)
[2024-11-09] MEDS: InsuLIN REG 1unit/0.01ml Soln (100units/ml) IV ONE (22:45)
[2024-11-09] MEDS ORDERED: hydrALAZINE HCL 20 MG/ML VL IV PRN (22:45)
[2024-11-09] MEDS ORDERED: NITROGLYCERIN 0.4 MG SL TAB SL PRN (22:45)
[2024-11-09] MEDS ORDERED: MORPHINE SULFATE INJ 2 MG/ml SYRG IV PRN ×2 (22:45)
[2024-11-09] MEDS: PIPERACILLIN-TAZOB 3.375GM 100 ML IV ONE (23:02)
[2024-11-09] MEDS: INSULIN LANTUS (GLARGINE) 1 /0.01ml (100units/ml) SC ONE (23:04)
[2024-11-09] MEDS: INSULIN DRIP 100 UNIT/100ML 100 ML IV SCH (23:07)
[2024-11-09] MEDS: ONDANSETRON HCL 4 MG/2 ML VIAL IV PRN (23:07)
[2024-11-09 23:34] LABS: Potassium 4.4 mmol/L (3.5-5.1); Sodium 138 mmol/L (136-145)
[2024-11-09 23:35] LABS: Anion Gap 30.00001 (5-15); Calcium 9.5 mg/dL (8.7-10.4)
[2024-11-09 23:40] LABS: BUN/Creatinine Ratio 16.8 (10.0-20.0)
[2024-11-09 23:42] LABS: Chloride 98 mmol/L (98-107)
[2024-11-09 23:45] LABS: Carbon Dioxide < 10 mmol/L (20-31)
[2024-11-09 23:46] LABS: Blood Urea Nitrogen 26 mg/dL (9-23); Glucose 666 mg/dL (74-106)
[2024-11-09] MEDS: ACCU-CHEK COMFORT CURVE STRIP VI SCH (23:48)
[2024-11-10] VITALS (46 sets, daily range): BP systolic 82–184; BP diastolic 47–89; PULSE 89–117; RESP 10–26; TEMP 97.7–99.8; O2SAT 95–100
[2024-11-10 01:40] LABS: Urine Protein, UAD Negative (Negative)
[2024-11-10] MEDS: cefTRIAXone 1GM/50ML D5W 50 ML IV ONE (01:44)
[2024-11-10] MEDS: SODIUM CHLORIDE 0.9% 1,000 ML IV SCH ×2 (03:31→08:03)
[2024-11-10 05:24] LABS: Sodium 143 mmol/L (136-145)
[2024-11-10 05:25] LABS: Anion Gap 13 (5-15); Carbon Dioxide 22 mmol/L (20-31)
[2024-11-10 05:30] LABS: BUN/Creatinine Ratio 18.9 (10.0-20.0); Blood Urea Nitrogen 20 mg/dL (9-23)
[2024-11-10 05:54] LABS: Calcium 8.4 mg/dL (8.7-10.4); Chloride 108 mmol/L (98-107); Glucose 191 mg/dL (74-106); Potassium 2.9 mmol/L (3.5-5.1)
[2024-11-10] MEDS: InsuLIN REG 1unit/0.01ml Soln (100units/ml) SC SCH (07:00)
[2024-11-10] MEDS: POTASSIUM CHL 20MEQ/100ML 100 ML IV SCH ×2 (08:04→15:46)
[2024-11-10] MEDS: POTASSIUM EFFERVESENT TAB 25 MEQ PO ONE (08:05)
[2024-11-10] MEDS: ACCU-CHEK COMFORT CURVE STRIP VI SCH ×2 (10:00→13:15)
[2024-11-10 10:57] LABS: Chloride 105 mmol/L (98-107); Sodium 141 mmol/L (136-145)
[2024-11-10 10:58] LABS: Anion Gap 12 (5-15); Carbon Dioxide 24 mmol/L (20-31)
[2024-11-10 11:00] LABS: Calcium 7.8 mg/dL (8.7-10.4); Potassium 3.3 mmol/L (3.5-5.1)
[2024-11-10] MEDS: PANTOPRAZOLE 40 MG/10 ML VIAL INJ IV SCH (11:00)
[2024-11-10] MEDS: ENOXAPARIN SOD 40 MG/0.4 ML SYRINGE SC SCH (11:01)
[2024-11-10 11:03] LABS: BUN/Creatinine Ratio 16.0 (10.0-20.0); Blood Urea Nitrogen 16 mg/dL (9-23); Glucose 130 mg/dL (74-106)
[2024-11-10] MEDS: INSULIN LANTUS (GLARGINE) 1 /0.01ml (100units/ml) SC SCH (11:03)
--- NOTE | 2024-11-10 18:39 | DVHPN2 ---
Progress Note - Dictate Date Seen: Nov 10, 2024 Medical Necessity Reason Pt with a Central, PICC or Fol: No vital signs Vital Sign Date Time Temp Pulse Resp B/P (MAP) Pulse Ox O2 Delivery O2 Flow Rate FiO2 11/10/24 15:30 100 16 115/49 (71) 95 11/10/24 12:00 99.1 99.1 11/10/24 08:15 Room Air* 0 21 Total Intake and Output 11/09/24 11/09/24 11/10/24 15:00 23:00 07:00 Intake Total 1000 ml 1350 ml Balance 1000 ml 1350 ml medications Current Medications Medications Dose Ordered Sig/Dave Route Start Time Stop Time Status Last Admin Dose Admin Sodium Chloride 1,000 ml @ 150 mls/hr Q6H40M IV 11/10/24 04:15 11/10/24 11:06 Dextrose 50 ml UD PRN IV 11/09/24 22:15 Insulin Glargine 15 units DAILY SC 11/10/24 10:00 11/10/24 11:03 Enoxaparin Sodium 40 mg DAILY SC 11/10/24 10:00 11/10/24 11:01 Pantoprazole Sodium 40 mg DAILY IV 11/10/24 10:00 11/10/24 11:00 Nitroglycerin 0.4 mg Q5MINP PRN SL 11/09/24 22:45 Morphine Sulfate 2 mg Q30M PRN IV 11/09/24 22:45 Morphine Sulfate 2 mg Q4HPRN PRN IV 11/09/24 22:45 Ondansetron HCl 4 mg Q4HP PRN IV 11/09/24 22:45 11/09/24 23:07 Hydralazine HCl 10 mg Q6HP PRN IV 11/09/24 22:45 Insulin Human Regular AC SC 11/10/24 07:00 11/10/24 17:38 Diagnostic Test (Pha) 1 strip ACHS 11/10/24 13:15 11/10/24 17:36 objective General Appearance: alert, no distress HEENT: EOMI, PERRLA, normal external inspect of ears, no icterus, no nasal drainage Neck: no carotid bruit, no jugular venous distention (JVD), no lymphadenopathy Chest: normal thorax Respiratory: clear to auscultation, normal air movement Cardiovascular: regular rate and rhythm, no diastolic murmur, no jugular venous distention (JVD), no rub, no systolic murmur Abdominal: soft, no hepatomegaly, no mass, no splenomegaly, no tenderness Genitourinary: grossly normal external Musculoskeletal: no joint tenderness, no swelling Extremities: normal pulses, no calf tenderness, no clubbing, no cyanosis, no edema Skin: no bruising, no jaundice, no rash Neurological: alert, No focal deficit laboratory and microbiology Laboratory Tests 11/10/24 10:28 11/09/24 21:00 Test 11/10/24 10:28 Range/Units Serum Glucose 130 H 74-106 mg/dL Problem List 1. DKA Monitor, insulin gtt 2. Metabolic encephalopathy Monitor neuro status 3. HUNTER with vmn Monitor, IV hydration 4. Hypokalemia Monitor, BMP Q 6 hrs, replace electrolytes 5. Hx of methamphetamine abuse Monitor, PPI, DVT prophylaxis Assessment/Plan Subjective Patient is alert however very lethargic. Objective Patient was admitted for DKA. Patient has metabolic encephalopathy. Urine drug screen is pending. Patient may also have some toxic encephalopathy. She does have a history of methamphetamine abuse. Patient unable to answer questions appropriately. She keeps falling asleep at this time. Plan is Continue current treatment. Anion gap is closed. Transition to insulin sliding scale. Start liquid diet. Dietary Evaluation Review Recommendations by RD: Increase Calorie Intake, PPN/TPN Comments: 1) TPN supplementation if continue clear liquid diet 2) Advance CCHO 45gm diet as medically feasible 3) Refer to CDE on DC Expected Outcomes/Goals: blood glucose to improve fu 2-3 days Body Fat Depletion (Severe): Mod to Severe Depletion Muscle Mass (Severe): Mod to Severe Depletion Protein Calorie Malnutrition: Severe Is there a minimum of two crit: Yes Plan discussed with: Patient, Other ANUPAMA NAVA NP Nov 10, 2024 18:39
[2024-11-10 21:22] LABS: Chloride 107 mmol/L (98-107); Potassium 3.6 mmol/L (3.5-5.1); Sodium 138 mmol/L (136-145)
[2024-11-10 21:23] LABS: Anion Gap 7 (5-15); Carbon Dioxide 24 mmol/L (20-31)
[2024-11-10 21:28] LABS: BUN/Creatinine Ratio 13.9 (10.0-20.0); Blood Urea Nitrogen 11 mg/dL (9-23)
[2024-11-10 21:42] LABS: Calcium 7.9 mg/dL (8.7-10.4); Glucose 115 mg/dL (74-106)
[2024-11-11] VITALS (13 sets, daily range): BP systolic 108–168; BP diastolic 45–95; PULSE 85–96; RESP 10–24; TEMP 98.8–99.5; O2SAT 96–100
[2024-11-11 05:16] LABS: Sodium 141 mmol/L (136-145)
[2024-11-11 05:17] LABS: Anion Gap 5 (5-15); Carbon Dioxide 28 mmol/L (20-31)
[2024-11-11 05:22] LABS: BUN/Creatinine Ratio 7.4 (10.0-20.0); Calcium 7.4 mg/dL (8.7-10.4); Chloride 108 mmol/L (98-107); Glucose 78 mg/dL (74-106); Potassium 3.2 mmol/L (3.5-5.1)
[2024-11-11 05:24] LABS: Blood Urea Nitrogen 6 mg/dL (9-23)
--- NOTE | 2024-11-11 19:55 | DVHDS2 ---
Discharge Summary Date of Admission Nov 09, 2024 at 22:32 Date of Discharge: Nov 11, 2024 Labs/Diagnostic Data: Laboratory Results Test 11/11/24 04:40 11/10/24 23:10 11/10/24 13:08 11/10/24 00:35 Sodium Level 141 mmol/L (136-145) Potassium Level 3.2 mmol/L (3.5-5.1) Chloride Level 108 mmol/L (98-107) Carbon Dioxide Level 28 mmol/L (20-31) Anion Gap 5 (5-15) Blood Urea Nitrogen 6 mg/dL (9-23) Creatinine 0.81 mg/dL (0.550-1.02) Glomerular Filtration Rate Calc 89 mL/min (>90) BUN/Creatinine Ratio 7.4 (10.0-20.0) Serum Glucose 78 mg/dL (74-106) Calcium Level 7.4 mg/dL (8.7-10.4) POC Glucose 220 mg/dl (70-106) Lactic Acid Level 0.9 mmol/L (0.4-2.0) Urine Color Colorless (Yellow) Urine Clarity Clear (Clear) Urine pH 5.0 (5.0-9.0) Urine Specific [place] 1.022 (1.001-1.035) Urine Protein Negative (Negative) Urine Ketones 4+ (Negative) Urine Blood 2+ /uL (Negative) Urine Nitrite Negative (Negative) Urine Bilirubin Negative (Negative) Urine Urobilinogen Normal mg/dL (Negative) Urine Leukocyte Esterase Negative /uL (Negative) Urine RBC 1 /hpf (0 - 4) Urine Microscopic WBC 11 /HPF (0-5) Urine Squamous Epithelial Cells Few /hpf (<5) Urine Bacteria None seen /hpf (None Seen) Urine Mucus Few (None Seen) Urine Glucose 4+ mg/dL (Normal) Test 11/10/24 00:34 11/09/24 21:54 11/09/24 21:00 Troponin I High Sensitivity 8 ng/L (</=34) Blood Gas Specimen Type Arterial Blood Gas Sample Site Right radial Blood Gas Patient Temperature 37.0 Arterial Blood Date Drawn [id number] Arterial Blood pH 7.186 (7.350-7.450) Arterial Blood Partial Pressure CO2 < 14.1 mmHg (32.0-45.0) Arterial Blood Partial Pressure O2 128.3 mmHg (83.0-108.0) Arterial Blood Oxygen Saturation 97.9 % (94.0-98.0) Arterial Blood Oxyhemoglobin 96.6 % (94.0-98.0) Arterial Blood Carboxyhemoglobin 0.8 % (0.5-1.5) Arterial Blood Methemoglobin 0.5 % (0.0-1.5) Aiden Test Modified Blood Gas Total Hemoglobin 13.50 g/dL (12.0-16.0) Blood Gas Modality Room air FiO2 % 21.0 Blood Gas Critical Value Read Back Yes Blood Gas Notified Whom Md dez vu Blood Gas Notified Time [id number] Blood Gas Notified By Rt aubrey hurley White Blood Count 10.0 10^3/uL (4.4-10.8) Red Blood Count 4.47 10^6/uL (4.0-5.20) Hemoglobin 13.6 g/dL (12.2-16.2) Hematocrit 43.0 % (36.0-46.0) Mean Corpuscular Volume 96.1 fL (80.0-100.0) Mean Corpuscular Hemoglobin 30.4 pg (28.0-32.0) Mean Corpuscular Hemoglobin Concent 31.6 g/dL (32.0-36.0) Red Cell Distribution Width 15.4 % (11.8-14.3) Platelet Count 532 10^3/uL (140-450) Mean Platelet Volume 7.5 fL (6.9-10.8) Neutrophils (%) (Auto) 79.8 % (37.0-80.0) Lymphocytes (%) (Auto) 16.8 % (10.0-50.0) Monocytes (%) (Auto) 2.5 % (0.0-12.0) Eosinophils (%) (Auto) 0.1 % (0.0-7.0) Basophils (%) (Auto) 0.8 % (0.0-2.0) Neutrophils # (Auto) 8.0 10 ^3/uL (1.6-8.6) Lymphocytes # (Auto) 1.7 10 ^3/uL (0.4-5.4) Monocytes # (Auto) 0.3 10 ^3/uL (0-1.3) Eosinophils # (Auto) 0 10 ^3/uL (0-0.8) Basophils # (Auto) 0.1 10 ^3/uL (0-0.2) Nucleated Red Blood Cells 0.0 % Serum Osmolality 343 mOsm/kg (278-298) Phosphorus Level 6.0 mg/dL (2.4-5.1) Magnesium Level 2.2 mg/dL (1.6-2.6) Total Bilirubin 0.5 mg/dL (0.2-1.0) Aspartate Amino Transferase (AST) 18 U/L (13-40) Alanine Aminotransferase (ALT) 20 U/L (7-40) Alkaline Phosphatase 143 U/L (46-116) Total Protein 6.4 g/dL (5.7-8.2) Albumin 4.0 g/dL (3.2-4.8) Lipase 22 U/L (12-53) Beta-Hydroxybutyric Acid > 4.500 mmol/L (< 0.4) Other Laboratory Tests 11/11/24 04:40 11/09/24 21:00 Brief Hx & Hospital Course: 48 yo female patient with hx of DM and DKA c/o nausea and vomiting with associated hyperglycemia. Patient's BS read HI multiple times with EMS. Patient reports being in DKA on 10/29 and getting admitted here. While in the emergency department the patient was evaluated by the provider, As per provider: Labs, vital signs, and imagining monitored. Patient was admitted for DKA. Patient was found to have metabolic encephalopathy. She has a history of methamphetamine abuse. Anion gap was closed. She was started on a clear liquid diet and insulin sliding scale. The patient received proper medical treatment and medications. Vital signs, Imaging and Laboratory Work was monitored. All consults recommendations were followed as provided. The patient decided they wanted to leave AMA. The patient was informed about the risk of leaving. And was informed about the risk that are involved if they left without any treatment which may include . The patient was okay with it and decided to leave without any intervention. The patient was told to return for any worsening symptoms. Condition at Discharge: Unstable Final Diagnosis/Problems List DKA Metabolic encephalopathy HUNTER with vmn Hypokalemia Hx of methamphetamine abuse Discharge Disposition: AMA Discharge Instruct/Medications Scheduled Glipizide (Glipizide), 1 TAB PO DAILY Insulin Glargine (Lantus), 15 UNITS SC BID@0700,2200 Metformin Hydrochloride (Metformin Hcl), 500 MG PO DAILY, (Reported) Metformin Hydrochloride (Metformin Hcl), 1 TAB PO BID Metronidazole (Flagyl), 500 MG PO TID Discharge Statement: "Patient was advised to return to the ER or call 911 if any headaches, dizziness, shortness of breath, chest pain, abdominal pain, bleeding, fevers, or worsening of medical condition. Patient was counseled about treatment plan, medications, possible side effects, patientverbalized understanding. All questions were answered to the best of my ability. This discharge took greater then 30 minutes in planning, reviewing documentation, counseling the patient, and discussing with other team members." ASSESSMENT ASSESSMENT Assessment ANUPAMA NAVA NP Nov 11, 2024 19:55
== END 2024-11-11 06:11 | disposition left against medical advice (07) | DRG 420 ==
LOC: EDUNIT# 20:31 → ER 20:31 → EDBD 20:31 → OVERFLOW 22:32 → DOU IN ICU 11-10 02:50
PROVIDERS: ADMIT Nurse Practitioner; ATTEND Nurse Practitioner
PROC: 05H933Z Insertion of Infusion Device into Right Brachial Vein, Percutaneous Approach (ICD-10-PCS; principal; 2024-11-10)
PROC: B54MZZA Ultrasonography of Right Upper Extremity Veins, Guidance (ICD-10-PCS; 2024-11-10)
DX: E11.10 Type 2 diabetes mellitus with ketoacidosis without coma (principal); N17.0 Acute kidney failure with tubular necrosis; G93.41 Metabolic encephalopathy; I10 Essential (primary) hypertension; E87.6 Hypokalemia; N13.2 Hydronephrosis with renal and ureteral calculous obstruction; F17.200 Nicotine dependence, unspecified, uncomplicated; Z53.29 Procedure and treatment not carried out because of patient's decision for other reasons; Z91.199 Patient's noncompliance with other medical treatment and regimen due to unspecified reason; Z80.1 Family history of malignant neoplasm of trachea, bronchus and lung; Z79.4 Long term (current) use of insulin
CPT/HCPCS: 36415; 36600; 80048; 80053; 81001; 82010; 82805; 82962; 83605; 83690; 83735; 83930; 84100; 84484; 85025; 87040; 87081; 96365; 96375; G0378; J1815; J2405; J2470; J2543; J3480

== ENCOUNTER 2024-12-14 13:31 | Inpatient (IN) | payer MEDICAID, OTHER ==
[~2024-12-14] VITALS: Ht 154.9 cm; Wt 59.2 kg
[2024-12-14] MEDS: SODIUM BICARB 8.4% 50Meq/50ml SYR INJ ONE (13:47)
--- NOTE | 2024-12-14 13:47 | ED.PDOC ---
Altered Mental Status HPI Comments HPI: Eliot Cormier historian 48-year-old woman was brought to the ED via EMS after being found unresponsive in a hotel room by friends. She was hyperglycemic, with EMS reporting multiple "HI" blood glucose readings both at the scene and upon arrival. The patient is currently responsive to painful stimuli (sternal rub).. EMS also reported patient to be found hypotensive on scene with a 100 systolic and tachycardiac. Patient vomited on scene found to be abnormal no food particles or bilious emesis and pupils dilated. Patient arrives with IV fluids running. No further information obtained as friends nor family are not at bedside at this time. Per previous medical records, patient was seen at this hospital on 11/08/24 for DKA. Per note, patient is non compliant with medication- has hx of DM. Patient tested positive for amphetamines on 10/30/24 in which in that visit was also seen for hyperglycemia event. Vitals on ED arrival Temp: 89.4 F HR: 113 BP: 109/60 RR: 20 SPO2: 100% RA Past Medical history: DM, HTN and per friend on scene- renal failure Past Surgical history: Unobtainable at this time Social History: Unobtainable Allergies: NKA HPI: Genia Mirandaian. Past Medical History: History of multiple DKA admissions. Past Surgical History: Unknown REVIEW OF SYSTEMS: Limited given the patient's altered level of consciousness however per EMS please refer the HPI CONSTITUTIONAL: Denies acute: fever, diaphoresis, chills, HEAD: Denies acute: headache, photophobia Eyes: Denies acute: Double vision, vision loss, eye pain, eye discharge. EARS: Denies acute: tinnitus, hearing loss, ear discharge, ear pain, THROAT: Denies acute: sore throat, swelling, difficulty swallowing , pain with swallowing, change in voice. NECK: Denies acute: neck pain, neck swelling, stiff neck. HEART: Denies acute : chest pain, palpitations, LUNGS: Denies acute: SOB, wheezing, cough, hemoptysis ABDOMEN: Denies acute: abdominal pain, Nausea, diarrhea, melena , hematemesis, hematochezia SKIN: Denies acute: rash, redness, lesions, itchiness. EXTREMITIES: Denies acute: calf pain, numbness, tingling, weakness, denies pain in extremity. Denies acute: Low back pain. Neuro: Denies acute: focal neurological deficit, motor or sensory focal neurological deficit, tremors, seizure like activity, loss of bowel or bladder function, cauda equina like symptoms. : Denies acute: dysuria, hematuria, flank pain, increase in urinary frequency. PSYCH: Denies acute: hallucination, suicidal ideation, homicidal ideation. FEMALE: Denies acute: abnormal vaginal bleeding, foul odor, unusual discharge. PHYSICAL EXAM: General: -----[id number]---acute distress, awake and alert. Head: normocephalic, atraumatic. Neck: supple, trachea is midline, no swelling. Dry oral mucosa Eyes:, no erythema, no purulent discharge, no proptosis, no icterus. Heart: regular tachycardic, no significant murmur appreciated. Lungs: no apparent respiratory distress, No wheezing, no rhonchi, no crackles. No stridors Clear to auscultation bilaterally. Abdomen: non tender to palpation, non distended, soft, no guarding, no rebound, + bowel sounds. Neuro: Reacts to painful stimuli sternal rub. Moving all four extremities. Protecting her airways. Skin: no petechia, no purpura, no cyanosis, non-pale, not jaundice. Lower extremities: --no - Pitting edema no deformity, no focal swelling, no calf TTP. Face: no apparent facial droop. ED COURSE: DISCLAIMER: This medical document was created using an electronic medical record system with voice recognition software and computerized dictation system. Although this document has been carefully reviewed, there might still be some phonetic and typographical errors. Occasional wrong-word or "sound-alike" substitutions may have occurred due to the inherent limitations of voice recognition software. These areas are purely typographical due to imperfections of the software programs and do not reflect any compromise in the patient's medical care. Please read the chart carefully and recognize, using context, where these substitutions have occurred. Time Seen by MD: 13:30 Primary Care Provider: unknown Reviewed Notes: [employer] Insurance Claim Examiner Notes, Allergies Allergies: Coded Allergies: NO KNOWN ALLERGIES (Unverified , 06/06/19) Home Meds Active Scripts Insulin Glargine (Lantus) 100 Unit/Ml Inj, 15 UNITS SC BID@0700,2200 for 30 Days, #100 INJ 3 Refills Prov:KARISHMA HURTADO 04/30/23 Glipizide (Glipizide) 5 Mg Tab, 1 TAB PO DAILY, #30 TAB Prov:MADELINE CORRIGAN MD 06/10/19 Metronidazole (Flagyl) 500 Mg Tab, 500 MG PO TID, #21 TAB Prov:MADELINE CORRIGAN MD 06/10/19 Metformin Hydrochloride (Metformin Hcl) 1,000 Mg Tab, 1 TAB PO BID, #60 TAB Prov:MADELINE CORRIGAN MD 06/10/19 Reported Medications Metformin Hydrochloride (Metformin Hcl) 500 Mg Tab, 500 MG PO DAILY for 30 Days, MG 06/09/19 Information Source: Emergency Med Personnel Mode of Arrival: EMS Timing: Hours Past Medical History PAST MEDICAL HISTORY: CKF, DM, HTN Surgical History: Pt Confused RAND SEWER History: No Pertinent RAND SEWER History Family History Family History: Unknown Social History Smoker: Unobtainable, Pt Confused Alcohol: Unobtainable, Pt Confused Drugs: Unobtainable Lives In: Home, Unobtainable Was a procedure done? Was a procedure done?: No Differential Diagnosis (ALOC) Differential Diagnosis: Dehydration, DKA, Hypoxemia, Drug Overdose, ETOH Intoxication, Heart Failure, Renal Failure Other Differential Diagnosis Hyperglycemia, DKA, Diabetic coma, electrolyte imbalance. X-Ray, Labs, Meds, VS Vital Signs Date Time Temp Pulse Resp B/P (MAP) Pulse Ox O2 Delivery O2 Flow Rate FiO2 12/14/24 16:45 95.4 110 18 95/53 (67) 100 95.4 12/14/24 16:00 104 12/14/24 15:45 92.3 105 18 105/62 (76) 100 92.3 12/14/24 15:39 94/51 12/14/24 15:22 28 99 Room Air* 0 21 12/14/24 14:53 89.4 113 20 109/60 100 89.4 12/14/24 14:45 89.3 89 18 120/67 (84) 100 89.3 12/14/24 14:15 Room Air* 0 21 12/14/24 14:06 90 12/14/24 13:45 87 18 113/62 (79) 100 Lab Test 12/14/24 15:25 12/14/24 14:22 12/14/24 13:54 12/14/24 13:05 Range/Units Sodium Level 147 #H 141 136-145 mmol/L Potassium Level 3.5 # 5.8 *H 3.5-5.1 mmol/L Chloride Level 107 # 97 L 98-107 mmol/L Carbon Dioxide Level < 10 *L < 10 *L 20-31 mmol/L Anion Gap 30.99208 H 34.42057 H 5-15 Blood Urea Nitrogen 19 # 37 H 9-23 mg/dL Creatinine 1.58 H 1.68 H 0.550-1.02 mg/dL Glomerular Filtration Rate Calc 40 37 >90 mL/min BUN/Creatinine Ratio 12.0 22.0 H 10.0-20.0 Serum Glucose 724 *H 835 *H 74-106 mg/dL Lactic Acid Level 5.3 *H 3.5 *H 0.4-2.0 mmol/L Calcium Level 6.9 L 7.9 L 8.7-10.4 mg/dL Total Bilirubin < 0.2 L < 0.2 L 0.2-1.0 mg/dL Aspartate Amino Transferase (AST) 53 H 42 H 13-40 U/L Alanine Aminotransferase (ALT) 29 27 7-40 U/L Alkaline Phosphatase 143 H 144 H 46-116 U/L Ammonia 67 H 11-32 umol/L Troponin I High Sensitivity 10 8 </=34 ng/L Total Protein 4.9 L 4.6 L 5.7-8.2 g/dL Albumin 3.1 L 3.0 L 3.2-4.8 g/dL Urine Color Light-yellow Yellow Urine Clarity Clear Clear Urine pH 5.5 5.0-9.0 Urine Specific [place] 1.020 1.001-1.035 Urine Protein 1+ H Negative Urine Ketones 3+ H Negative Urine Blood 2+ H Negative /uL Urine Nitrite Negative Negative Urine Bilirubin Negative Negative Urine Urobilinogen Normal Negative mg/dL Urine Leukocyte Esterase Negative Negative /uL Urine RBC <1 0 - 4 /hpf Urine Microscopic WBC < 1 0-5 /HPF Urine Squamous Epithelial Cells Few <5 /hpf Urine Amorphous Crystals Few None Seen /hpf Urine Bacteria None seen None Seen /hpf Urine Glucose 4+ H Normal mg/dL Urine Opiates Screen Neg NEGATIVE Urine Fentanyl Screen Neg NEGATIVE Urine Barbiturates Screen Neg NEGATIVE Urine Phencyclidine Screen Neg NEGATIVE Urine Amphetamines Screen Pos NEGATIVE Urine Benzodiazepines Screen Neg NEGATIVE Urine Cocaine Screen Neg NEGATIVE Urine Cannabinoids Screen Pos NEGATIVE Blood Gas Specimen Type Arterial Blood Gas Sample Site Right brachial Blood Gas Patient Temperature 37.0 Arterial Blood Date Drawn [id number] Arterial Blood pH 7.139 *L 7.350-7.450 Arterial Blood Partial Pressure CO2 < 14.1 *L 32.0-45.0 mmHg Arterial Blood Partial Pressure O2 178.2 H 83.0-108.0 mmHg Arterial Blood Oxygen Saturation 99.1 H 94.0-98.0 % Arterial Blood Oxyhemoglobin 98.0 94.0-98.0 % Arterial Blood Carboxyhemoglobin 0.5 0.5-1.5 % Arterial Blood Methemoglobin 0.6 0.0-1.5 % Aiden Test N/a Blood Gas Total Hemoglobin 11.60 L 12.0-16.0 g/dL Blood Gas Liter Flow 5.00 Blood Gas Modality Nasal cannula FiO2 % 45.0 Blood Gas Critical Value Read Back Yes Blood Gas Notified Whom Dr. barlow Blood Gas Notified Time [id number] Blood Gas Notified By Douglas tobin, luis White Blood Count 23.8 H 4.4-10.8 10^3/uL Red Blood Count 3.50 L 4.0-5.20 10^6/uL Hemoglobin 10.2 L 12.2-16.2 g/dL Hematocrit 35.6 L 36.0-46.0 % Mean Corpuscular Volume 101.8 H 80.0-100.0 fL Mean Corpuscular Hemoglobin 29.1 28.0-32.0 pg Mean Corpuscular Hemoglobin Concent 28.6 L 32.0-36.0 g/dL Red Cell Distribution Width 16.0 H 11.8-14.3 % Platelet Count 291 140-450 10^3/uL Mean Platelet Volume 9.0 6.9-10.8 fL Neutrophils (%) (Auto) 86.7 H 37.0-80.0 % Lymphocytes (%) (Auto) 9.2 L 10.0-50.0 % Monocytes (%) (Auto) 3.6 0.0-12.0 % Eosinophils (%) (Auto) 0.1 0.0-7.0 % Basophils (%) (Auto) 0.4 0.0-2.0 % Neutrophils # (Auto) 20.6 H 1.6-8.6 10 ^3/uL Lymphocytes # (Auto) 2.2 0.4-5.4 10 ^3/uL Monocytes # (Auto) 0.9 0-1.3 10 ^3/uL Eosinophils # (Auto) 0 0-0.8 10 ^3/uL Basophils # (Auto) 0.1 0-0.2 10 ^3/uL Nucleated Red Blood Cells 0.1 % Serum Osmolality 373 H 278-298 mOsm/kg Phosphorus Level 10.1 H 2.4-5.1 mg/dL Magnesium Level 2.3 1.6-2.6 mg/dL Lipase 19 12-53 U/L Beta-Hydroxybutyric Acid > 4.500 H < 0.4 mmol/L Salicylates Level < 3.0 -30 mg/dL Acetaminophen Level < 2.0 L 10.0-20.0 UG/ML Plasma/Serum Blood Alcohol < 3.0 <10 mg/dL Microbiology Date/Time Source Procedure Growth Status 12/14/24 13:50 Blood Blood Culture - Preliminary NO GROWTH AFTER 72 HOURS OF INCUBATION. Resulted 12/14/24 13:40 Blood Blood Culture - Preliminary NO GROWTH AFTER 72 HOURS OF INCUBATION. Resulted [place] [address] Ph: [phone] DIAGNOSTIC IMAGING Diagnostic Imaging Report : [id number] Signed PATIENT: LILY MANCINI ACCT: [id number] UNIT: [id number] : 1975 LOC: ER ROOM / BED: / AGE / SEX: 48 / F ADM STATUS: REG ER SERVICE 1339 ORDERING PHYSICIAN: SYEDA BARLOW DO PROCEDURE(s): CXRP - CHEST PORTABLE REASON: ALOC, POSS DKA ORDER NUMBER(s): [id number], ACCESSION NUMBER(s): [id number] AP portable chest CLINICAL INDICATION: ALOC, POSS DKA Comparison: 10/31/2024 FINDINGS: Heart size is normal. No infiltrates or effusions. IMPRESSION: 1. No acute cardiopulmonary pathology ATED BY: EMMA MORRIS MD DICTATED DATE/TIME: 12/14/241611 SIGNED BY: EMMA MORRIS MD SIGNED DATE/TIME: 12/14/241611 CC: [address] [address] Ph: [phone] DIAGNOSTIC IMAGING Diagnostic Imaging Report : [id number] Signed PATIENT: LILY MANCINI ACCT: [id number] UNIT: [id number] : 1975 LOC: OVERFLOW ROOM / BED: [facility] AGE / SEX: 48 / F ADM STATUS: ADM IN SERVICE 133 ORDERING PHYSICIAN: SYEDA BARLOW DO PROCEDURE(s): HWOCT - HEAD WITHOUT CONTRAST REASON: ALOC, POSS DKA ORDER NUMBER(s): [id number], ACCESSION NUMBER(s): [id number] Indication: ALOC, POSS DKA Comparison: None Technique: Utilizing a multislice CT scanner, a CT scan of the brain was performed without intravenous contrast. Coronal and sagittal reformatted images. All CT scans at this facility use dose modulation, iterative reconstruction, and/or weight based dosing when appropriate to reduce radiation dose to as low as reasonably achievable. Findings: There is no acute infarct, intracranial hemorrhage, or mass effect. There is no hydrocephalus or significant midline shift. No acute, depressed calvarial fractures. No large scalp hematomas. Impression: 1. No acute intracranial process. ATED BY: MALOU CASAS MD DICTATED DATE/TIME: 12/15/24153 SIGNED BY: MALOU CASAS MD SIGNED DATE/TIME: 12/15/24153 CC: Time of 1ST Reevaluation: 13:37 Reevaluation 1ST: Unchanged Patient Education/Counseling: Pt Unresponsive Family Education/Counseling: No Family Present Comments MDM: patient presented with the above HPI.---altered level of consciousness---workup was initiated. patient was found with the above mentioned diagnosis. the following medications were ordered: please refer to order lists of meds and tests obtained by myself Dr. Barlow. Patient ED course and VS have been stabilized. Patient has been reassessed in the ED and remained in a stable condition. Patient has been observed in the ED adequate length of time to insure improvement/stability. Escalation of care considered: Consideration of escalation to observation or admission Patient was evaluated immediately. Patient was placed on soft restraints for medical intervention and to protect the patient and the staff. Sepsis protocol initiated. Hyperkalemia protocol initiated. Warming blanket was applied. DKA protocol was initiated. Patient was ADMITTED to the medicine team for further evaluation and treatment of their presentation. All the reports of any imaging studies that were ordered by myself were reviewed by myself. Departure 1 Departure Time of Disposition: 13:52 Impression: Primary Impression: DKA (diabetic ketoacidosis) Additional Impressions: Altered level of consciousness Hypothermia Sepsis Leukocytosis Hyperkalemia Methamphetamine abuse Disposition: ADMITTED INPATIENT Admit to: ICU Condition: Critical Discharged With: Self Critical Care Note Critical Care Time?: Yes Heart Score Heart Score: Heart Score Response (Comments) Value History N/A 0 EKG N/A 0 Age N/A 0 Risk Factors N/A 0 Troponin N/A 0 Total 0 I personally scribed for SYEDA BARLOW DO ([email or web address]) on 12/14/24 at 13:47. Electronically submitted by Lacey Prajapati ([facility]). I personally scribed for SYEDA BARLOW DO ([email or web address]) on 12/14/24 at 15:36. Electronically submitted by Lacey Prajapati ([facility]). I personally scribed for SYEDA BARLOW DO ([email or web address]) on 12/14/24 at 20:25. Electronically submitted by Lacey Prajapati ([facility]). SYEDA BARLOW DO Dec 14, 2024 13:47
[2024-12-14] MEDS: SODIUM BICARB 8.4% 50Meq/50ml SYR Vial IV ONE ×3 (13:49→14:10)
[2024-12-14] MEDS: SODIUM CHLORIDE 0.9% 1,000 ML IV ONE ×2 (13:54)
[2024-12-14] MEDS: InsuLIN REG 1unit/0.01ml Soln (100units/ml) IV ONE (13:58)
[2024-12-14] MEDS ORDERED: DEXTROSE (50%) 50ML SYRG IV PRN (14:00)
[2024-12-14] MEDS: SODIUM CHLORIDE 0.9% 1,000 ML IV SCH ×4 (14:00→20:00)
[2024-12-14 14:13] LABS: Hematocrit 35.6 % (36.0-46.0); Hemoglobin 10.2 g/dL (12.2-16.2); Mean Corpuscular Hemoglobin 29.1 pg (28.0-32.0); Mean Corpuscular Volume 101.8 fL (80.0-100.0); Nucleated Red Blood Cells % 0.1 %
[2024-12-14] MEDS ORDERED: VANCOMYCIN 1GM/200ML PM 200 ML IV ONE (14:30)
[2024-12-14 14:33] LABS: Alanine Aminotransferase 27 U/L (7-40); Anion Gap 34.00001 (5-15); BUN/Creatinine Ratio 22.0 (10.0-20.0); Lipase 19 U/L (12-53); Magnesium 2.3 mg/dL (1.6-2.6); Sodium 141 mmol/L (136-145)
[2024-12-14 14:41] LABS: Chloride 97 mmol/L (98-107)
[2024-12-14 14:42] LABS: Albumin 3.0 g/dL (3.2-4.8); Alkaline Phosphatase 144 U/L (46-116); Bilirubin, Total < 0.2 mg/dL (0.2-1.0); Blood Urea Nitrogen 37 mg/dL (9-23); Calcium 7.9 mg/dL (8.7-10.4); Total Protein 4.6 g/dL (5.7-8.2)
[2024-12-14 14:45] LABS: Carbon Dioxide < 10 mmol/L (20-31); Glucose 835 mg/dL (74-106); Lactic Acid w/Reflex 3.5 mmol/L (0.4-2.0); Potassium 5.8 mmol/L (3.5-5.1)
[2024-12-14] MEDS: VANCOMYCIN 1GM/250ML KIT 250 ML IV ONE (14:54)
[2024-12-14] MEDS: ACCU-CHEK COMFORT CURVE STRIP VI SCH ×2 (15:00→21:01)
[2024-12-14] MEDS: INSULIN DRIP 100 UNIT/100ML 100 ML IV SCH ×2 (15:08→20:00)
[2024-12-14] MEDS: ALBUTEROL SULF 2.5 MG/0.5ML(0.5%) NEB SOLN NEB ONE (15:18)
[2024-12-14] MEDS: ALBUTEROL SULF 2.5 MG/0.5ML(0.5%) NEB SOLN ONE (15:20)
[2024-12-14 15:34] LABS: Acetaminophen < 2.0 UG/ML (10.0-20.0); Salicylate < 3.0 mg/dL (-30)
[2024-12-14] MEDS: CALCIUM GLUC 1,000mg/50ml-NS 50 ML IV ONE (15:39)
[2024-12-14] MEDS: FUROSEMIDE 20 MG/2 ML VIAL IV ONE (15:39)
[2024-12-14 15:40] LABS: Urine Amorphous Crystal FEW /hpf (None Seen); Urine Protein, UAD 1+ (Negative)
[2024-12-14 15:46] LABS: Amphetamine Screen, Urine Pos (NEGATIVE); Barbiturate Scree,Urine Neg (NEGATIVE); Benzodiazephine Screen, Urine Neg (NEGATIVE); Cannabinoid Screen, Urine Pos (NEGATIVE); Cocaine Screen, Urine Neg (NEGATIVE); Opiate Scree,Urine Neg (NEGATIVE); Phencyclidine Screen, Urine Neg (NEGATIVE)
[2024-12-14 15:56] LABS: Alanine Aminotransferase 29 U/L (7-40); Anion Gap 30.00001 (5-15); BUN/Creatinine Ratio 12.0 (10.0-20.0); Blood Urea Nitrogen 19 mg/dL (9-23); Potassium 3.5 mmol/L (3.5-5.1)
[2024-12-14] MEDS ORDERED: VANCOMYCIN PER PHARMACY 0 MG IV SCH (16:00)
[2024-12-14] MEDS ORDERED: ONDANSETRON HCL 4 MG/2 ML VIAL IV PRN (16:00)
[2024-12-14 16:06] LABS: Alkaline Phosphatase 143 U/L (46-116); Chloride 107 mmol/L (98-107); Sodium 147 mmol/L (136-145)
[2024-12-14 16:07] LABS: Albumin 3.1 g/dL (3.2-4.8); Bilirubin, Total < 0.2 mg/dL (0.2-1.0); Calcium 6.9 mg/dL (8.7-10.4); Total Protein 4.9 g/dL (5.7-8.2)
[2024-12-14 16:10] LABS: Carbon Dioxide < 10 mmol/L (20-31); Glucose 724 mg/dL (74-106)
--- NOTE | 2024-12-14 16:14 | DVH ---
AP portable chest CLINICAL INDICATION: ALOC, POSS DKA Comparison: 10/31/2024 FINDINGS: Heart size is normal. No infiltrates or effusions. IMPRESSION: 1. No acute cardiopulmonary pathology
--- NOTE | 2024-12-14 17:27 | DVHHP2 ---
History of Present Illness Reason for Visit: Diabetes ketoacidosis History of Present Illness The patient is a 48-year-old female with past medical history of diabetes mellitus, multiple DKA, and hypertension who presented to [facility] ED for evaluation of unresponsiveness. As reported, patient was found in a hotel room by friend unresponsive with hyperglycemic reaction, so EMS were called. When EMS arrived on the scene, patient's blood sugar reading multiple high, currently responsive to painful stimuli, found to be hypotensive, and tachycardia. Patient was given normal saline bolus EN route to our facility ED. patient was seen and evaluated in the ED, laboratory data shows WBC 23.8, hemoglobin 10.2, hematocrit 35.6, platelets 291, sodium 141, potassium 5.8, BUN 37, creatinine 1.68, glucose 835, anion gap 34, calcium 7.9, protein 4.6, albumin 3.0, AST 42, ALT 27, alkaline phos 144, troponin 8, blood pressure 94/51, heart rate 90, temperature 97.0 F, O2 saturation 99% on oxygen. Chest x- ray show no acute cardiopulmonary pathology. Patient was started on insulin drip, please see medication orders section in the computer. On my assessment, patient denies chest pain, no headache, no dizziness, currently on oxygen, no diarrhea, no nausea, no vomiting, no fever, no chills. Past Medical History CKF, DKA, DM, HTN Past Surgical History Unknown Family History Reviewed, noncontributory to the management of this case. Past Social History The patient lives at home, denies smoking, alcohol use, uses methamphetamine. Review of Systems Constitutional: Yes: Weakness; No: Fever, Chills, Sweats, Malaise, Other Eyes: No: Pain, Vision change, Conjunctivae inflammation, Eyelid inflammation, Other, Redness ENT: No: Ear pain, Ear discharge, Nose pain, Nose discharge, Nose congestion, Mouth pain, Mouth swelling, Throat pain, Throat swelling, Other Respiratory: Shortness of breath; No: Cough, Dry, SOB with excertion, Wheezing, Hemoptysis, Pleuritic Pain, Sputum, Wheezing, Other Cardiovascular: Other (Hypotension); No: Chest Pain, Palpitations, Orthopnea, Paroxysmal Noc. Dyspnea, Edema, Lt Headedness Gastrointestinal: No: Nausea, Vomiting, Abdominal Pain, Diarrhea, Constipation, Melena, Hematochezia, Other Genitourinary: No Dysuria, No Frequency, No Incontinence, No Hematuria, No Retention, No Other Musculoskeletal: No: other, neck pain, shoulder pain, arm pain, back pain, hand pain, leg pain, foot pain Skin: No: Rash, Lesions, Jaundice, Bruising, Other Neurological: No: Weakness, Numbness, Incoordination, Change in speech, Confusion, Seizures, Other Allergies: Coded Allergies: NO KNOWN ALLERGIES (Unverified , 06/06/19) Medications Current Medications Medications Dose Ordered Sig/Dave Route Start Time Stop Time Status Last Admin Dose Admin Sodium Chloride 1,000 ml @ 500 mls/hr Q2H IV 12/14/24 14:00 12/14/24 17:59 12/14/24 15:00 500 MLS/HR Sodium Chloride 1,000 ml @ 250 mls/hr Q4H IV 12/14/24 18:00 12/14/24 19:59 Sodium Chloride 1,000 ml @ 150 mls/hr Q6H40M IV 12/14/24 20:00 Insulin Human (Reg)/Sodium Chloride 100 ml @ 0.5 mls/hr Q24H IV 12/14/24 14:00 12/14/24 15:08 6 MLS/HR Dextrose 50 ml UD PRN IV 12/14/24 14:00 Diagnostic Test (Pha) 1 strip Q90MIN 12/14/24 15:00 12/14/24 16:30 1 STRIP Cefepime HCl 50 ml @ 12.5 mls/hr Q12H IV 12/14/24 15:00 Vancomycin HCl 0 ml @ 0 mls/hr UD IV 12/14/24 16:00 Famotidine 20 mg Q12HR IV 12/14/24 22:00 UNV Ondansetron HCl 4 mg Q4HP PRN IV 12/14/24 16:00 UNV Exam Vital Signs Vital Signs Date Time Temp Pulse Resp B/P (MAP) Pulse Ox O2 Delivery O2 Flow Rate FiO2 12/14/24 16:45 95.4 110 18 95/53 (67) 100 95.4 12/14/24 15:22 Room Air* 0 21 General Appearance: Alert, Cooperative, No acute distress, Other (Oriented x2) HEENT: Atraumatic, PERRLA, EOMI, Mucous membr. moist/pink Respiratory: Normal air movement Cardiovascular: Regular rate, Normal S1, Normal S2, No murmurs Abdominal: Normal bowel sounds, Soft, No tenderness, No hepatospenomegaly, No masses Extremities: No clubbing, No cyanosis, No edema, Normal pulses, No tenderness/swelling Skin: No rashes, No breakdown, No significant lesion Neuro: Normal speech, Normal tone, Sensation intact, Cranial nerves 3-12 NL, Reflexes 2+, Other (Generalized weakness) Psych/Mental Status: Mental status NL, Mood NL Labs/Xrays Labs Test 12/14/24 15:25 12/14/24 14:22 12/14/24 13:54 12/14/24 13:05 Range/Units Sodium Level 147 #H 136-145 mmol/L Potassium Level 3.5 # 3.5-5.1 mmol/L Chloride Level 107 # 98-107 mmol/L Carbon Dioxide Level < 10 *L 20-31 mmol/L Anion Gap 30.01149 H 5-15 Blood Urea Nitrogen 19 # 9-23 mg/dL Creatinine 1.58 H 0.550-1.02 mg/dL Glomerular Filtration Rate Calc 40 >90 mL/min BUN/Creatinine Ratio 12.0 10.0-20.0 Serum Glucose 724 *H 74-106 mg/dL Lactic Acid Level 5.3 *H 0.4-2.0 mmol/L Calcium Level 6.9 L 8.7-10.4 mg/dL Total Bilirubin < 0.2 L 0.2-1.0 mg/dL Aspartate Amino Transferase (AST) 53 H 13-40 U/L Alanine Aminotransferase (ALT) 29 7-40 U/L Alkaline Phosphatase 143 H 46-116 U/L Ammonia 67 H 11-32 umol/L Total Protein 4.9 L 5.7-8.2 g/dL Albumin 3.1 L 3.2-4.8 g/dL Urine Color Light-yellow Yellow Urine Clarity Clear Clear Urine pH 5.5 5.0-9.0 Urine Specific [place] 1.020 1.001-1.035 Urine Protein 1+ H Negative Urine Ketones 3+ H Negative Urine Blood 2+ H Negative /uL Urine Nitrite Negative Negative Urine Bilirubin Negative Negative Urine Urobilinogen Normal Negative mg/dL Urine Leukocyte Esterase Negative Negative /uL Urine RBC <1 0 - 4 /hpf Urine Microscopic WBC < 1 0-5 /HPF Urine Squamous Epithelial Cells Few <5 /hpf Urine Amorphous Crystals Few None Seen /hpf Urine Bacteria None seen None Seen /hpf Urine Glucose 4+ H Normal mg/dL Urine Opiates Screen Neg NEGATIVE Urine Fentanyl Screen Neg NEGATIVE Urine Barbiturates Screen Neg NEGATIVE Urine Phencyclidine Screen Neg NEGATIVE Urine Amphetamines Screen Pos NEGATIVE Urine Benzodiazepines Screen Neg NEGATIVE Urine Cocaine Screen Neg NEGATIVE Urine Cannabinoids Screen Pos NEGATIVE Blood Gas Specimen Type Arterial Blood Gas Sample Site Right brachial Blood Gas Patient Temperature 37.0 Arterial Blood Date Drawn [id number] Arterial Blood pH 7.139 *L 7.350-7.450 Arterial Blood Partial Pressure CO2 < 14.1 *L 32.0-45.0 mmHg Arterial Blood Partial Pressure O2 178.2 H 83.0-108.0 mmHg Arterial Blood Oxygen Saturation 99.1 H 94.0-98.0 % Arterial Blood Oxyhemoglobin 98.0 94.0-98.0 % Arterial Blood Carboxyhemoglobin 0.5 0.5-1.5 % Arterial Blood Methemoglobin 0.6 0.0-1.5 % Aiden Test N/a Blood Gas Total Hemoglobin 11.60 L 12.0-16.0 g/dL Blood Gas Liter Flow 5.00 Blood Gas Modality Nasal cannula FiO2 % 45.0 Blood Gas Critical Value Read Back Yes Blood Gas Notified Whom Dr. barlow Blood Gas Notified Time [id number] Blood Gas Notified By Douglas tobin rrt Eosinophils (%) (Auto) 0.1 0.0-7.0 % Eosinophils # (Auto) 0 0-0.8 10 ^3/uL Basophils # (Auto) 0.1 0-0.2 10 ^3/uL Nucleated Red Blood Cells 0.1 % Serum Osmolality 373 H 278-298 mOsm/kg Phosphorus Level 10.1 H 2.4-5.1 mg/dL Magnesium Level 2.3 1.6-2.6 mg/dL Troponin I High Sensitivity 8 </=34 ng/L Lipase 19 12-53 U/L Beta-Hydroxybutyric Acid > 4.500 H < 0.4 mmol/L Salicylates Level < 3.0 -30 mg/dL Acetaminophen Level < 2.0 L 10.0-20.0 UG/ML Plasma/Serum Blood Alcohol < 3.0 <10 mg/dL PATIENT: LILY MANCINI ACCT: [id number] UNIT: [id number] : 1975 LOC: ER ROOM / BED: / AGE / SEX: 48 / F ADM STATUS: REG ER SERVICE 532 ORDERING PHYSICIAN: SYEDA BARLOW DO PROCEDURE(s): CXRP - CHEST PORTABLE REASON: ALOC, POSS DKA ORDER NUMBER(s): [id number], ACCESSION NUMBER(s): [id number] AP portable chest CLINICAL INDICATION: ALOC, POSS DKA Comparison: 10/31/2024 FINDINGS: Heart size is normal. No infiltrates or effusions. IMPRESSION: 1. No acute cardiopulmonary pathology SEPSIS Sepsis Screen Date sepsis recognized/suspect: Dec 14, 2024 Time Sepsis recognized/suspect: 1334 Recent Procedure: No On Antibiotic Therapy: No Respiratory Rate >20: No Heart Rate >90: Yes Temp<36 C (96.8 F) or >38.3 C: Yes SBP <90 or MAP <65 mmHG: No New Acute Mental Status Change: Yes Is the patient on CPAP, BIPAP,: No Physician Orders Cryptographic Machine Operator (12/14/24 ) Chest Portable (12/14/24 13:39) Electrocardigram (12/14/24 13:39) Head Without Contrast (12/14/24 13:39) Troponin-I Hs (12/14/24 14:39) Troponin-I Hs (12/14/24 16:39) Abg W/ Co-Ox (12/14/24 13:39) Insulin Drip Protocol (12/14/24 ) Sodium Chloride 0.9% (12/14/24 14:00) Sodium Chloride 0.9% (12/14/24 18:00) Sodium Chloride 0.9% (12/14/24 20:00) Insulin Drip 100 Unit/100ml (Myxredlin 1 (12/14/24 14:00) Dextrose 50% Syringe (12/14/24 14:00) Glucose Blood (Accu-Chek Comfort Curve T (12/14/24 15:00) Neurological Assessment (12/14/24 13:49) Vs/Hemodynamics .PER UNIT PROTOCOL (12/14/24 13:49) PTPTT (12/14/24 14:24) Blood Culture (12/14/24 14:24) Notify Md If Map <65 Or Bp<90 (12/14/24 14:24) If Map<65 Start Vasopressor (12/14/24 14:24) Sepsis Reassesment After Fluid (12/14/24 15:24) Potassium (12/14/24 18:50) Cefepime 1gm/ 50ml (Maxipime 1gm/50ml) (12/14/24 15:00) Complete Blood Count (12/14/24 15:10) Non-Behavioral Restraints (12/14/24 ) Vancomycin Per Pharmacy (12/14/24 16:00) Famotidine Injection (Pepcid Injection) (12/14/24 22:00) Allergies (12/14/24 15:51) Code Status (12/14/24 15:51) Oxygen Per Hour (12/14/24 15:51) Ondansetron Hcl (Zofran) (12/14/24 16:00) Fall Risk Precautions In Place QSHIFT (12/14/24 15:51) Complete Blood Count (12/15/24 04:00) Comprehensive Metabolic Panel (12/15/24 04:00) Npo (Nothing By Mouth) Diet (12/14/24 Dinner) Condition: Critical (12/14/24 15:51) Maintain Bed Rest (12/14/24 15:51) Sequential Compression Device (12/14/24 ) Creatinine (12/15/24 04:00) Vancomycin,Random (12/15/24 04:00) Sodium Bicarb 50meq/50ml Vial (12/14/24 17:15) Sodium Bicarb 50meq/50ml Vial (12/14/24 17:15) Admit (12/14/24 17:25) Nitroglycerin Sublingual (Ntrostat Subli (12/14/24 17:30) Morphine Sulfate Injection (12/14/24 17:30) Stat Ekg For Chest Pain (12/14/24:25) Notify Md Of Changes From Base (12/14/24:25) Set Designer For 24 Hours (12/14/24:25) Emergency Dysrhythmia Protocol (12/14/24 17:25) Rhythm Strips Once Every Shift (12/14/24:25) Oxygen By Nasal Cannula (8/11/25 17:25) Vital Signs Date Time Temp Pulse Resp B/P (MAP) Pulse Ox O2 Delivery O2 Flow Rate FiO2 12/14/24 16:45 95.4 110 18 95/53 (67) 100 95.4 12/14/24 15:45 92.3 105 18 105/62 (76) 100 92.3 12/14/24 15:39 94/51 12/14/24 15:22 28 99 Room Air* 0 21 12/14/24 14:53 89.4 113 20 109/60 100 89.4 12/14/24 14:45 89.3 89 18 120/67 (84) 100 89.3 12/14/24 14:06 90 12/14/24 13:45 87 18 113/62 (79) 100 Laboratory Tests Test 12/14/24 13:05 12/14/24 15:25 Lactic Acid Level 3.5 mmol/L (0.4-2.0) *H 5.3 mmol/L (0.4-2.0) *H White Blood Count 23.8 10^3/uL (4.4-10.8) H Pending Medications Medications Dose Ordered Sig/Dave Route Start Time Stop Time Status Last Admin Dose Admin Albuterol 20 mg ONCE ONCE NEB 12/14/24 15:00 12/14/24 15:17 DC 12/14/24 15:18 20 MG Calcium Gluconate/ Sodium Chloride 50 ml @ 120 mls/hr ONCE ONCE IV 12/14/24 15:00 12/14/24 15:24 DC 12/14/24 15:39 120 MLS/HR Diagnostic Test (Pha) 1 strip Q90MIN 12/14/24 15:00 12/14/24 16:30 1 STRIP Furosemide 20 mg ONCE ONCE IV 12/14/24 15:00 12/14/24 15:17 DC 12/14/24 15:39 20 MG Insulin Human (Reg)/Sodium Chloride 100 ml @ 0.5 mls/hr Q24H IV 12/14/24 14:00 12/14/24 15:08 6 MLS/HR Insulin Human Regular 10 units ONCE ONCE IV 12/14/24 13:45 12/14/24 13:46 DC 12/14/24 13:58 10 UNITS Sodium Bicarbonate 150 ml ONCE ONCE IV 12/14/24 14:00 12/14/24 14:01 DC 12/14/24 13:49 150 ML Sodium Chloride 1,000 ml @ 500 mls/hr Q2H IV 12/14/24 14:00 12/14/24 17:59 12/14/24 15:00 500 MLS/HR Sodium Chloride 1,000 ml @ 1,000 mls/hr Q1H ONCE IV 12/14/24 13:45 12/14/24 14:44 DC 12/14/24 13:54 1,000 MLS/HR Sodium Chloride 1,000 ml @ 1,000 mls/hr Q1H ONCE IV 12/14/24 13:45 12/14/24 14:44 DC 12/14/24 13:54 1,000 MLS/HR Vancomycin HCl 250 ml @ 250 mls/hr ONCE ONCE IV 12/14/24 14:45 12/14/24 15:44 DC 12/14/24 14:54 250 MLS/HR Assessment/Plan Assessment/Plan DKA (diabetes ketoacidosis) Altered level of consciousness Hypothermia Acute renal injury Sepsis, unspecified organism Generalized weakness Hyperkalemia Methamphetamine abuse Plan 1. Admit to intensive care unit 2. Breathing treatment 3. Pain control management 4. IV antibiotic management 5. Management of fluids and electrolytes 6. Consultation for Cardiology 7. Diagnostic test chest x-ray 8. DVT prophylaxis on SCDs 9. Repeat labs CBC, CMP in a.m. 10. Home medication reviewed and reconciled 11. Continue with current medical management 12. Treatment plan discussed with patient and RN. Patient verbalized understanding. Plan discussed with: Patient, Other (RN) My Orders Orders - YONAS POE DNP Procedure Category Date Status Time Vancomycin Per PHA 12/14/24 In Process Pharmacy 16:00 Famotidine Injection PHA 12/14/24 Logged (Pepcid Injection) 22:00 Allergies NICHOLAS 12/14/24 In Process 15:51 Code Status CODE 12/14/24 Transmitted 15:51 Oxygen Per Hour RT 12/14/24 Transmitted 15:51 Ondansetron Hcl PHA 12/14/24 Logged (Zofran) 16:00 Fall Risk Precautions NICHOLAS 12/14/[address] 15:51 Complete Blood Count LAB 12/15/24 Verified 04:00 Comprehensive LAB 12/15/24 Verified Metabolic Panel 04:00 Npo (Nothing By DIET 12/14/24 Transmitted Mouth) Diet Dinner Condition: Critical [facility] 12/14/24 In Process 15:51 Maintain Bed Rest [facility] 12/14/24 In Process 15:51 Sequential [facility] 12/14/24 In Process Compression Device Creatinine LAB 12/15/24 Verified 04:00 Vancomycin,Random LAB 12/15/24 Verified 04:00 Admit ADMIT 12/14/24 Verified 17:25 Nitroglycerin PHA 12/14/24 Verified Sublingual (Ntrostat 17:30 Morphine Sulfate PHA 12/14/24 Verified Injection 17:30 Stat Ekg For Chest [facility] 12/14/24 Verified Pain 17:25 Notify Of Changes [facility] 12/14/24 Verified From Base 17:25 Set Designer For [facility] 12/14/24 Verified 24 Hours 17:25 Emergency Dysrhythmia [facility] 12/14/24 Verified Protocol 17:25 Rhythm Strips Once [facility] 12/14/24 Verified Every Shift 17:25 Oxygen By Nasal RT 12/14/24 Verified Cannula 17:25 Problem List: (1) DKA (diabetic ketoacidosis) (2) Altered level of consciousness (3) Hypothermia (4) Hyperkalemia (5) Methamphetamine abuse (6) Acute renal injury (7) Sepsis, unspecified organism (8) Generalized weakness Date of Service: Dec 14, 2024 Billing Provider: YONAS POE DNP Common Visit Codes: [id number] INP/OBS CARE (HIGH) YONAS POE DNP Dec 14, 2024 17:27
[2024-12-14] MEDS ORDERED: MORPHINE SULFATE INJ 2 MG/ml SYRG IV PRN (17:30)
[2024-12-14] MEDS ORDERED: NITROGLYCERIN 0.4 MG SL TAB SL PRN (17:30)
[2024-12-14] MEDS: CEFEPIME 1GM/ 50ML 50 ML IV SCH (18:04)
[2024-12-14] MEDS: NOREPINEPHRINE 8 MG/250ML KIT 250 ML IV ONE (18:28)
[2024-12-14] MEDS: NOREPINEPHRINE 8 MG/250ML KIT 250 ML IV SCH (18:30)
[2024-12-14 18:37] LABS: Hemoglobin 11.8 g/dL (12.2-16.2); Nucleated Red Blood Cells % 0.0 %
[2024-12-14 18:38] LABS: Hematocrit 39.1 % (36.0-46.0); Mean Corpuscular Hemoglobin 30.6 pg (28.0-32.0); Mean Corpuscular Volume 101.4 fL (80.0-100.0)
[2024-12-14 18:54] LABS: INR 1.01 (0.9-1.15); Partial Thromboplastin Time 21.6 SEC (24.5-34.5); Prothrombin Time 10.7 sec (9.3-11.8)
[2024-12-14 19:35] VITALS: RESP 16; O2SAT 100
[2024-12-14] MEDS: INSULIN LANTUS (GLARGINE) 1 /0.01ml (100units/ml) SC ONE (20:00)
[2024-12-14] MEDS ORDERED: INSULIN DRIP 100 UNIT/100ML 100 ML IV SCH (20:00)
[2024-12-14 20:20] LABS: Anion Gap 32.00001 (5-15)
[2024-12-14 20:24] LABS: Hematocrit 38.7 % (36.0-46.0); Hemoglobin 12.2 g/dL (12.2-16.2); Mean Corpuscular Hemoglobin 30.5 pg (28.0-32.0); Mean Corpuscular Volume 96.6 fL (80.0-100.0); Nucleated Red Blood Cells % 0.0 %
[2024-12-14 20:25] LABS: BUN/Creatinine Ratio 15.5 (10.0-20.0)
[2024-12-14 20:26] LABS: Magnesium 2.0 mg/dL (1.6-2.6)
[2024-12-14 20:34] LABS: Blood Urea Nitrogen 25 mg/dL (9-23); Calcium 7.5 mg/dL (8.7-10.4); Chloride 109 mmol/L (98-107); Potassium 3.1 mmol/L (3.5-5.1); Sodium 151 mmol/L (136-145)
[2024-12-14 20:35] LABS: Carbon Dioxide < 10 mmol/L (20-31); Glucose 761 mg/dL (74-106)
[2024-12-14 21:44] LABS: Base Excess -14.3 mmol/L (-2.0-3.0)
[2024-12-14] MEDS ORDERED: CEFEPIME 1GM/ 50ML 50 ML IV SCH (22:00)
[2024-12-14] MEDS: FAMOTIDINE (10MG/ML) 2ML VL IV SCH (22:00)
[2024-12-14] MEDS: LORazepam 2MG/ML-1ML VIAL IV ONE (23:31)
[2024-12-15] VITALS (7 sets, daily range): BP systolic 129–149; BP diastolic 74–90; PULSE 100–109; RESP 10–16; TEMP 99.7; O2SAT 96–100
[2024-12-15] MEDS: SODIUM CHLORIDE 0.9% 1,000 ML IV SCH
--- NOTE | 2024-12-15 01:57 | DVH ---
Indication: ALOC, POSS DKA Comparison: None Technique: Utilizing a multislice CT scanner, a CT scan of the brain was performed without intravenou s contrast. Coronal and sagittal reformatted images. All CT scans at this facility use dose modulation, iterative reconstruction, and/or weight based dosi ng when appropriate to reduce radiation dose to as low as reasonably achievable. Findings: There is no acute infarct, intracranial hemorrhage, or mass effect. There is no hydrocephalus or sign ificant midline shift. No acute, depressed calvarial fractures. No large scalp hematomas. Impression: 1. No acute intracranial process.
[2024-12-15] MEDS ORDERED: SODIUM CHLORIDE 0.9% 1,000 ML IV SCH (02:00)
[2024-12-15 02:49] LABS: Anion Gap 19 (5-15); Carbon Dioxide 21 mmol/L (20-31)
[2024-12-15 02:54] LABS: BUN/Creatinine Ratio 21.6 (10.0-20.0)
[2024-12-15 03:16] LABS: Blood Urea Nitrogen 25 mg/dL (9-23); Calcium 7.9 mg/dL (8.7-10.4); Chloride 121 mmol/L (98-107); Glucose 198 mg/dL (74-106)
[2024-12-15 03:18] LABS: Potassium 2.5 mmol/L (3.5-5.1); Sodium 161 mmol/L (136-145)
[2024-12-15] MEDS ORDERED: D5W/SOD CHL 0.45%/KCL 20MEQ 1,000 ML IV SCH (03:45)
[2024-12-15] MEDS: POTASSIUM CHL 20MEQ/100ML 100 ML IV SCH ×2 (04:15→13:06)
[2024-12-15] MEDS: D5W/SOD CHL 0.45% 1,000 ML IV SCH (04:15)
[2024-12-15] MEDS: DEXTROSE (50%) 50ML SYRG IV PRN (04:35)
[2024-12-15] MEDS: LORazepam 2MG/ML-1ML VIAL IV ONE (06:00)
[2024-12-15] MEDS: INSULIN DRIP 100 UNIT/100ML 100 ML IV SCH (08:25)
[2024-12-15] MEDS: INSULIN LANTUS (GLARGINE) 1 /0.01ml (100units/ml) SC SCH (09:45)
[2024-12-15 10:42] LABS: Hematocrit 37.8 % (36.0-46.0); Hemoglobin 12.6 g/dL (12.2-16.2); Mean Corpuscular Hemoglobin 30.2 pg (28.0-32.0); Mean Corpuscular Volume 90.5 fL (80.0-100.0); Nucleated Red Blood Cells % 0.1 %
[2024-12-15 10:56] LABS: Alanine Aminotransferase 37 U/L (7-40); Albumin 3.9 g/dL (3.2-4.8); Anion Gap 12 (5-15); BUN/Creatinine Ratio 20.4 (10.0-20.0); Blood Urea Nitrogen 20 mg/dL (9-23); Carbon Dioxide 30 mmol/L (20-31); Total Protein 5.9 g/dL (5.7-8.2)
[2024-12-15 10:59] LABS: Alkaline Phosphatase 146 U/L (46-116); Bilirubin, Total 0.3 mg/dL (0.2-1.0); Calcium 8.0 mg/dL (8.7-10.4); Chloride 120 mmol/L (98-107); Glucose 68 mg/dL (74-106)
[2024-12-15 11:02] LABS: Potassium 2.5 mmol/L (3.5-5.1); Sodium 162 mmol/L (136-145)
[2024-12-15] MEDS: VANCOMYCIN 750MG KIT 100 ML IV SCH (11:55)
[2024-12-15] MEDS ORDERED: DEXTROSE (50%) 50ML SYRG IV PRN (12:30)
[2024-12-15] MEDS: D5W 5% 1,000 ML IV SCH (12:56)
[2024-12-15 15:58] LABS: Magnesium 1.7 mg/dL (1.6-2.6)
[2024-12-15] MEDS: InsuLIN REG 1unit/0.01ml Soln (100units/ml) SC SCH ×2 (17:00→22:00)
[2024-12-15] MEDS: ACCU-CHEK COMFORT CURVE STRIP VI SCH (17:00)
[2024-12-15] MEDS: CEFEPIME 1GM/ 50ML 50 ML IV SCH (18:48)
[2024-12-15 20:48] LABS: Anion Gap 11 (5-15); Carbon Dioxide 24 mmol/L (20-31)
[2024-12-15 20:54] LABS: Calcium 7.5 mg/dL (8.7-10.4); Chloride 118 mmol/L (98-107); Glucose 165 mg/dL (74-106); Potassium 3.5 mmol/L (3.5-5.1); Sodium 153 mmol/L (136-145)
[2024-12-15 20:55] LABS: BUN/Creatinine Ratio 25.3 (10.0-20.0); Blood Urea Nitrogen 19 mg/dL (9-23)
--- NOTE | 2024-12-15 21:00 | DVHINCON2 ---
Date of service: Dec 15, 2024 Reason for Consultation hypernatremia History of Present Illness 49 y -old female with past medical history of diabetes mellitus, multiple DKA, and hypertension who presented with chief complaints of altered mental status found to have DKA received several bags of normal saline and several IV pushes of sodium bicarbonate Patient is currently lethargic and sleepy in emergency room Past Medical History As per HPI Past Surgical History Unknown exactly Allergies: Coded Allergies: NO KNOWN ALLERGIES (Unverified , 06/06/19) Home Meds Active Scripts Insulin Glargine (Lantus) 100 Unit/Ml Inj, 15 UNITS SC BID@0700,2200 for 30 Days, #100 INJ 3 Refills Prov:KARISHMA HURTADO DO 04/30/23 Glipizide (Glipizide) 5 Mg Tab, 1 TAB PO DAILY, #30 TAB Prov:MADELINE CORRIGAN MD 06/10/19 Metronidazole (Flagyl) 500 Mg Tab, 500 MG PO TID, #21 TAB Prov:MADELINE CORRIGAN MD 06/10/19 Metformin Hydrochloride (Metformin Hcl) 1,000 Mg Tab, 1 TAB PO BID, #60 TAB Prov:MADELINE CORRIGAN MD 06/10/19 Reported Medications Metformin Hydrochloride (Metformin Hcl) 500 Mg Tab, 500 MG PO DAILY for 30 Days, MG 06/09/19 Current Medications Current Medications Medications (Trade) Dose Ordered Sig/Dave Route PRN Reason Start Time Stop Time Status Last Admin Diagnostic Test (Pha) (Accu-Chek Comfort Curve T) 1 strip ACHS 12/15/24 17:00 12/16/24 07:24 Insulin Human Regular (InsuLIN R) HS SC 12/15/24 22:00 Insulin Human Regular (InsuLIN R) AC SC 12/15/24 17:00 12/16/24 07:23 Cefepime HCl 50 ml @ 12.5 mls/hr Q8H IV 12/15/24 18:00 12/16/24 09:46 Family History: FH: lung cancer G8 MOTHER, Onset:Unknown Review of Systems Unable to obtain poor historian H&P Exam Vital Signs/I&O Vital Sign Date Time Temp Pulse Resp B/P (MAP) Pulse Ox O2 Delivery O2 Flow Rate FiO2 12/16/24 12:00 99.5 108 15 121/70 (87) 98 211.1 12/16/24 08:00 Room Air* 0 21 Intake and Output 12/15/24 12/16/24 19:00 07:00 Intake Total 1775 ml 3100 ml Output Total 750 ml 1600 ml Balance 1025 ml 1500 ml Intake Oral 1400 ml IV Total 1775 ml 1700 ml Output Urine Total 750 ml 1600 ml Stool Total 0 ml Physical Exam Unable to do as patient lethargic and sleepy Labs/Diagnostic Data Labs/Diagnostic Data Laboratory Tests Test 12/16/24 13:03 12/16/24 09:44 12/16/24 07:16 12/15/24 21:35 Range/Units White Blood Count 10.1 # 4.4-10.8 10^3/uL Red Blood Count 4.20 4.0-5.20 10^6/uL Hemoglobin 12.8 12.2-16.2 g/dL Hematocrit 38.3 36.0-46.0 % Mean Corpuscular Volume 91.0 80.0-100.0 fL Mean Corpuscular Hemoglobin 30.6 28.0-32.0 pg Mean Corpuscular Hemoglobin Concent 33.6 32.0-36.0 g/dL Red Cell Distribution Width 15.6 H 11.8-14.3 % Platelet Count 218 140-450 10^3/uL Mean Platelet Volume 7.2 6.9-10.8 fL Neutrophils (%) (Auto) 71.7 37.0-80.0 % Lymphocytes (%) (Auto) 22.4 10.0-50.0 % Monocytes (%) (Auto) 5.1 0.0-12.0 % Eosinophils (%) (Auto) 0.3 0.0-7.0 % Basophils (%) (Auto) 0.5 0.0-2.0 % Neutrophils # (Auto) 7.2 1.6-8.6 10 ^3/uL Lymphocytes # (Auto) 2.3 0.4-5.4 10 ^3/uL Monocytes # (Auto) 0.5 0-1.3 10 ^3/uL Eosinophils # (Auto) 0 0-0.8 10 ^3/uL Basophils # (Auto) 0.1 0-0.2 10 ^3/uL Nucleated Red Blood Cells 0.1 % Sodium Level 142 # 136-145 mmol/L Potassium Level 2.8 L 3.5-5.1 mmol/L Chloride Level 105 # 98-107 mmol/L Carbon Dioxide Level 28 20-31 mmol/L Anion Gap 9 5-15 Blood Urea Nitrogen 5 #L 9-23 mg/dL Creatinine 0.60 0.550-1.02 mg/dL Glomerular Filtration Rate Calc 110 >90 mL/min BUN/Creatinine Ratio 8.3 L 10.0-20.0 Serum Glucose 78 74-106 mg/dL POC Glucose 81 167 H 286 H 146 H 70-106 mg/dl Calcium Level 7.8 L 8.7-10.4 mg/dL Magnesium Level 1.5 L 1.6-2.6 mg/dL Total Bilirubin 0.4 0.2-1.0 mg/dL Aspartate Amino Transferase (AST) 63 H 13-40 U/L Alanine Aminotransferase (ALT) 34 7-40 U/L Alkaline Phosphatase 140 H 46-116 U/L Total Protein 5.3 L 5.7-8.2 g/dL Albumin 3.3 3.2-4.8 g/dL Test 12/15/24 20:07 12/15/24 17:03 12/15/24 15:32 12/15/24 11:51 Range/Units Sodium Level 153 #H 136-145 mmol/L Potassium Level 3.5 3.4 L 3.5-5.1 mmol/L Chloride Level 118 H 98-107 mmol/L Carbon Dioxide Level 24 20-31 mmol/L Anion Gap 11 5-15 Blood Urea Nitrogen 19 9-23 mg/dL Creatinine 0.75 0.550-1.02 mg/dL Glomerular Filtration Rate Calc 98 >90 mL/min BUN/Creatinine Ratio 25.3 H 10.0-20.0 Serum Glucose 165 H 74-106 mg/dL Calcium Level 7.5 L 8.7-10.4 mg/dL POC Glucose 140 H 135 H 72 70-106 mg/dl Phosphorus Level 1.7 L 2.4-5.1 mg/dL Magnesium Level 1.7 1.6-2.6 mg/dL Test 12/15/24 10:06 12/15/24 02:02 12/15/24 01:50 12/14/24 22:31 Range/Units White Blood Count 15.4 H 4.4-10.8 10^3/uL Red Blood Count 4.18 4.0-5.20 10^6/uL Hemoglobin 12.6 12.2-16.2 g/dL Hematocrit 37.8 36.0-46.0 % Mean Corpuscular Volume 90.5 # 80.0-100.0 fL Mean Corpuscular Hemoglobin 30.2 28.0-32.0 pg Mean Corpuscular Hemoglobin Concent 33.4 32.0-36.0 g/dL Red Cell Distribution Width 15.0 H 11.8-14.3 % Platelet Count 281 140-450 10^3/uL Mean Platelet Volume 7.8 6.9-10.8 fL Neutrophils (%) (Auto) 86.9 H 37.0-80.0 % Lymphocytes (%) (Auto) 7.7 L 10.0-50.0 % Monocytes (%) (Auto) 5.0 0.0-12.0 % Eosinophils (%) (Auto) 0.1 0.0-7.0 % Basophils (%) (Auto) 0.3 0.0-2.0 % Neutrophils # (Auto) 13.4 H 1.6-8.6 10 ^3/uL Lymphocytes # (Auto) 1.2 0.4-5.4 10 ^3/uL Monocytes # (Auto) 0.8 0-1.3 10 ^3/uL Eosinophils # (Auto) 0 0-0.8 10 ^3/uL Basophils # (Auto) 0 0-0.2 10 ^3/uL Nucleated Red Blood Cells 0.1 % Sodium Level 162 *H 161 #*H 136-145 mmol/L Potassium Level 2.5 *L 2.5 *L 3.5-5.1 mmol/L Chloride Level 120 H 121 #H 98-107 mmol/L Carbon Dioxide Level 30 21 20-31 mmol/L Anion Gap 12 19 H 5-15 Blood Urea Nitrogen 20 25 H 9-23 mg/dL Creatinine 0.98 1.16 H 0.550-1.02 mg/dL Glomerular Filtration Rate Calc 71 58 >90 mL/min BUN/Creatinine Ratio 20.4 H 21.6 H 10.0-20.0 Serum Glucose 68 L 198 H 74-106 mg/dL Calcium Level 8.0 L 7.9 L 8.7-10.4 mg/dL Total Bilirubin 0.3 0.2-1.0 mg/dL Aspartate Amino Transferase (AST) 63 H 13-40 U/L Alanine Aminotransferase (ALT) 37 7-40 U/L Alkaline Phosphatase 146 H 46-116 U/L Total Protein 5.9 5.7-8.2 g/dL Albumin 3.9 3.2-4.8 g/dL Random Vancomycin Level 6.9 5-10 ug/mL POC Glucose 162 H 394 H 70-106 mg/dl Test 12/14/24 22:29 12/14/24 21:40 12/14/24 20:09 12/14/24 18:19 Range/Units POC Glucose 341 H 70-106 mg/dl Blood Gas Specimen Type Arterial Blood Gas Sample Site Right brachial Blood Gas Patient Temperature 37.0 Arterial Blood Date Drawn [id number] Arterial Blood pH 7.327 L 7.350-7.450 Arterial Blood Partial Pressure CO2 18.4 *L 32.0-45.0 mmHg Arterial Blood Partial Pressure O2 104.8 83.0-108.0 mmHg Arterial Blood HCO3 9.4 L 21.0-28.0 mmol/L Arterial Blood Oxygen Saturation 97.6 94.0-98.0 % Arterial Blood Base Excess -14.3 L -2.0-3.0 mmol/L Arterial Blood Oxyhemoglobin 96.3 94.0-98.0 % Arterial Blood Carboxyhemoglobin 0.7 0.5-1.5 % Arterial Blood Methemoglobin 0.6 0.0-1.5 % Aiden Test N/a Blood Gas Total Hemoglobin 11.80 L 12.0-16.0 g/dL Blood Gas Modality Room air Blood Gas Spontaneous Rate 28 FiO2 % 21.0 Specimen Drawn By Kendell arciniega rt Blood Gas Critical Value Read Back Yes Blood Gas Notified Whom Dr ilene vu Blood Gas Notified Time [id number] Blood Gas Notified By Kendell arciniega rt White Blood Count 19.4 H 20.8 H 4.4-10.8 10^3/uL Red Blood Count 4.00 3.85 L 4.0-5.20 10^6/uL Hemoglobin 12.2 11.8 #L 12.2-16.2 g/dL Hematocrit 38.7 39.1 36.0-46.0 % Mean Corpuscular Volume 96.6 # 101.4 H 80.0-100.0 fL Mean Corpuscular Hemoglobin 30.5 30.6 28.0-32.0 pg Mean Corpuscular Hemoglobin Concent 31.5 L 30.2 L 32.0-36.0 g/dL Red Cell Distribution Width 15.5 H 16.2 H 11.8-14.3 % Platelet Count 282 282 140-450 10^3/uL Mean Platelet Volume 8.0 8.3 6.9-10.8 fL Neutrophils (%) (Auto) 91.1 H 91.2 H 37.0-80.0 % Lymphocytes (%) (Auto) 5.4 L 5.8 L 10.0-50.0 % Monocytes (%) (Auto) 3.4 2.4 0.0-12.0 % Eosinophils (%) (Auto) 0.0 0.0 0.0-7.0 % Basophils (%) (Auto) 0.1 0.6 0.0-2.0 % Neutrophils # (Auto) 17.7 H 19.0 H 1.6-8.6 10 ^3/uL Lymphocytes # (Auto) 1.1 1.2 0.4-5.4 10 ^3/uL Monocytes # (Auto) 0.7 0.5 0-1.3 10 ^3/uL Eosinophils # (Auto) 0 0 0-0.8 10 ^3/uL Basophils # (Auto) 0 0.1 0-0.2 10 ^3/uL Nucleated Red Blood Cells 0.0 0.0 % Serum Osmolality 369 H 278-298 mOsm/kg Prothrombin Time 10.7 9.3-11.8 sec Prothrombin Time INR 1.01 0.9-1.15 Activated Partial Thromboplast Time 21.6 L 24.5-34.5 SEC Sodium Level 151 H 136-145 mmol/L Potassium Level 3.1 L 3.5-5.1 mmol/L Chloride Level 109 H 98-107 mmol/L Carbon Dioxide Level < 10 *L 20-31 mmol/L Anion Gap 32.98150 H 5-15 Blood Urea Nitrogen 25 H 9-23 mg/dL Creatinine 1.61 H 0.550-1.02 mg/dL Glomerular Filtration Rate Calc 39 >90 mL/min BUN/Creatinine Ratio 15.5 10.0-20.0 Serum Glucose 761 *H 74-106 mg/dL Calcium Level 7.5 L 8.7-10.4 mg/dL Phosphorus Level 3.2 2.4-5.1 mg/dL Magnesium Level 2.0 1.6-2.6 mg/dL Troponin I High Sensitivity 9 </=34 ng/L Beta-Hydroxybutyric Acid > 4.500 H < 0.4 mmol/L Test 12/14/24 15:25 12/14/24 14:22 12/14/24 13:54 12/14/24 13:05 Range/Units Sodium Level 147 #H 141 136-145 mmol/L Potassium Level 3.5 # 5.8 *H 3.5-5.1 mmol/L Chloride Level 107 # 97 L 98-107 mmol/L Carbon Dioxide Level < 10 *L < 10 *L 20-31 mmol/L Anion Gap 30.68892 H 34.84499 H 5-15 Blood Urea Nitrogen 19 # 37 H 9-23 mg/dL Creatinine 1.58 H 1.68 H 0.550-1.02 mg/dL Glomerular Filtration Rate Calc 40 37 >90 mL/min BUN/Creatinine Ratio 12.0 22.0 H 10.0-20.0 Serum Glucose 724 *H 835 *H 74-106 mg/dL Lactic Acid Level 5.3 *H 3.5 *H 0.4-2.0 mmol/L Calcium Level 6.9 L 7.9 L 8.7-10.4 mg/dL Total Bilirubin < 0.2 L < 0.2 L 0.2-1.0 mg/dL Aspartate Amino Transferase (AST) 53 H 42 H 13-40 U/L Alanine Aminotransferase (ALT) 29 27 7-40 U/L Alkaline Phosphatase 143 H 144 H 46-116 U/L Ammonia 67 H 11-32 umol/L Troponin I High Sensitivity 10 8 </=34 ng/L Total Protein 4.9 L 4.6 L 5.7-8.2 g/dL Albumin 3.1 L 3.0 L 3.2-4.8 g/dL Urine Color Light-yellow Yellow Urine Clarity Clear Clear Urine pH 5.5 5.0-9.0 Urine Specific [place] 1.020 1.001-1.035 Urine Protein 1+ H Negative Urine Ketones 3+ H Negative Urine Blood 2+ H Negative /uL Urine Nitrite Negative Negative Urine Bilirubin Negative Negative Urine Urobilinogen Normal Negative mg/dL Urine Leukocyte Esterase Negative Negative /uL Urine RBC <1 0 - 4 /hpf Urine Microscopic WBC < 1 0-5 /HPF Urine Squamous Epithelial Cells Few <5 /hpf Urine Amorphous Crystals Few None Seen /hpf Urine Bacteria None seen None Seen /hpf Urine Glucose 4+ H Normal mg/dL Urine Opiates Screen Neg NEGATIVE Urine Fentanyl Screen Neg NEGATIVE Urine Barbiturates Screen Neg NEGATIVE Urine Phencyclidine Screen Neg NEGATIVE Urine Amphetamines Screen Pos NEGATIVE Urine Benzodiazepines Screen Neg NEGATIVE Urine Cocaine Screen Neg NEGATIVE Urine Cannabinoids Screen Pos NEGATIVE Blood Gas Specimen Type Arterial Blood Gas Sample Site Right brachial Blood Gas Patient Temperature 37.0 Arterial Blood Date Drawn [id number] Arterial Blood pH 7.139 *L 7.350-7.450 Arterial Blood Partial Pressure CO2 < 14.1 *L 32.0-45.0 mmHg Arterial Blood Partial Pressure O2 178.2 H 83.0-108.0 mmHg Arterial Blood Oxygen Saturation 99.1 H 94.0-98.0 % Arterial Blood Oxyhemoglobin 98.0 94.0-98.0 % Arterial Blood Carboxyhemoglobin 0.5 0.5-1.5 % Arterial Blood Methemoglobin 0.6 0.0-1.5 % Aiden Test N/a Blood Gas Total Hemoglobin 11.60 L 12.0-16.0 g/dL Blood Gas Liter Flow 5.00 Blood Gas Modality Nasal cannula FiO2 % 45.0 Blood Gas Critical Value Read Back Yes Blood Gas Notified Whom Dr. vu Blood Gas Notified Time [id number] Blood Gas Notified By Douglas tobin, luis White Blood Count 23.8 H 4.4-10.8 10^3/uL Red Blood Count 3.50 L 4.0-5.20 10^6/uL Hemoglobin 10.2 L 12.2-16.2 g/dL Hematocrit 35.6 L 36.0-46.0 % Mean Corpuscular Volume 101.8 H 80.0-100.0 fL Mean Corpuscular Hemoglobin 29.1 28.0-32.0 pg Mean Corpuscular Hemoglobin Concent 28.6 L 32.0-36.0 g/dL Red Cell Distribution Width 16.0 H 11.8-14.3 % Platelet Count 291 140-450 10^3/uL Mean Platelet Volume 9.0 6.9-10.8 fL Neutrophils (%) (Auto) 86.7 H 37.0-80.0 % Lymphocytes (%) (Auto) 9.2 L 10.0-50.0 % Monocytes (%) (Auto) 3.6 0.0-12.0 % Eosinophils (%) (Auto) 0.1 0.0-7.0 % Basophils (%) (Auto) 0.4 0.0-2.0 % Neutrophils # (Auto) 20.6 H 1.6-8.6 10 ^3/uL Lymphocytes # (Auto) 2.2 0.4-5.4 10 ^3/uL Monocytes # (Auto) 0.9 0-1.3 10 ^3/uL Eosinophils # (Auto) 0 0-0.8 10 ^3/uL Basophils # (Auto) 0.1 0-0.2 10 ^3/uL Nucleated Red Blood Cells 0.1 % Serum Osmolality 373 H 278-298 mOsm/kg Phosphorus Level 10.1 H 2.4-5.1 mg/dL Magnesium Level 2.3 1.6-2.6 mg/dL Lipase 19 12-53 U/L Beta-Hydroxybutyric Acid > 4.500 H < 0.4 mmol/L Salicylates Level < 3.0 -30 mg/dL Acetaminophen Level < 2.0 L 10.0-20.0 UG/ML Plasma/Serum Blood Alcohol < 3.0 <10 mg/dL Microbiology Date/Time Source Procedure Growth Status 12/15/24 22:01 Nose MRSA Screen - Final Complete Assessment Hypernatremia likely iatrogenic secondary to excessive salt load Diabetic ketoacidosis Metabolic encephalopathy Recommendations Switch fluids to D5W IV Potassium replace Insulin coverage We will follow closely Plan discussed with: BJ Reyes MD Dec 15, 2024 21:00
[2024-12-16] VITALS (21 sets, daily range): BP systolic 113–148; BP diastolic 59–94; PULSE 94–108; RESP 9–17; TEMP 99–100.4; O2SAT 71–100
--- NOTE | 2024-12-16 09:39 | ECG ---
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
[2024-12-16 13:13] LABS: Hematocrit 38.3 % (36.0-46.0); Hemoglobin 12.8 g/dL (12.2-16.2); Mean Corpuscular Hemoglobin 30.6 pg (28.0-32.0); Mean Corpuscular Volume 91.0 fL (80.0-100.0); Nucleated Red Blood Cells % 0.1 %
[2024-12-16 13:35] LABS: Alanine Aminotransferase 34 U/L (7-40); Albumin 3.3 g/dL (3.2-4.8); Anion Gap 9 (5-15); BUN/Creatinine Ratio 8.3 (10.0-20.0); Carbon Dioxide 28 mmol/L (20-31); Chloride 105 mmol/L (98-107); Glucose 78 mg/dL (74-106); Sodium 142 mmol/L (136-145)
[2024-12-16 13:36] LABS: Bilirubin, Total 0.4 mg/dL (0.2-1.0)
[2024-12-16 13:38] LABS: Alkaline Phosphatase 140 U/L (46-116); Blood Urea Nitrogen 5 mg/dL (9-23); Calcium 7.8 mg/dL (8.7-10.4); Magnesium 1.5 mg/dL (1.6-2.6); Potassium 2.8 mmol/L (3.5-5.1); Total Protein 5.3 g/dL (5.7-8.2)
[2024-12-16] MEDS ORDERED: POTASSIUM CHL 20MEQ/100ML 100 ML IV SCH (14:30)
[2024-12-16] MEDS: MAGNESIUM SULFATE 1GM/100ML 100 ML IV SCH (15:10)
--- NOTE | 2024-12-16 15:10 | DVHPN2 ---
Subjective Patient is more awake alert, still on D5W for hypernatremia which is improving. Changes from previous H/P or p: No Changes Eyes: No Pain, No Vision change, No Conjunctivae inflammation, No Eyelid inflammation, No Other, No Redness ENT: No Ear pain, No Ear discharge, No Nose pain, No Nose discharge, No Nose congestion, No Mouth pain, No Mouth swelling, No Throat pain, No Throat swelling, No Other Cardiovascular: No Chest Pain, No Palpitations, No Orthopnea, No Paroxysmal Noc. Dyspnea, No Edema, No Lt Headedness; Other (Hypotension) Respiratory: No Cough, No Dry; Shortness of breath; No SOB with excertion, No Wheezing, No Hemoptysis, No Pleuritic Pain, No Sputum, No Other Gastrointestinal: No Nausea, No Vomiting, No Abdominal Pain, No Diarrhea, No Constipation, No Melena, No Hematochezia, No Other Genitourinary: No Dysuria, No Frequency, No Incontinence, No Hematuria, No Retention, No Other Musculoskeletal: No other, No neck pain, No shoulder pain, No arm pain, No back pain, No hand pain, No leg pain, No foot pain Skin: No Rash, No Lesions, No Jaundice, No Bruising, No Other Objective Vitals Vital Signs Date Time Temp Pulse Resp B/P (MAP) Pulse Ox O2 Delivery O2 Flow Rate FiO2 12/16/24 12:03 103 12/16/24 12:00 99.5 15 121/70 (87) 98 211.1 12/16/24 08:00 Room Air* 0 21 Intake/Output Intake and Output 12/16/24 07:00 Intake Total 4875 ml Output Total 2350 ml Balance 2525 ml Intake Oral 1400 ml IV Total 3475 ml Output Urine Total 2350 ml Stool Total 0 ml Exam HEENT pupils are reactive Neck is supple CV is S1-S2 regular rate and rhythm Respiratory diminished breath sounds bases GI positive bowel sound Extremity no edema [employer]N no motor deficit Medications Current Medications Medications Dose Ordered Sig/Dave Route Start Time Stop Time Status Last Admin Dose Admin Vancomycin HCl 0 ml @ 0 mls/hr UD IV 12/14/24 16:00 Famotidine 20 mg DAILY IV 12/14/24 22:00 12/16/24 09:46 20 MG Ondansetron HCl 4 mg Q4HP PRN IV 12/14/24 16:00 Nitroglycerin 0.4 mg Q5MINP PRN SL 12/14/24 17:30 Morphine Sulfate 2 mg Q30M PRN IV 12/14/24 17:30 Insulin Human (Reg)/Sodium Chloride 100 ml @ 0.5 mls/hr Q24H IV 12/14/24 20:00 UNV Insulin Glargine 15 units DAILY SC 12/15/24 10:00 12/16/24 09:46 15 UNITS Vancomycin HCl 100 ml @ 100 mls/hr Q12H IV 12/15/24 12:00 12/16/24 00:19 100 MLS/HR Diagnostic Test (Pha) 1 strip ACHS 12/15/24 17:00 12/16/24 11:30 1 STRIP Insulin Human Regular HS SC 12/15/24 22:00 Insulin Human Regular AC SC 12/15/24 17:00 12/16/24 07:23 9 UNITS Dextrose 50 ml UD PRN IV 12/15/24 12:30 Cefepime HCl 50 ml @ 12.5 mls/hr Q8H IV 12/15/24 18:00 12/16/24 09:46 12.5 MLS/HR Magnesium Sulfate/ Dextrose 100 ml @ 100 mls/hr Q1HR IV 12/16/24 15:00 12/16/24 16:59 Dextrose 1,000 ml @ 70 mls/hr [id number] IV 12/16/24 14:45 Laboratory Results Laboratory Tests 12/16/24 13:03 Chemistry Test 12/15/24 15:32 12/15/24 20:07 12/16/24 13:03 Magnesium Level 1.7 mg/dL (1.6-2.6) 1.5 mg/dL (1.6-2.6) L Phosphorus Level 1.7 mg/dL (2.4-5.1) L Calcium Level 7.5 mg/dL (8.7-10.4) L 7.8 mg/dL (8.7-10.4) L Albumin 3.3 g/dL (3.2-4.8) Total Protein 5.3 g/dL (5.7-8.2) L LFT Test 12/16/24 13:03 Alanine Aminotransferase (ALT) 34 U/L (7-40) Alkaline Phosphatase 140 U/L (46-116) H Aspartate Amino Transferase (AST) 63 U/L (13-40) H Total Bilirubin 0.4 mg/dL (0.2-1.0) Urinalysis Test 12/14/24 14:22 Urine Color Light-yellow (Yellow) Urine Clarity Clear (Clear) Urine pH 5.5 (5.0-9.0) Urine Specific [place] 1.020 (1.001-1.035) Urine Protein 1+ (Negative) H Urine Ketones 3+ (Negative) H Urine Blood 2+ /uL (Negative) H Urine Nitrite Negative (Negative) Urine Bilirubin Negative (Negative) Urine Urobilinogen Normal mg/dL (Negative) Urine Leukocyte Esterase Negative /uL (Negative) Urine RBC <1 /hpf (0 - 4) Urine Microscopic WBC < 1 /HPF (0-5) Urine Squamous Epithelial Cells Few /hpf (<5) Urine Amorphous Crystals Few /hpf (None Seen) Urine Bacteria None seen /hpf (None Seen) Urine Glucose 4+ mg/dL (Normal) H Microbiology Microbiology Date/Time Source Procedure Growth Status 12/15/24 22:01 Nose MRSA Screen - Final Complete 12/14/24 13:50 Blood Blood Culture - Preliminary NO GROWTH AFTER 48 HOURS OF INCUBATION. Resulted Assessment/Plan Assessment/Plan 49-year-old female with a known history of insulin-dependent diabetes mellitus type 2, illicit drug use presented to the hospital with altered mental status and high blood sugar found to have 1. Diabetic ketoacidosis 2. Acute metabolic encephalopathy/hyperosmolar diabetic ketoacidosis 3. Hypernatremia suspect secondary to salt overload 4. Acute kidney injury suspected secondary to vasomotor nephropathy 5. Lactic acidosis 6. Leukocytosis likely reactive secondary to DKA -D5W, patient's-hypernatremia is improving Monitored in [facility] may downgraded to telemetry. Plan discussed with: Patient My Orders Orders - DANIEL JONES MD Procedure Category Date Status Time Communication Order ORDERS 12/16/24 Transmitted 10:40 Ammonia LAB 12/16/24 Logged 15:01 Date of Service: Dec 16, 2024 Billing Provider: DANIEL JONES MD Common Visit Codes: [id number] INP/OBS CARE(HIGH) DANIEL JONES MD Dec 16, 2024 15:10
--- NOTE | 2024-12-16 15:10 | DVHPN2 ---
Subjective I am assuming the care of the patient from today onwards patient was seen and evaluated by me currently in [place] [facility]. Changes from previous H/P or p: No Changes Eyes: No Pain, No Vision change, No Conjunctivae inflammation, No Eyelid inflammation, No Other, No Redness ENT: No Ear pain, No Ear discharge, No Nose pain, No Nose discharge, No Nose congestion, No Mouth pain, No Mouth swelling, No Throat pain, No Throat swelling, No Other Cardiovascular: No Chest Pain, No Palpitations, No Orthopnea, No Paroxysmal Noc. Dyspnea, No Edema, No Lt Headedness; Other (Hypotension) Respiratory: No Cough, No Dry; Shortness of breath; No SOB with excertion, No Wheezing, No Hemoptysis, No Pleuritic Pain, No Sputum, No Other Gastrointestinal: No Nausea, No Vomiting, No Abdominal Pain, No Diarrhea, No Constipation, No Melena, No Hematochezia, No Other Genitourinary: No Dysuria, No Frequency, No Incontinence, No Hematuria, No Retention, No Other Musculoskeletal: No other, No neck pain, No shoulder pain, No arm pain, No back pain, No hand pain, No leg pain, No foot pain Skin: No Rash, No Lesions, No Jaundice, No Bruising, No Other Objective Vitals Vital Signs Date Time Temp Pulse Resp B/P (MAP) Pulse Ox O2 Delivery O2 Flow Rate FiO2 12/16/24 12:03 103 12/16/24 12:00 99.5 15 121/70 (87) 98 211.1 12/16/24 08:00 Room Air* 0 21 Intake/Output Intake and Output 12/16/24 07:00 Intake Total 4875 ml Output Total 2350 ml Balance 2525 ml Intake Oral 1400 ml IV Total 3475 ml Output Urine Total 2350 ml Stool Total 0 ml Exam HEENT pupils are reactive Neck is supple CV is S1-S2 regular rate and rhythm Respiratory diminished breath sounds bases GI positive bowel sound Extremity no edema [employer]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 Medications Current Medications Medications Dose Ordered Sig/Dave Route Start Time Stop Time Status Last Admin Dose Admin Vancomycin HCl 0 ml @ 0 mls/hr UD IV 12/14/24 16:00 Famotidine 20 mg DAILY IV 12/14/24 22:00 12/16/24 09:46 20 MG Ondansetron HCl 4 mg Q4HP PRN IV 12/14/24 16:00 Nitroglycerin 0.4 mg Q5MINP PRN SL 12/14/24 17:30 Morphine Sulfate 2 mg Q30M PRN IV 12/14/24 17:30 Insulin Human (Reg)/Sodium Chloride 100 ml @ 0.5 mls/hr Q24H IV 12/14/24 20:00 UNV Insulin Glargine 15 units DAILY SC 12/15/24 10:00 12/16/24 09:46 15 UNITS Vancomycin HCl 100 ml @ 100 mls/hr Q12H IV 12/15/24 12:00 12/16/24 00:19 100 MLS/HR Diagnostic Test (Pha) 1 strip ACHS 12/15/24 17:00 12/16/24 11:30 1 STRIP Insulin Human Regular HS SC 12/15/24 22:00 Insulin Human Regular AC SC 12/15/24 17:00 12/16/24 07:23 9 UNITS Dextrose 50 ml UD PRN IV 12/15/24 12:30 Cefepime HCl 50 ml @ 12.5 mls/hr Q8H IV 12/15/24 18:00 12/16/24 09:46 12.5 MLS/HR Magnesium Sulfate/ Dextrose 100 ml @ 100 mls/hr Q1HR IV 12/16/24 15:00 12/16/24 16:59 Dextrose 1,000 ml @ 70 mls/hr [id number] IV 12/16/24 14:45 Laboratory Results Laboratory Tests 12/16/24 13:03 Chemistry Test 12/15/24 15:32 12/15/24 20:07 12/16/24 13:03 Magnesium Level 1.7 mg/dL (1.6-2.6) 1.5 mg/dL (1.6-2.6) L Phosphorus Level 1.7 mg/dL (2.4-5.1) L Calcium Level 7.5 mg/dL (8.7-10.4) L 7.8 mg/dL (8.7-10.4) L Albumin 3.3 g/dL (3.2-4.8) Total Protein 5.3 g/dL (5.7-8.2) L LFT Test 12/16/24 13:03 Alanine Aminotransferase (ALT) 34 U/L (7-40) Alkaline Phosphatase 140 U/L (46-116) H Aspartate Amino Transferase (AST) 63 U/L (13-40) H Total Bilirubin 0.4 mg/dL (0.2-1.0) Urinalysis Test 12/14/24 14:22 Urine Color Light-yellow (Yellow) Urine Clarity Clear (Clear) Urine pH 5.5 (5.0-9.0) Urine Specific [place] 1.020 (1.001-1.035) Urine Protein 1+ (Negative) H Urine Ketones 3+ (Negative) H Urine Blood 2+ /uL (Negative) H Urine Nitrite Negative (Negative) Urine Bilirubin Negative (Negative) Urine Urobilinogen Normal mg/dL (Negative) Urine Leukocyte Esterase Negative /uL (Negative) Urine RBC <1 /hpf (0 - 4) Urine Microscopic WBC < 1 /HPF (0-5) Urine Squamous Epithelial Cells Few /hpf (<5) Urine Amorphous Crystals Few /hpf (None Seen) Urine Bacteria None seen /hpf (None Seen) Urine Glucose 4+ mg/dL (Normal) H Microbiology Microbiology Date/Time Source Procedure Growth Status 12/15/24 22:01 Nose MRSA Screen - Final Complete 12/14/24 13:50 Blood Blood Culture - Preliminary NO GROWTH AFTER 48 HOURS OF INCUBATION. Resulted Assessment/Plan Assessment/Plan 49-year-old female with a known history of insulin-dependent diabetes mellitus type 2, illicit drug use presented to the hospital with altered mental status and high blood sugar found to have 1. Diabetic ketoacidosis 2. Acute metabolic encephalopathy/hyperosmolar diabetic ketoacidosis 3. Hypernatremia suspect secondary to salt overload 4. Acute kidney injury suspected secondary to vasomotor nephropathy 5. Lactic acidosis 6. Leukocytosis likely reactive secondary to DKA -D5W, BMP q.6 hours, nephrology consultation. Plan discussed with: Other (Patient's bedside RN.) My Orders Orders - DANIEL JONES MD Procedure Category Date Status Time Communication Order ORDERS 12/16/24 Transmitted 10:40 Ammonia LAB 12/16/24 Logged 15:01 Date of Service: Dec 15, 2024 Billing Provider: DANIEL JONES MD Common Visit Codes: [id number] INP/OBS CARE(HIGH) DANIEL JONES MD Dec 16, 2024 15:10
[2024-12-16] MEDS: D5W 5% 1,000 ML IV SCH (15:11)
--- NOTE | 2024-12-16 15:30 | DVHPN2 ---
Progress Note Date Seen: Dec 16, 2024 Medical Necessity Reason Pt with a Central, PICC or Fol: No Subjective Patient reports: Other (altered) Review of Systems: NEURO:Abnormal Objective vital signs Vital Sign Date Time Temp Pulse Resp B/P (MAP) Pulse Ox O2 Delivery O2 Flow Rate FiO2 12/16/24 12:03 103 12/16/24 12:00 99.5 15 121/70 (87) 98 211.1 12/16/24 08:00 Room Air* 0 21 Total Intake and Output 12/15/24 12/15/24 12/16/24 15:00 23:00 07:00 Intake Total 900 ml 1425 ml 2550 ml Output Total 750 ml 1600 ml Balance 150 ml 1425 ml 950 ml medications Current Medications Medications Dose Ordered Sig/Dave Route Start Time Stop Time Status Last Admin Dose Admin Vancomycin HCl 0 ml @ 0 mls/hr UD IV 12/14/24 16:00 Famotidine 20 mg DAILY IV 12/14/24 22:00 12/16/24 09:46 20 MG Ondansetron HCl 4 mg Q4HP PRN IV 12/14/24 16:00 Nitroglycerin 0.4 mg Q5MINP PRN SL 12/14/24 17:30 Morphine Sulfate 2 mg Q30M PRN IV 12/14/24 17:30 Insulin Human (Reg)/Sodium Chloride 100 ml @ 0.5 mls/hr Q24H IV 12/14/24 20:00 UNV Insulin Glargine 15 units DAILY SC 12/15/24 10:00 12/16/24 09:46 15 UNITS Vancomycin HCl 100 ml @ 100 mls/hr Q12H IV 12/15/24 12:00 12/16/24 00:19 100 MLS/HR Diagnostic Test (Pha) 1 strip ACHS 12/15/24 17:00 12/16/24 11:30 1 STRIP Insulin Human Regular HS SC 12/15/24 22:00 Insulin Human Regular AC SC 12/15/24 17:00 12/16/24 07:23 9 UNITS Dextrose 50 ml UD PRN IV 12/15/24 12:30 Cefepime HCl 50 ml @ 12.5 mls/hr Q8H IV 12/15/24 18:00 12/16/24 09:46 12.5 MLS/HR Magnesium Sulfate/ Dextrose 100 ml @ 100 mls/hr Q1HR IV 12/16/24 15:00 12/16/24 16:59 12/16/24 15:10 100 MLS/HR Dextrose 1,000 ml @ 70 mls/hr [id number] IV 12/16/24 14:45 12/16/24 15:11 70 MLS/HR Examination: GENERAL:Abnormal, LUNGS:Abnormal, NEURO:Abnormal laboratory and microbiology Laboratory Tests 12/16/24 13:03 Test 12/16/24 13:03 Range/Units Serum Glucose 78 74-106 mg/dL Microbiology Date/Time Source Procedure Growth Status 12/15/24 22:01 Nose MRSA Screen - Final Complete 12/14/24 13:50 Blood Blood Culture - Preliminary NO GROWTH AFTER 48 HOURS OF INCUBATION. Resulted Problem List/Assessment/Plan Problem List/Assessment/Plan Hypernatremia likely iatrogenic secondary to excessive salt load Diabetic ketoacidosis Metabolic encephalopathy meth + Recommendations D5W IV--pt poor po intake Potassium replace,mg replace Insulin coverage We will follow closely Plan discussed with: Other My Orders My Orders Orders - BJ CONTRERAS MD Procedure Category Date Status Time Magnesium Sulfate PHA 12/16/24 In Process 1gm/100ml 15:00 D5w 5% (Dextrose 5%) PHA 12/16/24 In Process 14:45 Potassium Chloride PHA 12/16/24 Logged (Potassium Chloride). 15:15 Dietary Evaluation Review Comments: 1) Refer Certified Orthoptist for diabetes education 2) Monitor PO intake, lab values, weight trend, and I/O Expected Outcomes/Goals: To meet >75% estimated needs Lab values to improve Fu 3-5 days BJ CONTRERAS MD Dec 16, 2024 15:30
[2024-12-16] MEDS: POTASSIUM CHLORIDE 60 MEQ, LIDOCAINE 1% (LOCAL ANESTH.) 6 ML in SODIUM CHL 0.9% 500 ML IV ONE (16:52)
[2024-12-17] VITALS (17 sets, daily range): BP systolic 95–118; BP diastolic 53–76; PULSE 83–112; RESP 10–18; TEMP 98.4–99.3; O2SAT 95–100
[2024-12-17] MEDS: VANCOMYCIN 1GM/250ML KIT 250 ML IV SCH (11:01)
--- NOTE | 2024-12-17 12:26 | DVHPN2 ---
Progress Note Date Seen: Dec 17, 2024 Medical Necessity Reason Pt with a Central, PICC or Fol: No Subjective Patient reports: No new complaints, Feels better Review of Systems: Deferred Objective vital signs Vital Sign Date Time Temp Pulse Resp B/P (MAP) Pulse Ox O2 Delivery O2 Flow Rate FiO2 12/17/24 12:00 98.6 104 14 107/66 (80) 97 98.6 12/17/24 08:00 Room Air* 0 21 Total Intake and Output 12/16/24 12/16/24 12/17/24 15:00 23:00 07:00 Intake Total 300.0 ml 750 ml 2160 ml Output Total 3525 ml 2100 ml Balance 300.0 ml -2775 ml 60 ml medications Current Medications Medications Dose Ordered Sig/Dave Route Start Time Stop Time Status Last Admin Dose Admin Vancomycin HCl 0 ml @ 0 mls/hr UD IV 12/14/24 16:00 Famotidine 20 mg DAILY IV 12/14/24 22:00 12/17/24 09:05 20 MG Ondansetron HCl 4 mg Q4HP PRN IV 12/14/24 16:00 Nitroglycerin 0.4 mg Q5MINP PRN SL 12/14/24 17:30 Morphine Sulfate 2 mg Q30M PRN IV 12/14/24 17:30 Insulin Human (Reg)/Sodium Chloride 100 ml @ 0.5 mls/hr Q24H IV 12/14/24 20:00 UNV Insulin Glargine 15 units DAILY SC 12/15/24 10:00 12/17/24 09:06 15 UNITS Diagnostic Test (Pha) 1 strip ACHS 12/15/24 17:00 12/17/24 11:36 1 STRIP Insulin Human Regular HS SC 12/15/24 22:00 Insulin Human Regular AC SC 12/15/24 17:00 12/17/24 11:36 3 UNITS Dextrose 50 ml UD PRN IV 12/15/24 12:30 Cefepime HCl 50 ml @ 12.5 mls/hr Q8H IV 12/15/24 18:00 12/17/24 09:05 12.5 MLS/HR Dextrose 1,000 ml @ 70 mls/hr [id number] IV 12/16/24 14:45 12/17/24 04:18 70 MLS/HR Vancomycin HCl 250 ml @ 250 mls/hr Q12H IV 12/17/24 10:45 12/17/24 11:01 250 MLS/HR Examination: GENERAL:Normal, HEENT:Normal, NECK:Normal, LUNGS:Normal, CVS:Normal, ABDOMEN:Normal, MSK:Normal, SKIN:Normal, NEURO:Normal, :Normal laboratory and microbiology Laboratory Tests 12/17/24 04:44 12/16/24 13:03 Test 12/16/24 13:03 Range/Units Serum Glucose 78 74-106 mg/dL Microbiology Date/Time Source Procedure Growth Status 12/15/24 22:01 Nose MRSA Screen - Final Complete 12/14/24 13:50 Blood Blood Culture - Preliminary NO GROWTH AFTER 48 HOURS OF INCUBATION. Resulted Problem List/Assessment/Plan Problem List/Assessment/Plan Hypernatremia likely iatrogenic secondary to excessive salt load Diabetic ketoacidosis Metabolic encephalopathy meth + Recommendations DC D5W IV-- Potassium replace,mg replace prn Plan discussed with: Patient My Orders My Orders Orders - BJ CONTRERAS MD Procedure Category Date Status Time D5w 5% (Dextrose 5%) PHA 12/16/24 In Process 14:45 Basic Metabolic Panel LAB 12/17/24 Logged 10:41 Basic Metabolic Panel LAB 12/18/24 Verified 05:00 Basic Metabolic Panel LAB 12/19/24 Verified 05:00 Basic Metabolic Panel LAB 12/20/24 Verified 05:00 Basic Metabolic Panel LAB 12/21/24 Verified 05:00 Basic Metabolic Panel LAB 12/22/24 Verified 05:00 Basic Metabolic Panel LAB 12/23/24 Verified 05:00 Basic Metabolic Panel LAB 12/24/24 Verified 05:00 Dietary Evaluation Review Comments: 1) Refer Human Resources Associate for diabetes education 2) Monitor PO intake, lab values, weight trend, and I/O Expected Outcomes/Goals: To meet >75% estimated needs Lab values to improve Fu 3-5 days BJ CONTRERAS MD Dec 17, 2024 12:26
[2024-12-17 13:02] LABS: Carbon Dioxide 23 mmol/L (20-31)
[2024-12-17 13:07] LABS: BUN/Creatinine Ratio 14.5 (10.0-20.0); Blood Urea Nitrogen 10 mg/dL (9-23)
[2024-12-17 13:10] LABS: Calcium 7.9 mg/dL (8.7-10.4); Glucose 296 mg/dL (74-106)
[2024-12-17 13:14] LABS: Anion Gap 13 (5-15); Chloride 101 mmol/L (98-107); Potassium 4.6 mmol/L (3.5-5.1); Sodium 137 mmol/L (136-145)
--- NOTE | 2024-12-17 16:21 | DVHPN2 ---
Subjective Patient is more awake alert, currently off of D5W, sodium is with a normal limits. Changes from previous H/P or p: No Changes Eyes: No Pain, No Vision change, No Conjunctivae inflammation, No Eyelid inflammation, No Other, No Redness ENT: No Ear pain, No Ear discharge, No Nose pain, No Nose discharge, No Nose congestion, No Mouth pain, No Mouth swelling, No Throat pain, No Throat swelling, No Other Cardiovascular: No Chest Pain, No Palpitations, No Orthopnea, No Paroxysmal Noc. Dyspnea, No Edema, No Lt Headedness; Other (Hypotension) Respiratory: No Cough, No Dry; Shortness of breath; No SOB with excertion, No Wheezing, No Hemoptysis, No Pleuritic Pain, No Sputum, No Other Gastrointestinal: No Nausea, No Vomiting, No Abdominal Pain, No Diarrhea, No Constipation, No Melena, No Hematochezia, No Other Genitourinary: No Dysuria, No Frequency, No Incontinence, No Hematuria, No Retention, No Other Musculoskeletal: No other, No neck pain, No shoulder pain, No arm pain, No back pain, No hand pain, No leg pain, No foot pain Skin: No Rash, No Lesions, No Jaundice, No Bruising, No Other Objective Vitals Vital Signs Date Time Temp Pulse Resp B/P (MAP) Pulse Ox O2 Delivery O2 Flow Rate FiO2 12/17/24 16:00 101 12/17/24 15:00 11 95 12/17/24 12:00 98.6 98.6 12/17/24 08:00 Room Air* 0 21 Intake/Output Intake and Output 12/17/24 07:00 Intake Total 3210.0 ml Output Total 5625 ml Balance -2415.0 ml Intake Oral 1500 ml IV Total 1710.0 ml Output Urine Total 5625 ml # Bowel Movements 4 Exam HEENT pupils are reactive Neck is supple CV is S1-S2 regular rate and rhythm Respiratory diminished breath sounds bases GI positive bowel sound 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 Medications Current Medications Medications Dose Ordered Sig/Dave Route Start Time Stop Time Status Last Admin Dose Admin Vancomycin HCl 0 ml @ 0 mls/hr UD IV 12/14/24 16:00 Famotidine 20 mg DAILY IV 12/14/24 22:00 12/17/24 09:05 20 MG Ondansetron HCl 4 mg Q4HP PRN IV 12/14/24 16:00 Nitroglycerin 0.4 mg Q5MINP PRN SL 12/14/24 17:30 Morphine Sulfate 2 mg Q30M PRN IV 12/14/24 17:30 Insulin Human (Reg)/Sodium Chloride 100 ml @ 0.5 mls/hr Q24H IV 12/14/24 20:00 UNV Insulin Glargine 15 units DAILY SC 12/15/24 10:00 12/17/24 09:06 15 UNITS Diagnostic Test (Pha) 1 strip ACHS 12/15/24 17:00 12/17/24 11:36 1 STRIP Insulin Human Regular HS SC 12/15/24 22:00 Insulin Human Regular AC SC 12/15/24 17:00 12/17/24 11:36 3 UNITS Dextrose 50 ml UD PRN IV 12/15/24 12:30 Cefepime HCl 50 ml @ 12.5 mls/hr Q8H IV 12/15/24 18:00 12/17/24 09:05 12.5 MLS/HR Vancomycin HCl 250 ml @ 250 mls/hr Q12H IV 12/17/24 10:45 12/17/24 11:01 250 MLS/HR Laboratory Results Laboratory Tests 12/16/24 13:03 12/17/24 04:44 Chemistry Test 12/17/24 04:44 Calcium Level 7.9 mg/dL (8.7-10.4) L Urinalysis Test 12/14/24 14:22 Urine Color Light-yellow (Yellow) Urine Clarity Clear (Clear) Urine pH 5.5 (5.0-9.0) Urine Specific [place] 1.020 (1.001-1.035) Urine Protein 1+ (Negative) H Urine Ketones 3+ (Negative) H Urine Blood 2+ /uL (Negative) H Urine Nitrite Negative (Negative) Urine Bilirubin Negative (Negative) Urine Urobilinogen Normal mg/dL (Negative) Urine Leukocyte Esterase Negative /uL (Negative) Urine RBC <1 /hpf (0 - 4) Urine Microscopic WBC < 1 /HPF (0-5) Urine Squamous Epithelial Cells Few /hpf (<5) Urine Amorphous Crystals Few /hpf (None Seen) Urine Bacteria None seen /hpf (None Seen) Urine Glucose 4+ mg/dL (Normal) H Microbiology Microbiology Date/Time Source Procedure Growth Status 8/12/25 22:01 Nose MRSA Screen - Final Complete 12/14/24 13:50 Blood Blood Culture - Preliminary NO GROWTH AFTER 72 HOURS OF INCUBATION. Resulted Assessment/Plan Assessment/Plan 49-year-old female with a known history of insulin-dependent diabetes mellitus type 2, illicit drug use presented to the hospital with altered mental status and high blood sugar found to have 1. Diabetic ketoacidosis , resolved 2. Acute metabolic encephalopathy/hyperosmolar diabetic ketoacidosis, resolved 3. Hypernatremia suspect secondary to salt overload , improved 4. Acute kidney injury suspected secondary to vasomotor nephropathy, resolved 5. Lactic acidosis, repeat lactate 6. Leukocytosis likely reactive secondary to DKA, improved -diabetic diet, insulin sliding scale, tele downgraded, discharge plan, Plan discussed with: Patient My Orders Orders - DANIEL JONES MD Procedure Category Date Status Time Transfer Orders XFER 12/17/24 Transmitted 09:20 Date of Service: Dec 17, 2024 Billing Provider: DANIEL JONES MD Common Visit Codes: [id number] INP/OBS CARE(MOD) DANIEL JONES MD Dec 17, 2024 16:21
--- NOTE | 2024-12-17 19:53 | DVHDS2 ---
Discharge Summary Date of Admission Dec 14, 2024 at 17:25 Date of Discharge: Dec 17, 2024 Labs/Diagnostic Data: Laboratory Results Test 12/17/24 17:48 12/17/24 04:44 12/16/24 23:03 12/16/24 15:15 POC Glucose 138 mg/dl (70-106) Sodium Level 137 mmol/L (136-145) Potassium Level 4.6 mmol/L (3.5-5.1) Chloride Level 101 mmol/L (98-107) Carbon Dioxide Level 23 mmol/L (20-31) Anion Gap 13 (5-15) Blood Urea Nitrogen 10 mg/dL (9-23) Creatinine 0.69 mg/dL (0.550-1.02) Glomerular Filtration Rate Calc 106 mL/min (>90) BUN/Creatinine Ratio 14.5 (10.0-20.0) Serum Glucose 296 mg/dL (74-106) Calcium Level 7.9 mg/dL (8.7-10.4) Vancomycin Level Trough 10.2 ug/mL (5-10) Ammonia 45 umol/L (11-32) Test 12/16/24 13:03 12/15/24 15:32 12/15/24 10:06 12/14/24 21:40 White Blood Count 10.1 10^3/uL (4.4-10.8) Red Blood Count 4.20 10^6/uL (4.0-5.20) Hemoglobin 12.8 g/dL (12.2-16.2) Hematocrit 38.3 % (36.0-46.0) Mean Corpuscular Volume 91.0 fL (80.0-100.0) Mean Corpuscular Hemoglobin 30.6 pg (28.0-32.0) Mean Corpuscular Hemoglobin Concent 33.6 g/dL (32.0-36.0) Red Cell Distribution Width 15.6 % (11.8-14.3) Platelet Count 218 10^3/uL (140-450) Mean Platelet Volume 7.2 fL (6.9-10.8) Neutrophils (%) (Auto) 71.7 % (37.0-80.0) Lymphocytes (%) (Auto) 22.4 % (10.0-50.0) Monocytes (%) (Auto) 5.1 % (0.0-12.0) Eosinophils (%) (Auto) 0.3 % (0.0-7.0) Basophils (%) (Auto) 0.5 % (0.0-2.0) Neutrophils # (Auto) 7.2 10 ^3/uL (1.6-8.6) Lymphocytes # (Auto) 2.3 10 ^3/uL (0.4-5.4) Monocytes # (Auto) 0.5 10 ^3/uL (0-1.3) Eosinophils # (Auto) 0 10 ^3/uL (0-0.8) Basophils # (Auto) 0.1 10 ^3/uL (0-0.2) Nucleated Red Blood Cells 0.1 % Magnesium Level 1.5 mg/dL (1.6-2.6) Total Bilirubin 0.4 mg/dL (0.2-1.0) Aspartate Amino Transferase (AST) 63 U/L (13-40) Alanine Aminotransferase (ALT) 34 U/L (7-40) Alkaline Phosphatase 140 U/L (46-116) Total Protein 5.3 g/dL (5.7-8.2) Albumin 3.3 g/dL (3.2-4.8) Phosphorus Level 1.7 mg/dL (2.4-5.1) Random Vancomycin Level 6.9 ug/mL (5-10) Blood Gas Specimen Type Arterial Blood Gas Sample Site Right brachial Blood Gas Patient Temperature 37.0 Arterial Blood Date Drawn [id number] Arterial Blood pH 7.327 (7.350-7.450) Arterial Blood Partial Pressure CO2 18.4 mmHg (32.0-45.0) Arterial Blood Partial Pressure O2 104.8 mmHg (83.0-108.0) Arterial Blood HCO3 9.4 mmol/L (21.0-28.0) Arterial Blood Oxygen Saturation 97.6 % (94.0-98.0) Arterial Blood Base Excess -14.3 mmol/L (-2.0-3.0) Arterial Blood Oxyhemoglobin 96.3 % (94.0-98.0) Arterial Blood Carboxyhemoglobin 0.7 % (0.5-1.5) Arterial Blood Methemoglobin 0.6 % (0.0-1.5) Aiden Test N/a Blood Gas Total Hemoglobin 11.80 g/dL (12.0-16.0) Blood Gas Modality Room air Blood Gas Spontaneous Rate 28 FiO2 % 21.0 Specimen Drawn By Kendell arciniega rt Blood Gas Critical Value Read Back Yes Blood Gas Notified Whom Dr ilene vu Blood Gas Notified Time [id number] Blood Gas Notified By Kendell arciniega rt Test 12/14/24 20:09 12/14/24 18:19 12/14/24 15:25 12/14/24 14:22 Serum Osmolality 369 mOsm/kg (278-298) Prothrombin Time 10.7 sec (9.3-11.8) Prothrombin Time INR 1.01 (0.9-1.15) Activated Partial Thromboplast Time 21.6 SEC (24.5-34.5) Troponin I High Sensitivity 9 ng/L (</=34) Beta-Hydroxybutyric Acid > 4.500 mmol/L (< 0.4) Lactic Acid Level 5.3 mmol/L (0.4-2.0) Urine Color Light-yellow (Yellow) Urine Clarity Clear (Clear) Urine pH 5.5 (5.0-9.0) Urine Specific [place] 1.020 (1.001-1.035) Urine Protein 1+ (Negative) Urine Ketones 3+ (Negative) Urine Blood 2+ /uL (Negative) Urine Nitrite Negative (Negative) Urine Bilirubin Negative (Negative) Urine Urobilinogen Normal mg/dL (Negative) Urine Leukocyte Esterase Negative /uL (Negative) Urine RBC <1 /hpf (0 - 4) Urine Microscopic WBC < 1 /HPF (0-5) Urine Squamous Epithelial Cells Few /hpf (<5) Urine Amorphous Crystals Few /hpf (None Seen) Urine Bacteria None seen /hpf (None Seen) Urine Glucose 4+ mg/dL (Normal) Urine Opiates Screen Neg (NEGATIVE) Urine Fentanyl Screen Neg (NEGATIVE) Urine Barbiturates Screen Neg (NEGATIVE) Urine Phencyclidine Screen Neg (NEGATIVE) Urine Amphetamines Screen Pos (NEGATIVE) Urine Benzodiazepines Screen Neg (NEGATIVE) Urine Cocaine Screen Neg (NEGATIVE) Urine Cannabinoids Screen Pos (NEGATIVE) Test 12/14/24 13:54 12/14/24 13:05 Blood Gas Liter Flow 5.00 Lipase 19 U/L (12-53) Salicylates Level < 3.0 mg/dL (-30) Acetaminophen Level < 2.0 UG/ML (10.0-20.0) Plasma/Serum Blood Alcohol < 3.0 mg/dL (<10) Other Laboratory Tests 12/17/24 04:44 12/16/24 13:03 Brief Hx & Hospital Course: 49-year-old female with a known history of insulin-dependent diabetes mellitus type 2, illicit drug use presented to the hospital with altered mental status and high blood sugar found to have diabetic ketoacidosis. Patient was eventually started on insulin drip diabetic ketoacidosis was resolved. Patient has had hyponatremia suspected secondary to salt overload which was improved after D5W. Patient left against medical advice before completion of workup and treatment. Condition at Discharge: Undetermined Final Diagnosis/Problems List 49-year-old female with a known history of insulin-dependent diabetes mellitus type 2, illicit drug use presented to the hospital with altered mental status and high blood sugar found to have 1. Diabetic ketoacidosis , resolved 2. Acute metabolic encephalopathy/hyperosmolar diabetic ketoacidosis, resolved 3. Hypernatremia suspect secondary to salt overload , improved 4. Acute kidney injury suspected secondary to vasomotor nephropathy, resolved 5. Lactic acidosis, repeat lactate 6. Leukocytosis likely reactive secondary to DKA, improved Patient left against medical advice. Discharge Disposition: AMA SNF Discharge Will this Physician continue t: No Discharge Instruct/Medications Scheduled Glipizide (Glipizide), 1 TAB PO DAILY Insulin Glargine (Lantus), 15 UNITS SC BID@0700,2200 Metformin Hydrochloride (Metformin Hcl), 500 MG PO DAILY, (Reported) Metformin Hydrochloride (Metformin Hcl), 1 TAB PO BID Metronidazole (Flagyl), 500 MG PO TID Discharge Statement: "Patient was advised to return to the ER or call 911 if any headaches, dizziness, shortness of breath, chest pain, abdominal pain, bleeding, fevers, or worsening of medical condition. Patient was counseled about treatment plan, medications, possible side effects, patientverbalized understanding. All questions were answered to the best of my ability. This discharge took greater then 30 minutes in planning, reviewing documentation, counseling the patient, and discussing with other team members." ASSESSMENT ASSESSMENT Assessment Date of Service: Dec 17, 2024 Billing Provider: DANIEL JONES MD Common Visit Codes: [id number]/OBS DISCH DAY >30min DANIEL JONES MD Dec 17, 2024 19:53
== END 2024-12-17 18:57 | disposition left against medical advice (07) | DRG 420 ==
LOC: ER 13:31 → EDBD 13:31 → OVERFLOW 17:25 → ICU CENTRL 12-16 05:25 → TELE-WESTW 12-17 16:05
PROVIDERS: ADMIT Hospitalist; ATTEND Hospitalist
DX: E11.10 Type 2 diabetes mellitus with ketoacidosis without coma (principal); N17.0 Acute kidney failure with tubular necrosis; R65.11 Systemic inflammatory response syndrome (SIRS) of non-infectious origin with acute organ dysfunction; G93.41 Metabolic encephalopathy; E87.0 Hyperosmolality and hypernatremia; Z53.29 Procedure and treatment not carried out because of patient's decision for other reasons; E87.5 Hyperkalemia; F17.200 Nicotine dependence, unspecified, uncomplicated; F15.10 Other stimulant abuse, uncomplicated; I10 Essential (primary) hypertension; Z79.84 Long term (current) use of oral hypoglycemic drugs; Z79.4 Long term (current) use of insulin; Z80.1 Family history of malignant neoplasm of trachea, bronchus and lung; Z79.899 Other long term (current) drug therapy
CPT/HCPCS: 36415; 36600; 70450; 71045; 80048; 80053; 80202; 80307; 80320; 80329; 81001; 82010; 82140; 82565; 82805; 82962; 83605; 83690; 83735; 83930; 84100; 84132; 84484; 85025; 85610; 85730; 87040; 87081; 93005; 94640; G0378; J1815; J2003; J3480; J3490

== ENCOUNTER 2025-02-23 17:15 | Inpatient (IN) | payer MEDICAID, OTHER ==
[~2025-02-23] VITALS: Ht 154.9 cm; Wt 47.6 kg
[~2025-02-23 17:15] MED LIST changes: +AMLO1TAB22 PO; +ASPI-325 PO; +ERGO1CAP12 PO; +FURO20TA4 PO; +INSU100I54 SC; +INSU1INJ19 SC; +LISI10TA34 PO; +LORA-483 PO; +PANT40T PO
--- NOTE | 2025-02-23 18:05 | ED.PDOC ---
Musculoskeletal HPI Comments HPI: 49 year old female presents to the ED via EMS with a chief complaint of RT leg pain onset today (02/23/25) around 11:00. Per EMS, patient began experiencing RT leg pain since 11:00, 2 days ago began experiencing red spots on RT leg. Patient is a poor historian, is tearful, states she is in pain. Upon ED arrival patient was febrile, tachycardiac. Denies nausea, vomiting, chest pain, shortness of breath, dizziness, blurred vision. No other symptoms or modifying factors present at this time. Patient points specifically to the medial aspect of her right thigh. Denies any fall or trauma or injury. On arrival patient was found to be febrile. Sepsis protocol initiated immediately. Initial Vitals BP: 128/71 HR: 135 RR: 18 O2: 97% Temp: 102.4 F Blood glucose: 180 Past Medical History: CHF, CKD, DM, HTN, frequent DKA Past Surgical History: Denies Social History: Denies ETOH, smoking, and drug use. Medications: Denies Allergies: NKDA HPI: Poor Historian. Past Medical History: Past Surgical History: REVIEW OF SYSTEMS: CONSTITUTIONAL: Denies acute: diaphoresis, chills, HEAD: Denies acute: headache, photophobia Eyes: Denies acute: Double vision, vision loss, eye pain, eye discharge. EARS: Denies acute: tinnitus, hearing loss, ear discharge, ear pain, THROAT: Denies acute: sore throat, swelling, difficulty swallowing , pain with swallowing, change in voice. NECK: Denies acute: neck pain, neck swelling, stiff neck. HEART: Denies acute : chest pain, palpitations, LUNGS: Denies acute: SOB, wheezing, cough, hemoptysis ABDOMEN: Denies acute: abdominal pain, Nausea, Vomiting, diarrhea, melena , hematemesis, hematochezia SKIN: Denies acute: rash, redness, lesions, itchiness. EXTREMITIES: Denies acute: calf pain, numbness, tingling, weakness, Denies acute: Low back pain. Neuro: Denies acute: focal neurological deficit, motor or sensory focal neurological deficit, tremors, seizure like activity, confusion, dizziness, change in mental status, loss of bowel or bladder function, cauda equina like symptoms. : Denies acute: dysuria, hematuria, flank pain, increase in urinary frequency. PSYCH: Denies acute: hallucination, suicidal ideation, homicidal ideation. FEMALE: Denies acute: abnormal vaginal bleeding, foul odor, unusual discharge. PHYSICAL EXAM: General: -----moderate---acute distress, awake and alert. Head: normocephalic, atraumatic. Neck: supple, trachea is midline, no swelling. Throat: Normal phonation. Eyes:, no erythema, no purulent discharge, no proptosis, no icterus. Heart: regular tachycardic, no significant murmur appreciated. Lungs: no apparent respiratory distress, Able to speak in full sentences. No wheezing, no rhonchi, no crackles. No stridors Clear to auscultation bilaterally. Abdomen: non tender to palpation, non distended, soft, no guarding, no rebound, + bowel sounds. Neuro: Awake, Alert, oriented to name, self, situation, follows commands GCS=15. Speech is normal. Skin: no petechia, no purpura, no cyanosis, non-pale, not jaundice. Lower extremities: --trace bilateral - Pitting edema no deformity, no focal swelling, no calf TTP. Makes eye contact. moves all four extremities. Face: no apparent facial droop. Pedal pulses are palpable. ED COURSE: DISCLAIMER: This medical document was created using an electronic medical record system with voice recognition software and computerized dictation system. Although this document has been carefully reviewed, there might still be some phonetic and typographical errors. Occasional wrong-word or "sound-alike" substitutions may have occurred due to the inherent limitations of voice recognition software. These areas are purely typographical due to imperfections of the software programs and do not reflect any compromise in the patient's medical care. Please read the chart carefully and recognize, using context, where these substitutions have occurred. Chief Complaint: Lower Extremity Time Seen by MD: 17:50 Reviewed Notes: Medications, Allergies Allergies: Coded Allergies: NO KNOWN ALLERGIES (Unverified , 02/23/25) Information Source: Patient, Emergency Med Personnel Mode of Arrival: EMS Location: Right Extremity Location: Leg Timing: Hours Prehospital treatment: None Past Medical History PAST MEDICAL HISTORY: CHF, CKF, DM, HTN Surgical History: Denies all surgeries PRICING SPECIALIST History: No Pertinent PRICING SPECIALIST History Family History Family History: Reviewed,noncontributory to illness, No family hx of Cancer, No family hx of DM, No family hx of Heart richard, No family hx of HTN, No family hx ofKidney richard, No family hx of Liver richard, No family hx of Lung richard, No family hx of Stroke Social History Smoker: Non-Smoker Alcohol: Denies ETOH Use Drugs: Denies Drug Use Lives In: Home Was a procedure done? Was a procedure done?: No Differential Diagnosis EXT Differential Diagnosis: Cellulitis, CHF, Deep Vein Thrombosis, Compartment Syndrome, Fracture, Sprain, Dislocation, Gout, DJD, Contusion, Strain, Septic, Neurovascular injury, Arthritis, Bursitis X-Ray, Labs, Meds, VS Vital Signs Date Time Temp Pulse Resp B/P (MAP) Pulse Ox O2 Delivery O2 Flow Rate FiO2 02/23/25 21:46 127 19 131/79 (96) 97 02/23/25 21:33 125 18 122/71 (88) 97 02/23/25 20:30 132 16 106/66 (79) 95 02/23/25 20:00 97 Room Air* 0 21 02/23/25 19:35 101.3 121 23 119/79 (92) 98 101.3 02/23/25 17:41 102.4 135 18 128/71 97 102.4 Lab Test 02/23/25 22:00 02/23/25 21:17 02/23/25 20:08 02/23/25 18:06 Range/Units Urine Color Light-yellow Yellow Urine Clarity Clear Clear Urine pH 6.5 5.0-9.0 Urine Specific [place] 1.027 1.001-1.035 Urine Protein Negative Negative Urine Ketones 1+ H Negative Urine Blood Negative Negative /uL Urine Nitrite Negative Negative Urine Bilirubin Negative Negative Urine Urobilinogen Normal Negative mg/dL Urine Leukocyte Esterase Negative Negative /uL Urine RBC None seen 0 - 4 /hpf Urine Microscopic WBC < 1 0-5 /HPF Urine Squamous Epithelial Cells None seen <5 /hpf Urine Bacteria None seen None Seen /hpf Urine Mucus Few None Seen Urine Glucose 4+ H Normal mg/dL Urine Opiates Screen Neg NEGATIVE Urine Fentanyl Screen Neg NEGATIVE Urine Barbiturates Screen Neg NEGATIVE Urine Phencyclidine Screen Neg NEGATIVE Urine Amphetamines Screen Pos NEGATIVE Urine Benzodiazepines Screen Neg NEGATIVE Urine Cocaine Screen Neg NEGATIVE Urine Cannabinoids Screen Neg NEGATIVE Sodium Level 134 L 134 L 136-145 mmol/L Potassium Level 4.7 4.3 3.5-5.1 mmol/L Chloride Level 98 96 L 98-107 mmol/L Carbon Dioxide Level 24 24 20-31 mmol/L Anion Gap 12 14 5-15 Blood Urea Nitrogen 20 19 9-23 mg/dL Creatinine 0.79 0.79 0.550-1.02 mg/dL Glomerular Filtration Rate Calc 92 92 >90 mL/min BUN/Creatinine Ratio 25.3 H 24.1 H 10.0-20.0 Serum Glucose 381 H 139 H 74-106 mg/dL Calcium Level 8.3 L 9.8 8.7-10.4 mg/dL Total Bilirubin 0.8 0.8 0.2-1.0 mg/dL Aspartate Amino Transferase (AST) 1549 H 1256 H 13-40 U/L Alanine Aminotransferase (ALT) 436 H 382 H 7-40 U/L Alkaline Phosphatase 458 H 547 H 46-116 U/L Total Protein 5.8 7.0 5.7-8.2 g/dL Albumin 3.5 4.2 3.2-4.8 g/dL Lactic Acid Level 4.7 *H 7.4 *H 0.4-2.0 mmol/L White Blood Count 4.2 L 4.4-10.8 10^3/uL Red Blood Count 3.56 L 4.0-5.20 10^6/uL Hemoglobin 11.8 L 12.2-16.2 g/dL Hematocrit 34.3 L 36.0-46.0 % Mean Corpuscular Volume 96.3 80.0-100.0 fL Mean Corpuscular Hemoglobin 33.0 H 28.0-32.0 pg Mean Corpuscular Hemoglobin Concent 34.3 32.0-36.0 g/dL Red Cell Distribution Width 15.9 H 11.8-14.3 % Platelet Count 353 140-450 10^3/uL Mean Platelet Volume 7.4 6.9-10.8 fL Neutrophils (%) (Auto) 37.0-80.0 % Lymphocytes (%) (Auto) 10.0-50.0 % Monocytes (%) (Auto) 0.0-12.0 % Basophils (%) (Auto) 0.0-2.0 % Neutrophils # (Auto) 1.6-8.6 10 ^3/uL Lymphocytes # (Auto) 0.4-5.4 10 ^3/uL Monocytes # (Auto) 0-1.3 10 ^3/uL Differential Total Cells Counted 100.0 100 Neutrophils % (Manual) 86 H 37.0-80.0 Band Neutrophils % (Manual) 3 Lymphocytes % (Manual) 8 L 10.0-50.0 Monocytes % (Manual) 3 0-12 Eosinophils % (Manual) 0 0-7 Basophils % (Manual) 0 0.0-2.0 Metamyelocytes % (manual) 0 Myelocytes % (Manual) 0 Promyelocytes % (Manual) 0 Blast Cells % (Manual) 0 Reactive Lymphocytes 0 Platelet Estimate Adequate Prothrombin Time 9.8 9.3-11.8 sec Prothrombin Time INR 0.92 0.9-1.15 Activated Partial Thromboplast Time 22.7 L 24.5-34.5 SEC Serum Osmolality 286 278-298 mOsm/kg Creatine Kinase 31 L 34-145 U/L Beta-Hydroxybutyric Acid 0.193 < 0.4 mmol/L Thyroid Stimulating Hormone (TSH) 1.70 0.55-4.78 uIU/mL Plasma/Serum Blood Alcohol < 3.0 <10 mg/dL Hepatitis A IgM Antibody Pending Hepatitis B Surface Antigen Pending Hepatitis B Core IgM Antibody Pending Hepatitis C Antibody Pending Current Medications Medications (Trade) Dose Ordered Sig/Dave Route Start Time Stop Time Status Last Admin Lactated Ringer's 1,500 ml @ 1,500 mls/hr ONCE ONCE IV 02/23/25 18:15 02/23/25 19:14 DC 02/23/25 20:00 Cefepime HCl 50 ml @ 12.5 mls/hr ONCE ONCE IV 02/23/25 18:45 02/24/25 01:02 DC 02/23/25 21:47 Sodium Chloride 1,000 ml @ 1,000 mls/hr Q1H ONCE IV 02/23/25 21:30 02/24/25 01:02 DC 02/23/25 21:47 [facility] [id number] [place] [id number] Ph: [phone] DIAGNOSTIC IMAGING Diagnostic Imaging Report : [id number] Signed PATIENT: LILY MANCINI ACCT: [id number] UNIT: [id number] : 1975 LOC: ER ROOM / BED: / AGE / SEX: 49 / F ADM STATUS: REG ER SERVICE 40 ORDERING PHYSICIAN: SYEDA BARLOW DO PROCEDURE(s): CXRP - CHEST PORTABLE REASON: SEPSIS ORDER NUMBER(s): [id number], ACCESSION NUMBER(s): [id number] CLINICAL HISTORY: SEPSIS TECHNIQUE: Single view of the chest was obtained. COMPARISON: None FINDINGS: The heart size and pulmonary vasculature are normal. The lungs are clear. IMPRESSION: NO ACUTE CARDIOPULMONARY PROCESS. ATED BY: SERENE ALTMAN MD DICTATED DATE/TIME: 02/23/251824 SIGNED BY: SERENE ALTMAN MD SIGNED DATE/TIME: 02/23/251824 CC: [place] [id number] Ph: [phone] DIAGNOSTIC IMAGING Diagnostic Imaging Report : [id number] Signed PATIENT: LILY MANCINI ACCT: [id number] UNIT: [id number] : 1975 LOC: ER ROOM / BED: / AGE / SEX: 49 / F ADM STATUS: REG ER SERVICE 46 ORDERING PHYSICIAN: SYEDA BARLOW DO PROCEDURE(s): RLDVT - RT Lower DVT REASON: PAIN ORDER NUMBER(s): [id number], ACCESSION NUMBER(s): [id number] CLINICAL HISTORY: PAIN TECHNIQUE: Color and duplex doppler imagine of the right lower extremity veins was performed. Vessel compression if possible was also performed. COMPARISON: None FINDINGS: Right common femoral vein: Normal compressibility and flow. Right superficial femoral vein: Normal compressibility and flow. Right popliteal vein: Normal compressibility and flow. Proximal calf veins are normally compressible. IMPRESSION: NO SONOGRAPHIC EVIDENCE FOR DEEP VENOUS THROMBOSIS IN THE RIGHT LOWER EXTREMITY VEINS. ATED BY: SERENE ALTMAN MD DICTATED DATE/TIME: 02/23/251856 SIGNED BY: SERENE ALTMAN MD SIGNED DATE/TIME: 02/23/25 733 CC: [place] [id number] Ph: [phone] DIAGNOSTIC IMAGING Diagnostic Imaging Report : [id number] Signed PATIENT: LILY MANCINI ACCT: [id number] UNIT: [id number] : 1975 LOC: ER ROOM / BED: / AGE / SEX: 49 / F ADM STATUS: REG ER SERVICE 15 ORDERING PHYSICIAN: SYEDA BARLOW DO PROCEDURE(s): RFEM - R FEMUR XRAY REASON: pain ORDER NUMBER(s): [id number], ACCESSION NUMBER(s): [id number] CLINICAL HISTORY: pain TECHNIQUE: 2 views of the right t femur were obtained. COMPARISON: None FINDINGS: No acute fracture or dislocation is seen. No soft tissue abnormality is evident. There are no significant degenerative changes. IMPRESSION: No acute radiographic abnormality of the right femur. ATED BY: SERENE ALTMAN MD DICTATED DATE/TIME: 02/23/252150 SIGNED BY: SERENE ALTMAN MD SIGNED DATE/TIME: 02/23/252150 CC: Time of 1ST Reevaluation: 18:20 Reevaluation 1ST: Unchanged Patient Education/Counseling: Diagnosis, Treatment Family Education/Counseling: No Family Present Comments MDM: patient presented with the above HPI.---fever and sepsis and right lower extremity pain---workup was initiated. patient was found with the above mentioned diagnosis. the following medications were ordered: please refer to order lists of meds and tests obtained by myself Dr. Barlow. Patient ED course and VS have been stabilized. Patient has been reassessed in the ED and remained in a stable condition. Pertinent incidental findings were discussed with the patient and/or family. Patient/family voices understanding and is agreeable with plan. Patient has been observed in the ED adequate length of time to insure improvement/stability. Escalation of care considered: Consideration of escalation to observation or admission Sepsis protocol was initiated immediately with the weight based fluid resuscitation. Rule out DVT of the affected extremity. Rule out fracture with dislocation affected extremity. Patient is neurovascularly intact in the affected extremity. Pedal pulses palpable sensory and motor are present with normal movement of the extremity. Patient was ADMITTED to the medicine team for further evaluation and treatment of their presentation. Given the patient's elevated LFTs, patient denies any overdosing. Tylenol level was ordered still pending. Denies any history of bleeding. No nausea or vomiting. Possible history of cirrhosis. All the reports of any imaging studies that were ordered by myself were reviewed by myself. Departure 1 Departure Time of Disposition: 18:12 Impression: Primary Impression: Sepsis Additional Impressions: Right leg pain Methamphetamine abuse Liver failure Dehydration Disposition: ADMITTED INPATIENT Admit to: Tele Condition: Guarded Discharged With: Self Critical Care Note Critical Care Time?: Yes (1 hr-critical care time only) I personally scribed for SYEDA BARLOW DO ([email or web address]) on 02/23/25 at 18:05. Fiona ctronically submitted by Audrey Butterfield ([email or web address]). SYEDA BARLOW DO Feb 23, 2025 18:05
--- NOTE | 2025-02-23 18:28 | DVH ---
CLINICAL HISTORY: SEPSIS TECHNIQUE: Single view of the chest was obtained. COMPARISON: None FINDINGS: The heart size and pulmonary vasculature are normal. The lungs are clear. IMPRESSION: NO ACUTE CARDIOPULMONARY PROCESS.
[2025-02-23 18:45] LABS: Hematocrit 34.3 % (36.0-46.0); Hemoglobin 11.8 g/dL (12.2-16.2); Mean Corpuscular Hemoglobin 33.0 pg (28.0-32.0); Mean Corpuscular Volume 96.3 fL (80.0-100.0)
[2025-02-23 18:59] LABS: INR 0.92 (0.9-1.15); Partial Thromboplastin Time 22.7 SEC (24.5-34.5); Prothrombin Time 9.8 sec (9.3-11.8)
[2025-02-23 19:00] LABS: Albumin 4.2 g/dL (3.2-4.8); Anion Gap 14 (5-15); BUN/Creatinine Ratio 24.1 (10.0-20.0); Bilirubin, Total 0.8 mg/dL (0.2-1.0); Blood Urea Nitrogen 19 mg/dL (9-23); Calcium 9.8 mg/dL (8.7-10.4); Carbon Dioxide 24 mmol/L (20-31); Potassium 4.3 mmol/L (3.5-5.1); Total Protein 7.0 g/dL (5.7-8.2)
--- NOTE | 2025-02-23 19:00 | DVH ---
CLINICAL HISTORY: PAIN TECHNIQUE: Color and duplex doppler imagine of the right lower extremity veins was performed. Vessel compression if possible was also performed. COMPARISON: None FINDINGS: Right common femoral vein: Normal compressibility and flow. Right superficial femoral vein: Normal compressibility and flow. Right popliteal vein: Normal compressibility and flow. Proximal calf veins are normally compressible. IMPRESSION: NO SONOGRAPHIC EVIDENCE FOR DEEP VENOUS THROMBOSIS IN THE RIGHT LOWER EXTREMITY VEINS.
[2025-02-23 19:19] LABS: Alanine Aminotransferase 382 U/L (7-40); Alkaline Phosphatase 547 U/L (46-116); Chloride 96 mmol/L (98-107); Glucose 139 mg/dL (74-106); Sodium 134 mmol/L (136-145)
[2025-02-23 19:25] LABS: Lactic Acid w/Reflex 7.4 mmol/L (0.4-2.0)
[2025-02-23 19:49] LABS: Total Cells Counted 100.0 (100)
[2025-02-23 20:00] VITALS: O2SAT 97
[2025-02-23] MEDS: LACTATED RINGER'S 1,500 ML IV ONE (20:00)
[2025-02-23] MEDS: CEFEPIME 1GM/50ML 50 ML IV ONE (21:47)
[2025-02-23] MEDS: SODIUM CHLORIDE 0.9% 1,000 ML IV ONE ×4 (21:47→23:15)
--- NOTE | 2025-02-23 21:54 | DVH ---
CLINICAL HISTORY: pain TECHNIQUE: 2 views of the right t femur were obtained. COMPARISON: None FINDINGS: No acute fracture or dislocation is seen. No soft tissue abnormality is evident. There are no signifi cant degenerative changes. IMPRESSION: No acute radiographic abnormality of the right femur.
[2025-02-23 21:58] LABS: Albumin 3.5 g/dL (3.2-4.8); Anion Gap 12 (5-15); BUN/Creatinine Ratio 25.3 (10.0-20.0); Blood Urea Nitrogen 20 mg/dL (9-23); Carbon Dioxide 24 mmol/L (20-31); Potassium 4.7 mmol/L (3.5-5.1); Total Protein 5.8 g/dL (5.7-8.2)
[2025-02-23 21:59] LABS: Bilirubin, Total 0.8 mg/dL (0.2-1.0)
[2025-02-23 22:13] LABS: Sodium 134 mmol/L (136-145)
[2025-02-23 22:17] LABS: Chloride 98 mmol/L (98-107)
[2025-02-23 22:18] LABS: Alanine Aminotransferase 436 U/L (7-40); Alkaline Phosphatase 458 U/L (46-116); Calcium 8.3 mg/dL (8.7-10.4); Glucose 381 mg/dL (74-106)
[2025-02-23 22:31] LABS: Urine Protein, UAD Negative (Negative)
[2025-02-23 22:36] LABS: Amphetamine Screen, Urine Pos (NEGATIVE); Barbiturate Scree,Urine Neg (NEGATIVE); Benzodiazephine Screen, Urine Neg (NEGATIVE); Cannabinoid Screen, Urine Neg (NEGATIVE); Cocaine Screen, Urine Neg (NEGATIVE); Opiate Scree,Urine Neg (NEGATIVE); Phencyclidine Screen, Urine Neg (NEGATIVE)
--- NOTE | 2025-02-23 23:06 | DVHHPRES ---
History of Present Illness Resident Creating Document: ENMA GUIDO RESIDENT Review of Systems Allergies: Coded Allergies: NO KNOWN ALLERGIES (Unverified , 02/23/25) Medications Current Medications Medications Dose Ordered Sig/Dave Route Start Time Stop Time Status Last Admin Dose Admin Cefepime HCl 50 ml @ 12.5 mls/hr Q8HR IV 02/24/25 06:00 Exam Vital Signs Vital Signs Date Time Temp Pulse Resp B/P (MAP) Pulse Ox O2 Delivery O2 Flow Rate FiO2 02/23/25 21:46 127 19 131/79 (96) 97 02/23/25 20:00 Room Air* 0 21 02/23/25 19:35 101.3 101.3 Labs/Xrays Labs Test 02/23/25 22:00 02/23/25 21:17 02/23/25 20:08 02/23/25 18:06 Range/Units Urine Color Light-yellow Yellow Urine Clarity Clear Clear Urine pH 6.5 5.0-9.0 Urine Specific [place] 1.027 1.001-1.035 Urine Protein Negative Negative Urine Ketones 1+ H Negative Urine Blood Negative Negative /uL Urine Nitrite Negative Negative Urine Bilirubin Negative Negative Urine Urobilinogen Normal Negative mg/dL Urine Leukocyte Esterase Negative Negative /uL Urine RBC None seen 0 - 4 /hpf Urine Microscopic WBC < 1 0-5 /HPF Urine Squamous Epithelial Cells None seen <5 /hpf Urine Bacteria None seen None Seen /hpf Urine Mucus Few None Seen Urine Glucose 4+ H Normal mg/dL Urine Opiates Screen Neg NEGATIVE Urine Fentanyl Screen Neg NEGATIVE Urine Barbiturates Screen Neg NEGATIVE Urine Phencyclidine Screen Neg NEGATIVE Urine Amphetamines Screen Pos NEGATIVE Urine Benzodiazepines Screen Neg NEGATIVE Urine Cocaine Screen Neg NEGATIVE Urine Cannabinoids Screen Neg NEGATIVE Sodium Level 134 L 136-145 mmol/L Potassium Level 4.7 3.5-5.1 mmol/L Chloride Level 98 98-107 mmol/L Carbon Dioxide Level 24 20-31 mmol/L Anion Gap 12 5-15 Blood Urea Nitrogen 20 9-23 mg/dL Creatinine 0.79 0.550-1.02 mg/dL Glomerular Filtration Rate Calc 92 >90 mL/min BUN/Creatinine Ratio 25.3 H 10.0-20.0 Serum Glucose 381 H 74-106 mg/dL Calcium Level 8.3 L 8.7-10.4 mg/dL Total Bilirubin 0.8 0.2-1.0 mg/dL Aspartate Amino Transferase (AST) 1549 H 13-40 U/L Alanine Aminotransferase (ALT) 436 H 7-40 U/L Alkaline Phosphatase 458 H 46-116 U/L Total Protein 5.8 5.7-8.2 g/dL Albumin 3.5 3.2-4.8 g/dL Lactic Acid Level 4.7 *H 0.4-2.0 mmol/L White Blood Count 4.2 L 4.4-10.8 10^3/uL Red Blood Count 3.56 L 4.0-5.20 10^6/uL Hemoglobin 11.8 L 12.2-16.2 g/dL Hematocrit 34.3 L 36.0-46.0 % Mean Corpuscular Volume 96.3 80.0-100.0 fL Mean Corpuscular Hemoglobin 33.0 H 28.0-32.0 pg Mean Corpuscular Hemoglobin Concent 34.3 32.0-36.0 g/dL Red Cell Distribution Width 15.9 H 11.8-14.3 % Platelet Count 353 140-450 10^3/uL Mean Platelet Volume 7.4 6.9-10.8 fL Neutrophils (%) (Auto) 37.0-80.0 % Lymphocytes (%) (Auto) 10.0-50.0 % Monocytes (%) (Auto) 0.0-12.0 % Basophils (%) (Auto) 0.0-2.0 % Neutrophils # (Auto) 1.6-8.6 10 ^3/uL Lymphocytes # (Auto) 0.4-5.4 10 ^3/uL Monocytes # (Auto) 0-1.3 10 ^3/uL Differential Total Cells Counted 100.0 100 Neutrophils % (Manual) 86 H 37.0-80.0 Band Neutrophils % (Manual) 3 Lymphocytes % (Manual) 8 L 10.0-50.0 Monocytes % (Manual) 3 0-12 Eosinophils % (Manual) 0 0-7 Basophils % (Manual) 0 0.0-2.0 Metamyelocytes % (manual) 0 Myelocytes % (Manual) 0 Promyelocytes % (Manual) 0 Blast Cells % (Manual) 0 Reactive Lymphocytes 0 Platelet Estimate Adequate Prothrombin Time 9.8 9.3-11.8 sec Prothrombin Time INR 0.92 0.9-1.15 Activated Partial Thromboplast Time 22.7 L 24.5-34.5 SEC SEPSIS Sepsis Screen Date sepsis recognized/suspect: Feb 23, 2025 Time Sepsis recognized/suspect: 1732 Recent Procedure: No On Antibiotic Therapy: No Respiratory Rate >20: No Heart Rate >90: Yes Temp<36 C (96.8 F) or >38.3 C: Yes SBP <90 or MAP <65 mmHG: No New Acute Mental Status Change: No Is the patient on CPAP, BIPAP,: No Physician Orders Chest Portable (02/23/25 17:41) Accucheck (02/23/25 17:41) Blood Culture (02/23/25 17:41) Notify Md If Map <65 Or Bp<90 (02/23/25 17:41) If Map<65 Start Vasopressor (02/23/25 17:41) Sepsis Reassesment After Fluid (02/23/25 18:41) Rt Lower Dvt (02/23/25 17:47) Cefepime 1gm/50ml (Maxipime 1gm/50ml) (02/23/25 18:45) Cefepime 1gm/50ml (Maxipime 1gm/50ml) (02/24/25 06:00) R Femur Xray (02/23/25 21:16) Sodium Chloride 0.9% (02/23/25 21:30) Npo (Nothing By Mouth) Diet (02/23/25 Breakfast) Sodium Chloride 0.9% (02/23/25 22:00) Sodium Chloride 0.9% (02/23/25 22:00) Vital Signs Date Time Temp Pulse Resp B/P (MAP) Pulse Ox O2 Delivery O2 Flow Rate FiO2 02/23/25 21:46 127 19 131/79 (96) 97 02/23/25 21:33 125 18 122/71 (88) 97 02/23/25 20:30 132 16 106/66 (79) 95 02/23/25 20:00 97 Room Air* 0 21 02/23/25 19:35 101.3 121 23 119/79 (92) 98 101.3 02/23/25 17:41 102.4 135 18 128/71 97 102.4 Laboratory Tests Test 02/23/25 18:06 02/23/25 20:08 Lactic Acid Level 7.4 mmol/L (0.4-2.0) *H 4.7 mmol/L (0.4-2.0) *H White Blood Count 4.2 10^3/uL (4.4-10.8) L Medications Medications Dose Ordered Sig/Dave Route Start Time Stop Time Status Last Admin Dose Admin Cefepime HCl 50 ml @ 12.5 mls/hr ONCE ONCE IV 02/23/25 18:45 02/23/25 22:44 02/23/25 21:47 12.5 MLS/HR Lactated Ringer's 1,500 ml @ 1,500 mls/hr ONCE ONCE IV 02/23/25 18:15 02/23/25 19:14 DC 02/23/25 20:00 1,500 MLS/HR Sodium Chloride 1,000 ml @ 1,000 mls/hr Q1H ONCE IV 02/23/25 21:30 02/23/25 22:29 02/23/25 21:47 1,000 MLS/HR RIGOBERTO DRAKE RESIDENT Feb 23, 2025 23:06
--- NOTE | 2025-02-23 23:09 | DVHHPRES ---
History of Present Illness Resident Creating Document: ENMA GUIDO RESIDENT History of Present Illness 49-year-old female with past medical history of CHF, CKD, DM, HTN, presents to [facility] ED with acute onset right leg pain that began today (02/23/25) around 11:00 AM. Pain is localized to the medial aspect of the right thigh. She reports that two days ago she noticed red spots developing on her right leg. Patient is a poor historian, tearful, and visibly distressed due to pain. She denies any history of trauma, fall, injury, recent travel, insect bites, poison dionne exposure, or sick contacts. On evaluation in the ED, patient is febrile and tachycardic. Initial labs show significant lactic acid 7.4, Serum glucose 381, AST 1549, ALT 436 and ALP 458. Femur X-ray shows No acute radiographic abnormality of the right femur. The patient was placed NPO, started on IV antibiotics and IV fluids. Patient is admitted for further evaluation and management. Past Medical History CHF, CKD, DM, HTN Past Surgical History: None Family History: None Smoke: Quit ALCOHOL: occassional Drugs: None Review of Systems Review of Systems Eyes: No Pain, No Vision change, No Conjunctivae inflammation, No Eyelid inflammation, No Other, No Redness ENT: No Ear pain, No Ear discharge, No Nose pain, No Nose discharge, No Nose congestion, No Mouth pain, No Mouth swelling, No Throat pain, No Throat swelling, No Other Cardiovascular: No Chest Pain, No Palpitations, No Orthopnea, No Paroxysmal No Dyspnea, No Edema, No Lt Headedness, No Other Respiratory: No Cough, No Dry, No Shortness of breath, No SOB with exertion, No Wheezing, No Hemoptysis, No Pleuritic Pain, No Sputum, No Other Gastrointestinal: No Nausea, No Vomiting, No Abdominal Pain, No Diarrhea, No Constipation, No Melena, No Hematochezia, No Other Genitourinary: No Dysuria, No Frequency, No Incontinence, No Hematuria, No Retention, No Other Musculoskeletal: No other, No neck pain, No shoulder pain, No arm pain, No back pain, No hand pain, No leg pain, No foot pain Skin: No Rash, No Lesions, No Jaundice, No Bruising, No Other Allergies: Coded Allergies: NO KNOWN ALLERGIES (Unverified , 06/06/19) Medications Current Medications Medications Dose Ordered Sig/Dave Route Start Time Stop Time Status Last Admin Dose Admin Cefepime HCl 50 ml @ 12.5 mls/hr Q8HR IV 02/24/25 06:00 Exam Vital Signs Vital Signs Date Time Temp Pulse Resp B/P (MAP) Pulse Ox O2 Delivery O2 Flow Rate FiO2 02/23/25 21:46 127 19 131/79 (96) 97 02/23/25 20:00 Room Air* 0 21 02/23/25 19:35 101.3 101.3 Exam General Appearance: Mild to moderate distress. Cooperative. Well developed. Well nourished. NAD Head Exam: Normal inspection Neck Exam: Normal inspection. Non-tender. Normal alignment Pulmonary/Respiratory: Chest non-tender. Clear bilateral breath sounds, no crackles, no wheezing. Cardiovascular/Chest: Regular rate and rhythm. No murmurs. No JVD. Peripheral Pulses: 2+ Radial (R). 2+ Radial (L). 2+ Pedal (R). 2+ Pedal (L) Abdominal Exam: Normal bowel sounds. Soft. normal abdomen, no visible veins, Nontender. No hepatospenomegaly. No masses Ankle Exam: Negative ankle edema Lower extremities: Negative lower extremity edema. Right femur tenderness. Neuro/Mental Status: A&O x4. No neck stiffness. Negative Brudzinski and Kernig signs. No focal neurological deficits. Thoughts/Psych: Normal thought pattern. Appropriate mood and affect. Good judgement and insight Skin Exam: Scattered erythematous macular rash noted. No ulceration or drainage. Normal color. Warm. Dry. Right Labs/Xrays Labs Test 02/23/25 22:00 02/23/25 21:17 02/23/25 20:08 02/23/25 18:06 Range/Units Urine Color Light-yellow Yellow Urine Clarity Clear Clear Urine pH 6.5 5.0-9.0 Urine Specific [place] 1.027 1.001-1.035 Urine Protein Negative Negative Urine Ketones 1+ H Negative Urine Blood Negative Negative /uL Urine Nitrite Negative Negative Urine Bilirubin Negative Negative Urine Urobilinogen Normal Negative mg/dL Urine Leukocyte Esterase Negative Negative /uL Urine RBC None seen 0 - 4 /hpf Urine Microscopic WBC < 1 0-5 /HPF Urine Squamous Epithelial Cells None seen <5 /hpf Urine Bacteria None seen None Seen /hpf Urine Mucus Few None Seen Urine Glucose 4+ H Normal mg/dL Urine Opiates Screen Neg NEGATIVE Urine Fentanyl Screen Neg NEGATIVE Urine Barbiturates Screen Neg NEGATIVE Urine Phencyclidine Screen Neg NEGATIVE Urine Amphetamines Screen Pos NEGATIVE Urine Benzodiazepines Screen Neg NEGATIVE Urine Cocaine Screen Neg NEGATIVE Urine Cannabinoids Screen Neg NEGATIVE Sodium Level 134 L 136-145 mmol/L Potassium Level 4.7 3.5-5.1 mmol/L Chloride Level 98 98-107 mmol/L Carbon Dioxide Level 24 20-31 mmol/L Anion Gap 12 5-15 Blood Urea Nitrogen 20 9-23 mg/dL Creatinine 0.79 0.550-1.02 mg/dL Glomerular Filtration Rate Calc 92 >90 mL/min BUN/Creatinine Ratio 25.3 H 10.0-20.0 Serum Glucose 381 H 74-106 mg/dL Calcium Level 8.3 L 8.7-10.4 mg/dL Total Bilirubin 0.8 0.2-1.0 mg/dL Aspartate Amino Transferase (AST) 1549 H 13-40 U/L Alanine Aminotransferase (ALT) 436 H 7-40 U/L Alkaline Phosphatase 458 H 46-116 U/L Total Protein 5.8 5.7-8.2 g/dL Albumin 3.5 3.2-4.8 g/dL Lactic Acid Level 4.7 *H 0.4-2.0 mmol/L White Blood Count 4.2 L 4.4-10.8 10^3/uL Red Blood Count 3.56 L 4.0-5.20 10^6/uL Hemoglobin 11.8 L 12.2-16.2 g/dL Hematocrit 34.3 L 36.0-46.0 % Mean Corpuscular Volume 96.3 80.0-100.0 fL Mean Corpuscular Hemoglobin 33.0 H 28.0-32.0 pg Mean Corpuscular Hemoglobin Concent 34.3 32.0-36.0 g/dL Red Cell Distribution Width 15.9 H 11.8-14.3 % Platelet Count 353 140-450 10^3/uL Mean Platelet Volume 7.4 6.9-10.8 fL Neutrophils (%) (Auto) 37.0-80.0 % Lymphocytes (%) (Auto) 10.0-50.0 % Monocytes (%) (Auto) 0.0-12.0 % Basophils (%) (Auto) 0.0-2.0 % Neutrophils # (Auto) 1.6-8.6 10 ^3/uL Lymphocytes # (Auto) 0.4-5.4 10 ^3/uL Monocytes # (Auto) 0-1.3 10 ^3/uL Differential Total Cells Counted 100.0 100 Neutrophils % (Manual) 86 H 37.0-80.0 Band Neutrophils % (Manual) 3 Lymphocytes % (Manual) 8 L 10.0-50.0 Monocytes % (Manual) 3 0-12 Eosinophils % (Manual) 0 0-7 Basophils % (Manual) 0 0.0-2.0 Metamyelocytes % (manual) 0 Myelocytes % (Manual) 0 Promyelocytes % (Manual) 0 Blast Cells % (Manual) 0 Reactive Lymphocytes 0 Platelet Estimate Adequate Prothrombin Time 9.8 9.3-11.8 sec Prothrombin Time INR 0.92 0.9-1.15 Activated Partial Thromboplast Time 22.7 L 24.5-34.5 SEC SEPSIS Sepsis Screen Date sepsis recognized/suspect: Feb 23, 2025 Time Sepsis recognized/suspect: 1732 Recent Procedure: No On Antibiotic Therapy: No Respiratory Rate >20: No Heart Rate >90: Yes Temp<36 C (96.8 F) or >38.3 C: Yes SBP <90 or MAP <65 mmHG: No New Acute Mental Status Change: No Is the patient on CPAP, BIPAP,: No Physician Orders Chest Portable (02/23/25 17:41) Accucheck (02/23/25 17:41) Blood Culture (02/23/25 17:41) Notify Md If Map <65 Or Bp<90 (02/23/25 17:41) If Map<65 Start Vasopressor (02/23/25 17:41) Sepsis Reassesment After Fluid (02/23/25 18:41) Rt Lower Dvt (02/23/25 17:47) Cefepime 1gm/50ml (Maxipime 1gm/50ml) (02/23/25 18:45) Cefepime 1gm/50ml (Maxipime 1gm/50ml) (02/24/25 06:00) R Femur Xray (02/23/25 21:16) Sodium Chloride 0.9% (02/23/25 21:30) Npo (Nothing By Mouth) Diet (02/23/25 Breakfast) Sodium Chloride 0.9% (02/23/25 22:00) Sodium Chloride 0.9% (02/23/25 22:00) Vital Signs Date Time Temp Pulse Resp B/P (MAP) Pulse Ox O2 Delivery O2 Flow Rate FiO2 02/23/25 21:46 127 19 131/79 (96) 97 02/23/25 21:33 125 18 122/71 (88) 97 02/23/25 20:30 132 16 106/66 (79) 95 02/23/25 20:00 97 Room Air* 0 21 02/23/25 19:35 101.3 121 23 119/79 (92) 98 101.3 02/23/25 17:41 102.4 135 18 128/71 97 102.4 Laboratory Tests Test 02/23/25 18:06 02/23/25 20:08 Lactic Acid Level 7.4 mmol/L (0.4-2.0) *H 4.7 mmol/L (0.4-2.0) *H White Blood Count 4.2 10^3/uL (4.4-10.8) L Medications Medications Dose Ordered Sig/Dave Route Start Time Stop Time Status Last Admin Dose Admin Cefepime HCl 50 ml @ 12.5 mls/hr ONCE ONCE IV 02/23/25 18:45 02/23/25 22:44 02/23/25 21:47 12.5 MLS/HR Lactated Ringer's 1,500 ml @ 1,500 mls/hr ONCE ONCE IV 02/23/25 18:15 02/23/25 19:14 DC 02/23/25 20:00 1,500 MLS/HR Sodium Chloride 1,000 ml @ 1,000 mls/hr Q1H ONCE IV 02/23/25 21:30 02/23/25 22:29 02/23/25 21:47 1,000 MLS/HR Assessment/Plan Assessment/Plan Sepsis likely due to cellulitis/bacteremia/hepatitis elevated lactic acid (7.4 > 4.7 > 2.9 > 8.1) EKG: Sinus tachycardia. LAE, consider biatrial enlargement. Probable anterior infarct, recent Cefepime 1gm IV q8hr Vancomycin Zofran MRSA screen Urine bacterial culture Blood culture Urine methamphetamine positive Transaminitis Liver US: The liver is homogenous in echogenicity. The liver measures 22.0 cm. No cholelithiasis or sonographic evidence of acute cholecystitis. GI consult Acute hepatitis panel Hepatitis-C antibody Hyperglycemia, type 2 diabetes mellitus, uncontrolled Moderate insulin SS IV NS Ruled out deep vein thrombosis Extremity Venous Study: No evidence for deep vein thrombosis in the right lower extremity veins. Diet: NPO DVT prophylaxis: Lovenox 40mg Goals of care: Full code, discussed for >16 minutes on 02/24/25 Plan discussed with patient Plan discussed with Dr. Rucker Plan discussed with: Patient Date of Service: Feb 24, 2025 Billing Provider: CHARITY RUCKER Common Visit Codes: [id number] INP/OBS CARE (HIGH) Secondary Visit Codes: [id number] CARE PLAN 30 MINUTES ENMA GUIDO Feb 23, 2025 23:09 CLOTILDE RUCKER MD Feb 24, 2025 17:01
[2025-02-23] MEDS ORDERED: DEXTROSE (50%) 50ML SYRG IV PRN (23:15)
[2025-02-23] MEDS ORDERED: VANCOMYCIN PER PHARMACY 0 MG IV SCH (23:15)
[2025-02-23] MEDS ORDERED: ONDANSETRON HCL 4 MG/2 ML VIAL IV PRN (23:15)
[2025-02-23] MEDS: VANCOMYCIN 1GM/250ML KIT 250 ML IV ONE (23:45)
[2025-02-23 23:54] LABS: Creatine Kinase IFCC 31 U/L (34-145)
[2025-02-24] MEDS: ACCU-CHEK COMFORT CURVE STRIP VI SCH
--- NOTE | 2025-02-24 00:18 | DVH ---
Exam: CT CT AB PEL WO CON-NO ORAL OR IV History: abdominal pain, transaminitis Comparison Study: None TECHNIQUE: Multidetector CT of the abdomen and pelvis was performed from lung bases to pubic symphysi s. Imaging was performed without IV contrast. Axial, coronal, and sagittal multiplanar reformats were obtained from the axial data set by the technologist. RADIATION DOSE: CTDI vol 5.07 mGy. DLP 295.19 mGy.cm Findings: Limited evaluation of the solid organs in the absence of IV contrast. Lungs: Basilar atelectasis/scarring. Liver: Unremarkable. Spleen: Unremarkable. Pancreas: Not well assessed. Gallbladder: Unremarkable. Adrenals: Not well assessed. Kidneys: Unremarkable. Pelvic Viscera: A Martinez catheter is noted. Vasculature: Atherosclerotic aortoiliac calcifications. Retroperitoneum: Hazy appearance throughout the mesentery, with poor delineation of the abdominopelvi c structures. Bowel: No bowel obstruction. Musculoskeletal: Unremarkable. Soft tissues: Diffuse subcutaneous edema. Impression: 1. Limited evaluation as above. Hepatomegaly. 2. Additional findings as detailed.
--- NOTE | 2025-02-24 00:21 | DVH ---
INDICATION: transaminitis TECHNIQUE: Multiple real-time sonographic images of the abdomen were obtained. COMPARISON: None FINDINGS: The liver is homogenous in echogenicity. The liver measures 22.0 cm. No intrahepatic bilia ry ductal dilatation is noted. The gallbladder wall measures 2 mm and is unremarkable. No gallstones or sludge is seen. The common duct measures 4 mm and is unremarkable. No pericholecystic fluid is noted. The right kidney measures 9.7 cm. No hydronephrosis. IMPRESSION: 1. Hepatomegaly. 2. No cholelithiasis or sonographic evidence of acute cholecystitis.
[2025-02-24] MEDS: InsuLIN REG 1unit/0.01ml Soln (100units/ml) SC SCH (00:46)
[2025-02-24 00:51] VITALS: O2SAT 98
[2025-02-24 01:12] LABS: Lactic Acid w/Reflex 2.9 mmol/L (0.4-2.0)
--- NOTE | 2025-02-24 01:37 | ECG ---
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
[2025-02-24] MEDS: SODIUM CHLORIDE 0.9% 1,000 ML IV ONE (03:25)
[2025-02-24 05:42] LABS: COVID19 ANTIGEN SOFIA FIA NEGATIVE (NEGATIVE)
[2025-02-24] MEDS: CEFEPIME 1GM/50ML 50 ML IV SCH (06:00)
[2025-02-24] MEDS: SODIUM CHLOR 0.9% PF (SALINE LOCK) 10ML VIAL/SYR IV SCH (06:11)
[2025-02-24 07:04] LABS: Hematocrit 37.1 % (36.0-46.0); Hemoglobin 12.4 g/dL (12.2-16.2); Mean Corpuscular Hemoglobin 32.4 pg (28.0-32.0); Mean Corpuscular Volume 96.7 fL (80.0-100.0); Nucleated Red Blood Cells % 0.2 %
[2025-02-24 07:20] LABS: Albumin 3.7 g/dL (3.2-4.8); Alkaline Phosphatase 497 U/L (46-116); Anion Gap 13 (5-15); BUN/Creatinine Ratio 20.0 (10.0-20.0); Blood Urea Nitrogen 10 mg/dL (9-23); Carbon Dioxide 23 mmol/L (20-31); Chloride 99 mmol/L (98-107); Glucose 80 mg/dL (74-106); Potassium 4.0 mmol/L (3.5-5.1); Sodium 135 mmol/L (136-145); Total Protein 6.5 g/dL (5.7-8.2)
[2025-02-24 07:21] LABS: Alanine Aminotransferase 406 U/L (7-40); Bilirubin, Total 0.6 mg/dL (0.2-1.0); Calcium 8.5 mg/dL (8.7-10.4)
[2025-02-24 08:39] VITALS: PULSE 105; RESP 15; O2SAT 98
[2025-02-24] MEDS: ENOXAPARIN SOD 40 MG/0.4 ML SYRINGE SC SCH (11:25)
[2025-02-24 12:33] LABS: Hepatitis B Surface Antigen Negative (Negative); Hepatitis C Antibody Negative (Negative)
[2025-02-24] MEDS: ACETAMINOPHEN 325 MG TAB PO ONE (13:01)
[2025-02-24] MEDS: SODIUM CHLORIDE 0.9% 1,000 ML IV SCH (13:02)
[2025-02-24 16:49] VITALS: BP 106/62; PULSE 96; RESP 16; TEMP 99.3; O2SAT 97
--- NOTE | 2025-02-24 17:24 | DVHCONRES ---
Date Seen: Feb 24, 2025 Resident Creating Document: JHAJJ,SARCOOPERET RESIDENT Referring Physician yancy Reason for Consultation Transaminitis History of Present Illness Patient is a 49-year-old female with a medical history of congestive heart failure, CKD, type 2 diabetes mellitus, hypertension presented to the hospital with a chief complaint of right leg pain which was severe in intensity and has been going on for the past 2 days, patient denied any trauma, fall , injury , recent travel, insect bites. Patient was found to have elevated liver enzymes with the AST 1256, ALT 382, ALP 547 on admission which GI were consulted. Patient denied any history of liver cirrhosis, reported that she quit alcohol use long time ago and denied any drug use. Patient denied to be diagnosed pr eviously with a any hepatitis viral infection. Past Medical History CHF, CKD, hypertension, type 2 diabetes mellitus Past Surgical History None reported Family History: FH: lung cancer G8 MOTHER, Onset:Unknown Family History No significant family history of hepatocellular cancer, GI cancer Allergies: Coded Allergies: NO KNOWN ALLERGIES (Unverified , 06/06/19) Home Meds Reported Medications Furosemide (Furosemide) 20 Mg Tab, 10 MG PO DAILY for 60 Days, #30 02/24/25 Insulin Lispro (Insulin Lispro Kwikpen) 100 Unit/Ml Inj, UNITS SC UD for 20 Days, #6 02/24/25 Insulin Glargine (Basaglar Kwikpen) 100 Unit/Ml Inj, UNITS SC UD for 19 Days, #18 02/24/25 Ergocalciferol (Vitamin D) 50,000 Unit Cap, 1 CAP PO QWEEKLY for 28 Days, #4 02/24/25 Aspirin (Aspirin Low Dose) 81 Mg Tab, 1 TAB PO DAILY for 30 Days, #30 02/24/25 Loratadine (CLARITIN TABLET) 10 Mg Tb, 1 TAB PO DAILY for 30 Days, #30 02/24/25 Lisinopril (Lisinopril) 10 Mg Tab, 1 TAB PO DAILY for 30 Days, #30 02/24/25 Amlodipine Besylate (Amlodipine Besylate) 5 Mg Tab, 1 TAB PO DAILY for 30 Days, #30 02/24/25 Pantoprazole Sodium Sesquihydr (Pantoprazole Sodium) 40 Mg Tab, 1 TAB PO BID for 30 Days, #60 02/24/25 Current Medications Current Medications Medications (Trade) Dose Ordered Sig/Dave Route PRN Reason Start Time Stop Time Status Last Admin Cefepime HCl 50 ml @ 12.5 mls/hr Q8HR IV 02/24/25 06:00 02/24/25 14:48 Sodium Chloride (Saline Lock Ns) 10 ml Q8HR IV 02/24/25 06:00 02/24/25 14:43 Ondansetron HCl (Zofran) 4 mg Q4HP PRN IV NAUSEA / VOMITING 02/23/25 23:15 Enoxaparin Sodium (Lovenox) 40 mg DAILY SC 02/24/25 10:00 Vancomycin HCl 0 ml @ 0 mls/hr UD IV 02/23/25 23:15 Diagnostic Test (Pha) (Accu-Chek Comfort Curve T) 1 strip IQ4HR 02/24/25 00:00 02/24/25 12:33 Insulin Human Regular (InsuLIN R) IQ4HR SC 02/24/25 00:00 02/24/25 12:34 Dextrose 50 ml UD PRN IV Blood Sugar LESS THAN 60 02/23/25 23:15 Sodium Chloride 1,000 ml @ 100 mls/hr Q10H IV 02/24/25 11:30 02/24/25 13:02 Vancomycin HCl 100 ml @ 100 mls/hr Q8H IV 02/24/25 20:00 Review of Systems Patient seen and examined at the bedside Does not report of any abdominal pain, nausea, vomiting He is able to tolerated regular diet well Denies any constipation or diarrhea Vital Signs Vital Signs Date Time Temp Pulse Resp B/P (MAP) Pulse Ox O2 Delivery O2 Flow Rate FiO2 02/24/25 16:49 99.3 96 16 106/62 (77) 97 99.3 02/24/25 08:39 Room Air* 0 21 Physical Exam Gen - no pallor, no scleral icterus Skin - Patients skin is warm and dry. HEENT - normocephalic, atraumatic, dry mucous membranes. Neck - supple, no lymphadenopathy Pulmonary - B/L equal air entry with vesicular breath sounds cardiovascular - regular S1,S2 heard GI - soft nontender abdomen. Bowel sounds normoactive. Neurological - Patient is alert and oriented x4. No motor or sensory weakness Labs/Diagnostic Data Labs Test 02/24/25 12:29 02/24/25 06:39 02/24/25 03:55 02/24/25 03:18 Range/Units POC Glucose 233 H 70-106 mg/dl White Blood Count 6.5 # 4.4-10.8 10^3/uL Red Blood Count 3.83 L 4.0-5.20 10^6/uL Hemoglobin 12.4 12.2-16.2 g/dL Hematocrit 37.1 36.0-46.0 % Mean Corpuscular Volume 96.7 80.0-100.0 fL Mean Corpuscular Hemoglobin 32.4 H 28.0-32.0 pg Mean Corpuscular Hemoglobin Concent 33.5 32.0-36.0 g/dL Red Cell Distribution Width 16.0 H 11.8-14.3 % Platelet Count 276 140-450 10^3/uL Mean Platelet Volume 7.4 6.9-10.8 fL Neutrophils (%) (Auto) 75.3 37.0-80.0 % Lymphocytes (%) (Auto) 17.1 10.0-50.0 % Monocytes (%) (Auto) 6.6 0.0-12.0 % Eosinophils (%) (Auto) 0.1 0.0-7.0 % Basophils (%) (Auto) 0.9 0.0-2.0 % Neutrophils # (Auto) 4.9 1.6-8.6 10 ^3/uL Lymphocytes # (Auto) 1.1 0.4-5.4 10 ^3/uL Monocytes # (Auto) 0.4 0-1.3 10 ^3/uL Eosinophils # (Auto) 0 0-0.8 10 ^3/uL Basophils # (Auto) 0.1 0-0.2 10 ^3/uL Nucleated Red Blood Cells 0.2 % Sodium Level 135 L 136-145 mmol/L Potassium Level 4.0 3.5-5.1 mmol/L Chloride Level 99 98-107 mmol/L Carbon Dioxide Level 23 20-31 mmol/L Anion Gap 13 5-15 Blood Urea Nitrogen 10 # 9-23 mg/dL Creatinine 0.50 #L 0.550-1.02 mg/dL Glomerular Filtration Rate Calc 115 >90 mL/min BUN/Creatinine Ratio 20.0 10.0-20.0 Serum Glucose 80 74-106 mg/dL Hemoglobin A1c 11.0 H <5.7 % A1C Calcium Level 8.5 L 8.7-10.4 mg/dL Total Bilirubin 0.6 0.2-1.0 mg/dL Aspartate Amino Transferase (AST) 859 H 13-40 U/L Alanine Aminotransferase (ALT) 406 H 7-40 U/L Alkaline Phosphatase 497 H 46-116 U/L Total Protein 6.5 5.7-8.2 g/dL Albumin 3.7 3.2-4.8 g/dL Random Vancomycin Level 11.6 H 5-10 ug/mL Influenza Type A Antigen Negative Negative Influenza Type B Antigen Negative Negative SARS-CoV-2 Antigen (Rapid) Negative NEGATIVE Acetaminophen Level < 2.0 L 10.0-20.0 UG/ML Test 02/24/25 02:06 02/24/25 00:23 02/23/25 22:00 02/23/25 18:06 Range/Units Lactic Acid Level 8.1 *H 0.4-2.0 mmol/L Ammonia < 10 L 11-32 umol/L Urine Color Light-yellow Yellow Urine Clarity Clear Clear Urine pH 6.5 5.0-9.0 Urine Specific [place] 1.027 1.001-1.035 Urine Protein Negative Negative Urine Ketones 1+ H Negative Urine Blood Negative Negative /uL Urine Nitrite Negative Negative Urine Bilirubin Negative Negative Urine Urobilinogen Normal Negative mg/dL Urine Leukocyte Esterase Negative Negative /uL Urine RBC None seen 0 - 4 /hpf Urine Microscopic WBC < 1 0-5 /HPF Urine Squamous Epithelial Cells None seen <5 /hpf Urine Bacteria None seen None Seen /hpf Urine Mucus Few None Seen Urine Glucose 4+ H Normal mg/dL Urine Opiates Screen Neg NEGATIVE Urine Fentanyl Screen Neg NEGATIVE Urine Barbiturates Screen Neg NEGATIVE Urine Phencyclidine Screen Neg NEGATIVE Urine Amphetamines Screen Pos NEGATIVE Urine Benzodiazepines Screen Neg NEGATIVE Urine Cocaine Screen Neg NEGATIVE Urine Cannabinoids Screen Neg NEGATIVE Differential Total Cells Counted 100.0 100 Neutrophils % (Manual) 86 H 37.0-80.0 Band Neutrophils % (Manual) 3 Lymphocytes % (Manual) 8 L 10.0-50.0 Monocytes % (Manual) 3 0-12 Eosinophils % (Manual) 0 0-7 Basophils % (Manual) 0 0.0-2.0 Metamyelocytes % (manual) 0 Myelocytes % (Manual) 0 Promyelocytes % (Manual) 0 Blast Cells % (Manual) 0 Reactive Lymphocytes 0 Platelet Estimate Adequate Prothrombin Time 9.8 9.3-11.8 sec Prothrombin Time INR 0.92 0.9-1.15 Activated Partial Thromboplast Time 22.7 L 24.5-34.5 SEC Serum Osmolality 286 278-298 mOsm/kg Creatine Kinase 31 L 34-145 U/L Beta-Hydroxybutyric Acid 0.193 < 0.4 mmol/L Thyroid Stimulating Hormone (TSH) 1.70 0.55-4.78 uIU/mL Plasma/Serum Blood Alcohol < 3.0 <10 mg/dL Hepatitis A IgM Antibody Negative Hepatitis B Surface Antigen Negative Negative Hepatitis B Core IgM Antibody Negative Negative Hepatitis C Antibody Negative Negative Assessment Assessment Transaminitis likely from ongoing sepsis Sepsis ?Alcoholic liver disease ?Drug-induced transaminitis History of congestive heart failure Hepatomegaly seen on CT and liver ultrasound Uncontrolled type 2 diabetes mellitus with hyperglycemia Plan - LFTs trending down - continue monitoring liver function - patient needs IV fluids - hepatitis panel negative - Protonix for PUD prophylaxis Plan discussed with Dr. Carrillo Plan discussed with: Patient, Other (Primary team, RN) DESIREE RIVERA RESIDENT Feb 24, 2025 17:24
--- NOTE | 2025-02-24 17:38 | DVHPNRES ---
Progress Note Date Seen: Feb 24, 2025 Resident Creating Document: OSWALDO ALVARADO MD Medical Necessity Reason Pt with a Central, PICC or Fol: No Subjective Review of Systems 49-year-old female with past medical history of CHF, CKD, DM, HTN, presents to [facility] ED with acute onset right leg pain that began today (02/23/25) around 11:00 AM. Pain is localized to the medial aspect of the right thigh. She reports that two days ago she noticed red spots developing on her right leg. Patient is a poor historian, tearful, and visibly distressed due to pain. She denies any history of trauma, fall, injury, recent travel, insect bites, poison dionne exposure, or sick contacts. On evaluation in the ED, patient is febrile and tachycardic. Initial labs show significant lactic acid 7.4, Serum glucose 381, AST 1549, ALT 436 and ALP 458. Femur X-ray shows No acute radiographic abnormality of the right femur. The patient was placed NPO, started on IV antibiotics and IV fluids. Patient is admitted for further evaluation and management. Past Medical History CHF, CKD, DM, HTN Past Surgical History: None Family History: None Smoke: Quit ALCOHOL: occassional Drugs: None Eyes: No Pain, No Vision change, No Conjunctivae inflammation, No Eyelid inflammation, No Other, No Redness ENT: No Ear pain, No Ear discharge, No Nose pain, No Nose discharge, No Nose congestion, No Mouth pain, No Mouth swelling, No Throat pain, No Throat swelling, No Other Cardiovascular: No Chest Pain, No Palpitations, No Orthopnea, No Paroxysmal No Dyspnea, No Edema, No Lt Headedness, No Other Respiratory: No Cough, No Dry, No Shortness of breath, No SOB with exertion, No Wheezing, No Hemoptysis, No Pleuritic Pain, No Sputum, No Other Gastrointestinal: No Nausea, No Vomiting, No Abdominal Pain, No Diarrhea, No Constipation, No Melena, No Hematochezia, No Other Genitourinary: No Dysuria, No Frequency, No Incontinence, No Hematuria, No Retention, No Other Musculoskeletal: Complains of pain in the right thigh Skin: No Rash, No Lesions, No Jaundice, No Bruising, No Other Objective vital signs Vital Sign Date Time Temp Pulse Resp B/P (MAP) Pulse Ox O2 Delivery O2 Flow Rate FiO2 02/24/25 16:49 99.3 96 16 106/62 (77) 97 99.3 02/24/25 08:39 Room Air* 0 21 Total Intake and Output 02/23/25 02/23/25 02/24/25 15:00 23:00 07:00 Intake Total 2512.5 ml 2000.834 ml Output Total 1700 ml Balance 2512.5 ml 300.834 ml medications Current Medications Medications Dose Ordered Sig/Dave Route Start Time Stop Time Status Last Admin Dose Admin Cefepime HCl 50 ml @ 12.5 mls/hr Q8HR IV 02/24/25 06:00 02/24/25 14:48 12.5 MLS/HR Sodium Chloride 10 ml Q8HR IV 02/24/25 06:00 02/24/25 14:43 10 ML Ondansetron HCl 4 mg Q4HP PRN IV 02/23/25 23:15 Enoxaparin Sodium 40 mg DAILY SC 02/24/25 10:00 Vancomycin HCl 0 ml @ 0 mls/hr UD IV 02/23/25 23:15 Diagnostic Test (Pha) 1 strip IQ4HR 02/24/25 00:00 02/24/25 12:33 1 STRIP Insulin Human Regular IQ4HR SC 02/24/25 00:00 02/24/25 12:34 6 UNITS Dextrose 50 ml UD PRN IV 02/23/25 23:15 Vancomycin HCl 100 ml @ 100 mls/hr Q8H IV 02/24/25 20:00 Pantoprazole Sodium 40 mg DAILY IV 02/25/25 10:00 UNV Examination General Appearance: Mild to moderate distress. Cooperative. Well developed. Well nourished. NAD Head Exam: Normal inspection Neck Exam: Normal inspection. Non-tender. Normal alignment Pulmonary/Respiratory: Chest non-tender. Clear bilateral breath sounds, no crackles, no wheezing. Cardiovascular/Chest: Regular rate and rhythm. No murmurs. No JVD. Peripheral Pulses: 2+ Radial (R). 2+ Radial (L). 2+ Pedal (R). 2+ Pedal (L) Abdominal Exam: Normal bowel sounds. Soft. normal abdomen, no visible veins, Nontender. No hepatospenomegaly. No masses Ankle Exam: Negative ankle edema Lower extremities: Negative lower extremity edema. Right femur tenderness. Neuro/Mental Status: A&O x4. No neck stiffness. Negative Brudzinski and Kernig signs. No focal neurological deficits. Thoughts/Psych: Normal thought pattern. Appropriate mood and affect. Good judgement and insight Skin Exam: Scattered erythematous macular rash noted. No ulceration or drainage. Normal color. Warm. Dry. laboratory and microbiology Laboratory Tests 02/24/25 06:39 Test 02/24/25 06:39 Range/Units Serum Glucose 80 74-106 mg/dL Problem List/Assessment/Plan Problem List/Assessment/Plan Assessment and plan Sepsis likely due to cellulitis/bacteremia/hepatitis elevated lactic acid EKG: Sinus tachycardia. LAE, consider biatrial enlargement. Probable anterior infarct, recent Cefepime 1gm IV q8hr IV fluids Vancomycin Zofran MRSA screen Urine bacterial culture Follow Blood culture Follow Sputum culture Wound culture Urine methamphetamine positive Transaminitis Liver US: The liver is homogenous in echogenicity. The liver measures 22.0 cm. No cholelithiasis or sonographic evidence of acute cholecystitis. GI consult Acute hepatitis panel Hepatitis-C antibody Hyperglycemia, type 2 diabetes mellitus, uncontrolled Hemoglobin A1c 11 Moderate insulin SS IV NS Ruled out deep vein thrombosis Extremity Venous Study: No evidence for deep vein thrombosis in the right lower extremity veins. Recreational drug use amphetamine positive Diet: NPO DVT prophylaxis: Lovenox 40mg Goals of care: Full code Plan discussed with patient Plan discussed with Dr. Alvarado Plan discussed with: Patient My Orders My Orders Orders - GREG ARAUJO Procedure Category Date Status Time Respiratory Culture HE 02/24/25 Uncollected W/ Gs 14:50 Wound Culture W/ Gs HE 02/24/25 Uncollected 14:50 Lactic Acid W/ Reflex LAB 02/24/25 Logged Order 17:09 Lactated Ringer's PHA 02/24/25 In Process 17:15 Date of Service: Feb 24, 2025 Billing Provider: OSWALDO ALVARADO MD Common Visit Codes: [id number] INP/OBS CARE(HIGH) Secondary Visit Codes: [id number] CARE PLAN 30 MINUTES GREG ARAUJO Feb 24, 2025 17:38 OSWALDO ALVARADO MD Mar 05, 2025 21:31
[2025-02-24] MEDS: LACTATED RINGER'S 1,000 ML IV ONE (17:57)
[2025-02-24] MEDS: SODIUM CHLORIDE 0.9% 500 ML IV ONE (19:00)
[2025-02-24] MEDS: INSULIN LANTUS (GLARGINE) 1 /0.01ml (100units/ml) SC SCH (19:00)
[2025-02-24 19:02] VITALS: BP 109/70; PULSE 102; RESP 19; TEMP 99.4; O2SAT 97
[2025-02-24 20:04] VITALS: PULSE 98; RESP 18; O2SAT 97
[2025-02-24] MEDS: VANCOMYCIN 750MG KIT 100 ML IV SCH (20:14)
[2025-02-24 21:00] VITALS: BP 121/71; PULSE 103; RESP 20; TEMP 98.4; O2SAT 98
--- NOTE | 2025-02-24 21:32 | DVH ---
EXAM: CT LOWER EXTREMITY NON JOINT RIGH INDICATION: right thigh pain, exquisite tenderness TECHNIQUE: Axial images of right lower extremity have been obtained along with coronal and sagittal r eformatted images. All CT scans at this facility use dose modulation, iterative reconstruction, and/o r weight based dosing when appropriate to reduce radiation dose to as low as reasonably achievable. COMPARISON: XY R FEMUR XRAY on DOS: 02/23/25 FINDINGS: BONES: No CT evidence of an acute fracture or aggressive osseous lesion. MUSCLES: No abnormal attenuation. JOINT SPACES: No joint effusion. Mild degenerative change of the right hip. Mild degenerative change of the right sacroiliac joint. TENDONS/LIGAMENTS: Intact. OTHER: Diffuse surrounding subcutaneous adipose tissue edematous appearance without drainable fluid c ollection. Edema most conspicuous of the level of the calf. Imaging finding may be exaggerated second jesus to possible cachexia. Pelvic catheter in place. IMPRESSION: 1. No CT evidence of an acute fracture. 2. Diffuse surrounding subcutaneous adipose tissue edematous appearance without drainable fluid colle ction. 3. Edema most conspicuous of the level of the calf. 4. Imaging finding may be exaggerated secondary to possible cachexia.
[2025-02-25] VITALS (8 sets, daily range): BP systolic 110–144; BP diastolic 66–93; PULSE 89–96; RESP 14–19; TEMP 97.6–99; O2SAT 95–100
[2025-02-25] MEDS ORDERED: ACETAMINOPHEN 325 MG TAB PO PRN ×2 (00:30→01:00)
[2025-02-25] MEDS: IBUPROFEN 600 MG TAB PO ONE (01:00)
[2025-02-25] MEDS: PANTOPRAZOLE 40 MG/10 ML VIAL INJ IV ONE (01:00)
[2025-02-25] MEDS: SODIUM CHLORIDE 0.9% 1,000 ML IV ONE ×2 (06:35→15:40)
[2025-02-25] MEDS: PANTOPRAZOLE 40 MG/10 ML VIAL INJ IV SCH (08:32)
[2025-02-25 08:47] LABS: Hematocrit 32.9 % (36.0-46.0); Hemoglobin 11.0 g/dL (12.2-16.2); Mean Corpuscular Hemoglobin 32.6 pg (28.0-32.0); Mean Corpuscular Volume 97.6 fL (80.0-100.0); Nucleated Red Blood Cells % 0.0 %
--- NOTE | 2025-02-25 10:00 | DVHPNRES ---
Progress Note Date Seen: Feb 25, 2025 Resident Creating Document: GREG ARAUJO RESIDENT Medical Necessity Reason Pt with a Central, PICC or Fol: No Subjective Review of Systems 49-year-old female with past medical history of CHF, CKD, DM, HTN, presents to [facility] ED with acute onset right leg pain that began today (02/23/25) around 11:00 AM. Pain is localized to the medial aspect of the right thigh. She reports that two days ago she noticed red spots developing on her right leg. Patient is a poor historian, tearful, and visibly distressed due to pain. She denies any history of trauma, fall, injury, recent travel, insect bites, poison dionne exposure, or sick contacts. On evaluation in the ED, patient is febrile and tachycardic. Initial labs show significant lactic acid 7.4, Serum glucose 381, AST 1549, ALT 436 and ALP 458. Femur X-ray shows No acute radiographic abnormality of the right femur. The patient was placed NPO, started on IV antibiotics and IV fluids. Patient is admitted for further evaluation and management. Past Medical History : CHF, CKD, DM, HTN Past Surgical History: None Family History: None Smoke: Quit ALCOHOL: Occasional alcohol use Drugs: None Eyes: No Pain, No Vision change, No Conjunctivae inflammation, No Eyelid inflammation, No Other, No Redness ENT: No Ear pain, No Ear discharge, No Nose pain, No Nose discharge, No Nose congestion, No Mouth pain, No Mouth swelling, No Throat pain, No Throat swelling, No Other Cardiovascular: No Chest Pain, No Palpitations, No Orthopnea, No Paroxysmal No Dyspnea, No Edema, No Lt Headedness, No Other Respiratory: No Cough, No Dry, No Shortness of breath, No SOB with exertion, No Wheezing, No Hemoptysis, No Pleuritic Pain, No Sputum, No Other Gastrointestinal: No Nausea, No Vomiting, No Abdominal Pain, No Diarrhea, No Constipation, No Melena, No Hematochezia, No Other Genitourinary: No Dysuria, No Frequency, No Incontinence, No Hematuria, No Retention, No Other Musculoskeletal: Complains of pain in the right thigh Skin: No Rash, No Lesions, No Jaundice, No Bruising, No Other Patient was seen at bedside. She reports feeling better and the thigh pain has decreased in intensity. Objective vital signs Vital Sign Date Time Temp Pulse Resp B/P (MAP) Pulse Ox O2 Delivery O2 Flow Rate FiO2 02/25/25 09:00 98.6 89 16 130/85 (100) 95 98.6 02/24/25 20:04 Room Air* 0 21 Total Intake and Output 02/24/25 02/24/25 02/25/25 15:00 23:00 07:00 Intake Total 50 ml 880 ml Output Total 2200 ml Balance 50 ml -1320 ml medications Current Medications Medications Dose Ordered Sig/Dave Route Start Time Stop Time Status Last Admin Dose Admin Cefepime HCl 50 ml @ 12.5 mls/hr Q8HR IV 02/24/25 06:00 02/25/25 06:03 12.5 MLS/HR Sodium Chloride 10 ml Q8HR IV 02/24/25 06:00 02/25/25 06:03 10 ML Ondansetron HCl 4 mg Q4HP PRN IV 02/23/25 23:15 Enoxaparin Sodium 40 mg DAILY SC 02/24/25 10:00 02/25/25 08:33 40 MG Vancomycin HCl 0 ml @ 0 mls/hr UD IV 02/23/25 23:15 Diagnostic Test (Pha) 1 strip IQ4HR 02/24/25 00:00 02/25/25 04:00 1 STRIP Insulin Human Regular IQ4HR SC 02/24/25 00:00 02/25/25 08:34 9 UNITS Dextrose 50 ml UD PRN IV 02/23/25 23:15 Vancomycin HCl 100 ml @ 100 mls/hr Q8H IV 02/24/25 20:00 02/25/25 04:21 100 MLS/HR Pantoprazole Sodium 40 mg DAILY IV 02/25/25 10:00 02/25/25 08:32 40 MG Insulin Glargine 7 units HS SC 02/24/25 19:00 02/24/25 22:00 7 UNITS Examination General Appearance: Mild to moderate distress. Cooperative. Well developed. Well nourished. NAD Head Exam: Normal inspection Neck Exam: Normal inspection. Non-tender. Normal alignment Pulmonary/Respiratory: Chest non-tender. Clear bilateral breath sounds, no crackles, no wheezing. Cardiovascular/Chest: Regular rate and rhythm. No murmurs. No JVD. Peripheral Pulses: 2+ Radial (R). 2+ Radial (L). 2+ Pedal (R). 2+ Pedal (L) Abdominal Exam: Normal bowel sounds. Soft. normal abdomen, no visible veins, Nontender. No hepatospenomegaly. No masses Ankle Exam: Negative ankle edema Lower extremities: Negative lower extremity edema. Right femur tenderness. Neuro/Mental Status: A&O x4. No neck stiffness. Negative Brudzinski and Kernig signs. No focal neurological deficits. Thoughts/Psych: Normal thought pattern. Appropriate mood and affect. Good judgement and insight Skin Exam: Scattered erythematous macular rash noted. No ulceration or drainage. Normal color. Warm. Dry. laboratory and microbiology Laboratory Tests 02/25/25 08:10 Test 02/25/25 08:10 Range/Units Serum Glucose Pending Microbiology Date/Time Source Procedure Growth Status 02/23/25 18:06 Blood Blood Culture - Preliminary NO GROWTH AFTER 24 HOURS OF INCUBATION. Resulted Problem List/Assessment/Plan Problem List/Assessment/Plan Assessment and plan Sepsis likely due to cellulitis/bacteremia/hepatitis elevated lactic acid EKG: Sinus tachycardia. LAE, consider biatrial enlargement. Probable anterior infarct, recent Cefepime 1gm IV q8hr IV fluids Vancomycin Zofran MRSA screen Urine bacterial culture Follow Blood culture Follow Sputum culture Wound culture Urine methamphetamine positive Transaminitis Liver US: The liver is homogenous in echogenicity. The liver measures 22.0 cm. No cholelithiasis or sonographic evidence of acute cholecystitis. GI consult- suggested Protonix Acute hepatitis panel negative Hepatitis-C antibody Hyperglycemia, type 2 diabetes mellitus, uncontrolled Hemoglobin A1c 11 Moderate insulin SS IV NS Ruled out deep vein thrombosis Extremity Venous Study: No evidence for deep vein thrombosis in the right lower extremity veins. Recreational drug use amphetamine positive History of congestive heart failure Follow echo Essential hypertension Target in hospital systolic blood pressure of 120-140. Diet: Diabetic diet DVT prophylaxis: Lovenox 40mg Goals of care: Full code Plan discussed with patient Plan discussed with Dr. Alvarado Plan discussed with: Patient My Orders My Orders Orders - GREG ARAUJO RESIDENT Procedure Category Date Status Time Respiratory Culture HE 02/24/25 Uncollected W/ Gs 14:50 Wound Culture W/ Gs HE 02/24/25 Uncollected 14:50 Comprehensive LAB 02/25/25 In Process Metabolic Panel 04:00 Lactic Acid W/ Reflex LAB 02/25/25 In Process Order 06:30 Sodium Chloride 0.9% PHA 02/25/25 In Process 06:30 Date of Service: Feb 25, 2025 Billing Provider: OSWALDO ALVARADO MD Common Visit Codes: [id number] INP/OBS CARE(HIGH) GREG ARAUJO RESIDENT Feb 25, 2025 10:00 OSWALDO ALVARADO MD Mar 05, 2025 21:32
[2025-02-25 11:14] LABS: Anion Gap 12 (5-15); BUN/Creatinine Ratio 16.0 (10.0-20.0); Carbon Dioxide 21 mmol/L (20-31)
[2025-02-25 11:18] LABS: Alanine Aminotransferase 223 U/L (7-40); Alkaline Phosphatase 429 U/L (46-116); Blood Urea Nitrogen 8 mg/dL (9-23); Calcium 8.5 mg/dL (8.7-10.4); Glucose 227 mg/dL (74-106); Total Protein 5.6 g/dL (5.7-8.2)
[2025-02-25 11:27] LABS: Lactic Acid w/Reflex 3.7 mmol/L (0.4-2.0)
[2025-02-25 11:33] LABS: Albumin 3.1 g/dL (3.2-4.8); Chloride 102 mmol/L (98-107); Potassium 4.7 mmol/L (3.5-5.1); Sodium 135 mmol/L (136-145)
[2025-02-25 11:54] LABS: Bilirubin, Total 0.4 mg/dL (0.2-1.0)
[2025-02-25] MEDS ORDERED: SODIUM CHLORIDE 0.9% 1,000 ML IV ONE (17:30)
[2025-02-25] MEDS: LACTATED RINGER'S 1,000 ML IV SCH (17:45)
[2025-02-25] MEDS: ALBUMIN 5% 250 ML IV ONE (18:37)
--- NOTE | 2025-02-25 19:10 | DVHSR ---
APPROVED REPORT EXAM: Two-dimensional and M-mode echocardiogram with Doppler and color Doppler. Blood Pressure: 133/84 mmHg INDICATION R/O Endocarditis RISK FACTORS Height: 5' 2", Weight: 105 DIMENSIONS LVDd4.0 (3.8-5.7cm)LA (2D)3.3 (1.9-4.0cm)Aortic Root3.3 (2.0-3.7cm) LVDs2.9 (2.5-4.0cm)LA (MM) (1.9-4.0cm)Aortic Cusp Exc1.7 (1.5-2.0cm) EF (%) 55.0 (55-70%)Rt. Atrium3.1 (1.9-4.0cm)Asc. Aorta cm IVSd0.7 (0.7-1.1cm)RV (D) (1.8-2.4cm) PWd1.0 (0.7-1.1cm) Mitral Valve MitralMitral Stenosis E wave0.60m/sMV Mean GR.mmHg A wave0.90m/sMV Peak GR.mmHg E/A ratio0.72D MVAcm2 Aortic Valve Aortic ValveAortic Stenosis V11.20m/Arnulfo Mean GR.5mmHg V21.50m/Arnulfo Peak GR.9mmHg LVOT Diameter2.1 (1.8-2.4cm)Doppler AVA2.77cm2 Pulmonic Valve V21.10m/s Tricuspid Valve TR Velocity2.70m/s [id number] Conclusion Left ventricle: Left ventricle was normal size with normal systolic function. LVEF was around 60%. Paradoxical septal motion was seen. Right ventricle was normal size with normal systolic function. Both atria were normal sized. 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 There was no aortic insufficiency/stenosis. There was trace m itral/tricuspid regurgitation. There was no pericardial effusion. Right ventricular systolic pressure was assessed at 34 mm Hg. Pericardium was hyperechoic.
--- NOTE | 2025-02-25 20:14 | DVHINCON2 ---
Date of service: Feb 25, 2025 History of Present Illness HPI Patient is a 49-year-old female who presented with few days of some discoloration of right lower extremity (red spots). This was followed with right leg pain. She presented to the hospital on February 23, 2025. Reportedly the patient was febrile and tachycardic in emergency room. Reportedly the patient's lactic acid on arrival was elevated. Cardiology was involved on February 25, 2025 for cardiac aspects of care. Patient does come to our office as outpatient. She is found to have positive methamphetamine in urine toxicology (she herself denies any drug abuse). Denies any chest pains. Denies shortness of breath. Her past history questionably includes heart failure. Home Meds Reported Medications Furosemide (Furosemide) 20 Mg Tab, 10 MG PO DAILY for 60 Days, #30 02/24/25 Insulin Lispro (Insulin Lispro Kwikpen) 100 Unit/Ml Inj, UNITS SC UD for 20 Days, #6 02/24/25 Insulin Glargine (Basaglar Kwikpen) 100 Unit/Ml Inj, UNITS SC UD for 19 Days, #18 02/24/25 Ergocalciferol (Vitamin D) 50,000 Unit Cap, 1 CAP PO QWEEKLY for 28 Days, #4 02/24/25 Aspirin (Aspirin Low Dose) 81 Mg Tab, 1 TAB PO DAILY for 30 Days, #30 02/24/25 Loratadine (CLARITIN TABLET) 10 Mg Tb, 1 TAB PO DAILY for 30 Days, #30 02/24/25 Lisinopril (Lisinopril) 10 Mg Tab, 1 TAB PO DAILY for 30 Days, #30 02/24/25 Amlodipine Besylate (Amlodipine Besylate) 5 Mg Tab, 1 TAB PO DAILY for 30 Days, #30 02/24/25 Pantoprazole Sodium Sesquihydr (Pantoprazole Sodium) 40 Mg Tab, 1 TAB PO BID for 30 Days, #60 02/24/25 Past Medical History Others Past medical history reportedly includes questionable heart failure, CKD, diabetes mellitus, hypertension, old history of diabetic ketoacidosis (repeated times) and history of smoking. There is questionable history of methamphetamine/cocaine/marijuana abuse. History also includes questionable history of mild abnormal nuclear stress test. Patient Family History: FH: lung cancer G8 MOTHER, Onset:Unknown Smoker: Quit Drugs: Amphetimines Review of Systems Constitutional: Malaise All Other Systems 14 point review of system was performed. Relevant findings as per above and as per HPI. Otherwise negative. H&P Exam Vital Signs Vital Signs Date Time Temp Pulse Resp B/P (MAP) Pulse Ox O2 Delivery O2 Flow Rate FiO2 02/25/25 17:00 98.1 91 16 119/73 (88) 98 98.1 02/25/25 08:00 Room Air* 0 21 Labs/Xrays Labs Test 02/25/25 16:53 02/25/25 12:09 02/25/25 08:10 02/24/25 06:39 Range/Units POC Glucose 251 H 70-106 mg/dl Lactic Acid Level 3.6 *H 0.4-2.0 mmol/L White Blood Count 8.1 4.4-10.8 10^3/uL Red Blood Count 3.37 L 4.0-5.20 10^6/uL Hemoglobin 11.0 L 12.2-16.2 g/dL Hematocrit 32.9 #L 36.0-46.0 % Mean Corpuscular Volume 97.6 80.0-100.0 fL Mean Corpuscular Hemoglobin 32.6 H 28.0-32.0 pg Mean Corpuscular Hemoglobin Concent 33.4 32.0-36.0 g/dL Red Cell Distribution Width 15.7 H 11.8-14.3 % Platelet Count 275 140-450 10^3/uL Mean Platelet Volume 7.6 6.9-10.8 fL Neutrophils (%) (Auto) 73.5 37.0-80.0 % Lymphocytes (%) (Auto) 18.1 10.0-50.0 % Monocytes (%) (Auto) 7.0 0.0-12.0 % Eosinophils (%) (Auto) 1.0 0.0-7.0 % Basophils (%) (Auto) 0.4 0.0-2.0 % Neutrophils # (Auto) 5.9 1.6-8.6 10 ^3/uL Lymphocytes # (Auto) 1.5 0.4-5.4 10 ^3/uL Monocytes # (Auto) 0.6 0-1.3 10 ^3/uL Eosinophils # (Auto) 0.1 0-0.8 10 ^3/uL Basophils # (Auto) 0 0-0.2 10 ^3/uL Nucleated Red Blood Cells 0.0 % Sodium Level 135 L 136-145 mmol/L Potassium Level 4.7 3.5-5.1 mmol/L Chloride Level 102 98-107 mmol/L Carbon Dioxide Level 21 20-31 mmol/L Anion Gap 12 5-15 Blood Urea Nitrogen 8 L 9-23 mg/dL Creatinine 0.50 L 0.550-1.02 mg/dL Glomerular Filtration Rate Calc 115 >90 mL/min BUN/Creatinine Ratio 16.0 10.0-20.0 Serum Glucose 227 H 74-106 mg/dL Calcium Level 8.5 L 8.7-10.4 mg/dL Total Bilirubin 0.4 0.2-1.0 mg/dL Aspartate Amino Transferase (AST) 233 H 13-40 U/L Alanine Aminotransferase (ALT) 223 H 7-40 U/L Alkaline Phosphatase 429 H 46-116 U/L B-Type Natriuretic Peptide 267.04 0-100 pg/mL Total Protein 5.6 L 5.7-8.2 g/dL Albumin 3.1 L 3.2-4.8 g/dL Hemoglobin A1c 11.0 H <5.7 % A1C Random Vancomycin Level 11.6 H 5-10 ug/mL Test 02/24/25 03:55 02/24/25 03:18 02/24/25 00:23 02/23/25 22:00 Range/Units Influenza Type A Antigen Negative Negative Influenza Type B Antigen Negative Negative SARS-CoV-2 Antigen (Rapid) Negative NEGATIVE Acetaminophen Level < 2.0 L 10.0-20.0 UG/ML Ammonia < 10 L 11-32 umol/L Urine Color Light-yellow Yellow Urine Clarity Clear Clear Urine pH 6.5 5.0-9.0 Urine Specific [place] 1.027 1.001-1.035 Urine Protein Negative Negative Urine Ketones 1+ H Negative Urine Blood Negative Negative /uL Urine Nitrite Negative Negative Urine Bilirubin Negative Negative Urine Urobilinogen Normal Negative mg/dL Urine Leukocyte Esterase Negative Negative /uL Urine RBC None seen 0 - 4 /hpf Urine Microscopic WBC < 1 0-5 /HPF Urine Squamous Epithelial Cells None seen <5 /hpf Urine Bacteria None seen None Seen /hpf Urine Mucus Few None Seen Urine Glucose 4+ H Normal mg/dL Urine Opiates Screen Neg NEGATIVE Urine Fentanyl Screen Neg NEGATIVE Urine Barbiturates Screen Neg NEGATIVE Urine Phencyclidine Screen Neg NEGATIVE Urine Amphetamines Screen Pos NEGATIVE Urine Benzodiazepines Screen Neg NEGATIVE Urine Cocaine Screen Neg NEGATIVE Urine Cannabinoids Screen Neg NEGATIVE Test 02/23/25 18:06 Range/Units Differential Total Cells Counted 100.0 100 Neutrophils % (Manual) 86 H 37.0-80.0 Band Neutrophils % (Manual) 3 Lymphocytes % (Manual) 8 L 10.0-50.0 Monocytes % (Manual) 3 0-12 Eosinophils % (Manual) 0 0-7 Basophils % (Manual) 0 0.0-2.0 Metamyelocytes % (manual) 0 Myelocytes % (Manual) 0 Promyelocytes % (Manual) 0 Blast Cells % (Manual) 0 Reactive Lymphocytes 0 Platelet Estimate Adequate Prothrombin Time 9.8 9.3-11.8 sec Prothrombin Time INR 0.92 0.9-1.15 Activated Partial Thromboplast Time 22.7 L 24.5-34.5 SEC Serum Osmolality 286 278-298 mOsm/kg Creatine Kinase 31 L 34-145 U/L Beta-Hydroxybutyric Acid 0.193 < 0.4 mmol/L Thyroid Stimulating Hormone (TSH) 1.70 0.55-4.78 uIU/mL Plasma/Serum Blood Alcohol < 3.0 <10 mg/dL Hepatitis A IgM Antibody Negative Hepatitis B Surface Antigen Negative Negative Hepatitis B Core IgM Antibody Negative Negative Hepatitis C Antibody Negative Negative Microbiology Date/Time Source Procedure Growth Status 02/23/25 22:00 Voided Urine Urine Culture - Preliminary Resulted 02/23/25 18:06 Blood Blood Culture - Preliminary NO GROWTH AFTER 48 HOURS OF INCUBATION. Resulted Assessment/Plan Plan Patient is a 49-year-old female who presented with few days of some discoloration of right lower extremity (red spots). This was followed with right leg pain. She presented to the hospital on February 23, 2025. Reportedly the patient was febrile and tachycardic in emergency room. Reportedly the patient's lactic acid on arrival was elevated. Cardiology was involved on February 25, 2025 for cardiac aspects of care. Patient does come to our office as outpatient. She is found to have positive methamphetamine in urine toxicology (she herself denies any drug abuse). Denies any chest pains. Denies shortness of breath. Her past history questionably includes heart failure Not in acute distress. Lying flat in bed. No JVD. Mucosa is pink and wet. No carotid bruit. Not using accessory muscles of breathing. Lungs are clear to auscultation. Cardiac: Regular, no thrill/gallop. Abdomen is soft. There was no gross mass. Extremities do reveal 1+ edema in the right lower extremity. Dorsalis pedis is 2+ bilateral Past medical history reportedly includes questionable heart failure, CKD, diabetes mellitus, hypertension, old history of diabetic ketoacidosis (repeated times) and history of smoking. There is questionable history of methamphetamine /cocaine/marijuana abuse. History also includes questionable history of mild abnormal nuclear stress test. Echocardiogram of October 30, 2024 had reported ejection fraction of 55%, normal valves and normal right-sided pressures Lactic acid: 7.4 - 4.7 - 2.9 - 8.1 - 1.8 - 3.7 - 3.6 AST/ALT: 1256/382 - 1549/436 - 859/406 - 233/223 CKD: 31 TSH: 1.7 BNP: 267.04 Urine toxicology was positive for amphetamine Chest x-ray revealed: NO ACUTE CARDIOPULMONARY PROCESS. Venous Doppler of right lower extremity revealed: IMPRESSION: NO SONOGRAPHIC EVIDENCE FOR DEEP VENOUS THROMBOSIS IN THE RIGHT LOWER EXTREMITY VEINS. Right femur x-ray revealed: No acute radiographic abnormality of the right femur. Abdomen/pelvic CT scan revealed: Limited evaluation of the solid organs in the absence of IV contrast. Lungs: Basilar atelectasis/scarring. Liver: Unremarkable. Spleen: Unremarkable. Pancreas: Not well assessed. Gallbladder: Unremarkable. Adrenals: Not well assessed. Kidneys: Unremarkable. Pelvic Viscera: A Martinez catheter is noted. Vasculature: Atherosclerotic aortoiliac calcifications. Retroperitoneum: Hazy appearance throughout the mesentery, with poor delineation of the abdominopelvic structures. Bowel: No bowel obstruction. Musculoskeletal: Unremarkable. Soft tissues: Diffuse subcutaneous edema. Impres khoi: 1. Limited evaluation as above. Hepatomegaly. 2. Additional findings as detailed. Liver ultrasound revealed: IMPRESSION: 1. Hepatomegaly. 2. No cholelithiasis or sonographic evidence of acute cholecystitis. CT of the lower extremities revealed: IMPRESSION: 1. No CT evidence of an acute fracture. 2. Diffuse surrounding subcutaneous adipose tissue edematous appearance without drainable fluid collection. 3. Edema most conspicuous of the level of the calf. 4. Imaging finding may be exaggerated secondary to possible cachexia. EKG revealed sinus rhythm with poor R-wave progression Tele reveals sinus rhythm Echocardiogram reported: Left ventricle: Left ventricle was normal size with normal systolic function. LVEF was around 60%. Paradoxical septal motion was seen. Right ventricle was normal size with normal systolic function. Both atria were normal sized. 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 There was no aortic insufficiency/stenosis. There was trace mitral/tricuspid regurgitation. There was no pericardial effusion. Right ventricular systolic pressure was assessed at 34 mm Hg. Pericardium was hyperechoic. Patient is a 49-year-old female who presented with right lower extremity pain. There is question about sepsis. She is found to have positive methamphetamine in the urine. Primary etiology for presentation is not considered cardiac. Lactic acidosis Abnormal LFT Hepatomegaly Substance abuse No gross finding in favor of acute heart failure Sepsis? Cardiac suggestion for management: Managed on telemetry Follow-up electrolytes and kidney function tests and correct abnormalities Evaluation and management of abnormal LFT as per primary team / GI Fluid resuscitation Lifestyle and risk factor modifications Patient was counseled to avoid substance abuse Cardiac-monge, can be followed as outpatient A total of 75 minutes was spent reviewing the patient record, examining the miguelina ent, making a diagnostic and therapeutic plan, discussing this plan with medical personnel, following up on diagnostic studies and following the patient for clinical stability excluding any and all procedures. At least 50% of this time was spent in direct, [id number] contact. Thank you for allowing me to participate in this patient's care. Further recommendations will depend on patient's clinical course. Please do not hesitate to contact me if you have any questions or concerns. This medical document was created using electronic medical record system with [employer] computerized dictation system. Although this document has been carefully reviewed, there may still be some phonetic and typographical errors. These areas are purely typographical due to the imperfection of the software programs, and do not reflect any compromise in the patient's medical care. Plan discussed with: Patient, Other (nurse) HUMBERTO RODRIGUEZ MD Feb 25, 2025 20:14
--- NOTE | 2025-02-25 21:12 | DVHPN2 ---
Progress Note - Dictate Date Seen: Feb 25, 2025 Medical Necessity Reason Pt with a Central, PICC or Fol: No Subjective No new complaints Patient was evaluated by spot remover and deemed to be stable at this point Liver enzymes are trending down, hepatitis panel is negative CHRISTA is pending Persistent lactic acidosis on IV antibiotics vital signs Vital Sign Date Time Temp Pulse Resp B/P (MAP) Pulse Ox O2 Delivery O2 Flow Rate FiO2 02/25/25 17:00 98.1 91 16 119/73 (88) 98 98.1 02/25/25 08:00 Room Air* 0 21 Total Intake and Output 02/24/25 02/24/25 02/25/25 15:00 23:00 07:00 Intake Total 50 ml 880 ml Output Total 2200 ml Balance 50 ml -1320 ml medications Current Medications Medications Dose Ordered Sig/Dave Route Start Time Stop Time Status Last Admin Dose Admin Cefepime HCl 50 ml @ 12.5 mls/hr Q8HR IV 02/24/25 06:00 02/25/25 06:03 12.5 MLS/HR Sodium Chloride 10 ml Q8HR IV 02/24/25 06:00 02/25/25 18:23 10 ML Ondansetron HCl 4 mg Q4HP PRN IV 02/23/25 23:15 Enoxaparin Sodium 40 mg DAILY SC 02/24/25 10:00 02/25/25 08:33 40 MG Vancomycin HCl 0 ml @ 0 mls/hr UD IV 02/23/25 23:15 Diagnostic Test (Pha) 1 strip IQ4HR 02/24/25 00:00 02/25/25 20:06 1 STRIP Insulin Human Regular IQ4HR SC 02/24/25 00:00 02/25/25 20:09 3 UNITS Dextrose 50 ml UD PRN IV 02/23/25 23:15 Vancomycin HCl 100 ml @ 100 mls/hr Q8H IV 02/24/25 20:00 02/25/25 12:20 100 MLS/HR Pantoprazole Sodium 40 mg DAILY IV 02/25/25 10:00 02/25/25 08:32 40 MG Insulin Glargine 7 units HS SC 02/24/25 19:00 02/24/25 22:00 7 UNITS Lactated Ringer's 1,000 ml @ 100 mls/hr Q10H IV 02/25/25 17:45 objective Gen - no pallor, no scleral icterus Skin - Patients skin is warm and dry. HEENT - normocephalic, atraumatic, dry mucous membranes. Neck - supple, no lymphadenopathy Pulmonary - B/L equal air entry with vesicular breath sounds cardiovascular - regular S1,S2 heard GI - soft nontender abdomen. Bowel sounds normoactive. Neurological - Patient is alert and oriented x4. No motor or sensory weakness laboratory and microbiology Laboratory Tests 02/25/25 08:10 Test 02/25/25 08:10 Range/Units Serum Glucose 227 H 74-106 mg/dL Problems(with codes): (1) Shock liver (2) Elevated liver enzymes (3) Right leg pain (4) Methamphetamine abuse (5) Leukocytosis (6) Generalized weakness Prognosis Plan Continue to monitor labs Advance diet as tolerated Supportive care Patient will be counseled about discontinuing amphetamines Plan discussed with: Other (Dr Ward) SALUD ROMO MD Feb 25, 2025 21:11
[2025-02-25 21:16] LABS: Lactic Acid w/Reflex 3.0 mmol/L (0.4-2.0)
[2025-02-26 05:00] VITALS: BP 136/87; PULSE 91; RESP 18; TEMP 97; O2SAT 97
--- NOTE | 2025-02-26 07:13 | DVHPN2 ---
Progress Note - Dictate Date Seen: Feb 26, 2025 Medical Necessity Reason Pt with a Central, PICC or Fol: No vital signs Vital Sign Date Time Temp Pulse Resp B/P (MAP) Pulse Ox O2 Delivery O2 Flow Rate FiO2 02/26/25 05:00 97.0 91 18 136/87 (103) 97 97.0 02/25/25 20:00 Room Air* 0 21 Total Intake and Output 02/25/25 02/25/25 02/26/25 15:00 23:00 07:00 Intake Total 630 ml 1250 ml 1184 ml Output Total 1500 ml 1450 ml Balance 630 ml -250 ml -266 ml medications Current Medications Medications Dose Ordered Sig/Dave Route Start Time Stop Time Status Last Admin Dose Admin Cefepime HCl 50 ml @ 12.5 mls/hr Q8HR IV 02/24/25 06:00 02/26/25 05:31 12.5 MLS/HR Sodium Chloride 10 ml Q8HR IV 02/24/25 06:00 02/26/25 05:31 10 ML Ondansetron HCl 4 mg Q4HP PRN IV 02/23/25 23:15 Enoxaparin Sodium 40 mg DAILY SC 02/24/25 10:00 02/25/25 08:33 40 MG Vancomycin HCl 0 ml @ 0 mls/hr UD IV 02/23/25 23:15 Diagnostic Test (Pha) 1 strip IQ4HR 02/24/25 00:00 02/26/25 04:05 1 STRIP Insulin Human Regular IQ4HR SC 02/24/25 00:00 02/25/25 20:09 3 UNITS Dextrose 50 ml UD PRN IV 02/23/25 23:15 Vancomycin HCl 100 ml @ 100 mls/hr Q8H IV 02/24/25 20:00 02/26/25 04:00 100 MLS/HR Pantoprazole Sodium 40 mg DAILY IV 02/25/25 10:00 02/25/25 08:32 40 MG Insulin Glargine 7 units HS SC 02/24/25 19:00 02/25/25 22:00 7 UNITS Lactated Ringer's 1,000 ml @ 100 mls/hr Q10H IV 02/25/25 17:45 laboratory and microbiology Laboratory Tests 02/25/25 08:10 Test 02/25/25 08:10 Range/Units Serum Glucose 227 H 74-106 mg/dL Assessment/Plan Patient is a 49-year-old female who presented with few days of some discoloration of right lower extremity (red spots). This was followed with right leg pain. She presented to the hospital on February 23, 2025. Reportedly the patient was febrile and tachycardic in emergency room. Reportedly the patient's lactic acid on arrival was elevated. Cardiology was involved on February 25, 2025 for cardiac aspects of care. Patient does come to our office as outpatient. She is found to have positive methamphetamine in urine toxicology (she herself denies any drug abuse). Denies any chest pains. Denies shortness of breath. Her past history questionably includes heart failure Not in acute distress. Lying flat in bed. No JVD. Mucosa is pink and wet. No carotid bruit. Not using accessory muscles of breathing. Lungs are clear to auscultation. Cardiac: Regular, no thrill/gallop. Abdomen is soft. There was no gross mass. Extremities do reveal 1+ edema in the right lower extremity. Dorsalis pedis is 2+ bilateral Past medical history reportedly includes questionable heart failure, CKD, diabetes mellitus, hypertension, old history of diabetic ketoacidosis (repeated times) and history of smoking. There is questionable history of methamphetamine/cocaine/marijuana abuse. History also includes questionable history of mild abnormal nuclear stress test. Echocardiogram of October 30, 2024 had reported ejection fraction of 55%, normal valves and normal right-sided pressures Lactic acid: 7.4 - 4.7 - 2.9 - 8.1 - 1.8 - 3.7 - 3.6 - 3.0 AST/ALT: 1256/382 - 1549/436 - 859/406 - 233/223 CKD: 31 TSH: 1.7 BNP: 267.04 Urine toxicology was positive for amphetamine Chest x-ray revealed: NO ACUTE CARDIOPULMONARY PROCESS. Venous Doppler of right lower extremity revealed: IMPRESSION: NO SONOGRAPHIC EVIDENCE FOR DEEP VENOUS THROMBOSIS IN THE RIGHT LOWER EXTREMITY VEINS. Right femur x-ray revealed: No acute radiographic abnormality of the right femur. Abdomen/pelvic CT scan revealed: Limited evaluation of the solid organs in the absence of IV contrast. Lungs: Basilar atelectasis/scarring. Liver: Unremarkable. Spleen: Unremarkable. Pancreas: Not well assessed. Gallbladder: Unremarkable. Adrenals: Not well assessed. Kidneys: Unremarkable. Pelvic Viscera: A Martinez catheter is noted. Vasculature: Atherosclerotic aortoiliac calcifications. Retroperitoneum: Hazy appearance throughout the mesentery, with poor delineation of the abdominopelvic structures. Bowel: No bowel obstruction. Musculoskeletal: Unremarkable. Soft tissues: Diffuse subcutaneous edema. Impression: 1. Limited evaluation as above. Hepatomegaly. 2. Additional findings as detailed. Liver ultrasound revealed: IMPRESSION: 1. Hepatomegaly. 2. No cholelithiasis or sonographic evidence of acute cholecystitis. CT of the lower extremities revealed: IMPRESSION: 1. No CT evidence of an acute fracture. 2. Diffuse surrounding subcutaneous adipose tissue edematous appearance without drainable fluid collection. 3. Edema most conspicuous of the level of the calf. 4. Imaging finding may be exaggerated secondary to possible cachexia. EKG revealed sinus rhythm with poor R-wave progression Tele reveals sinus rhythm Echocardiogram reported: Left ventricle: Left ventricle was normal size with normal systolic function. LVEF was around 60%. Paradoxical septal motion was seen. Right ventricle was normal size with normal systolic function. Both atria were normal sized. 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 There was no aortic insufficiency/stenosis. There was trace mitral/tricuspid regurgitation. There was no pericardial effusion. Right ventricular systolic pressure was assessed at 34 mm Hg. Pericardium was hyperechoic. Patient is a 49-year-old female who presented with right lower extremity pain. There is question about sepsis. She is found to have positive methamphetamine in the urine. Primary etiology for presentation is not considered cardiac. Lactic acidosis Abnormal LFT Hepatomegaly Substance abuse No gross finding in favor of acute heart failure Sepsis? Cardiac suggestion for management: Managed on telemetry Follow-up electrolytes and kidney function tests and correct abnormalities Evaluation and management of abnormal LFT as per primary team / GI Fluid resuscitation Lifestyle and risk factor modifications Patient was counseled to avoid substance abuse Cardiac-monge, can be followed as outpatient A total of 55 minutes was spent reviewing the patient record, examining the patient, making a diagnostic and therapeutic plan, discussing this plan with medical personnel, following up on diagnostic studies and following the patient for clinical stability excluding any and all procedures. At least 50% of this time was spent in direct, [id number] contact. Thank you for allowing me to participate in this patient's care. Further recommendations will depend on patient's clinical course. Please do not hesitate to contact me if you have any questions or concerns. This medical document was created using electronic medical record system with [employer] computerized dictation system. Although this document has been carefully reviewed, there may still be some phonetic and typographical errors. These areas are purely typographical due to the imperfection of the software programs, and do not reflect any compromise in the patient's medical care. Plan discussed with: Patient, Other (nurse) HUMBERTO RODRIGUEZ MD Feb 26, 2025 07:13
[2025-02-26 07:36] LABS: Hematocrit 33.5 % (36.0-46.0); Hemoglobin 11.3 g/dL (12.2-16.2); Mean Corpuscular Hemoglobin 32.4 pg (28.0-32.0); Mean Corpuscular Volume 96.3 fL (80.0-100.0); Nucleated Red Blood Cells % 0.0 %
[2025-02-26 08:00] VITALS: PULSE 87
[2025-02-26 08:07] LABS: Albumin 3.3 g/dL (3.2-4.8); Anion Gap 8 (5-15); BUN/Creatinine Ratio 23.3 (10.0-20.0); Blood Urea Nitrogen 10 mg/dL (9-23); Carbon Dioxide 29 mmol/L (20-31); Chloride 100 mmol/L (98-107); Glucose 90 mg/dL (74-106); Potassium 4.3 mmol/L (3.5-5.1); Sodium 137 mmol/L (136-145); Total Protein 5.8 g/dL (5.7-8.2)
[2025-02-26 08:08] LABS: Bilirubin, Total 0.5 mg/dL (0.2-1.0)
[2025-02-26 08:09] LABS: Alanine Aminotransferase 185 U/L (7-40); Calcium 8.6 mg/dL (8.7-10.4)
[2025-02-26 08:14] LABS: Alkaline Phosphatase 446 U/L (46-116)
[2025-02-26 08:47] VITALS: BP 122/81; PULSE 91; RESP 20; TEMP 97.9; O2SAT 98
[2025-02-26 09:17] LABS: Lactic Acid w/Reflex 2.3 mmol/L (0.4-2.0)
[2025-02-26 10:07] LABS: Anti-Nuclear Antibody Direct Negative (Negative)
[2025-02-26 12:00] LABS: Lactic Acid w/Reflex 3.1 mmol/L (0.4-2.0)
[2025-02-26] MEDS: SODIUM CHLORIDE 0.9% 500 ML IV ONE (12:03)
[2025-02-26 13:00] VITALS: BP 116/77; PULSE 102; RESP 20; TEMP 98.1; O2SAT 99
--- NOTE | 2025-02-26 14:46 | DVHDSRES ---
Discharge Summary Date of Admission Resident Creating Document: GREG ARAUJO RESIDENT Feb 23, 2025 at 23:09 Date of Discharge: Feb 26, 2025 Labs/Diagnostic Data: Laboratory Results Test 02/26/25 11:08 02/26/25 07:58 02/26/25 06:49 02/25/25 20:40 Lactic Acid Level 3.1 mmol/L (0.4-2.0) POC Glucose 114 mg/dl (70-106) White Blood Count 6.1 10^3/uL (4.4-10.8) Red Blood Count 3.48 10^6/uL (4.0-5.20) Hemoglobin 11.3 g/dL (12.2-16.2) Hematocrit 33.5 % (36.0-46.0) Mean Corpuscular Volume 96.3 fL (80.0-100.0) Mean Corpuscular Hemoglobin 32.4 pg (28.0-32.0) Mean Corpuscular Hemoglobin Concent 33.6 g/dL (32.0-36.0) Red Cell Distribution Width 15.5 % (11.8-14.3) Platelet Count 314 10^3/uL (140-450) Mean Platelet Volume 7.6 fL (6.9-10.8) Neutrophils (%) (Auto) 65.8 % (37.0-80.0) Lymphocytes (%) (Auto) 24.2 % (10.0-50.0) Monocytes (%) (Auto) 7.2 % (0.0-12.0) Eosinophils (%) (Auto) 1.7 % (0.0-7.0) Basophils (%) (Auto) 1.1 % (0.0-2.0) Neutrophils # (Auto) 4.0 10 ^3/uL (1.6-8.6) Lymphocytes # (Auto) 1.5 10 ^3/uL (0.4-5.4) Monocytes # (Auto) 0.4 10 ^3/uL (0-1.3) Eosinophils # (Auto) 0.1 10 ^3/uL (0-0.8) Basophils # (Auto) 0.1 10 ^3/uL (0-0.2) Nucleated Red Blood Cells 0.0 % Sodium Level 137 mmol/L (136-145) Potassium Level 4.3 mmol/L (3.5-5.1) Chloride Level 100 mmol/L (98-107) Carbon Dioxide Level 29 mmol/L (20-31) Anion Gap 8 (5-15) Blood Urea Nitrogen 10 mg/dL (9-23) Creatinine 0.43 mg/dL (0.550-1.02) Glomerular Filtration Rate Calc 119 mL/min (>90) BUN/Creatinine Ratio 23.3 (10.0-20.0) Serum Glucose 90 mg/dL (74-106) Calcium Level 8.6 mg/dL (8.7-10.4) Total Bilirubin 0.5 mg/dL (0.2-1.0) Aspartate Amino Transferase (AST) 151 U/L (13-40) Alanine Aminotransferase (ALT) 185 U/L (7-40) Alkaline Phosphatase 446 U/L (46-116) Total Protein 5.8 g/dL (5.7-8.2) Albumin 3.3 g/dL (3.2-4.8) Vancomycin Level Trough 11.8 ug/mL (5-10) Test 02/25/25 08:10 02/24/25 06:39 02/24/25 03:55 02/24/25 03:18 B-Type Natriuretic Peptide 267.04 pg/mL (0-100) Anti-Nuclear Antibody Screen Negative (Negative) Hemoglobin A1c 11.0 % A1C (<5.7) Random Vancomycin Level 11.6 ug/mL (5-10) Influenza Type A Antigen Negative (Negative) Influenza Type B Antigen Negative (Negative) SARS-CoV-2 Antigen (Rapid) Negative (NEGATIVE) Acetaminophen Level < 2.0 UG/ML (10.0-20.0) Test 02/24/25 00:23 02/23/25 22:00 02/23/25 18:06 Ammonia < 10 umol/L (11-32) Urine Color Light-yellow (Yellow) Urine Clarity Clear (Clear) Urine pH 6.5 (5.0-9.0) Urine Specific Clover 1.027 (1.001-1.035) Urine Protein Negative (Negative) Urine Ketones 1+ (Negative) Urine Blood Negative /uL (Negative) Urine Nitrite Negative (Negative) Urine Bilirubin Negative (Negative) Urine Urobilinogen Normal mg/dL (Negative) Urine Leukocyte Esterase Negative /uL (Negative) Urine RBC None seen /hpf (0 - 4) Urine Microscopic WBC < 1 /HPF (0-5) Urine Squamous Epithelial Cells None seen /hpf (<5) Urine Bacteria None seen /hpf (None Seen) Urine Mucus Few (None Seen) Urine Glucose 4+ mg/dL (Normal) Urine Opiates Screen Neg (NEGATIVE) Urine Fentanyl Screen Neg (NEGATIVE) Urine Barbiturates Screen Neg (NEGATIVE) Urine Phencyclidine Screen Neg (NEGATIVE) Urine Amphetamines Screen Pos (NEGATIVE) Urine Benzodiazepines Screen Neg (NEGATIVE) Urine Cocaine Screen Neg (NEGATIVE) Urine Cannabinoids Screen Neg (NEGATIVE) Differential Total Cells Counted 100.0 (100) Neutrophils % (Manual) 86 (37.0-80.0) Band Neutrophils % (Manual) 3 Lymphocytes % (Manual) 8 (10.0-50.0) Monocytes % (Manual) 3 (0-12) Eosinophils % (Manual) 0 (0-7) Basophils % (Manual) 0 (0.0-2.0) Metamyelocytes % (manual) 0 Myelocytes % (Manual) 0 Promyelocytes % (Manual) 0 Blast Cells % (Manual) 0 Reactive Lymphocytes 0 Platelet Estimate Adequate Prothrombin Time 9.8 sec (9.3-11.8) Prothrombin Time INR 0.92 (0.9-1.15) Activated Partial Thromboplast Time 22.7 SEC (24.5-34.5) Serum Osmolality 286 mOsm/kg (278-298) Creatine Kinase 31 U/L (34-145) Beta-Hydroxybutyric Acid 0.193 mmol/L (< 0.4) Thyroid Stimulating Hormone (TSH) 1.70 uIU/mL (0.55-4.78) Plasma/Serum Blood Alcohol < 3.0 mg/dL (<10) Hepatitis A IgM Antibody Negative Hepatitis B Surface Antigen Negative (Negative) Hepatitis B Core IgM Antibody Negative (Negative) Hepatitis C Antibody Negative (Negative) Other Laboratory Tests 02/26/25 06:49 Brief Hx & Hospital Course: 49-year-old female with past medical history of CHF, CKD, DM, HTN, presents to [facility] ED with acute onset right leg pain that began on 02/23/25 around 11:00 AM. Pain is localized to the medial aspect of the right thigh. She reports that two days ago she noticed red spots developing on her right leg. Patient was a poor historian, tearful, and visibly distressed due to pain. She denied any history of trauma, fall, injury, recent travel, insect bites, poison dionne exposure, or sick contacts. On evaluation in the ED, patient was febrile and tachycardic. Initial labs showed significant lactic acid 7.4, Serum glucose 381, AST 1549, ALT 436 and ALP 458. Femur X-ray showed No acute radiographic abnormality of the right femur. The patient was started on IV antibiotics and IV fluids. CT of the leg showed mild edema. Lactic acid levels were elevated. Blood and urine cultures came back negative. During the course of the hospital stay patient was clinically better and hence being discharged. Condition at Discharge: Fair Final Diagnosis/Problems List Severe Sepsis, source unidentified Lower limb cellulitis ruled out Type 2 diabetes mellitus Recreational drug use Elevated bnp, Ruled out congestive heart failure History of congestive heart failure Essential hypertension Hepatomegaly, possibly due to MUNOZ Possible drug induced transaminitis Ruled out hepatitis Ruled out malignancy Right Thigh pain possibly due to myositis Discharge Disposition: Home Discharge Instruct/Medications Diet: Consistent carbohydrate Activity: No Restrictions, As Tolerated Follow Up/Referral: Follow-up with PCP in 7 days Scheduled Amlodipine Besylate (Amlodipine Besylate), 1 TAB PO DAILY, (Reported) Aspirin (Aspirin Low Dose), 1 TAB PO DAILY, (Reported) Ergocalciferol (Vitamin D), 1 CAP PO QWEEKLY, (Reported) Furosemide (Furosemide), 10 MG PO DAILY, (Reported) Insulin Glargine (Basaglar Kwikpen), UNITS SC UD, (Reported) Insulin Lispro (Insulin Lispro Kwikpen), UNITS SC UD, (Reported) Lisinopril (Lisinopril), 1 TAB PO DAILY, (Reported) Loratadine (Claritin Tablet), 1 TAB PO DAILY, (Reported) Pantoprazole Sodium Sesquihydr (Pantoprazole Sodium), 1 TAB PO BID, (Reported) Discharge Statement: "Patient was advised to return to the ER or call 911 if any headaches, dizziness, shortness of breath, chest pain, abdominal pain, bleeding, fevers, or worsening of medical condition. Patient was counseled about treatment plan, medications, possible side effects, patientverbalized understanding. All questions were answered to the best of my ability. This discharge took greater then 30 minutes in planning, reviewing documentation, counseling the patient, and discussing with other team members." ASSESSMENT ASSESSMENT Assessment Sepsis Type 2 diabetes mellitus Date of Service: Feb 26, 2025 Billing Provider: OSWALDO RICHARDSON MD Common Visit Codes: 41377-FCW/OBS DISCH DAY >30min GREG ARAUJO RESIDENT Feb 26, 2025 14:46 OSWALDO RICHARDSON MD Mar 05, 2025 21:32
--- NOTE | 2025-02-26 15:25 | DVHPN2 ---
Progress Note Date Seen: Feb 26, 2025 Resident Creating Document: JHVeronikaJQuitaDESIREE RESIDENT Medical Necessity Reason Pt with a Central, PICC or Fol: No Subjective Review of Systems patient denied any nausea/vomiting/abd pain tolerating diet well without any pain denies any other acute complaints Objective vital signs Vital Sign Date Time Temp Pulse Resp B/P (MAP) Pulse Ox O2 Delivery O2 Flow Rate FiO2 02/26/25 13:00 98.1 102 20 116/77 (90) 99 98.1 02/26/25 08:00 Room Air* 0 21 Total Intake and Output 02/25/25 02/25/25 02/26/25 15:00 23:00 07:00 Intake Total 630 ml 1250 ml 1184 ml Output Total 1500 ml 1450 ml Balance 630 ml -250 ml -266 ml medications Current Medications Medications Dose Ordered Sig/Dave Route Start Time Stop Time Status Last Admin Dose Admin Cefepime HCl 50 ml @ 12.5 mls/hr Q8HR IV 02/24/25 06:00 02/26/25 05:31 12.5 MLS/HR Sodium Chloride 10 ml Q8HR IV 02/24/25 06:00 02/26/25 05:31 10 ML Ondansetron HCl 4 mg Q4HP PRN IV 02/23/25 23:15 Enoxaparin Sodium 40 mg DAILY SC 02/24/25 10:00 02/26/25 09:48 40 MG Vancomycin HCl 0 ml @ 0 mls/hr UD IV 02/23/25 23:15 Diagnostic Test (Pha) 1 strip IQ4HR 02/24/25 00:00 02/26/25 12:09 1 STRIP Insulin Human Regular IQ4HR SC 02/24/25 00:00 02/26/25 12:09 2 UNITS Dextrose 50 ml UD PRN IV 02/23/25 23:15 Vancomycin HCl 100 ml @ 100 mls/hr Q8H IV 02/24/25 20:00 02/26/25 13:16 100 MLS/HR Pantoprazole Sodium 40 mg DAILY IV 02/25/25 10:00 02/26/25 09:48 40 MG Insulin Glargine 7 units HS SC 02/24/25 19:00 02/25/25 22:00 7 UNITS Examination Gen - no pallor, no scleral icterus Skin - Patients skin is warm and dry. HEENT - normocephalic, atraumatic, dry mucous membranes. Neck - supple, no lymphadenopathy Pulmonary - B/L equal air entry with vesicular breath sounds cardiovascular - regular S1,S2 heard GI - soft nontender abdomen. Bowel sounds normoactive. Neurological - Patient is alert and oriented x4. No motor or sensory weakness laboratory and microbiology Laboratory Tests 02/26/25 06:49 Test 02/26/25 06:49 Range/Units Serum Glucose 90 74-106 mg/dL Microbiology Date/Time Source Procedure Growth Status 02/23/25 22:00 Voided Urine Urine Culture - Final Complete 02/23/25 18:06 Blood Blood Culture - Preliminary NO GROWTH AFTER 48 HOURS OF INCUBATION. Resulted Problem List/Assessment/Plan Problem List/Assessment/Plan Transaminitis likely from ongoing sepsis Sepsis ?Alcoholic liver disease ?Drug-induced transaminitis History of congestive heart failure Hepatomegaly seen on CT and liver ultrasound Uncontrolled type 2 diabetes mellitus with hyperglycemia Plan - LFTs trending down - continue monitoring liver function - hepatitis panel negative - Protonix for PUD prophylaxis - advised to avoid alcohol, drug use Plan discussed with Dr. Carrillo Plan discussed with: Patient, Other (RYAN Roger) DESIREE RIVERA RESIDENT Feb 26, 2025 15:25
== END 2025-02-26 17:00 | disposition home or self-care (01) | DRG 720 ==
LOC: ER 17:15 → EDBD 17:15 → EDUNIT# 23:09 → OVERFLOW 23:09 → TELE-WESTW 02-24 19:00
PROVIDERS: ADMIT Internal Medicine Geriatric Medicine; ATTEND Internal Medicine Geriatric Medicine
DX: A41.9 Sepsis, unspecified organism (principal); K72.90 Hepatic failure, unspecified without coma; I50.9 Heart failure, unspecified; I13.0 Hypertensive heart and chronic kidney disease with heart failure and stage 1 through stage 4 chronic kidney disease, or unspecified chronic kidney disease; R16.0 Hepatomegaly, not elsewhere classified; E11.22 Type 2 diabetes mellitus with diabetic chronic kidney disease; E11.65 Type 2 diabetes mellitus with hyperglycemia; E86.0 Dehydration; F15.10 Other stimulant abuse, uncomplicated; R74.01 Elevation of levels of liver transaminase levels; N18.9 Chronic kidney disease, unspecified; Z87.891 Personal history of nicotine dependence; Z79.899 Other long term (current) drug therapy; Z79.4 Long term (current) use of insulin; Z79.82 Long term (current) use of aspirin; Z85.118 Personal history of other malignant neoplasm of bronchus and lung
CPT/HCPCS: 36415; 71045; 73700; 74176; 76705; 80053; 80074; 80202; 80307; 80320; 80329; 81001; 82010; 82140; 82550; 82962; 83036; 83605; 83880; 83930; 84443; 85007; 85025; 85027; 85610; 85730; 86038; 87040; 87086; 87426; 87804; 93005; 93306; 93971; 96361; 96365; 97110; 97116; 97163; 97530; 99291; 99292; G0378; J1815; J2470

== ENCOUNTER 2025-03-13 23:57 | Inpatient (IN) | payer MEDICAID ==
[~2025-03-13] VITALS: Ht 157.5 cm; Wt 45.4 kg
[~2025-03-13 23:57] MED LIST changes: -GLIP5TAB21 PO; -INSLANTI SC; -METF-370 PO; -METF-372 PO; -METR500T PO
[2025-03-14] VITALS (61 sets, daily range): BP systolic 103–150; BP diastolic 68–95; PULSE 79–115; RESP 9–17; TEMP 98.6–98.9; O2SAT 96–100
[2025-03-14] MEDS ORDERED: DEXTROSE (50%) 50ML SYRG IV PRN ×2 (00:30→15:30)
--- NOTE | 2025-03-14 00:33 | ED.PDOC ---
History of present illness HPI Comments HPI: 49-year-old female who came to the ER via EMS for altered level of consciousness/hyperglycemia. Patient has history of diabetes but has poor compliance to her medications. Was noted by family members the patient has been acting altered confused and disoriented. Blood sugar read hi twice Patient discharged here last February 26, 2025, diagnosed with Severe Sepsis, source unidentified Lower limb cellulitis ruled out Type 2 diabetes mellitus Recreational drug use Elevated bnp, Ruled out congestive heart failure History of congestive heart failure Essential hypertension Hepatomegaly, possibly due to MUNOZ Possible drug induced transaminitis Ruled out hepatitis Ruled out malignancy Right Thigh pain possibly due to myositis Past Medical History: Surgical History: Family History: Personal and Social History: HPI: Poor Historian. Multiple visits to the hospital for DKA with medication noncompliance and uncontrolled diabetes. Uncontrolled hypertension. REVIEW OF SYSTEMS: Review of system is limited given the patient's altered level of consciousness CONSTITUTIONAL: Denies acute: fever, diaphoresis, chills, HEAD: Denies acute: headache, photophobia Eyes: Denies acute: Double vision, vision loss, eye pain, eye discharge. EARS: Denies acute: tinnitus, hearing loss, ear discharge, ear pain, THROAT: Denies acute: sore throat, swelling, difficulty swallowing , pain with swallowing, change in voice. NECK: Denies acute: neck pain, neck swelling, stiff neck. HEART: Denies acute : chest pain, palpitations, LUNGS: Denies acute: SOB, wheezing, cough, hemoptysis ABDOMEN: Denies acute: abdominal pain, Nausea, Vomiting, diarrhea, melena , hematemesis, hematochezia SKIN: Denies acute: rash, redness, lesions, itchiness. EXTREMITIES: Denies acute: calf pain, numbness, tingling, weakness, denies pain in extremity. Denies acute: Low back pain. Neuro: Denies acute: focal neurological deficit, motor or sensory focal neurological deficit, tremors, seizure like activity, confusion, dizziness, change in mental status, loss of bowel or bladder function, cauda equina like symptoms. : Denies acute: dysuria, hematuria, flank pain, increase in urinary frequency. PSYCH: Denies acute: hallucination, suicidal ideation, homicidal ideation. FEMALE: Denies acute: abnormal vaginal bleeding, foul odor, unusual discharge. PHYSICAL EXAM: General: -----mod---acute distress, awake and alert. Appears very weak Head: normocephalic, atraumatic. No raccoon's eyes, no carter sign. Neck: supple, trachea is midline, no swelling. Throat: Normal phonation. Dry oral mucosa Eyes:, no erythema, no purulent discharge, no proptosis, no icterus. Heart: regular tachycardia, no significant murmur appreciated. Lungs: no apparent respiratory distress, No wheezing, no rhonchi, no crackles. No stridors Clear to auscultation bilaterally. Abdomen: non tender to palpation, non distended, soft, no guarding, no rebound, + bowel sounds. Neuro: Awake, Alert, oriented to name, self, situation, follows commands GCS=15. Speech is normal. Skin: no petechia, no purpura, no cyanosis, non-pale, not jaundice. Lower extremities: --2/4 b/l - Pitting edema no deformity, no focal swelling, no calf TTP. Makes eye contact. moves all four extremities. Face: no apparent facial droop. ED COURSE: DISCLAIMER: This medical document was created using an electronic medical record system with voice recognition software and computerized dictation system. Although this document has been carefully reviewed, there might still be some phonetic and typographical errors. Occasional wrong-word or "sound-alike" substitutions may have occurred due to the inherent limitations of voice recognition software. These areas are purely typographical due to imperfections of the software pr ograms and do not reflect any compromise in the patient's medical care. Please read the chart carefully and recognize, using context, where these substitutions have occurred. Chief Complaint: Hyperglycemia Time Seen by MD: 00:38 Primary Care Provider: unknown History of present illness: Nurses Notes, Allergies Allergies: Coded Allergies: NO KNOWN ALLERGIES (Unverified , 06/06/19) Home Meds Reported Medications Furosemide (Furosemide) 20 Mg Tab, 10 MG PO DAILY for 60 Days, #30 02/24/25 Insulin Lispro (Insulin Lispro Kwikpen) 100 Unit/Ml Inj, UNITS SC UD for 20 Days, #6 02/24/25 Insulin Glargine (Basaglar Kwikpen) 100 Unit/Ml Inj, UNITS SC UD for 19 Days, #18 02/24/25 Ergocalciferol (Vitamin D) 50,000 Unit Cap, 1 CAP PO QWEEKLY for 28 Days, #4 02/24/25 Aspirin (Aspirin Low Dose) 81 Mg Tab, 1 TAB PO DAILY for 30 Days, #30 02/24/25 Loratadine (CLARITIN TABLET) 10 Mg Tb, 1 TAB PO DAILY for 30 Days, #30 02/24/25 Lisinopril (Lisinopril) 10 Mg Tab, 1 TAB PO DAILY for 30 Days, #30 02/24/25 Amlodipine Besylate (Amlodipine Besylate) 5 Mg Tab, 1 TAB PO DAILY for 30 Days, #30 02/24/25 Pantoprazole Sodium Sesquihydr (Pantoprazole Sodium) 40 Mg Tab, 1 TAB PO BID for 30 Days, #60 02/24/25 Information Source: Patient, Emergency Med Personnel Mode of Arrival: EMS Past Medical History PAST MEDICAL HISTORY: CHF, CKF, DM, HTN Surgical History: Denies all surgeries INSURANCE BROKER History: No Pertinent INSURANCE BROKER History Family History Family History: Reviewed,noncontributory to illness, No family hx of Cancer, No family hx of DM, No family hx of Heart richard, No family hx of HTN, No family hx o fKidney richard, No family hx of Liver richard, No family hx of Lung richard, No family hx of Stroke Social History Smoker: Non-Smoker Alcohol: Denies ETOH Use Drugs: Denies Drug Use Lives In: Home X-Ray, Labs, Meds, VS Vital Signs Date Time Temp Pulse Resp B/P (MAP) Pulse Ox O2 Delivery O2 Flow Rate FiO2 03/14/25 00:12 96.9 113 25 151/88 97 96.9 Lab Test 03/14/25 00:55 03/14/25 00:54 03/14/25 00:43 03/14/25 00:10 Range/Units POC Glucose > 600 *H > 600 *H 70-106 mg/dl Blood Gas Specimen Type Arterial Blood Gas Sample Site Right radial Blood Gas Patient Temperature 37.0 Arterial Blood Date Drawn [id number] Arterial Blood pH 6.998 *L 7.350-7.450 Arterial Blood Partial Pressure CO2 14.3 *L 32.0-45.0 mmHg Arterial Blood Partial Pressure O2 129.6 H 83.0-108.0 mmHg Arterial Blood HCO3 3.4 L 21.0-28.0 mmol/L Arterial Blood Oxygen Saturation 97.1 94.0-98.0 % Arterial Blood Base Excess -26.1 L -2.0-3.0 mmol/L Arterial Blood Oxyhemoglobin 96.1 94.0-98.0 % Arterial Blood Carboxyhemoglobin 0.9 0.5-1.5 % Arterial Blood Methemoglobin 0.1 0.0-1.5 % Aiden Test Yes Blood Gas Total Hemoglobin 12.70 12.0-16.0 g/dL Blood Gas Modality Room air Blood Gas Spontaneous Rate 28 FiO2 % 21.0 Specimen Drawn By Kendell vaz Blood Gas Critical Value Read Back Yes Blood Gas Notified Whom ilene Barlow md Blood Gas Notified Time [id number] Blood Gas Notified By Kendell vaz White Blood Count 9.1 4.4-10.8 10^3/uL Red Blood Count 3.92 L 4.0-5.20 10^6/uL Hemoglobin 13.0 12.2-16.2 g/dL Hematocrit 43.2 36.0-46.0 % Mean Corpuscular Volume 110.4 H 80.0-100.0 fL Mean Corpuscular Hemoglobin 33.2 H 28.0-32.0 pg Mean Corpuscular Hemoglobin Concent 30.1 L 32.0-36.0 g/dL Red Cell Distribution Width 15.8 H 11.8-14.3 % Platelet Count 575 H 140-450 10^3/uL Mean Platelet Volume 7.8 6.9-10.8 fL Neutrophils (%) (Auto) 84.2 H 37.0-80.0 % Lymphocytes (%) (Auto) 11.2 10.0-50.0 % Monocytes (%) (Auto) 3.5 0.0-12.0 % Eosinophils (%) (Auto) 0.0 0.0-7.0 % Basophils (%) (Auto) 1.1 0.0-2.0 % Neutrophils # (Auto) 7.6 1.6-8.6 10 ^3/uL Lymphocytes # (Auto) 1.0 0.4-5.4 10 ^3/uL Monocytes # (Auto) 0.3 0-1.3 10 ^3/uL Eosinophils # (Auto) 0 0-0.8 10 ^3/uL Basophils # (Auto) 0.1 0-0.2 10 ^3/uL Nucleated Red Blood Cells 0.1 % Sodium Level 130 L 136-145 mmol/L Potassium Level 5.3 H 3.5-5.1 mmol/L Chloride Level 93 L 98-107 mmol/L Carbon Dioxide Level < 10 *L 20-31 mmol/L Anion Gap 27.86931 H 5-15 Blood Urea Nitrogen 28 H 9-23 mg/dL Creatinine 1.15 H 0.550-1.02 mg/dL Glomerular Filtration Rate Calc 58 >90 mL/min BUN/Creatinine Ratio 24.3 H 10.0-20.0 Serum Glucose 731 *H 74-106 mg/dL Serum Osmolality Pending Calcium Level 9.0 8.7-10.4 mg/dL Phosphorus Level 6.5 H 2.4-5.1 mg/dL Magnesium Level 2.4 1.6-2.6 mg/dL Beta-Hydroxybutyric Acid > 4.500 H < 0.4 mmol/L Time of 1ST Reevaluation: 02:10 (Still waiting for IV access) Patient Education/Counseling: Other Family Education/Counseling: Other SEPSIS Sepsis Screen Date sepsis recognized/suspect: Mar 14, 2025 Time Sepsis recognized/suspect: 0016 Recent Procedure: No On Antibiotic Therapy: No Respiratory Rate >20: Yes Heart Rate >90: Yes Temp<36 C (96.8 F) or >38.3 C: No SBP <90 or MAP <65 mmHG: No New Acute Mental Status Change: No Is the patient on CPAP, BIPAP,: No Physician Orders Insulin Drip Protocol (03/14/25 ) Sodium Chloride 0.9% (03/14/25 00:30) Sodium Chloride 0.9% (03/14/25 04:30) Sodium Chloride 0.9% (03/14/25 06:30) Insulin Drip 100 Unit/100ml (Myxredlin 1 (03/14/25 00:30) Dextrose 50% Syringe (03/14/25 00:30) Glucose Blood (Accu-Chek Comfort Curve T (03/14/25 01:30) Osmolality, Serum (03/14/25 00:30) Abg W/ Co-Ox (03/14/25 00:30) Urinalysis (03/14/25 00:30) Neurological Assessment (03/14/25 00:30) Vs/Hemodynamics .PER UNIT PROTOCOL (03/14/25 00:30) Sodium Bicarb 50meq/50ml Vial (03/14/25 00:30) Vital Signs Date Time Temp Pulse Resp B/P (MAP) Pulse Ox O2 Delivery O2 Flow Rate FiO2 03/14/25 00:12 96.9 113 25 151/88 97 96.9 Laboratory Tests Test 03/14/25 00:10 White Blood Count 9.1 10^3/uL (4.4-10.8) Departure 1 Departure Time of Disposition: 01:00 Impression: Primary Impression: DKA (diabetic ketoacidosis) Disposition: ADMITTED INPATIENT Admit to: ICU Condition: Critical Discharged With: Self I personally scribed for SYEDA BARLOW DO ([email or web address]) on 03/14/25 at 00:33. Electronically submitted by Yvan Mondragon ([facility]). I personally scribed for SYEDA BARLOW DO ([email or web address]) on 03/14/25 at 00:35. [facility] I personally scribed for SYEDA BARLOW DO ([email or web address]) on 03/14/25 at 00:38. Electronically submitted by [facility] Mondragon ([facility] SYEDA BARLOW DO Mar 14, 2025 00:33
[2025-03-14 00:55] LABS: Hemoglobin 13.0 g/dL (12.2-16.2)
[2025-03-14 00:57] LABS: Hematocrit 43.2 % (36.0-46.0); Mean Corpuscular Hemoglobin 33.2 pg (28.0-32.0); Mean Corpuscular Volume 110.4 fL (80.0-100.0); Nucleated Red Blood Cells % 0.1 %
[2025-03-14 00:58] LABS: Base Excess -26.1 mmol/L (-2.0-3.0)
[2025-03-14 01:06] LABS: Anion Gap 27.00001 (5-15); Calcium 9.0 mg/dL (8.7-10.4)
[2025-03-14 01:10] LABS: Chloride 93 mmol/L (98-107); Potassium 5.3 mmol/L (3.5-5.1); Sodium 130 mmol/L (136-145)
[2025-03-14 01:11] LABS: BUN/Creatinine Ratio 24.3 (10.0-20.0)
[2025-03-14 01:12] LABS: Magnesium 2.4 mg/dL (1.6-2.6)
[2025-03-14 01:14] LABS: Blood Urea Nitrogen 28 mg/dL (9-23)
[2025-03-14 01:24] LABS: Carbon Dioxide < 10 mmol/L (20-31); Glucose 731 mg/dL (74-106)
[2025-03-14] MEDS: SODIUM CHLORIDE 0.9% 1,000 ML IV SCH ×4 (02:25→17:59)
[2025-03-14] MEDS: SODIUM BICARB 8.4% 50Meq/50ml SYR Vial IV ONE (02:25)
[2025-03-14] MEDS ORDERED: HYDROcodone-ACET 5/325MG TAB PO PRN (02:30)
[2025-03-14] MEDS ORDERED: ACETAMINOPHEN 325 MG TAB PO PRN (02:30)
[2025-03-14] MEDS ORDERED: MORPHINE SULFATE INJ 2 MG/ml SYRG IV PRN (02:30)
[2025-03-14] MEDS ORDERED: DOCUSATE SOD 100 MG CAP PO PRN (02:30)
[2025-03-14] MEDS ORDERED: ONDANSETRON HCL 4 MG/2 ML VIAL IV PRN (02:30)
[2025-03-14] MEDS ORDERED: NITROGLYCERIN 0.4 MG SL TAB SL PRN (02:30)
--- NOTE | 2025-03-14 02:30 | DVHHP2 ---
History of Present Illness Reason for Visit: Diabetes mellitus with ketoacidosis History of Present Illness The patient is a 49-year-old female with past medical history of CHF, hypertension, CK F, and diabetes mellitus who presented to [facility] ED for evaluation of altered level of consciousness. Patient was noted by family member acting altered, confused and disoriented, blood sugar reads high twice, unable to detect by glucometer. Patient discharged here last February 26, 2025, diagnosed with, severe Sepsis, source unidentified, lower limb cellulitis ruled out, and type 2 diabetes mellitus. Patient was seen and evaluated in the ED, laboratory data shows WBC 9.1, platelets 575, sodium 130, potassium 5.3, BUN 28, creatinine 1.15, glucose 731, anion gap 27, calcium 9.0, acetone > 4.500, blood pressure 143/82, heart rate 112, temperature 96.9 F, O2 saturation 97% on room air. Patient was started on insulin drip, please see medication orders section in the computer. On my assessment, patient remains altered, no diaphoresis, shortness of breaths, no diarrhea, nausea, vomiting, fever, no chills. Patient was admitted for further evaluation and medical management. Past Medical History CHF, CKF, DM, HTN Past Surgical History Denies all surgeries Family History Reviewed, noncontributory to the management of this case. Past Social History The patient lives at home, denies smoking, alcohol or illicit drugs abuse. Review of Systems Constitutional: Yes: Weakness; No: Fever, Chills, Sweats, Malaise, Other Eyes: No: Pain, Vision change, Conjunctivae inflammation, Eyelid inflammation, Other, Redness ENT: No: Ear pain, Ear discharge, Nose pain, Nose discharge, Nose congestion, Mouth pain, Mouth swelling, Throat pain, Throat swelling, Other Respiratory: No: Cough, Dry, Shortness of breath, SOB with excertion, Wheezing, Hemoptysis, Pleuritic Pain, Sputum, Wheezing, Other Cardiovascular: No: Chest Pain, Palpitations, Orthopnea, Paroxysmal Noc. Dyspnea, Edema, Lt Headedness, Other Gastrointestinal: No: Nausea, Vomiting, Abdominal Pain, Diarrhea, Constipation, Melena, Hematochezia, Other Genitourinary: No Dysuria, No Frequency, No Incontinence, No Hematuria, No Retention, No Other Musculoskeletal: No: other, neck pain, shoulder pain, arm pain, back pain, hand pain, leg pain, foot pain Skin: No: Rash, Lesions, Jaundice, Bruising, Other Neurological: Confusion, Other (Altered level of consciousness); No: Weakness, Numbness, Incoordination, Change in speech, Seizures Allergies: Coded Allergies: NO KNOWN ALLERGIES (Unverified , 06/06/19) Medications Current Medications Medications Dose Ordered Sig/Dave Route Start Time Stop Time Status Last Admin Dose Admin Sodium Chloride 1,000 ml @ 500 mls/hr Q2H IV 03/14/25 00:30 03/14/25 04:29 03/14/25 02:25 500 MLS/HR Sodium Chloride 1,000 ml @ 250 mls/hr Q4H IV 03/14/25 04:30 03/14/25 06:29 Sodium Chloride 1,000 ml @ 150 mls/hr Q6H40M IV 03/14/25 06:30 Insulin Human (Reg)/Sodium Chloride 100 ml @ 0.5 mls/hr Q24H IV 03/14/25 00:30 Dextrose 50 ml UD PRN IV 03/14/25 00:30 Diagnostic Test (Pha) 1 strip Q90MIN 03/14/25 01:30 Exam Vital Signs Vital Signs Date Time Temp Pulse Resp B/P (MAP) Pulse Ox O2 Delivery O2 Flow Rate FiO2 03/14/25 00:12 96.9 113 25 151/88 97 96.9 General Appearance: Alert, Cooperative, No acute distress, Other (Oriented x2) HEENT: Atraumatic, PERRLA, EOMI, Mucous membr. moist/pink Respiratory: Normal air movement Cardiovascular: Regular rate, Normal S1, Normal S2, No murmurs Abdominal: Normal bowel sounds, Soft, No tenderness, No hepatospenomegaly, No masses Extremities: No clubbing, No cyanosis, No edema, Normal pulses, No tenderness/swelling Skin: No rashes, No significant lesion Neuro: Normal speech, Normal tone, Sensation intact, Cranial nerves 3-12 NL, Reflexes 2+, Other (Generalized weakness) Psych/Mental Status: Mood NL, Other (Altered mental status) Labs/Xrays Labs Test 03/14/25 00:55 03/14/25 00:43 03/14/25 00:10 Range/Units POC Glucose > 600 *H 70-106 mg/dl Blood Gas Specimen Type Arterial Blood Gas Sample Site Right radial Blood Gas Patient Temperature 37.0 Arterial Blood Date Drawn [id number] Arterial Blood pH 6.998 *L 7.350-7.450 Arterial Blood Partial Pressure CO2 14.3 *L 32.0-45.0 mmHg Arterial Blood Partial Pressure O2 129.6 H 83.0-108.0 mmHg Arterial Blood HCO3 3.4 L 21.0-28.0 mmol/L Arterial Blood Oxygen Saturation 97.1 94.0-98.0 % Arterial Blood Base Excess -26.1 L -2.0-3.0 mmol/L Arterial Blood Oxyhemoglobin 96.1 94.0-98.0 % Arterial Blood Carboxyhemoglobin 0.9 0.5-1.5 % Arterial Blood Methemoglobin 0.1 0.0-1.5 % Aiden Test Yes Blood Gas Total Hemoglobin 12.70 12.0-16.0 g/dL Blood Gas Modality Room air Blood Gas Spontaneous Rate 28 FiO2 % 21.0 Specimen Drawn By Kendell vaz Blood Gas Critical Value Read Back Yes Blood Gas Notified Whom ilene Nj md Blood Gas Notified Time [id number] Blood Gas Notified By Kendell arciniega rt White Blood Count 9.1 4.4-10.8 10^3/uL Red Blood Count 3.92 L 4.0-5.20 10^6/uL Hemoglobin 13.0 12.2-16.2 g/dL Hematocrit 43.2 36.0-46.0 % Mean Corpuscular Volume 110.4 H 80.0-100.0 fL Mean Corpuscular Hemoglobin 33.2 H 28.0-32.0 pg Mean Corpuscular Hemoglobin Concent 30.1 L 32.0-36.0 g/dL Red Cell Distribution Width 15.8 H 11.8-14.3 % Platelet Count 575 H 140-450 10^3/uL Mean Platelet Volume 7.8 6.9-10.8 fL Neutrophils (%) (Auto) 84.2 H 37.0-80.0 % Lymphocytes (%) (Auto) 11.2 10.0-50.0 % Monocytes (%) (Auto) 3.5 0.0-12.0 % Eosinophils (%) (Auto) 0.0 0.0-7.0 % Basophils (%) (Auto) 1.1 0.0-2.0 % Neutrophils # (Auto) 7.6 1.6-8.6 10 ^3/uL Lymphocytes # (Auto) 1.0 0.4-5.4 10 ^3/uL Monocytes # (Auto) 0.3 0-1.3 10 ^3/uL Eosinophils # (Auto) 0 0-0.8 10 ^3/uL Basophils # (Auto) 0.1 0-0.2 10 ^3/uL Nucleated Red Blood Cells 0.1 % Sodium Level 130 L 136-145 mmol/L Potassium Level 5.3 H 3.5-5.1 mmol/L Chloride Level 93 L 98-107 mmol/L Carbon Dioxide Level < 10 *L 20-31 mmol/L Anion Gap 27.90213 H 5-15 Blood Urea Nitrogen 28 H 9-23 mg/dL Creatinine 1.15 H 0.550-1.02 mg/dL Glomerular Filtration Rate Calc 58 >90 mL/min BUN/Creatinine Ratio 24.3 H 10.0-20.0 Serum Glucose 731 *H 74-106 mg/dL Calcium Level 9.0 8.7-10.4 mg/dL Phosphorus Level 6.5 H 2.4-5.1 mg/dL Magnesium Level 2.4 1.6-2.6 mg/dL Beta-Hydroxybutyric Acid > 4.500 H < 0.4 mmol/L SEPSIS Sepsis Screen Date sepsis recognized/suspect: Mar 14, 2025 Time Sepsis recognized/suspect: 0016 Recent Procedure: No On Antibiotic Therapy: No Respiratory Rate >20: Yes Heart Rate >90: Yes Temp<36 C (96.8 F) or >38.3 C: No SBP <90 or MAP <65 mmHG: No New Acute Mental Status Change: No Is the patient on CPAP, BIPAP,: No Physician Orders Insulin Drip Protocol (03/14/25 ) Sodium Chloride 0.9% (03/14/25 00:30) Sodium Chloride 0.9% (03/14/25 04:30) Sodium Chloride 0.9% (03/14/25 06:30) Insulin Drip 100 Unit/100ml (Myxredlin 1 (03/14/25 00:30) Dextrose 50% Syringe (03/14/25 00:30) Glucose Blood (Accu-Chek Comfort Curve T (03/14/25 01:30) Osmolality, Serum (03/14/25 00:30) Abg W/ Co-Ox (03/14/25 00:30) Urinalysis (03/14/25 00:30) Neurological Assessment (03/14/25 00:30) Vs/Hemodynamics .PER UNIT PROTOCOL (03/14/25 00:30) Sodium Bicarb 50meq/50ml Vial (03/14/25 00:30) Complete Blood Count (03/14/25 04:00) Comprehensive Metabolic Panel (03/14/25 04:00) Consistent Carb([facility])Diabetes (03/14/25 Breakfast) Admit (03/14/25 02:22) Allergies (03/14/25 02:22) Code Status (03/14/25 02:22) Oxygen Per Hour (03/14/25 02:22) Hydrocodone-Acet 5/325mg Tab (Pinon 5/32 (03/14/25 02:30) Ondansetron Hcl (Zofran) (03/14/25 02:30) Docusate Sodium Capsule (Colace Capsule) (03/14/25 02:30) Enoxaparin Sodium (Lovenox) (03/14/25 10:00) Fall Risk Precautions In Place QSHIFT (03/14/25 02:22) Complete Blood Count (03/15/25 04:00) Comprehensive Metabolic Panel (03/15/25 04:00) Condition: Critical (03/14/25 02:22) Acetaminophen Tablet (Tylenol Tablet) (03/14/25 02:30) Maintain Bed Rest (03/14/25 02:22) Sequential Compression Device (03/14/25 ) Nitroglycerin Sublingual (Ntrostat Subli (03/14/25 02:30) Morphine Sulfate Injection (03/14/25 02:30) Stat Ekg For Chest Pain (03/14/25 02:22) Notify Md Of Changes From Base (03/14/25 02:22) Community Recreation Programmer For 24 Hours (03/14/25 02:22) Emergency Dysrhythmia Protocol (03/14/25 02:22) Rhythm Strips Once Every Shift (03/14/25 02:22) Oxygen By Nasal Cannula (03/14/25 02:22) Vital Signs Date Time Temp Pulse Resp B/P (MAP) Pulse Ox O2 Delivery O2 Flow Rate FiO2 03/14/25 00:12 96.9 113 25 151/88 97 96.9 Laboratory Tests Test 03/14/25 00:10 White Blood Count 9.1 10^3/uL (4.4-10.8) Medications Medications Dose Ordered Sig/Dave Route Start Time Stop Time Status Last Admin Dose Admin Sodium Bicarbonate 150 ml ONCE ONCE IV 03/14/25 00:30 03/14/25 00:33 DC 03/14/25 02:25 150 ML Sodium Chloride 1,000 ml @ 500 mls/hr Q2H IV 03/14/25 00:30 03/14/25 04:29 03/14/25 02:25 500 MLS/HR Assessment/Plan Assessment/Plan Diabetes mellitus with ketoacidosis Electrolyte imbalance Thrombocytosis Altered level of consciousness Generalized weakness Plan 1. Admit to intensive care unit 2. Breathing treatment 3. Pain control management 4. Management of fluids and electrolytes 5. Consultation for hospitalist 6. Diagnostic tests chest x-ray 7. DVT prophylaxis on Lovenox 8. Repeat labs CBC, CMP in a.m. 9. Continue with current medical management 10. Treatment plan discussed with patient and RN. Patient verbalized understanding. Plan discussed with: Patient, Other (RN) My Orders Orders - YONAS POE DNP Procedure Category Date Status Time Complete Blood Count LAB 03/14/25 Verified 04:00 Comprehensive LAB 03/14/25 Verified Metabolic Panel 04:00 Consistent DIET 03/14/25 Verified Carb(Ccho)Diabetes Breakfast Admit ADMIT 03/14/25 Verified 02:22 Allergies NICHOLAS 03/14/25 Verified 02:22 Code Status CODE 03/14/25 Verified 02:22 Oxygen Per Hour RT 03/14/25 Verified 02:22 Hydrocodone-Acet PHA 03/14/25 Verified 5/325mg Tab (Pinon 02:30 Ondansetron Hcl PHA 03/14/25 Verified (Zofran) 02:30 Docusate Sodium PHA 03/14/25 Verified Capsule (Colace 02:30 Enoxaparin Sodium PHA 03/14/25 Verified (Lovenox) 10:00 Fall Risk Precautions NICHOLAS 03/14/[address] 02:22 Complete Blood Count LAB 03/15/25 Verified 04:00 Comprehensive LAB 03/15/25 Verified Metabolic Panel 04:00 Condition: Critical [facility] 03/14/25 Verified 02:22 Acetaminophen Tablet [facility] 03/14/25 Verified (Tylenol Tablet) 02:30 Maintain Bed Rest [facility] 03/14/25 Verified 02:22 Sequential [facility] 03/14/25 Verified Compression Device Nitroglycerin [facility] 03/14/25 Verified Sublingual (Ntrostat 02:30 Morphine Sulfate [facility] 03/14/25 Verified Injection 02:30 Stat Ekg For Chest [facility] 03/14/25 Verified Pain 02:22 Notify Md Of Changes [facility] 03/14/25 Verified From Base 02:22 Community Recreation Programmer For [facility] 03/14/25 Verified 24 Hours 02:22 Emergency Dysrhythmia [facility] 03/14/25 Verified Protocol 02:22 Rhythm Strips Once [facility] 03/14/25 Verified Every Shift 02:22 Oxygen By Nasal 03/14/25 Verified Cannula 02:22 Problem List: (1) Diabetes mellitus with ketoacidosis (2) Electrolyte imbalance (3) Thrombocytosis (4) Altered level of consciousness (5) Generalized weakness Date of Service: Mar 14, 2025 Billing Provider: YONAS POE DNP Common Visit Codes: [id number] INP/OBS CARE (HIGH) YONAS POE DNP Mar 14, 2025 02:30
[2025-03-14] MEDS: ACCU-CHEK COMFORT CURVE STRIP VI SCH ×2 (02:41→17:45)
[2025-03-14] MEDS: InsuLIN REG 1unit/0.01ml Soln (100units/ml) IV ONE (02:49)
[2025-03-14] MEDS: INSULIN DRIP 100 UNIT/100ML 100 ML IV SCH (02:53)
[2025-03-14 03:14] LABS: Hematocrit 41.3 % (36.0-46.0); Hemoglobin 11.8 g/dL (12.2-16.2)
[2025-03-14 03:15] LABS: Mean Corpuscular Hemoglobin 32.9 pg (28.0-32.0); Mean Corpuscular Volume 114.8 fL (80.0-100.0); Nucleated Red Blood Cells % 0.1 %
[2025-03-14 03:32] LABS: Albumin 3.7 g/dL (3.2-4.8); Anion Gap 31.00001 (5-15); BUN/Creatinine Ratio 31.3 (10.0-20.0); Calcium 8.8 mg/dL (8.7-10.4); Potassium 5.0 mmol/L (3.5-5.1); Total Protein 6.4 g/dL (5.7-8.2)
[2025-03-14 03:47] LABS: Alanine Aminotransferase 68 U/L (7-40); Alkaline Phosphatase 388 U/L (46-116); Bilirubin, Total 0.2 mg/dL (0.2-1.0); Blood Urea Nitrogen 36 mg/dL (9-23); Carbon Dioxide < 10 mmol/L (20-31); Chloride 95 mmol/L (98-107); Glucose 730 mg/dL (74-106); Sodium 136 mmol/L (136-145)
[2025-03-14 06:13] LABS: Base Excess -18.1 mmol/L (-2.0-3.0)
[2025-03-14] MEDS: ENOXAPARIN SOD 40 MG/0.4 ML SYRINGE SC SCH (11:22)
[2025-03-14] MEDS ORDERED: D5W/SOD CHL 0.45% 1,000 ML IV ONE (11:45)
--- NOTE | 2025-03-14 12:11 | DVHPN2 ---
Reviewed: H&P Changes from previous H/P or p: No Changes General: Per HPI Eyes: No Pain, No Vision change, No Conjunctivae inflammation, No Eyelid inflammation, No Other, No Redness ENT: No Ear pain, No Ear discharge, No Nose pain, No Nose discharge, No Nose congestion, No Mouth pain, No Mouth swelling, No Throat pain, No Throat swelling, No Other Cardiovascular: No Chest Pain, No Palpitations, No Orthopnea, No Paroxysmal Noc. Dyspnea, No Edema, No Lt Headedness, No Other Respiratory: No Cough, No Dry, No Shortness of breath, No SOB with excertion, No Wheezing, No Hemoptysis, No Pleuritic Pain, No Sputum, No Other Gastrointestinal: No Nausea, No Vomiting, No Abdominal Pain, No Diarrhea, No Constipation, No Melena, No Hematochezia, No Other Genitourinary: No Dysuria, No Frequency, No Incontinence, No Hematuria, No Retention, No Other Musculoskeletal: No other, No neck pain, No shoulder pain, No arm pain, No back pain, No hand pain, No leg pain, No foot pain Skin: No Rash, No Lesions, No Jaundice, No Bruising, No Other Objective Vitals Vital Signs Date Time Temp Pulse Resp B/P (MAP) Pulse Ox O2 Delivery O2 Flow Rate FiO2 03/14/25 11:15 108 12 137/82 (100) 98 03/14/25 09:30 Room Air* 0 21 03/14/25 08:30 98.9 98.9 Intake/Output Intake and Output 03/14/25 07:00 Intake Total 2675 ml Balance 2675 ml Intake IV Total 2675 ml Exam GEN: Healthy appearing, well-developed, NAD. HEENT: NC/AT; MMM. CV: RRR, no m/r/g. LUNGS: CTAB, no w/r/c. ABD: Soft, NT/ND, NBS, no masses or organomegaly. EXT: skin Warm, well perfused. no rashes. No clubbing, cyanosis, or edema. NEURO: Ambulating with no limitations. No focal deficits. Medications Current Medications Medications Dose Ordered Sig/Dave Route Start Time Stop Time Status Last Admin Dose Admin Sodium Chloride 1,000 ml @ 150 mls/hr Q6H40M IV 03/14/25 06:30 03/14/25 06:50 150 MLS/HR Insulin Human (Reg)/Sodium Chloride 100 ml @ 0.5 mls/hr Q24H IV 03/14/25 00:30 03/14/25 02:53 6 MLS/HR Dextrose 50 ml UD PRN IV 03/14/25 00:30 Diagnostic Test (Pha) 1 strip Q90MIN 03/14/25 01:30 03/14/25 11:21 1 STRIP Acetaminophen/ Hydrocodone Bitart 1 tab Q4HP PRN PO 03/14/25 02:30 Ondansetron HCl 4 mg Q4HP PRN IV 03/14/25 02:30 Docusate Sodium 100 mg BIDPRN PRN PO 03/14/25 02:30 Enoxaparin Sodium 40 mg DAILY SC 03/14/25 10:00 Acetaminophen 650 mg Q6HP PRN PO 03/14/25 02:30 Nitroglycerin 0.4 mg Q5MINP PRN SL 03/14/25 02:30 Morphine Sulfate 2 mg Q30M PRN IV 03/14/25 02:30 Laboratory Results Laboratory Tests 03/14/25 03:06 Chemistry Test 03/14/25 00:10 03/14/25 03:06 Calcium Level 9.0 mg/dL (8.7-10.4) 8.8 mg/dL (8.7-10.4) Magnesium Level 2.4 mg/dL (1.6-2.6) Phosphorus Level 6.5 mg/dL (2.4-5.1) H Albumin 3.7 g/dL (3.2-4.8) Total Protein 6.4 g/dL (5.7-8.2) LFT Test 03/14/25 03:06 Alanine Aminotransferase (ALT) 68 U/L (7-40) H Alkaline Phosphatase 388 U/L (46-116) H Aspartate Amino Transferase (AST) 59 U/L (13-40) H Total Bilirubin 0.2 mg/dL (0.2-1.0) Blood Gas Results Test 03/14/25 00:43 03/14/25 06:05 Arterial Blood pH 6.998 (7.350-7.450) 7.261 (7.350-7.450) FiO2 % 21.0 21.0 Labs and/or images reviewed: Labs reviewed by me, Image(s) reviewed by me Assessment/Plan Assessment/Plan 49-year-old female with past medical history of CHF, hypertension, CK F, and diabetes mellitus who presented to [facility] ED for evaluation of altered level of consciousness. Patient was noted by family member acting altered, confused and disoriented, blood sugar reads high twice, unable to detect by glucometer. Patient discharged here last February 26, 2025, diagnosed with, severe Sepsis, source unidentified, lower limb cellulitis ruled out, and type 2 diabetes mellitus. 03/14:,.: Patient is still in DKA gallops still increased, continuing insulin drip DKA protocol for fluids. On exam patient has some mild rales bilateral lower lobes and has pitting edema, we will be careful with fluids at 100 cc and, patient awake and alert, we will give 1 time 20 IV Lasix. We will start ceftriaxone 2 g daily for empiric treatment GI versus central cause of possible sepsis. Continue home meds patient to be NPO except ice chips and medications., Hold off NPO if patient has any signs of aspiration. Okay to use Haldol 5 IM q.6 if patient continues to be agitated. Patient is A&O x2, no family to set up baseline mental status. Diagnosis: DKA Diabetes with hyperglycemia Altered mental status, due to above Sepsis, GI source possible Gastroenteritis possible, infectious etiology likely CHF, diastolic dysfunction likely, acute exacerbation possible Hypertension CKD , unknown baseline, Plan: DKA protocol , DKA fluids Ceftriaxone 2 g daily IV insulin drip per DKA protocol Ice chips medications Continue home medications If agitated we will plan for to use Haldol troubles q.6 H D OU Full code Plan discussed with: Patient My Orders Orders - FOX BAIRD MD Procedure Category Date Status Time D5w/Sod Chl 0.45% PHA 03/14/25 Logged (D5w 1/2ns) 11:45 Date of Service: Mar 14, 2025 Billing Provider: FOX BAIRD MD Common Visit Codes: [id number] CARE 30-74 MIN FOX BAIRD MD Mar 14, 2025 12:10
[2025-03-14] MEDS: FUROSEMIDE 20 MG/2 ML VIAL IV ONE (12:32)
[2025-03-14] MEDS: D5W/SOD CHL 0.45% 1,000 ML IV SCH (12:32)
[2025-03-14] MEDS ORDERED: HALOPERIDOL LACTATE 5 MG/ML INJ VIAL IM PRN (12:45)
[2025-03-14 15:19] LABS: Potassium 3.7 mmol/L (3.5-5.1); Sodium 145 mmol/L (136-145)
[2025-03-14 15:20] LABS: Anion Gap 9 (5-15); Carbon Dioxide 21 mmol/L (20-31)
[2025-03-14 15:25] LABS: BUN/Creatinine Ratio 18.9 (10.0-20.0); Blood Urea Nitrogen 17 mg/dL (9-23)
[2025-03-14 15:26] LABS: Calcium 8.2 mg/dL (8.7-10.4); Chloride 115 mmol/L (98-107); Glucose 116 mg/dL (74-106)
[2025-03-14] MEDS: INSULIN LANTUS (GLARGINE) 1 /0.01ml (100units/ml) SC ONE (16:01)
[2025-03-14] MEDS: InsuLIN REG 1unit/0.01ml Soln (100units/ml) SC SCH (17:51)
[2025-03-15] MEDS ORDERED: INSULIN LANTUS (GLARGINE) 1 /0.01ml (100units/ml) SC SCH (22:00)
--- NOTE | 2025-03-17 08:55 | DVHDS2 ---
Discharge Summary Date of Admission Mar 14, 2025 at 02:22 Date of Discharge: Mar 14, 2025 Labs/Diagnostic Data: Laboratory Results Test 03/14/25 14:50 03/14/25 06:05 03/14/25 03:06 03/14/25 00:55 Sodium Level 145 mmol/L (136-145) Potassium Level 3.7 mmol/L (3.5-5.1) Chloride Level 115 mmol/L (98-107) Carbon Dioxide Level 21 mmol/L (20-31) Anion Gap 9 (5-15) Blood Urea Nitrogen 17 mg/dL (9-23) Creatinine 0.90 mg/dL (0.550-1.02) Glomerular Filtration Rate Calc 78 mL/min (>90) BUN/Creatinine Ratio 18.9 (10.0-20.0) Serum Glucose 116 mg/dL (74-106) Calcium Level 8.2 mg/dL (8.7-10.4) Blood Gas Specimen Type Arterial Blood Gas Sample Site Right radial Blood Gas Patient Temperature 37.0 Arterial Blood Date Drawn [id number] Arterial Blood pH 7.261 (7.350-7.450) Arterial Blood Partial Pressure CO2 14.6 mmHg (32.0-45.0) Arterial Blood Partial Pressure O2 122.8 mmHg (83.0-108.0) Arterial Blood HCO3 6.4 mmol/L (21.0-28.0) Arterial Blood Oxygen Saturation 97.7 % (94.0-98.0) Arterial Blood Base Excess -18.1 mmol/L (-2.0-3.0) Arterial Blood Oxyhemoglobin 97.1 % (94.0-98.0) Arterial Blood Carboxyhemoglobin 0.3 % (0.5-1.5) Arterial Blood Methemoglobin 0.3 % (0.0-1.5) Aiden Test Yes Blood Gas Total Hemoglobin 12.30 g/dL (12.0-16.0) Blood Gas Modality Room air FiO2 % 21.0 Blood Gas Critical Value Read Back yes Blood Gas Notified Whom Blood Gas Notified Time [id number] Blood Gas Notified By enterprise account manager erick White Blood Count 11.1 10^3/uL (4.4-10.8) Red Blood Count 3.60 10^6/uL (4.0-5.20) Hemoglobin 11.8 g/dL (12.2-16.2) Hematocrit 41.3 % (36.0-46.0) Mean Corpuscular Volume 114.8 fL (80.0-100.0) Mean Corpuscular Hemoglobin 32.9 pg (28.0-32.0) Mean Corpuscular Hemoglobin Concent 28.7 g/dL (32.0-36.0) Red Cell Distribution Width 15.5 % (11.8-14.3) Platelet Count 510 10^3/uL (140-450) Mean Platelet Volume 7.8 fL (6.9-10.8) Neutrophils (%) (Auto) 89.5 % (37.0-80.0) Lymphocytes (%) (Auto) 6.7 % (10.0-50.0) Monocytes (%) (Auto) 3.1 % (0.0-12.0) Eosinophils (%) (Auto) 0.1 % (0.0-7.0) Basophils (%) (Auto) 0.6 % (0.0-2.0) Neutrophils # (Auto) 10.0 10 ^3/uL (1.6-8.6) Lymphocytes # (Auto) 0.7 10 ^3/uL (0.4-5.4) Monocytes # (Auto) 0.3 10 ^3/uL (0-1.3) Eosinophils # (Auto) 0 10 ^3/uL (0-0.8) Basophils # (Auto) 0.1 10 ^3/uL (0-0.2) Nucleated Red Blood Cells 0.1 % Total Bilirubin 0.2 mg/dL (0.2-1.0) Aspartate Amino Transferase (AST) 59 U/L (13-40) Alanine Aminotransferase (ALT) 68 U/L (7-40) Alkaline Phosphatase 388 U/L (46-116) Total Protein 6.4 g/dL (5.7-8.2) Albumin 3.7 g/dL (3.2-4.8) POC Glucose > 600 mg/dl (70-106) Test 03/14/25 00:43 03/14/25 00:10 Blood Gas Spontaneous Rate 28 Specimen Drawn By Kendell arciniega rt Serum Osmolality 364 mOsm/kg (278-298) Phosphorus Level 6.5 mg/dL (2.4-5.1) Magnesium Level 2.4 mg/dL (1.6-2.6) Beta-Hydroxybutyric Acid > 4.500 mmol/L (< 0.4) Other Laboratory Tests 03/14/25 14:50 03/14/25 03:06 Brief Hx & Hospital Course: 49-year-old female with past medical history of CHF, hypertension, CK F, and diabetes mellitus who presented to [facility] ED for evaluation of altered level of consciousness. Patient was noted by family member acting altered, confused and disoriented, blood sugar reads high twice, unable to detect by glucometer. Patient discharged here last February 26, 2025, diagnosed with, severe Sepsis, source unidentified, lower limb cellulitis ruled out, and type 2 diabetes mellitus. 03/14:,.: Patient is still in DKA gallops still increased, continuing insulin drip DKA protocol for fluids. On exam patient has some mild rales bilateral lower lobes and has pitting edema, we will be careful with fluids at 100 cc and, patient awake and alert, we will give 1 time 20 IV Lasix. We will start ceftriaxone 2 g daily for empiric treatment GI versus central cause of possible sepsis. Continue home meds patient to be NPO except ice chips and medications., Hold off NPO if patient has any signs of aspiration. Okay to use Haldol 5 IM q.6 if patient continues to be agitated. Patient is A&O x2, no family to set up baseline mental status. Diagnosis: DKA Diabetes with hyperglycemia Altered mental status, due to above Sepsis, GI source possible Gastroenteritis possible, infectious etiology likely CHF, diastolic dysfunction likely, acute exacerbation possible Hypertension CKD , unknown baseline, conclusion: Patient left AMA, thus assuming all responsibility and any complications that may arise from having not getting recommended and needed adequate medical care/attention. Complications can include including and/or coma, and any other serious fatal comorbidities. Condition at Discharge: Undetermined Final Diagnosis/Problems List DKA Diabetes with hyperglycemia Altered mental status, due to above Sepsis, GI source possible Gastroenteritis possible, infectious etiology likely CHF, diastolic dysfunction likely, acute exacerbation possible Discharge Disposition: AMA Discharge Instruct/Medications Scheduled Amlodipine Besylate (Amlodipine Besylate), 1 TAB PO DAILY, (Reported) Aspirin (Aspirin Low Dose), 1 TAB PO DAILY, (Reported) Ergocalciferol (Vitamin D), 1 CAP PO QWEEKLY, (Reported) Furosemide (Furosemide), 10 MG PO DAILY, (Reported) Insulin Glargine (Basaglar Kwikpen), UNITS SC UD, (Reported) Insulin Lispro (Insulin Lispro Kwikpen), UNITS SC UD, (Reported) Lisinopril (Lisinopril), 1 TAB PO DAILY, (Reported) Loratadine (Claritin Tablet), 1 TAB PO DAILY, (Reported) Pantoprazole Sodium Sesquihydr (Pantoprazole Sodium), 1 TAB PO BID, (Reported) Discharge Statement: "Patient was advised to return to the ER or call 911 if any headaches, dizziness, shortness of breath, chest pain, abdominal pain, bleeding, fevers, or worsening of medical condition. Patient was counseled about treatment plan, medications, possible side effects, patientverbalized understanding. All questions were answered to the best of my ability. This discharge took greater then 30 minutes in planning, reviewing documentation, counseling the patient, and discussing with other team members." ASSESSMENT ASSESSMENT Assessment Date of Service: Mar 14, 2025 Billing Provider: FOX BAIRD MD Common Visit Codes: [id number] DISCH DAY >30min FOX BAIRD MD Mar 17, 2025 08:54
[2025-03-17] MEDS ORDERED: MUPI2OIN2 EX (14:09)
== END 2025-03-14 23:40 | disposition left against medical advice (07) | DRG 720 ==
LOC: ER 23:57 → EDBD 23:57 → EDSEX 23:57 → OVERFLOW 03-14 02:22
PROVIDERS: ADMIT Nurse Practitioner Family; ATTEND Nurse Practitioner Family
DX: A41.9 Sepsis, unspecified organism (principal); E11.10 Type 2 diabetes mellitus with ketoacidosis without coma; I50.33 Acute on chronic diastolic (congestive) heart failure; E11.22 Type 2 diabetes mellitus with diabetic chronic kidney disease; D75.839 Thrombocytosis, unspecified; A09 Infectious gastroenteritis and colitis, unspecified; E11.65 Type 2 diabetes mellitus with hyperglycemia; I13.0 Hypertensive heart and chronic kidney disease with heart failure and stage 1 through stage 4 chronic kidney disease, or unspecified chronic kidney disease; N18.9 Chronic kidney disease, unspecified; E87.8 Other disorders of electrolyte and fluid balance, not elsewhere classified; Z53.29 Procedure and treatment not carried out because of patient's decision for other reasons
CPT/HCPCS: 36415; 36600; 80048; 80053; 82010; 82805; 82962; 83735; 83930; 84100; 85025; 87081; 96374; G0378; J1815

== ENCOUNTER 2025-03-30 05:10 | Inpatient (IN) | payer MEDICAID ==
[~2025-03-30] VITALS: Ht 165.1 cm; Wt 41.7 kg
[~2025-03-30 05:10] MED LIST changes: +MUPI2OIN2 EX
--- NOTE | 2025-03-30 05:29 | ED.PDOC ---
History of Present Illness HPI Comments 49-year-old female is brought in by ambulance for chief complaint of coffee- ground emesis production. Significant history of CHF, CKD, DM I, DKA, HLD, HTN, gastroenteritis, sepsis, and tobacco cigarette use. Per EMS personnel report, patient was residing at an [facility] auto when she was found by her boy friend in the bathroom with nearby coffee-ground emesis on the bed where she slept and in the toilet. On scene, patient had a blood glucose greater than 600. She also complains of polydipsia. Denies any chest pain, shortness of breath, or further acute symptoms. Patient reports being compliant with her DM medications. Time Seen by MD: 05:20 Primary Care Provider: unknown Reviewed Notes: Nurses Notes Allergies: Coded Allergies: NO KNOWN ALLERGIES (Unverified , 06/06/19) Home Meds Active Scripts Mupirocin (Pseudomonas Fluores (Mupirocin) 2 % Oin, 2 % EX BID, #30 G Prov:CLARISSA BEJARANO EXCELLENCE LEADER 03/17/25 Reported Medications Furosemide (Furosemide) 20 Mg Tab, 10 MG PO DAILY for 60 Days, #30 02/24/25 Insulin Lispro (Insulin Lispro Kwikpen) 100 Unit/Ml Inj, UNITS SC UD for 20 Days, #6 02/24/25 Insulin Glargine (Basaglar Kwikpen) 100 Unit/Ml Inj, UNITS SC UD for 19 Days, #18 02/24/25 Ergocalciferol (Vitamin D) 50,000 Unit Cap, 1 CAP PO QWEEKLY for 28 Days, #4 02/24/25 Aspirin (Aspirin Low Dose) 81 Mg Tab, 1 TAB PO DAILY for 30 Days, #30 02/24/25 Loratadine (CLARITIN TABLET) 10 Mg Tb, 1 TAB PO DAILY for 30 Days, #30 02/24/25 Lisinopril (Lisinopril) 10 Mg Tab, 1 TAB PO DAILY for 30 Days, #30 02/24/25 Amlodipine Besylate (Amlodipine Besylate) 5 Mg Tab, 1 TAB PO DAILY for 30 Days, #30 02/24/25 Pantoprazole Sodium Sesquihydr (Pantoprazole Sodium) 40 Mg Tab, 1 TAB PO BID for 30 Days, #60 02/24/25 Information Source: Patient, Emergency Med Personnel Mode of Arrival: EMS Severity: Moderate Timing: Hours Duration: Since onset Prehospital treatment: 12 Lead EKG, Accucheck, Hospitalist Program Director Past Medical History PAST MEDICAL HISTORY: CHF, CKF, DM, High Lipids, HTN Past Medical History (Other): DKA Sepsis Gastroenteritis Surgical History: Denies all surgeries CUSTOMS INSPECTOR History: No Pertinent CUSTOMS INSPECTOR History Family History Family History: Reviewed,noncontributory to illness, No family hx of Cancer, No family hx of DM, No family hx of Heart richard, No family hx of HTN, No family hx ofKidney richard, No family hx of Liver richard, No family hx of Lung richard, No family hx of Stroke Social History Smoker: Cigarettes Alcohol: Denies ETOH Use Drugs: Denies Drug Use Lives In: Home Constitutional: denies: chills, diaphoresis, fatigue, fever, malaise, sweats, weakness, others EENTM: denies: blurred vision, double vision, ear bleeding, ear discharge, ear drainage, ear pain, ear ringing, eye pain, eye redness, hearing loss, mouth pain, mouth swelling, nasal discharge, nose bleeding, nose congestion, nose pain, photophobia, tearing, throat pain, throat swelling, voice changes, others Respiratory: denies: cough, hemoptysis, orthopnea, SOB at rest, shortness of breath, SOB with excertion, stridor, wheezing, others Cardiovascular: denies: chest pain, dizzy spells, diaphoresis, Dyspnea on exertion, edema, irregular heart beat, left arm pain, lightheadedness, palpitations, PND, syncope, others Gastrointestinal: reports: hematemesis; denies: abdomen distended, abdominal pain, blood streaked bowels, constipated, diarrhea, dysphagia, difficulty swallowing, melena, nausea, poor appetite, poor fluid intake, rectal bleeding, rectal pain, vomiting, others Genitourinary: denies: abnormal vagina bleeding, burning, dyspareunia, dysuria, flank pain, frequency, hematuria, incontinence, pain, , vagina discharge, urgency, others Neurological: denies: dizziness, fainting, headache, left sided numbness, left sided weakness, numbness, paresthesia, pre-existing deficit, right sided numbness, right sided weakness, seizure, speech problems, tingling, tremors, weakness, others Musculoskeletal: denies: back pain, gout, joint pain, joint swelling, muscle pain, muscle stiffness, neck pain, others Integumetry: denies: bruises, change in color, change in hair/nails, dryness, laceration, lesions, lumps, rash, wounds, others Allergic/Immunocompromised: denies: Difficulty Healing, Frequent Infections, Hives, Itching, others Hematologic/Lymphatic: denies: anemia, blood clots, easy bleeding, easy bruising, swollen glands, others Endocrine: denies: excessive hunger, excessive sweating, excessive thirst, excessive urination, flushing, intolerance to cold, intolerance to heat, unexplained weight gain, unexplained weight loss, others Psychiatric: denies: anxiety, bipolar disorder, depression, hopeless, panic disorder, schizophrenia, sleepless, suicidal, others All Other Systems: Reviewed and Negative Physical Exam General Appearance: Moderate Distress, Thin HEENT: Pale Conjuntivae (L), Pale Conjuntivae (R), Pharynx Normal, TMs Normal Neck: Full Range of Motion, Non-Tender, Normal, Normal Inspection Respiratory: Chest Non-Tender, Lungs Clear, No Accessory Muscle Use, No Respiratory Distress, Normal Breath Sounds Cardiovascular: No Edema, No JVD, No Murmur, No Gallop, Normal Peripheral Pulses, Regular Rate/Rhythm Breast Exam: Deferred Gastrointestinal: No Organomegaly, Non Tender, No Pulsatile Mass, Normal Bowel Sounds, Soft Genitalia: Deferred Pelvic: Deferred Rectal: Deferred Extremities: No calf tenderness, Normal capillary refill, No pedal edema Musculoskeletal : Apperance: Normal Neurologic: study specialist II-XII nml as Tested, Motor Weakness, Normal Affect, Normal Mood, No Sensory Deficits, Other (The patient's seems to be slightly altered) Cerebellar Function: Unable to Test Reflexes: Normal Skin: Dry, Pallor, Warm Lymphatic: No Adenopathy Was a procedure done? Was a procedure done?: No EKG EKG : Pulse Rate (adult): 122 [place]: Normal Cardiac Rhythm: ST Block: None Hypertrophy: None ST: Normal Differential Dx Considerations may include: Upper GI bleed, gastritis, gastroenteritis, esophageal varices, PUD, anemia, hyperglycemia, DKA, among others X-Ray, Labs, Meds, VS Vital Signs Date Time Temp Pulse Resp B/P (MAP) Pulse Ox O2 Delivery O2 Flow Rate FiO2 11/25/25 05:29 122 03/30/25 05:22 98.6 122 18 129/93 96 98.6 03/30/25 05:19 122 Lab Test 03/30/25 06:02 03/30/25 05:35 Range/Units Blood Gas Specimen Type Arterial Blood Gas Sample Site Right radial Blood Gas Patient Temperature 37.0 Arterial Blood Date Drawn [id number] Arterial Blood pH 7.329 L 7.350-7.450 Arterial Blood Partial Pressure CO2 17.7 *L 32.0-45.0 mmHg Arterial Blood Partial Pressure O2 108.4 H 83.0-108.0 mmHg Arterial Blood HCO3 9.1 L 21.0-28.0 mmol/L Arterial Blood Oxygen Saturation 97.4 94.0-98.0 % Arterial Blood Base Excess -14.5 L -2.0-3.0 mmol/L Arterial Blood Oxyhemoglobin 96.4 94.0-98.0 % Arterial Blood Carboxyhemoglobin 0.5 0.5-1.5 % Arterial Blood Methemoglobin 0.5 0.0-1.5 % Arterial Blood Deoxyhemoglobin 2.6 0.0-5.0 % Aiden Test Yes Blood Gas Total Hemoglobin 12.30 12.0-16.0 g/dL Blood Gas Liter Flow 0.00 Blood Gas Modality Room air FiO2 % 21.0 Blood Gas Critical Value Read Back Wanda smith Blood Gas Notified Whom Christophe mcgovern Blood Gas Notified Time [id number] Blood Gas Notified By Wanda boil off machine operator cloth White Blood Count 12.2 H 4.4-10.8 10^3/uL Red Blood Count 3.90 L 4.0-5.20 10^6/uL Hemoglobin 12.8 12.2-16.2 g/dL Hematocrit 40.0 36.0-46.0 % Mean Corpuscular Volume 102.6 H 80.0-100.0 fL Mean Corpuscular Hemoglobin 32.7 H 28.0-32.0 pg Mean Corpuscular Hemoglobin Concent 31.9 L 32.0-36.0 g/dL Red Cell Distribution Width 14.5 H 11.8-14.3 % Platelet Count 404 140-450 10^3/uL Mean Platelet Volume 8.1 6.9-10.8 fL Neutrophils (%) (Auto) 91.4 H 37.0-80.0 % Lymphocytes (%) (Auto) 5.2 L 10.0-50.0 % Monocytes (%) (Auto) 2.9 0.0-12.0 % Eosinophils (%) (Auto) 0.1 0.0-7.0 % Basophils (%) (Auto) 0.4 0.0-2.0 % Neutrophils # (Auto) 11.1 H 1.6-8.6 10 ^3/uL Lymphocytes # (Auto) 0.6 0.4-5.4 10 ^3/uL Monocytes # (Auto) 0.4 0-1.3 10 ^3/uL Eosinophils # (Auto) 0 0-0.8 10 ^3/uL Basophils # (Auto) 0 0-0.2 10 ^3/uL Nucleated Red Blood Cells 0.0 % Sodium Level Pending Potassium Level Pending Chloride Level Pending Carbon Dioxide Level Pending Anion Gap Pending Blood Urea Nitrogen Pending Creatinine Pending Glomerular Filtration Rate Calc Pending BUN/Creatinine Ratio Pending Serum Glucose Pending Calcium Level Pending Beta-Hydroxybutyric Acid Pending IV Hep-Lock was established. The CBC shows an elevated white blood cell count of 12.2 The Accu-Chek was greater than 500. The patient does has a history of DKA in the past The patient was given a L bolus of normal saline The patient was given insulin 5 units IV push The patient is being started on an insulin drip. The chest x-ray is pending. The patient did have the episode of an upper GI bleed so we did typed and screen the patient At this time the patient does not need a blood transfusion The ABG has been recorded and the patient's CO2 level is significantly decreased The patient will be admitted at this time Images Reviewed?: Images reviewed and evaluated by me Time of 1ST Reevaluation: 05:50 Reevaluation 1ST: Unchanged Patient Education/Counseling: Diagnosis, Treatment, Prognosis, Other (Need for admission) Family Education/Counseling: No Family Present SEPSIS Sepsis Screen Physician Orders Electrocardigram (03/30/25 05:21) Chest Portable (03/30/25 05:21) Urinalysis (03/30/25 05:21) Basic Metabolic Panel (03/30/25 05:21) Heplock Iv (03/30/25 05:21) Hospitalist Program Director (03/30/25 05:21) Blood Pressure (03/30/25 05:21) Pulse Oximetry (03/30/25 05:21) Sodium Chloride 0.9% (03/30/25 05:30) Acetone (03/30/25 05:21) Type And Screen (03/30/25 05:21) Electrocardigram (03/30/25 08:21) Insulin Drip 100 Unit/100ml (Myxredlin 1 (03/30/25 05:30) Glucose Blood (Accu-Chek Comfort Curve T (03/30/25 06:00) D/C All Diabetic Medications (03/30/25 05:30) Insulin Drip Protocol (03/30/25 05:30) Dextrose 50% Syringe (03/30/25 05:30) Insulin Lantus (Glargine) (Lantus) (03/31/25 10:00) Abg W/ Co-Ox (03/30/25 05:47) Drug Screen (03/30/25 06:01) Blood Alcohol (03/30/25 06:01) Vital Signs Date Time Temp Pulse Resp B/P (MAP) Pulse Ox O2 Delivery O2 Flow Rate FiO2 03/30/25 05:29 122 03/30/25 05:22 98.6 122 18 129/93 96 98.6 03/30/25 05:19 122 Laboratory Tests Test 03/30/25 05:35 White Blood Count 12.2 10^3/uL (4.4-10.8) H Departure 1 Departure Time of Disposition: 06:01 Impression: Primary Impression: DKA (diabetic ketoacidosis) Qualified Codes: E13.10 - Other specified diabetes mellitus with ketoacidosis without coma Disposition: ADMITTED INPATIENT Admit to: ICU Condition: Fair Critical Care Note Critical Care Time?: Yes (45 min-critical care time only) Stability Stability form required: Yes Unstable for transfer: ICU, CCU, PCU, [facility] (Intensive VS monitoring), Low BP (low high or fluctuating BP), ED Physician Assesment (Clinical assesment) Heart Score Heart Score: Heart Score Response (Comments) Value History N/A 0 EKG N/A 0 Age N/A 0 Risk Factors N/A 0 Troponin N/A 0 Total 0 I personally scribed for NICHOLAS RESENDIZ MD ([email or web address]) on 03/30/25 at 05:29. Electronically submitted by Phill Bellamy [email or web address]). NICHOLAS RESENDIZ MD Mar 30, 2025 05:29
[2025-03-30] MEDS: INSULIN LANTUS (GLARGINE) 1 /0.01ml (100units/ml) SC ONE (05:30)
[2025-03-30] MEDS ORDERED: DEXTROSE (50%) 50ML SYRG IV PRN (05:30)
[2025-03-30 05:54] LABS: Hemoglobin 12.8 g/dL (12.2-16.2); Mean Corpuscular Hemoglobin 32.7 pg (28.0-32.0)
[2025-03-30 05:57] LABS: Anion Gap 33.00001 (5-15); Calcium 9.4 mg/dL (8.7-10.4); Hematocrit 40.0 % (36.0-46.0); Mean Corpuscular Volume 102.6 fL (80.0-100.0); Nucleated Red Blood Cells % 0.0 %
--- NOTE | 2025-03-30 06:00 | ECG ---
[facility] Test Date: 2025-03-30 Test Time: 05:19:10 Pat Name: LILY MANCINI Department: ED Room: 0284 Gender: F De Icer Installer: BRANDY : 1975 Requested By: NICHOLAS RESENDIZ Order Number: [id number] Reading MD: London Carlson Measurements Intervals [place] Rate: 122 P: 88 TX: 135 QRS: 75 QRSD: 110 T: 108 QT: 352 QTc: 502 Interpretive Statements Sinus tachycardia LAE, consider biatrial enlargement LVH with secondary repolarization abnormality Anterior infarct, acute (LAD) Electronically Signed On 03-31-2025 17:47:11 PST by London Carlson Please click the below link to view image of tracing.
--- NOTE | 2025-03-30 06:02 | DVH ---
CHEST RADIOGRAPH Indication: aloc Technique: Single frontal view of the chest was obtained COMPARISON: XY CHEST PORTABLE on DOS: 12/14/24, XY CHEST PORTABLE on DOS: 10/29/24, XY CHEST PORTABLE on DOS: 01/26/24, XY CHEST PORTABLE on DOS: 01/25/24, XY CHEST XRAY 1 VIEW on DOS: 01/23/24 FINDINGS: Lines and Tubes: None Lungs: Lungs are hyperinflated suggestive of COPD. Mild increased interstitial prominence. Pleura: No effusion. No pneumothorax. Cardiomediastinal contours: Unremarkable Bones: Unremarkable IMPRESSION: Lungs are hyperinflated suggestive of COPD. Clinical correlation advised. Mild increased interstitial prominence may be due to mild pulmonary edema or atypical infection.
[2025-03-30 06:09] LABS: Base Excess -14.5 mmol/L (-2.0-3.0)
[2025-03-30] MEDS: ACCU-CHEK COMFORT CURVE STRIP VI SCH (06:12)
[2025-03-30 06:14] LABS: Chloride 84 mmol/L (98-107); Potassium 5.5 mmol/L (3.5-5.1); Sodium 127 mmol/L (136-145)
[2025-03-30] MEDS: SODIUM CHLORIDE 0.9% 1,000 ML IV ONE ×2 (06:15→10:51)
[2025-03-30 06:19] LABS: Blood Urea Nitrogen 65 mg/dL (9-23); Carbon Dioxide < 10 mmol/L (20-31)
[2025-03-30] MEDS: PANTOPRAZOLE 40 MG/10 ML VIAL INJ IV ONE (06:19)
[2025-03-30 06:20] LABS: BUN/Creatinine Ratio 39.6 (10.0-20.0)
[2025-03-30] MEDS: InsuLIN REG 1unit/0.01ml Soln (100units/ml) IV ONE (06:51)
[2025-03-30 07:30] VITALS: PULSE 120; RESP 15; O2SAT 100
[2025-03-30] MEDS: INSULIN DRIP 100 UNIT/100ML 100 ML IV SCH (07:54)
[2025-03-30] MEDS ORDERED: NITROGLYCERIN 0.4 MG SL TAB SL PRN (08:30)
[2025-03-30] MEDS ORDERED: ACETAMINOPHEN 325 MG TAB PO PRN (08:30)
[2025-03-30] MEDS ORDERED: HYDROcodone-ACET 5/325MG TAB PO PRN (08:30)
[2025-03-30] MEDS ORDERED: DOCUSATE SOD 100 MG CAP PO PRN (08:30)
[2025-03-30] MEDS ORDERED: ONDANSETRON HCL 4 MG/2 ML VIAL IV PRN (08:30)
[2025-03-30] MEDS ORDERED: MORPHINE SULFATE INJ 2 MG/ml SYRG IV PRN ×2 (08:30)
--- NOTE | 2025-03-30 08:35 | DVHHP2 ---
History of Present Illness Reason for Visit: Nausea/Vomiting History of Present Illness Renetta Mccabe is a 49-year-old female with past medical history of CHF, chronic kidney disease, diabetes, hypertension, and hyperlipidemia, who was brought to the hospital by EMS for nausea and vomiting. According to ER notes the patient was staying in a hotel with her boyfriend. He found her on the ground in the bathroom with coffee ground emesis around her and in the bed. Patient was admitted here earlier this month for DKA as well, she left AMA on that visit. Cardiovascular: CHF, HTN, hyperipidemia Renal/: Chronic renal insuff Endocrine: Diabetes Past Surgical History: None Smoke: No ALCOHOL: none Drugs: None Lives: Homeless Review of Systems Constitutional: No: Fever, Chills, Sweats, Weakness, Malaise, Other Eyes: No: Pain, Vision change, Conjunctivae inflammation, Eyelid inflammation, Other, Redness ENT: No: Ear pain, Ear discharge, Nose pain, Nose discharge, Nose congestion, Mouth pain, Mouth swelling, Throat pain, Throat swelling, Other Respiratory: No: Cough, Dry, Shortness of breath, SOB with excertion, Wheezing, Hemoptysis, Pleuritic Pain, Sputum, Wheezing, Other Cardiovascular: No: Chest Pain, Palpitations, Orthopnea, Paroxysmal Noc. Dyspnea, Edema, Lt Headedness, Other Gastrointestinal: Nausea, Vomiting, Abdominal Pain; No: Diarrhea, Constipation, Melena, Hematochezia, Other Genitourinary: No Dysuria, No Frequency, No Incontinence, No Hematuria, No Retention, No Other Musculoskeletal: No: other, neck pain, shoulder pain, arm pain, back pain, hand pain, leg pain, foot pain Skin: No: Rash, Lesions, Jaundice, Bruising, Other Neurological: No: Weakness, Numbness, Incoordination, Change in speech, Confusion, Seizures, Other Allergies: Coded Allergies: NO KNOWN ALLERGIES (Unverified , 06/06/19) Medications Current Medications Medications Dose Ordered Sig/Dave Route Start Time Stop Time Status Last Admin Dose Admin Insulin Human (Reg)/Sodium Chloride 100 ml @ 0.5 mls/hr Q24H IV 03/30/25 05:30 03/30/25 07:54 6 MLS/HR Diagnostic Test (Pha) 1 strip Q90MIN 03/30/25 06:00 03/30/25 07:46 1 STRIP Dextrose 50 ml PRN PRN IV 03/30/25 05:30 Insulin Glargine 15 units DAILY SC 03/31/25 10:00 Exam Vital Signs Vital Signs Date Time Temp Pulse Resp B/P (MAP) Pulse Ox O2 Delivery O2 Flow Rate FiO2 03/30/25 06:38 97.4 116 12 136/86 (103) 100 97.4 General Appearance: Alert, moderate distress, Other (Oriented x 2, ) Respiratory: Clear to auscultation, Normal air movement Cardiovascular: Normal S1, Normal S2, Other (ST) Abdominal: Normal bowel sounds, Soft, No tenderness Extremities: No clubbing, No cyanosis, No edema Skin: No rashes, No breakdown, No significant lesion Neuro: Other (weakness) Labs/Xrays Labs Test 03/30/25 06:46 03/30/25 06:02 03/30/25 05:35 Range/Units POC Glucose > 600 *H 70-106 mg/dl Blood Gas Specimen Type Arterial Blood Gas Sample Site Right radial Blood Gas Patient Temperature 37.0 Arterial Blood Date Drawn [id number] Arterial Blood pH 7.329 L 7.350-7.450 Arterial Blood Partial Pressure CO2 17.7 *L 32.0-45.0 mmHg Arterial Blood Partial Pressure O2 108.4 H 83.0-108.0 mmHg Arterial Blood HCO3 9.1 L 21.0-28.0 mmol/L Arterial Blood Oxygen Saturation 97.4 94.0-98.0 % Arterial Blood Base Excess -14.5 L -2.0-3.0 mmol/L Arterial Blood Oxyhemoglobin 96.4 94.0-98.0 % Arterial Blood Carboxyhemoglobin 0.5 0.5-1.5 % Arterial Blood Methemoglobin 0.5 0.0-1.5 % Arterial Blood Deoxyhemoglobin 2.6 0.0-5.0 % Aiden Test Yes Blood Gas Total Hemoglobin 12.30 12.0-16.0 g/dL Blood Gas Liter Flow 0.00 Blood Gas Modality Room air FiO2 % 21.0 Blood Gas Critical Value Read Back Wanda smith Blood Gas Notified Whom Christophe mcgovern Blood Gas Notified Time [id number] Blood Gas Notified By Wanda house moving supervisor White Blood Count 12.2 H 4.4-10.8 10^3/uL Red Blood Count 3.90 L 4.0-5.20 10^6/uL Hemoglobin 12.8 12.2-16.2 g/dL Hematocrit 40.0 36.0-46.0 % Mean Corpuscular Volume 102.6 H 80.0-100.0 fL Mean Corpuscular Hemoglobin 32.7 H 28.0-32.0 pg Mean Corpuscular Hemoglobin Concent 31.9 L 32.0-36.0 g/dL Red Cell Distribution Width 14.5 H 11.8-14.3 % Platelet Count 404 140-450 10^3/uL Mean Platelet Volume 8.1 6.9-10.8 fL Neutrophils (%) (Auto) 91.4 H 37.0-80.0 % Lymphocytes (%) (Auto) 5.2 L 10.0-50.0 % Monocytes (%) (Auto) 2.9 0.0-12.0 % Eosinophils (%) (Auto) 0.1 0.0-7.0 % Basophils (%) (Auto) 0.4 0.0-2.0 % Neutrophils # (Auto) 11.1 H 1.6-8.6 10 ^3/uL Lymphocytes # (Auto) 0.6 0.4-5.4 10 ^3/uL Monocytes # (Auto) 0.4 0-1.3 10 ^3/uL Eosinophils # (Auto) 0 0-0.8 10 ^3/uL Basophils # (Auto) 0 0-0.2 10 ^3/uL Nucleated Red Blood Cells 0.0 % Sodium Level 127 L 136-145 mmol/L Potassium Level 5.5 H 3.5-5.1 mmol/L Chloride Level 84 L 98-107 mmol/L Carbon Dioxide Level < 10 *L 20-31 mmol/L Anion Gap 33.87048 H 5-15 Blood Urea Nitrogen 65 H 9-23 mg/dL Creatinine 1.64 H 0.550-1.02 mg/dL Glomerular Filtration Rate Calc 38 >90 mL/min BUN/Creatinine Ratio 39.6 H 10.0-20.0 Serum Glucose 890 *H 74-106 mg/dL Calcium Level 9.4 8.7-10.4 mg/dL Beta-Hydroxybutyric Acid > 4.500 H < 0.4 mmol/L Plasma/Serum Blood Alcohol < 3.0 <10 mg/dL CHEST RADIOGRAPH FINDINGS: Lines and Tubes: None Lungs: Lungs are hyperinflated suggestive of COPD. Mild increased interstitial prominence. Pleura: No effusion. No pneumothorax. Cardiomediastinal contours: Unremarkable Bones: Unremarkable IMPRESSION: Lungs are hyperinflated suggestive of COPD. Clinical correlation advised. Mild increased interstitial prominence may be due to mild pulmonary edema or atypical infection. SEPSIS Sepsis Screen Date sepsis recognized/suspect: Mar 30, 2025 Time Sepsis recognized/suspect: 632 Recent Procedure: No On Antibiotic Therapy: No Respiratory Rate >20: No Heart Rate >90: Yes Temp<36 C (96.8 F) or >38.3 C: No SBP <90 or MAP <65 mmHG: No New Acute Mental Status Change: No Is the patient on CPAP, BIPAP,: No Physician Orders Electrocardigram (03/30/25 05:21) Chest Portable (03/30/25 05:21) Urinalysis (03/30/25 05:21) Heplock Iv (03/30/25 05:21) Staff Auditor (03/30/25 05:21) Blood Pressure (03/30/25 05:21) Pulse Oximetry (03/30/25 05:21) Electrocardigram (03/30/25 08:21) Insulin Drip 100 Unit/100ml (Myxredlin 1 (03/30/25 05:30) Glucose Blood (Accu-Chek Comfort Curve T (03/30/25 06:00) D/C All Diabetic Medications (03/30/25 05:30) Insulin Drip Protocol (03/30/25 05:30) Dextrose 50% Syringe (03/30/25 05:30) Insulin Lantus (Glargine) (Lantus) (03/31/25 10:00) Abg W/ Co-Ox (03/30/25 05:47) Drug Screen (03/30/25 06:01) Admit (03/30/25 08:28) Code Status (03/30/25 08:28) Hydrocodone-Acet 5/325mg Tab ([place] 5/32 (03/30/25 08:30) Ondansetron Hcl (Zofran) (03/30/25 08:30) Docusate Sodium Capsule (Colace Capsule) (03/30/25 08:30) Complete Blood Count (03/31/25 04:00) Comprehensive Metabolic Panel (03/31/25 04:00) Condition: Critical (03/30/25 08:28) Acetaminophen Tablet (Tylenol Tablet) (03/30/25 08:30) Morphine Sulfate Injection (03/30/25 08:30) Nitroglycerin Sublingual (Ntrostat Subli (03/30/25 08:30) Vital Signs Date Time Temp Pulse Resp B/P (MAP) Pulse Ox O2 Delivery O2 Flow Rate FiO2 03/30/25 06:38 97.4 116 12 136/86 (103) 100 97.4 03/30/25 05:29 122 03/30/25 05:22 98.6 122 18 129/93 96 98.6 03/30/25 05:19 122 Laboratory Tests Test 03/30/25 05:35 White Blood Count 12.2 10^3/uL (4.4-10.8) H Medications Medications Dose Ordered Sig/Dave Route Start Time Stop Time Status Last Admin Dose Admin Diagnostic Test (Pha) 1 strip Q90MIN 03/30/25 06:00 03/30/25 07:46 1 STRIP Insulin Glargine 15 units ONCE ONCE SC 03/30/25 05:30 03/30/25 05:31 DC 03/30/25 05:30 15 UNITS Insulin Human (Reg)/Sodium Chloride 100 ml @ 0.5 mls/hr Q24H IV 03/30/25 05:30 03/30/25 07:54 6 MLS/HR Insulin Human Regular 5 units ONCE ONCE IV 03/30/25 05:30 03/30/25 05:31 DC 03/30/25 06:51 5 UNITS Pantoprazole Sodium 40 mg ONCE ONCE IV 03/30/25 05:30 03/30/25 05:31 DC 03/30/25 06:19 40 MG Sodium Chloride 1,000 ml @ 1,000 mls/hr Q1H ONCE IV 03/30/25 05:30 03/30/25 06:29 DC 03/30/25 06:15 1,000 MLS/HR Assessment/Plan Assessment/Plan Assessment: DKA (diabetic ketoacidosis), Hyperkalemia, Hyponatremia, Leukocytosis, Lactic acidosis, Hypertension, CHF, Chronic kidney disease, Plan: Admit to [facility], IV insulin drip, IV hydration, IV antibiotics, A1c, Manage/Monitor electrolytes closely, Home medications reconciled, Plan discussed with: Patient My Orders Orders - GEMMA SHERMAN Procedure Category Date Status Time Admit ADMIT 03/30/25 Verified 08:28 Code Status CODE 03/30/25 Verified 08:28 Hydrocodone-Acet PHA 03/30/25 Verified 5/325mg Tab ([place]iham 08:30 Ondansetron Hcl PHA 03/30/25 Verified (Zofran) 08:30 Docusate Sodium PHA 03/30/25 Verified Capsule (Colace 08:30 Complete Blood Count LAB 03/31/25 Verified 04:00 Comprehensive LAB 03/31/25 Verified Metabolic Panel 04:00 Condition: Critical NICHOLAS 03/30/25 Verified 08:28 Acetaminophen Tablet PHA 03/30/25 Verified (Tylenol Tablet) 08:30 Morphine Sulfate PHA 03/30/25 Verified Injection 08:30 Nitroglycerin PHA 03/30/25 Verified Sublingual (Ntrostat 08:30 Date of Service: Mar 30, 2025 Billing Provider: GEMMA SHERMAN Common Visit Codes: [id number] INP/OBS CARE (HIGH) GEMMA SHERMAN Mar 30, 2025 08:35
--- NOTE | 2025-03-30 08:38 | ECG ---
[facility] Test Date: 2025-03-30 Test Time: 08:36:09 Pat Name: LILY MANCINI Department: ED Room: 0284 Gender: F Software Developer Manager: MOIRA : 1975 Requested By: NICHOLAS RESENDIZ Order Number: [id number] Reading MD: London Carlson Measurements Intervals [place] Rate: 118 P: 85 OR: 133 QRS: 88 QRSD: 112 T: -82 QT: 347 QTc: 487 Interpretive Statements Sinus tachycardia Biatrial enlargement LVH with IVCD and secondary repol abnrm ST depr, consider ischemia, inferior leads Anterior ST elevation, probably due to LVH Borderline prolonged QT interval Electronically Signed On 03-31-2025 17:47:16 PST by London Carlson Please click the below link to view image of tracing.
[2025-03-30] MEDS ORDERED: MORPHINE SULFATE 4 MG/ML SYR/VIAL IV PRN (09:15)
[2025-03-30 09:37] LABS: Urine Protein, UAD Negative (Negative)
[2025-03-30] MEDS: SODIUM CHLORIDE 0.9% 1,000 ML IV SCH (11:00)
[2025-03-30] MEDS: D5W 5% 1,000 ML IV SCH (12:15)
[2025-03-30 12:26] LABS: Amphetamine Screen, Urine Neg (NEGATIVE)
[2025-03-30 12:27] LABS: Cannabinoid Screen, Urine Neg (NEGATIVE)
[2025-03-30 12:29] LABS: Barbiturate Scree,Urine Neg (NEGATIVE); Benzodiazephine Screen, Urine Neg (NEGATIVE); Cocaine Screen, Urine Neg (NEGATIVE); Opiate Scree,Urine Neg (NEGATIVE); Phencyclidine Screen, Urine Neg (NEGATIVE)
[2025-03-30 12:54] LABS: Potassium 4.0 mmol/L (3.5-5.1); Sodium 139 mmol/L (136-145)
[2025-03-30 12:55] LABS: Anion Gap 27 (5-15); Calcium 9.9 mg/dL (8.7-10.4)
[2025-03-30 12:56] LABS: Carbon Dioxide 14 mmol/L (20-31); Chloride 98 mmol/L (98-107)
[2025-03-30 13:00] LABS: BUN/Creatinine Ratio 46.3 (10.0-20.0); Blood Urea Nitrogen 68 mg/dL (9-23); Glucose 236 mg/dL (74-106)
[2025-03-30] MEDS: HALOPERIDOL LACTATE 5 MG/ML INJ VIAL IM ONE (14:37)
[2025-03-30] MEDS: HALOPERIDOL LACTATE 5 MG/ML INJ VIAL ONE (14:38)
--- NOTE | 2025-03-30 15:18 | DVH ---
CHEST RADIOGRAPH Indication: CENTRAL LINE PLACEMENT Technique: Single frontal view of the chest was obtained COMPARISON: XY CHEST PORTABLE on DOS: 03/30/25, XY CHEST PORTABLE on DOS: 12/14/24, XY CHEST PORTABLE on DOS: 10/29/24, XY CHEST PORTABLE on DOS: 01/26/24, XY CHEST PORTABLE on DOS: 01/25/24 FINDINGS: Lines and Tubes: Right central venous catheter in satisfactory position. Lungs: Lungs are hyperinflated, unchanged. Pleura: No effusion. No pneumothorax. Cardiomediastinal contours: Unremarkable Bones: Unremarkable IMPRESSION: Right central venous catheter in satisfactory position.
--- NOTE | 2025-03-30 17:34 | DVHNC2 ---
Procedure - INDICATION: lost all IV access, DKA management PROCEDURE CONTINUOUS PICKLING LINE PICKLER: Dr. Sierra, Resident ATTENDING PHYSICIAN: Dr. Dee CONSENT: During the informed consent discussion regarding the procedure, or treatment, I explained the following to the patient's daughter: a. Nature of the procedure or treatment and who will perform the procedure or treatment. b. Necessity for procedure and the possible benefits. c. Risks and complications (most common and serious). d. Alternative treatments and the risks, benefits and side effects of each (including no treatment). e. Likelihood of the patient achieving his/her goals without this procedure and surgery treatment. f. Problems that might occur during the recuperation. g. Conflicts of interest, if any PROCEDURE SUMMARY: The [facility] Central Line Insertion Practices form was completed by an independent observer starting with the first handwash prior to starting sterile technique. A time out was performed. My hands were washed immediately prior to the procedure. I wore a surgical cap, mask with protective eyewear, full gown and sterile gloves throughout the procedure. The patient was placed in Trendelenburg position. RIGHT chest region was prepped using chlorhexidine scrub and draped in sterile fashion using a full drape and sterile probe cover and sterile gel employed. The medial and lateral heads of the sternocleidomastoid muscle were identified as was the carotid pulse. The Internal Jugular vein was identified using the ultrasound. Anesthesia was achieved over the vein using 1% lidocaine. Using real-time out of plane guidance, the introducer needle was inserted into the Internal Jugular vein under direct ultrasound visualization. Venous blood was withdrawn. The syringe was removed and a guidewire was advanced into the introducer needle. The guidewire was visualized in the Inte rnal Jugular Vein by ultrasound. A small incision was made at the skin surface with a scalpel and the introducer needle was exchanged for a dilator over the guidewire. After appropriate dilation was obtained, the dilator was exchanged over the wire for a _ central venous catheter. The wire was removed and the catheter was sutured in place. A sterile sorbaview shield was placed over the catheter at the insertion site. The patient tolerated the procedure without any hemodynamic compromise. At time of procedure completion, all ports aspirated and flushed properly. Post-procedure chest x-ray showed right IJ CVC in appropriate position. Estimated blood loss is 5ml. FARZANA SIERRA RESIDENT Mar 30, 2025 17:34
[2025-03-30 18:31] LABS: Chloride 102 mmol/L (98-107); Potassium 4.0 mmol/L (3.5-5.1); Sodium 142 mmol/L (136-145)
[2025-03-30 18:32] LABS: Anion Gap 16 (5-15); Calcium 9.5 mg/dL (8.7-10.4); Carbon Dioxide 24 mmol/L (20-31)
[2025-03-30 18:37] LABS: BUN/Creatinine Ratio 51.8 (10.0-20.0); Glucose 103 mg/dL (74-106)
[2025-03-30 18:46] LABS: Blood Urea Nitrogen 59 mg/dL (9-23)
[2025-03-30 21:53] VITALS: PULSE 122; RESP 12; O2SAT 100
[2025-03-30] MEDS: POTASSIUM CHLORIDE 20 MEQ in D5W 5% 1,000 ML IV SCH (22:31)
[2025-03-30] MEDS: PANTOPRAZOLE 40 MG TAB PO SCH (22:32)
[2025-03-30 22:34] LABS: Chloride 103 mmol/L (98-107); Potassium 3.8 mmol/L (3.5-5.1); Sodium 141 mmol/L (136-145)
[2025-03-30 22:35] LABS: Anion Gap 15 (5-15); Calcium 9.3 mg/dL (8.7-10.4); Carbon Dioxide 23 mmol/L (20-31)
[2025-03-30 22:40] LABS: BUN/Creatinine Ratio 39.8 (10.0-20.0); Glucose 96 mg/dL (74-106)
[2025-03-30 22:43] LABS: Blood Urea Nitrogen 41 mg/dL (9-23)
[2025-03-31 04:38] LABS: Hematocrit 29.5 % (36.0-46.0); Hemoglobin 10.2 g/dL (12.2-16.2); Mean Corpuscular Hemoglobin 32.6 pg (28.0-32.0); Mean Corpuscular Volume 94.8 fL (80.0-100.0); Nucleated Red Blood Cells % 0.0 %
[2025-03-31 05:02] LABS: Alanine Aminotransferase 110 U/L (7-40); Albumin 3.3 g/dL (3.2-4.8); Alkaline Phosphatase 368 U/L (46-116); Anion Gap 13 (5-15); BUN/Creatinine Ratio 43.8 (10.0-20.0); Blood Urea Nitrogen 35 mg/dL (9-23); Calcium 9.2 mg/dL (8.7-10.4); Carbon Dioxide 24 mmol/L (20-31); Chloride 101 mmol/L (98-107); Glucose 98 mg/dL (74-106); Potassium 4.1 mmol/L (3.5-5.1); Sodium 138 mmol/L (136-145); Total Protein 5.7 g/dL (5.7-8.2)
[2025-03-31 05:03] LABS: Bilirubin, Total 0.4 mg/dL (0.2-1.0)
[2025-03-31 07:50] VITALS: PULSE 111; RESP 12; O2SAT 97
[2025-03-31] MEDS: POTASSIUM CHLORIDE 20 MEQ in D5W 5% 1,000 ML IV SCH (08:45)
[2025-03-31] MEDS ORDERED: DEXTROSE (50%) 50ML SYRG IV PRN (09:00)
[2025-03-31 09:14] LABS: Magnesium 2.0 mg/dL (1.6-2.6)
--- NOTE | 2025-03-31 09:52 | DVH ---
INDICATION: elevated lfts TECHNIQUE: Multiple real-time sonographic images of the abdomen were obtained. COMPARISON: US LIVER on DOS: 02/23/25, US KIDNEY on DOS: 01/24/24, US PELVIS COMPLETE on DOS: 04/24/23, CT ABD/PEL on DOS: 04/24/23 FINDINGS: The liver is homogeneous in echogenicity. The liver measures 21cm. No intrahepatic biliary ductal dilatation is noted. The gallbladder wall measures 0.2 cm and is unremarkable. No gallstones or sludge is seen. The common duct measures 0.2 cm and is unremarkable. No pericholecystic fluid is noted. The right kidney measures 10cm. No hydronephrosis. The left kidney measures 10cm. No hydronephrosis. Increased bilateral echogenicity. The pancreas is not well visualized due to obscuration from bowel gas. The visualized portions of the IVC and aorta are grossly unremarkable. IMPRESSION: Increased bilateral renal echogenicity, which could represent bilateral medical renal disease.
--- NOTE | 2025-03-31 10:14 | DVHPN2 ---
Subjective Patient denies any symptoms Reviewed: Care Plan, H&P, Labs, Medications Changes from previous H/P or p: No Changes General: Per HPI Eyes: No Pain, No Vision change, No Conjunctivae inflammation, No Eyelid inflammation, No Other, No Redness ENT: No Ear pain, No Ear discharge, No Nose pain, No Nose discharge, No Nose congestion, No Mouth pain, No Mouth swelling, No Throat pain, No Throat swelling, No Other Cardiovascular: No Chest Pain, No Palpitations, No Orthopnea, No Paroxysmal Noc. Dyspnea, No Edema, No Lt Headedness, No Other Respiratory: No Cough, No Dry, No Shortness of breath, No SOB with excertion, No Wheezing, No Hemoptysis, No Pleuritic Pain, No Sputum, No Other Gastrointestinal: Nausea, Vomiting, Abdominal Pain; No Diarrhea, No Constipation, No Melena, No Hematochezia, No Other Genitourinary: No Dysuria, No Frequency, No Incontinence, No Hematuria, No Retention, No Other Musculoskeletal: No other, No neck pain, No shoulder pain, No arm pain, No back pain, No hand pain, No leg pain, No foot pain Skin: No Rash, No Lesions, No Jaundice, No Bruising, No Other Objective Vitals Vital Signs Date Time Temp Pulse Resp B/P (MAP) Pulse Ox O2 Delivery O2 Flow Rate FiO2 03/31/25 08:00 108 03/31/25 07:50 98.7 12 116/69 (85) 97 98.7 03/31/25 07:50 Room Air* 0 21 Intake/Output Intake and Output 03/31/25 06:59 Intake Total 1728.25 ml Balance 1728.25 ml Intake IV Total 1728.25 ml General Appearance: Alert, Oriented X3, Cooperative, No acute distress HEENT: Atraumatic, PERRLA Lungs: Clear to auscultation, Normal air movement Cardiovascular: Normal S1, Normal S2, Other (Sinus tachycardia) Musculoskeletal: Normal sensory function, Normal motor function Skin: Dry, Intact Psych/Mental Status: Mental status NL, Mood NL Medications Current Medications Medications Dose Ordered Sig/Dave Route Start Time Stop Time Status Last Admin Dose Admin Insulin Glargine 15 units DAILY SC 03/31/25 10:00 Acetaminophen/ Hydrocodone Bitart 1 tab Q4HP PRN PO 03/30/25 08:30 Ondansetron HCl 4 mg Q4HP PRN IV 03/30/25 08:30 Docusate Sodium 100 mg BIDPRN PRN PO 03/30/25 08:30 Acetaminophen 650 mg Q6HP PRN PO 03/30/25 08:30 Nitroglycerin 0.4 mg Q5MINP PRN SL 03/30/25 08:30 Morphine Sulfate 2 mg Q30M PRN IV 03/30/25 08:30 Ceftriaxone Sodium 50 ml @ 100 mls/hr DAILY@09 IV 03/30/25 09:00 03/31/25 09:15 100 MLS/HR Morphine Sulfate 2 mg Q4HPRN PRN IV 03/30/25 09:15 Amlodipine Besylate 5 mg DAILY PO 03/31/25 10:00 Aspirin 81 mg DAILY PO 03/31/25 10:00 Furosemide 10 mg DAILY PO 03/31/25 10:00 Loratadine 10 mg DAILY PO 03/31/25 10:00 Pantoprazole Sodium 40 mg BID PO 03/30/25 22:00 03/30/25 22:32 40 MG Lisinopril 10 mg DAILY PO 03/31/25 10:00 Potassium Chloride 20 meq/ Dextrose 1,010 ml @ 50 mls/hr [id number] IV 03/31/25 08:45 03/31/25 08:45 50 MLS/HR Diagnostic Test (Pha) 1 strip IQ4HR 03/31/25 12:00 Insulin Human Regular IQ4HR SC 03/31/25 12:00 Dextrose 50 ml UD PRN IV 03/31/25 09:00 Laboratory Results Laboratory Tests 03/31/25 04:07 Chemistry Test 03/30/25 12:06 03/30/25 18:09 03/30/25 22:00 03/31/25 04:07 Calcium Level 9.9 mg/dL (8.7-10.4) 9.5 mg/dL (8.7-10.4) 9.3 mg/dL (8.7-10.4) 9.2 mg/dL (8.7-10.4) Albumin 3.3 g/dL (3.2-4.8) Magnesium Level 2.0 mg/dL (1.6-2.6) Phosphorus Level 2.5 mg/dL (2.4-5.1) Total Protein 5.7 g/dL (5.7-8.2) LFT Test 03/31/25 04:07 Alanine Aminotransferase (ALT) 110 U/L (7-40) H Alkaline Phosphatase 368 U/L (46-116) H Aspartate Amino Transferase (AST) 81 U/L (13-40) H Total Bilirubin 0.4 mg/dL (0.2-1.0) Urinalysis Test 03/30/25 09:01 Urine Color Colorless (Yellow) Urine Clarity Clear (Clear) Urine pH 5.0 (5.0-9.0) Urine Specific [place] 1.023 (1.001-1.035) Urine Protein Negative (Negative) Urine Ketones 2+ (Negative) H Urine Blood Trace /uL (Negative) H Urine Nitrite Negative (Negative) Urine Bilirubin Negative (Negative) Urine Urobilinogen Normal mg/dL (Negative) Urine Leukocyte Esterase Negative /uL (Negative) Urine RBC <1 /hpf (0 - 4) Urine Microscopic WBC 1 /HPF (0-5) Urine Squamous Epithelial Cells Few /hpf (<5) Urine Bacteria None seen /hpf (None Seen) Urine Mucus Few (None Seen) Urine Glucose 4+ mg/dL (Normal) H Labs and/or images reviewed: Labs reviewed by me, Image(s) reviewed by me Assessment/Plan Assessment/Plan Impression: -diabetic ketoacidosis -acute metabolic encephalopathy -cachexia -acute kidney injury, vasomotor nephropathy -leukocytosis, probable sirs -transaminitis Plan: -DKA resolved, stop insulin drip -regular insulin sliding scale, Lantus -start consistent carbohydrate diet -decrease IV fluids -liver ultrasound -transfer to telemetry floor -repeat labs in a.m. Total time spent with patient discussing and formulating plan of care: 35 minutes. This medical document was created using an electronic medical record system with [employer] dictation system. Although this document has been carefully reviewed, there may still be some phonetic and typographical errors. These areas are purely typographical due to imperfections of the software programs, and do not reflect any compromise in the patient's medical care. Plan discussed with: Patient, Other (Rn) My Orders Orders - LANE ELIZABETH NP Procedure Category Date Status Time D5w 5% (Dextrose 5%) PHA 03/31/25 In Process W/Potassium Chlorid 08:45 Consistent DIET 03/31/25 [facility] Breakfast LIVER US 03/31/25 Resulted 08:43 Transfer Orders XFER 03/31/25 Transmitted 08:43 Glucose Blood PHA 03/31/25 In Process (Accu-Chek Comfort 12:00 Insulin R (Human) PHA 03/31/25 In Process (Insulin R) 12:00 Dextrose 50% Syringe PHA 03/31/25 In Process 09:00 Date of Service: Mar 31, 2025 Billing Provider: LANE ELIZABETH NP Common Visit Codes: [id number] INP/OBS CARE(HIGH) LANE ELIZABETH NP Mar 31, 2025 10:14
[2025-03-31] MEDS: LISINOPRIL 20 MG TAB PO SCH (10:57)
[2025-03-31] MEDS: ASPirin-EC 81 mg tab PO SCH (10:58)
[2025-03-31] MEDS: LORATADINE 10 MG TAB PO SCH (10:58)
[2025-03-31] MEDS: FUROSEMIDE 20 MG TAB PO SCH (10:59)
[2025-03-31] MEDS: INSULIN LANTUS (GLARGINE) 1 /0.01ml (100units/ml) SC SCH (11:00)
[2025-03-31] MEDS: ACCU-CHEK COMFORT CURVE STRIP VI SCH (12:00)
[2025-03-31 12:16] LABS: Chloride 100 mmol/L (98-107); Potassium 3.7 mmol/L (3.5-5.1)
[2025-03-31 12:17] LABS: Anion Gap 9 (5-15); Calcium 8.8 mg/dL (8.7-10.4); Carbon Dioxide 27 mmol/L (20-31)
[2025-03-31 12:22] LABS: BUN/Creatinine Ratio 43.8 (10.0-20.0)
[2025-03-31 12:24] LABS: Blood Urea Nitrogen 28 mg/dL (9-23); Glucose 168 mg/dL (74-106); Sodium 136 mmol/L (136-145)
[2025-03-31] MEDS: InsuLIN REG 1unit/0.01ml Soln (100units/ml) SC SCH (12:32)
[2025-03-31 17:25] VITALS: PULSE 102; RESP 17; O2SAT 98
[2025-03-31 18:40] LABS: Chloride 100 mmol/L (98-107); Potassium 3.7 mmol/L (3.5-5.1); Sodium 138 mmol/L (136-145)
[2025-03-31 18:41] LABS: Anion Gap 10 (5-15); Carbon Dioxide 28 mmol/L (20-31)
[2025-03-31 18:42] LABS: Calcium 8.7 mg/dL (8.7-10.4)
[2025-03-31 18:47] LABS: BUN/Creatinine Ratio 46.9 (10.0-20.0)
[2025-03-31 18:48] LABS: Blood Urea Nitrogen 23 mg/dL (9-23); Glucose 62 mg/dL (74-106)
[2025-03-31 20:00] VITALS: PULSE 101; PULSE 105; RESP 14; O2SAT 93
[2025-03-31 21:00] VITALS: BP 93/65; PULSE 105; RESP 14; TEMP 98.7; O2SAT 100
[2025-03-31 22:45] LABS: Chloride 100 mmol/L (98-107); Sodium 138 mmol/L (136-145)
[2025-03-31 22:46] LABS: Anion Gap 8 (5-15); Calcium 8.7 mg/dL (8.7-10.4); Carbon Dioxide 30 mmol/L (20-31)
[2025-03-31 22:51] LABS: BUN/Creatinine Ratio 32.1 (10.0-20.0); Blood Urea Nitrogen 17 mg/dL (9-23); Glucose 79 mg/dL (74-106)
[2025-03-31 22:52] LABS: Potassium 3.5 mmol/L (3.5-5.1)
[2025-03-31 23:32] LABS: Glucose 890 mg/dL (74-106)
[2025-04-01 01:00] VITALS: BP 104/67; PULSE 107; RESP 15; TEMP 98.4; O2SAT 100
[2025-04-01 05:00] VITALS: BP 80/50; PULSE 111; RESP 15; TEMP 98.2; O2SAT 97
[2025-04-01 08:00] VITALS: PULSE 105; RESP 15; O2SAT 96
[2025-04-01 09:00] VITALS: BP 97/64; PULSE 110; RESP 16; TEMP 98.8; O2SAT 100
[2025-04-01] MEDS: POTASSIUM CHL 20 Meq TABLET PO SCH (09:41)
== END 2025-04-01 11:00 | disposition home or self-care (01) | DRG 420 ==
LOC: ER 05:10 → EDBD 05:10 → OVERFLOW 08:28 → WEST WING 03-31 17:22 → TELE-WESTW 04-01 01:00
PROVIDERS: ADMIT Nurse Practitioner Acute Care; ATTEND Nurse Practitioner Acute Care
PROC: 05HM33Z Insertion of Infusion Device into Right Internal Jugular Vein, Percutaneous Approach (ICD-10-PCS; principal; 2025-03-30)
PROC: B543ZZA Ultrasonography of Right Jugular Veins, Guidance (ICD-10-PCS; 2025-03-30)
DX: E10.10 Type 1 diabetes mellitus with ketoacidosis without coma (principal); N17.0 Acute kidney failure with tubular necrosis; G93.41 Metabolic encephalopathy; R64 Cachexia; E10.22 Type 1 diabetes mellitus with diabetic chronic kidney disease; E87.1 Hypo-osmolality and hyponatremia; R65.10 Systemic inflammatory response syndrome (SIRS) of non-infectious origin without acute organ dysfunction; I50.9 Heart failure, unspecified; N18.9 Chronic kidney disease, unspecified; I13.0 Hypertensive heart and chronic kidney disease with heart failure and stage 1 through stage 4 chronic kidney disease, or unspecified chronic kidney disease; Z53.29 Procedure and treatment not carried out because of patient's decision for other reasons; E87.5 Hyperkalemia; E78.5 Hyperlipidemia, unspecified; F17.210 Nicotine dependence, cigarettes, uncomplicated; R74.01 Elevation of levels of liver transaminase levels; Z79.4 Long term (current) use of insulin; Z79.82 Long term (current) use of aspirin; Z59.00 Homelessness unspecified; Z79.899 Other long term (current) drug therapy; Z68.1 Body mass index [BMI] 19.9 or less, adult
CPT/HCPCS: 36415; 36556; 36600; 71045; 76705; 80048; 80053; 80307; 80320; 81001; 82010; 82805; 82962; 83036; 83735; 84100; 85025; 86850; 86900; 86901; 93005; 96361; 96365; 96372; 96375; 99291; G0378; J1815; J2470